=== PATIENT | male | born 1945 | race Caucasian/White ===

== ENCOUNTER 2019-10-29 14:00 | Outpatient (RCR) | payer MEDICARE, SELFPAY | END 2019-12-02 23:59 | disposition home or self-care (01) | LOC: ANHDMC 14:00 | DX: E10.65 Type 1 diabetes mellitus with hyperglycemia (principal); Z71.89 Other specified counseling | CPT/HCPCS: G0108 ==

== ENCOUNTER 2019-12-02 01:58 | Emergency (ER) | payer MEDICARE, SELFPAY ==
--- NOTE | ~2019-12-02 | XR_ITS ---
EXAMINATION: XR abdomen/kub 1V INDICATION: Right flank pain TECHNIQUE: Supine views of the abdomen were obtained on 2 radiographs. COMPARISON: CT from today and KUB dated 08/21/2015 FINDINGS: No urinary tract calculi are identified. The bowel gas pattern is normal. The visualized nawaf ng bases are clear. There is severe lumbar spondylosis. A moderate volume of colonic stool is present . IMPRESSION: 1. No urinary tract calculi identified. Reviewed, dictated and finalized at location A. E REPAIRER RECLAMATION
--- NOTE | ~2019-12-02 | CT_ITS ---
EXAMINATION: CT abdomen pelvis wo con DATE: 12/02/2019 02:34 INDICATION: Right flank pain TECHNIQUE: Computed tomography (CT) of the abdomen and pelvis was performed without intravenous contr ast. The dose-length product (DLP) was 279.43 mGy-cm. Automated exposure control and iterative recons truction technique were employed. COMPARISON: 05/20/2006 FINDINGS: Minimal dependent atelectasis is present in the lung bases. The heart size is normal. There is a large hiatal hernia containing the fundus and body of the stomach. There is mild emphysema visu alized lower lobes. Punctate calcifications in otherwise normal appearing liver and spleen likely rep resent healed granulomatous disease. The pancreas, gallbladder, and adrenal glands are normal. The ki dneys are unremarkable. No stones are identified in the kidneys, ureters, or bladder. There is no hyd ronephrosis or hydroureter. No pathologically enlarged abdominal or pelvic lymph nodes are identified . There is calcified atherosclerosis of the aorta and many of the other arteries. There is no free in traperitoneal gas or evidence of bowel obstruction. There is severe lumbar spondylosis. IMPRESSION: 1. No CT correlate for the patient's symptoms. No urinary tract calculi identified. 2. Large hiatal hernia. Reviewed, dictated and finalized at location A. IFIED MORTICIAN IMPRESSION: 1. No CT correlate for the patient's symptoms. No urinary tract calculi identif ied. 2. Large hiatal hernia.
[2019-12-02 02:01] VITALS: BP 161/110; PULSE 83; RESP 24; TEMP 36.4; O2SAT 100
--- NOTE | 2019-12-02 02:15 | ED.ABDPAIN ---
HPI - Abdominal Pain General Chief Complaint: Urogenital-Male Stated Complaint: R Flank Pain Time Seen by Provider: 12/02/19 02:10 Source: patient and RN notes reviewed Mode of arrival: ambulatory Limitations: no limitations History of Present Illness HPI narrative: Pt is a 74 y/o male with a Hx of kidney stones, who presents to the ED with c/o rt flank pain starting around 19:00 yesterday. He notes that his pain feels similar to previous kidney stones. Pt reports nausea accompanying his pain, but denies any vomiting, fever, chills, CP, SOB, or hematuria. He notes that he took Advil for his pain around 19:30 yesterday. Patient states he was working on his truck yesterday and was bending over frequently MD elicited complaint: flank pain Pertinent past history: kidney stones Onset (ago): hour(s) (7) Location: R flank Severity: similar to previous episodes Context: confirms history of similar episodes Associated symptoms: nausea Treatments prior to arrival: NSAIDs (Advil) Related Data Allergies Allergy/AdvReac Type Severity Reaction Status Date / Time codeine AdvReac Unknown N/V Verified 02/01/18 14:13 Review of Systems Review of Systems: All systems reviewed & are unremarkable except as noted in HPI and below Constitutional: Constitutional: Denies chills and Denies fever(s) Cardiovascular: Cardiovascular: Denies chest pain Respiratory: Respiratory: Denies dyspnea Gastrointestinal: Gastrointestinal: Reports nausea and Denies vomiting Genitourinary: Genitourinary: Denies hematuria and Reports flank pain (rt flank pain) PMFSH Past Medical History Medical History Cellulitis Depression Diabetes GERD (gastroesophageal reflux disease) Kidney stones Surgical History Surgical History History of tonsillectomy Hx of shoulder surgery lt shoulder Social History Social History Smoking status: Former smoker Gender identity (if verbalized by the patient): Male Exam Narrative: Exam Narrative: APPEARANCE: No acute distress, nontoxic, resting in bed EYES: EOMI HEENT: Normocephalic, atraumatic, OMM RESPIRATORY: No respiratory distress Clear to auscultation bilaterally with no rhonchi wheezing or rales. CARDIOVASCULAR: Regular rate and rhythm without murmurs rubs or gallops. ABDOMINAL: Soft, nontender, nondistended, no rebound or guarding MUSCULOSKELETAl: Moves all extremities. No clubbing, cyanosis or edema. Back: No midline thoracic or lumbar tenderness palpation, point tenderness over right paravertebral muscles L1-2 pain increased with rotation of the torso NEURO: Awake and alert. Following commands, speech normal, no focal deficits SKIN:: Warm, dry. No rashes lesions or abrasions PSYCHIATRIC: Normal affect/mood, Course Course Emergency Course: Discussed with patient results of workup and diagnosis. Discussed need for follow-up with primary care, proper use of medication, and reasons to return to the emergency department. Patient understands and agrees to current treatment plan Vital Signs Vital signs: Vital Signs Temperature 97.5 F L 12/02/19 02:01 Pulse Rate 83 12/02/19 02:01 Respiratory Rate 24 H 12/02/19 02:01 Blood Pressure 161/110 H 12/02/19 02:01 Pulse Oximetry 100 12/02/19 02:01 Temperature 97.5 F L 12/02/19 02:01 Pulse Rate 83 12/02/19 02:01 Respiratory Rate 24 H 12/02/19 02:01 Blood Pressure 161/110 H 12/02/19 02:01 Pulse Oximetry 100 12/02/19 02:01 MDM - Abdominal Pain MDM Narrative Medical decision making narrative: Patient?s pain is positional and localized to back without signs of cord compression or cauda equina. Normal nuerologic exams. No fever noted and no significant risk factors for osteomyelitis or spinal epidural abscess. No symptoms or signs to suggest pain is referred from abdominal or source. There are no pulsati
[2019-12-02] MEDS: KETOROLAC 30 MG/ML VIAL (*BKC) IV PUSH (02:21)
[2019-12-02] MEDS: LACTATED RINGERS 1,000 ML 999 ML IV CONT (02:21)
[2019-12-02] MEDS: ONDANSETRON INJ 4 MG/2 ML VIAL IV PUSH (02:21)
[2019-12-02 02:29] LABS: Basophils Absolute Auto 0.1 K/mm3 (0.0-0.1); Eosinophils Percent Auto 0.2 % (0-4.4); Hematocrit 43.5 % (42.0-52.0); Hemoglobin 14.1 g/dL (14.0-18.0); Immature Granulocyte Absolute 0.04 K/mm3 (0.00-0.031); Immature Granulocyte Percent A 0.3 % (0-0.5); Lymphocytes Absolute Auto 3.74 K/mm3 (0.9-3.2); Lymphocytes Percent Auto 32.7 % (18.3-44.2); Mean Corpuscular HGB Conc 32.4 g/dl (32-36); Mean Corpuscular Hemoglobin 30.7 pg (26-34); Mean Corpuscular Volume 94.6 fl (80-100); Mean Platelet Volume 11.4 fl (7.4-10.4); Monocytes Absolute Auto 1.4 K/mm3 (0.1-0.6); Neutrophils Absolute Auto 6.2 K/mm3 (1.3-6.7); Neutrophils Percent Auto 53.8 % (45.5-73.1); Platelet Count Result 255 k/mm3 (150-375); Red Cell Distribution Width 13.6 % (11.5-14.5); White Blood Count 11.5 K/mm3 (4.5-10.0)
[2019-12-02 02:38] LABS: Add Urine Microscopic? YES; Appearance Urine Clear (Clear); Bilirubin Urine Negative (Negative); Blood Urine Negative (Negative); Color Urine Yellow (Yellow); Glucose Urine UA 1+ mg/dL (Negative); Ketones Urine Negative (Negative); Leukocyte Esterase Ur Trace LEU/UL (Negative); Mucus Urine Rare /lpf; Nitrate Urine Negative (Negative); Protein Urine Negative (Negative); RBC Urine 0-2 /hpf (0-2); Specific Grav Ur 1.019 (1.001-1.035); Squamous Epithelial Cell Urine Rare /hpf (Few)
[2019-12-02 02:42] LABS: Alanine Aminotransferase 25 U/L (4-50); Albumin Level 4.1 g/dL (3.5-5.1); Alkaline Phosphatase 108 U/L (38-126); Aspartate Amino Transferase 27 U/L (17-59); Bilirubin,Total 0.4 mg/dL (0.2-1.3); Blood Urea Nitrogen 28 mg/dL (9-20); Carbon Dioxide 23 mmol/L (22-30); Chloride 105 mmol/L (98-107); Estimated Glomerular Filt Rate > 60; Glucose 115 mg/dL (75-110); Potassium 4.3 mmol/L (3.4-5.0); Sodium 142 mmol/L (137-145)
--- NOTE | 2019-12-02 03:34 | ECG_ITS ---
Measurements Intervals [place] Rate: 75 P: 66 IA: 174 QRS: 42 QRSD: 92 T: 41 QT: 377 QTc: 423 Interpretive Statements SINUS RHYTHM BASELINE ARTIFACT- I, II NORMAL ECG Electronically Signed On 12-02-2019 6:55:38 FEATHER DRYING MACHINE OPERATOR by Maik Moss D.O.
--- NOTE | 2019-12-02 03:35 | PC.NURSE ---
Patient requesting more IV pain medication prior to discharge. Explained to patient that we could not have narcotics to a patient that is driving themselves. Patient stated, that's silly. Explained I would speak with provider regarding more pain medication, patient stated, forget it.
[2019-12-02 03:44] VITALS: BP 156/98; PULSE 85; RESP 18; O2SAT 98
[2019-12-02] MEDS: NITROFURANTOIN MONOHYD MACROCR 100 MG CAP PO (03:44)
== END 2019-12-02 03:45 | disposition home or self-care (01) ==
PROVIDERS: Emergency Provider Emergency Medicine
DX: N39.0 Urinary tract infection, site not specified (principal); E11.9 Type 2 diabetes mellitus without complications; K21.9 Gastro-esophageal reflux disease without esophagitis; Z87.440 Personal history of urinary (tract) infections; Z87.891 Personal history of nicotine dependence; K44.9 Diaphragmatic hernia without obstruction or gangrene
CPT/HCPCS: 36415; 74018; 74176; 80053; 81001; 85025; 93005; 96361; 96374; 96375; 99284; A9270; J1885; J2405; J7120

== ENCOUNTER 2020-01-14 10:30 | Outpatient (RCR) | payer MEDICARE, SELFPAY | END 2020-03-02 23:59 | disposition home or self-care (01) | LOC: ANHDMC 10:30 | DX: E10.65 Type 1 diabetes mellitus with hyperglycemia (principal); Z71.89 Other specified counseling | CPT/HCPCS: G0108 ==

== ENCOUNTER 2020-04-28 10:30 | Outpatient (RCR) | payer MEDICARE, SELFPAY | END 2020-06-15 23:59 | disposition home or self-care (01) | LOC: ANHDMC 10:30 | DX: E10.65 Type 1 diabetes mellitus with hyperglycemia (principal); Z71.89 Other specified counseling | CPT/HCPCS: G0108 ==

== ENCOUNTER 2020-08-04 09:16 | Outpatient (RCR) | payer MEDICARE, SELFPAY | END 2020-08-04 17:23 | disposition home or self-care (01) | LOC: ANHDMC 09:16 | DX: E10.65 Type 1 diabetes mellitus with hyperglycemia (principal); Z71.89 Other specified counseling | CPT/HCPCS: G0108 ==

== ENCOUNTER 2021-07-14 10:00 | Outpatient (RCR) | payer MEDICARE, SELFPAY ==
[2021-04-27 11:04] VITALS: BMI 25.7
[2021-04-27 11:19] VITALS: BMI 25.7
[2021-07-14 10:15] VITALS: BMI 25.7
== END 2021-07-19 10:43 | disposition home or self-care (01) ==
LOC: ANHDMC 10:00
DX: E10.65 Type 1 diabetes mellitus with hyperglycemia (principal); Z71.3 Dietary counseling and surveillance
CPT/HCPCS: 97802; 97803

== ENCOUNTER 2021-09-23 13:00 | Outpatient (RCR) | payer MEDICARE, SELFPAY | END 2021-10-15 11:15 | disposition home or self-care (01) | LOC: ANHDMC 13:00 | DX: E10.65 Type 1 diabetes mellitus with hyperglycemia (principal); Z71.89 Other specified counseling | CPT/HCPCS: G0108 ==

== ENCOUNTER 2022-03-25 16:43 | Outpatient (CLI) | payer MEDICARE, SELFPAY ==
--- NOTE | ~2022-03-25 | MR_ITS ---
EXAMINATION: MR brain/brain stem wo/w con DATE: 03/25/2022 17:31 INDICATION: Memory loss. TECHNIQUE: Magnetic resonance imaging (MRI) of the brain and brainstem was performed without and with 17 mL MultiHance intravenous contrast. COMPARISON: None. FINDINGS: There are scattered areas of nonspecific increased T2-weighted signal intensity in the cere bral white matter. There is an old lacunar infarct in the right lentiform nucleus. There is no intrac ranial hemorrhage, acute infarction, or abnormal intracranial mass lesion. The ventricles are normal in size. There is a trace left mastoid effusion. There is mild mucosal thickening in the paranasal si nuses. There are likely changes of ocular lens replacement surgeries. IMPRESSION: 1. 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 2. Mild nonspecific cerebral white matter disease, which likely represents chronic small vessel ische cipriano disease. Reviewed, dictated and finalized at location B. IMPRESSION: 1. 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 2. Mild nonspecific cerebral white matter disease, which likely represents gas torch brazier yonatan small vessel ischemic disease.
[2022-03-25 17:16] LABS: Estimated Glomerular Filt Rate > 60
== END 2022-03-25 16:44 | disposition home or self-care (01) ==
PROVIDERS: Visit Provider Internal Medicine
DX: R47.9 Unspecified speech disturbances (principal); R41.3 Other amnesia; Z86.73 Personal history of transient ischemic attack (TIA), and cerebral infarction without residual deficits; R90.82 White matter disease, unspecified
CPT/HCPCS: 70553; A9577

== ENCOUNTER 2022-12-10 19:10 | Observation (INO) | payer MEDICARE, SELFPAY ==
--- NOTE | ~2022-12-10 | CT_ITS ---
EXAMINATION: CT brain wo con INDICATION: Confusion and weakness COMPARISON: MRI, 03/25/2022 TECHNIQUE: Standard unenhanced head CT. The dose-length product (DLP) was 681.00 mGy-cm. The mA was a djusted according to patient size. Iterative reconstruction technique was employed. FINDINGS: There is no acute intraparenchymal hemorrhage. No evidence of mass lesion. No evidence of a cute infarction. Again noted is an old infarct in the right lentiform nucleus. There is mild perivent ricular and subcortical hypodensity probably related to small vessel ischemic disease. There is mild prominence of the sulci and ventricles related to cerebral atrophy. Intracranial calcified cerebral a therosclerosis is noted. There are no extra-axial collections. There is no mass effect or midline yonathan ft. Changes in the globes are likely from ocular lens surgery. There is mild mucosal thickening of th e paranasal sinuses. IMPRESSION: 1. No acute intracranial abnormality. 2. Age related findings. Reviewed, dictated and finalized at location F. LIFE PHOTOGRAPHER
--- NOTE | ~2022-12-10 | XR_ITS ---
EXAMINATION: XR chest 1V portable INDICATION: Fever TECHNIQUE: Portable AP chest at 1959 hours COMPARISON: 02/01/2018 FINDINGS: The lungs are free of acute opacities. No pleural effusion or pneumothorax. The heart size is normal. There is moderate thoracic spondylosis. There appear to be changes of remote trauma to the left distal clavicle/acromioclavicular joint. IMPRESSION: 1. No acute cardiopulmonary abnormality. Reviewed, dictated and finalized at location F. MAKER HELPER
[2022-12-10 19:09] VITALS: BP 138/69; PULSE 102; RESP 18; TEMP 37.5; O2SAT 93
--- NOTE | 2022-12-10 19:18 | ED.GENADULT ---
HPI - General Adult General Chief complaint: Altered Mental Status Stated complaint: WEAKNESS; N/V Time Seen by Provider: 12/10/22 19:14 Source: patient and family Mode of arrival: EMS Limitations: clinical condition History of Present Illness HPI narrative: Patient is a 77 y/o male who presents to the ED via EMS with c/o AMS. Family at bedside assisted in providing information. Patient has no acute complaints. He is unable to tell me why he is in the ER or what made him come here. at bedside reports patient was acting normally yesterday, last night, and up until this afternoon. He did complain of some congestion and sinus pressure this morning and took 1 Benadryl before taking a nap. When came back from dinner with the family member, she noted that he was somewhat altered, confused. She states he was sitting naked in his recliner chair and told her that he had wet himself. She states patient was weak and unable to ambulate, so EMS was called. Patient does have a history of dementia, but typically is alert and oriented x4 and able to care for himself. Patient did have a fever up to 102 degrees at home. Patient somewhat restless in ED bed, moving all extremities, does report history of restless leg syndrome, but states he does not typically move around so much. Patient developed N/V upon arrival to the ED. Currently still nauseous, but denies any abdominal pain, CP, SOB. Related Data Home Medications Medication Instructions Recorded Confirmed bupropion HCl 300 mg 24 hr tablet, 300 mg PO HS 12/11/22 12/11/22 extended release clonazepam 0.5 mg tablet 0.5 mg PO DAILY PRN restless legs 12/11/22 12/11/22 enalapril maleate 20 mg tablet 20 mg PO Q12H 12/11/22 12/11/22 insulin aspart U-100 100 unit/mL See Rx Instructions .Route .COMPLEX 12/11/22 12/11/22 subcutaneous solution (Novolog U-100 Insulin aspart) memantine 5 mg tablet 5 mg PO BID 12/11/22 12/11/22 metoprolol succinate 25 mg 25 mg PO HS 12/11/22 12/11/22 tablet,extended release 24 hr rosuvastatin 5 mg tablet 5 mg PO HS 12/11/22 12/11/22 semaglutide 0.25 mg or 0.5 mg (2 0.25 mg subcut WEEKLY 12/11/22 12/11/22 mg/1.5 mL) subcutaneous pen injector (Ozempic) sertraline 100 mg tablet 100 mg PO HS 12/11/22 12/11/22 tamsulosin 0.4 mg capsule 0.4 mg PO HS 12/11/22 12/11/22 Allergies Allergy/AdvReac Type Severity Reaction Status Date / Time atorvastatin AdvReac Unknown Unknown Verified 12/11/22 02:48 codeine AdvReac Unknown N/V Verified 12/11/22 02:48 Review of Systems Review of Systems: CONSTITUTIONAL: See HPI. ENT: See HPI. CARDIOVASCULAR: Denies chest pain. RESPIRATORY: Denies dyspnea. GASTROINTESTINAL: See HPI. NEUROLOGIC: See HPI. All systems reviewed & are unremarkable except as noted in HPI and below PMFSH Past Medical History Medical History Cellulitis Dementia Depression Diabetes GERD (gastroesophageal reflux disease) Kidney stones RLS (restless legs syndrome) Surgical History Surgical History History of tonsillectomy Hx of shoulder surgery lt shoulder Family History Family History (Updated 12/11/22 @ 03:30 by Sourav Mckenna RN) Father Brain cancer Sibling Wilms' tumor Grandparent Breast cancer Social History Social History Smoking packs per day: 2 Smoking cigarettes per day: 40.0 Years smoked: 15 Smoking pack-years: 30.00 Smoking status: Former smoker Tobacco type: cigarettes Alcohol intake: current Drinks per week: 7 Substance use: never Lack of Transportation: No Lack of Food: Never True Current Housing: I Have Housing Concerned About Future Housing: No Difficulty Paying Gas/Electric Bills: No Difficulty Paying for Meds: No Currently Unemployed: No Education: High School Diploma/GED Difficul
--- NOTE | 2022-12-10 19:34 | ECG_ITS ---
Measurements Intervals [place] Rate: 100 P: 44 MS: 163 QRS: 19 QRSD: 94 T: 12 QT: 338 QTc: 437 Interpretive Statements SINUS TACHYCARDIA BASELINE ARTIFACT- I, II, III, AVR, AVL, AVF, V6 BORDERLINE ECG COMPARED TO ECG 12/02/2019 03:11:32 SINUS TACHYCARDIA NOW PRESENT Electronically Signed On 12-11-2022 6:44:18 METAPHYSICIAN by Maik Moss D.O.
[2022-12-10 20:04] LABS: Alveolar/Arterial O2 Gradient 49.6 mmHg; Base Excess ABG 0.7 mEq/l (+/-2.0); Carboxyhemoglobin 1.4 % THb (0-2.0); Fractional Inspired Oxygen 21 %; HCO3 ABG 23.8 mEq/l (22.0-26.0); Methemoglobin ABG 0.4 %THb (0-1.5); Oxygen Content ABG 18.7 %vol (16.0-22.0); Oxygen Saturation ABG 92.6 % (95.0-100.0); PCO2 ABG 33.7 mmHg (35.0-45.0); PO2 ABG 59.8 mmHg (80.0-100.0); PO2 FiO2 Ratio Arterial Blood 2.85 %; Reduced Hemoglobin 7.2 %THb (0-5.0); Total Hemoglobin 14.6 g/dL (12.0-18.0); pH ABG 7.467 (7.350-7.450)
[2022-12-10 20:05] LABS: Modified Allen's Test Pass; Site Drawn LEFT RADIAL
[2022-12-10] MEDS: SODIUM CHLORIDE 0.9% IV 1,000 ML 999 ML IV CONT ×2 (20:15→23:40)
[2022-12-10] MEDS: ONDANSETRON INJ 4 MG/2 ML VIAL IV PUSH (20:16)
[2022-12-10 20:26] VITALS: BP 142/62; PULSE 98; RESP 16; O2SAT 94
[2022-12-10 20:46] VITALS: TEMP 37.3
[2022-12-10 21:02] LABS: Basophils Absolute Auto 0.1 K/mm3 (0.0-0.1); Basophils Percent Auto 0.7 % (0.2-1.2); Eosinophils Absolute Auto 0.2 K/mm3 (0-0.3); Eosinophils Percent Auto 2.3 % (0-4.4); Hematocrit 40.8 % (42.0-52.0); Hemoglobin 13.6 g/dL (14.0-18.0); Immature Granulocyte Absolute 0.04 K/mm3 (0.00-0.031); Immature Granulocyte Percent A 0.5 % (0-0.5); Lymphocytes Absolute Auto 0.76 K/mm3 (0.9-3.2); Lymphocytes Percent Auto 8.9 % (18.3-44.2); Mean Corpuscular HGB Conc 33.3 g/dl (32-36); Mean Corpuscular Hemoglobin 31.7 pg (26-34); Mean Corpuscular Volume 95.1 fl (80-100); Mean Platelet Volume 11.5 fl (7.4-10.4); Monocytes Absolute Auto 1.3 K/mm3 (0.1-0.6); Monocytes Percent Auto 15.2 % (2.6-8.5); Neutrophils Absolute Auto 6.2 K/mm3 (1.3-6.7); Neutrophils Percent Auto 72.4 % (45.5-73.1); Platelet Count Result 156 k/mm3 (150-375); Red Blood Count 4.29 M/mm3 (4.6-6.20); Red Cell Distribution Width 13.7 % (11.5-14.5); White Blood Count 8.6 K/mm3 (4.5-10.0)
[2022-12-10 21:12] LABS: Lactic Acid Reflex 0.6 mmol/L (0.7-2.0)
[2022-12-10 21:15] LABS: Alanine Aminotransferase 27 U/L (6-50); Albumin Level 3.9 g/dL (3.5-5.1); Alkaline Phosphatase 88 U/L (38-126); Anion Gap 4 mmol/L (8-16); Aspartate Amino Transferase 25 U/L (17-59); Bilirubin,Total 0.7 mg/dL (0.2-1.3); Blood Urea Nitrogen 18 mg/dL (9-20); Calcium 8.2 mg/dL (8.4-10.2); Carbon Dioxide 23 mmol/L (22-30); Chloride 97 mmol/L (98-107); Estimated CRCL calculation 74 ml/min; Estimated Glomerular Filt Rate > 60; Glucose 101 mg/dL (65-110); Magnesium 1.8 mg/dL (1.6-2.3); Potassium 3.7 mmol/L (3.4-5.0); Sodium 124 mmol/L (137-145)
[2022-12-10 21:22] LABS: INR 1.2; Prothrombin Time 14.4 Seconds (11.1-14.7)
[2022-12-10 21:23] LABS: Partial Thromboplastin Time 30.6 SECONDS (22.3-36.8)
[2022-12-10 21:37] LABS: Influenza A QL RT-PCR Negative (Negative); Influenza B QL RT-PCR Negative (Negative); SARS-CoV-2 RNA PCR Positive
[2022-12-10 21:52] VITALS: BP 118/56; PULSE 93; RESP 16; O2SAT 96
--- NOTE | 2022-12-10 21:52 | PC.NURSE ---
Pt attmepted to give urine sample at this time. No success. Refused straight catheter.
[2022-12-10 22:19] LABS: Ammonia < 9 umol/L (9-30); Ethanol < 10 mg/dL (<10)
[2022-12-10 23:09] LABS: Appearance Urine Clear (Clear); Bilirubin Urine Negative (Negative); Blood Urine Negative (Negative); Color Urine Yellow (Yellow); Glucose Urine UA Negative (Negative); Ketones Urine Negative (Negative); Leukocyte Esterase Ur Negative LEU/UL (Negative); Nitrate Urine Negative (Negative); Protein Urine Negative (Negative); Specific Grav Ur 1.025 (1.001-1.035)
[2022-12-10 23:12] LABS: Mucus Urine Rare /lpf; RBC Urine 0-2 /hpf (0-2); WBC Urine 0-3 /hpf
[2022-12-10 23:17] LABS: Add Urine Microscopic? NO
[2022-12-10 23:18] VITALS: PULSE 89; RESP 16; TEMP 36.9; O2SAT 96
[2022-12-10 23:30] LABS: Amphetamine Screen Urine Negative (Negative); Barbiturate Screen Urine Negative (Negative); Benzodiazepines Screen Urine Negative (Negative); Cannabinoid Screen Urine Negative (Negative); Cocaine Screen Urine Negative (Negative); Methadone Screen Urine Negative (Negative); Opiate Screen Urine Negative (Negative); Phencyclidine Screen Urine Negative (Negative)
[2022-12-10 23:33] VITALS: BP 105/59
[2022-12-11] VITALS (13 sets, daily range): BP systolic 102–140; BP diastolic 41–77; PULSE 79–94; RESP 18–24; TEMP 36.6–37; O2SAT 93–98; BMI 24.7
[2022-12-11 00:34] LABS: Anion Gap 5 mmol/L (8-16); Blood Urea Nitrogen 20 mg/dL (9-20); Carbon Dioxide 24 mmol/L (22-30); Chloride 106 mmol/L (98-107); Estimated CRCL calculation 60 ml/min; Estimated Glomerular Filt Rate > 60; Glucose 121 mg/dL (65-110); Potassium 4.2 mmol/L (3.4-5.0); Sodium 135 mmol/L (137-145)
--- NOTE | 2022-12-11 02:35 | PC.NURSE ---
This patient, Curly Bean, was admitted to Medical Room 255-01. Patient/family oriented to hospital policies and general routines including ID bracelet, bed and alarms, visiting hours, pain management, procedures, bathroom and other care routines, personal items, smoking policy, room service/diet, and visiting hours. Information on how to activate the Rapid Response Team has been discussed. Patient/Family are encouraged to report perceived risks to care and to ask questions if they do not understand what they are told or what they should do.
[2022-12-11] MEDS: SODIUM CHLORIDE 0.9% IV 1,000 ML 125 ML IV CONT (03:22)
--- NOTE | 2022-12-11 03:59 | PC.NURSE ---
Patient states he refuses to wear his continuous pulse oximetry and he will let nursing staff know if he has any respiratory issues. He also has an insulin pump that his beauty counselor manages and would prefer to not take it off during this admission as he states he knows how to use it properly. Patient is alert and orientedx4.
[2022-12-11 04:31] LABS: Sodium 135 mmol/L (137-145)
--- NOTE | 2022-12-11 08:27 | PM.IMHP ---
H&P: HPI History of Present Illness Date/Time: 12/11/22 08:27 Chief Complaint: Altered mental status Narrative: 77yo male with dementia, insulin DM and RLS here for altered mental status and found to have COVID. Patient is alert oriented x4 this morning. Provides following history. History is supplemented by notes in the chart. Patient states that he was lethargic prompting this admission. According to the notes, patient was complain of congestion and sinus pressure on the morning of admission took Benadryl. Was returned she noted that the patient altered mental status. Was sitting naked his recliner chair that he urine incontinence. He had difficulty ambulating so EMS was called. She did have a fever up to 102? at. Patient states he has been having nasal congestion and a nonproductive cough with past few days. He remembers having fever but no chills. No sore throat. He denies specifically any headaches, vision changes, hearing changes, otalgia, diet faecium, dysphagia, chest pain, palpitations, shortness of breath, vomiting, diarrhea, abdominal pain, dysuria, hematuria. No numbness, tingling or weakness his extremities. He did have some mild nausea in the ED this has resolved. Patient does have insulin-dependent diabetes and has insulin pump in place. He is not believe that he had hypoglycemia. He does have rare episodes of hypoglycemia at home. He denies any history of peripheral neuropathy, nephropathy or retinopathy. Last A1c was in the 7 range. He is followed by endocrinology. EMS was called and patient was brought to the emergency room for evaluation. In the emergency, he was mildly tachycardic at 102. Vital signs otherwise were stable. He was afebrile. COVID was positive. Influenza was negative. Head CT showed no acute findings. Chest x-ray was clear. White count was normal. Sodium was 124. Glucose was 101. Normal liver and renal function. Urine drug screen is negative. Alcohol levels less than 10. Urinalysis was clear. Ammonia level is less than 9. PH was 7.47 with pCO2 34 and a PO2 60 with a saturation of 93% on room air. He was given Zofran and acetaminophen. He was given IV fluids and admitted for further care. Patient did have a sodium drawn last evening at 9:55 p.m. and was 135. Sodium this morning is again 135. Patient has been vaccinated for COVID and Influenza in August. No EMS report in the chart. Glucose was 84 on EMS arrival per . She was unsure of what the blood pressure was. She confirms recent A1c 7.7. No history of low blood pressure with his current medications. [facility] Past Medical History Medical History (Updated 12/11/22 @ 09:29 by Derek Bauman MD) Cellulitis Dementia Depression Diabetes GERD (gastroesophageal reflux disease) HTN (hypertension), benign Kidney stones RLS (restless legs syndrome) Surgical History Surgical History History of tonsillectomy Hx of shoulder surgery lt shoulder Family History Family History Father Brain cancer Sibling Wilms' tumor Grandparent Breast cancer Social History Social History (Updated 12/11/22 @ 09:25 by Derek Bauman MD) Social History: Patient smoked up to 2 packs a day for 17 years but quit at age 35. He drinks 1 alcoholic drink per day. Denies drug use. Lives with his . He is a full code. He nominates his to be the individual who would make medical decisions for him if he is unable. Smoking packs per day: 2 Smoking cigarettes per day: 40.0 Years smoked: 15 Smoking pack-years: 30.00 Smoking status: Former smoker Tobacco type: cigarettes Alcohol intake: current Drinks per week: 7 Substance use: never Lack of Transportation: No Lack of Food: Never True Current Housing: I Have Housing Concerned About Future Housing: No Difficulty Paying Gas/Electric [place]
[2022-12-11 09:46] LABS: Hemoglobin A1C 7.8 % (<5.7)
[2022-12-11 09:47] LABS: Anion Gap 4 mmol/L (8-16); Blood Urea Nitrogen 18 mg/dL (9-20); Calcium 7.9 mg/dL (8.4-10.2); Carbon Dioxide 26 mmol/L (22-30); Chloride 109 mmol/L (98-107); Estimated CRCL calculation 66 ml/min; Estimated Glomerular Filt Rate > 60; Glucose 194 mg/dL (65-110); Potassium 4.2 mmol/L (3.4-5.0); Sodium 139 mmol/L (137-145)
[2022-12-11] MEDS: ENOXAPARIN 40 MG/0.4 ML SYRINGE SUB-Q (09:59)
[2022-12-11] MEDS: ENALAPRIL MALEATE 10 MG TABLET 20 MG PO ×2 (09:59→20:54)
[2022-12-11] MEDS: MEMANTINE 5 MG TABLET PO ×2 (10:00→17:25)
[2022-12-11 10:34] LABS: Glucose Point of Care 148 mg/dl (65-105)
[2022-12-11 10:53] LABS: Folic Acid 12.5 ng/mL (2.76->20)
[2022-12-11] MEDS: DEXTROSE 5% 1,000 ML 1,000 ML 100 ML IV CONT (11:30)
[2022-12-11 12:09] LABS: Sodium 133 mmol/L (137-145)
[2022-12-11 12:26] LABS: Glucose Point of Care 173 mg/dl (65-105)
[2022-12-11 17:22] LABS: Glucose Point of Care 195 mg/dl (65-105)
[2022-12-11 17:27] LABS: Sodium 133 mmol/L (137-145)
--- NOTE | 2022-12-11 18:09 | PC.NURSE ---
this nurse spoke with Dr. Bauman, it is ok per Dr. Bauman for the patient to use his CGM and insulin pump while in the hospital. This nurse spoke with the patient and advised him on how to accurately document his boluses and advised the patient to not bolus himself-the nurse will advise him when/how many units to bolus if necessary.
[2022-12-11] MEDS: ROSUVASTATIN 5 MG TABLET PO (20:52)
[2022-12-11] MEDS: TAMSULOSIN HCL 0.4 MG CAPSULE PO (20:52)
[2022-12-11] MEDS: SERTRALINE HCL 50 MG TABLET 100 MG PO (20:53)
[2022-12-11] MEDS: buPROPion HCL XL (24 HR) 150 MG TABCR 300 MG PO (20:53)
[2022-12-11] MEDS: METOPROLOL SUCCINATE EXT REL 25 MG TABCR PO (20:54)
[2022-12-11 21:01] LABS: Glucose Point of Care 210 mg/dl (65-105)
[2022-12-12] VITALS: PULSE 88
[2022-12-12 01:34] LABS: Sodium 134 mmol/L (137-145)
[2022-12-12 04:00] VITALS: PULSE 86
[2022-12-12 05:33] VITALS: BP 132/58; PULSE 82; RESP 18; TEMP 36.9; O2SAT 95
--- NOTE | 2022-12-12 06:26 | PC.NURSE ---
Pt removed insulin pump. He stated he is unable to monitor his glucose level so he took it out.
[2022-12-12 08:00] VITALS: PULSE 92
[2022-12-12 08:02] LABS: Glucose Point of Care 219 mg/dl (65-105)
[2022-12-12] MEDS: ENOXAPARIN 40 MG/0.4 ML SYRINGE SUB-Q (08:42)
--- NOTE | 2022-12-12 10:28 | PM.DS ---
DS: Admitting Diagnosis Discharge Date 12/12/22 Admitting Diagnosis Altered mental status DS: Discharge Diagnosis Discharge Diagnosis (1) Altered mental status: Qualifiers: Altered mental status type: unspecified Qualified Code(s): R41.82 - Altered mental status, unspecified Code(s): R41.82 - Altered mental status, unspecified Status: Acute (2) COVID-19: Code(s): U07.1 - COVID-19 Status: Acute (3) Hyponatremia: Code(s): E87.1 - Hypo-osmolality and hyponatremia Status: Acute (4) Dementia: Code(s): F03.90 - Unspecified dementia, unspecified severity, without behavioral disturbance, psychotic disturbance, mood disturbance, and anxiety Status: Acute (5) Diabetes: Code(s): E11.9 - Type 2 diabetes mellitus without complications Status: Acute (6) Depression: Code(s): F32.9 - Major depressive disorder, single episode, unspecified Status: Acute (7) HTN (hypertension), benign: Code(s): I10 - Essential (primary) hypertension Status: Acute DS: Summary Hospital Course Reason for hospitalization: 77yo male with dementia, insulin DM and RLS here for altered mental status and found to have COVID.? Please see H&P for details. Hospital Course: Patient was noted to be confused at home and he was brought in by EMS. In the emergency, he was mildly tachycardic at 102.? Vital signs otherwise were stable.? He was afebrile.? COVID was positive.? Influenza was negative.? Head CT showed no acute findings.? Chest x-ray was clear.? White count was normal.? Sodium was 124.? Glucose was 101.? Normal liver and renal function.? Urine drug screen was negative.? Alcohol levels less than 10.? Urinalysis was clear.? Ammonia level is less than 9.? PH was 7.47 with pCO2 34 and a PO2 60 with a saturation of 93% on room air.? He was given Zofran and acetaminophen.? He was given IV fluids and admitted to the medical floor. Patient's mental status returned to normal. Etiologies could include fever/COVID and/or Benadryl use and/or hyponatremia and/or hypoglycemia and/or hypotension. No evidence of hypoglycemia per family. Patient however did have an episode of incontinence. It is unclear if he was just weak or if he had seizure related to hypoglycemia. This seems however less likely. His sodium was 124 on admission but jumped to 135 on repeat testing. This could be related to COVID. He is also on sertraline which could be also contributing to hyponatremia. We started D5W and stopped his normal saline. We followed serial sodium levels. Sodium leveled remained stable and was 134 on last check. We continued his insulin pump. A1c 7.8. B12, Folate and TSH normal. He was independent. He remained off Oxygen. He overall did well and was able to be discharged home on 12/12/22. Discharge instructions discussed Status at Discharge Cognitive/behavioral status at discharge: stable Time Spent with Patient Time attestation: Total time spent providing and/or coordinating discharge services: 34 minutes Time spent: Greater than 30 minutes Exam Narrative: AF 132/58 82 18 95% ra Gen - NARD Chest - lungs are clear to auscultation bilaterally. CV - RRR S1/S2 Abd - soft. Nontender. Nondistended. Ext - no pedal edema. Neuro - nonfocal Psych - normal mood and affect. Skin - warm and dry. DS: Data Data Completed and Pending Labs on day of discharge: Labs from last 24 hours 12/12/22 12/12/22 12/11/22 08:00 00:52 20:53 Sodium 134 L POC Capillary Glucose 219 H 210 H Vitamin B12 Folate TSH (Reflex) 12/11/22 12/11/22 12/11/22 17:16 17:15 12:22 Sodium 133 L POC Capillary Glucose 195 H 173 H Vitamin B12 Folate TSH (Reflex) 12/11/22 12/11/22 12/11/22 11:50 10:29 09:29 Sodium 133 L POC Capillary Glucose 148 H Vitamin B12 Folate TSH (Reflex) 0.560 12/11/22 09:29 Sodium POC Capi
== END 2022-12-12 13:09 | disposition home or self-care (01) ==
LOC: ANHED 23:14 → ANH2MED 12-11 02:58
PROVIDERS: Admitting Provider Internal Medicine; Emergency Provider Physician Assistant; PCP Internal Medicine; Visit Provider Internal Medicine
DX: R41.82 Altered mental status, unspecified (principal); U07.1 COVID-19; E87.1 Hypo-osmolality and hyponatremia; F03.90 Unspecified dementia, unspecified severity, without behavioral disturbance, psychotic disturbance, mood disturbance, and anxiety; E11.9 Type 2 diabetes mellitus without complications; Z96.41 Presence of insulin pump (external) (internal); F32.9 Major depressive disorder, single episode, unspecified; I10 Essential (primary) hypertension; R50.9 Fever, unspecified; R53.1 Weakness; R05.9 Cough, unspecified; R53.83 Other fatigue; G25.81 Restless legs syndrome; R00.0 Tachycardia, unspecified; F10.90 Alcohol use, unspecified, uncomplicated; Y90.0 Blood alcohol level of less than 20 mg/100 ml; K21.9 Gastro-esophageal reflux disease without esophagitis; Z87.891 Personal history of nicotine dependence; Z79.1 Long term (current) use of non-steroidal anti-inflammatories (NSAID); Z79.4 Long term (current) use of insulin; Z79.899 Other long term (current) drug therapy
CPT/HCPCS: 36415; 36600; 51701; 70450; 71045; 80048; 80053; 80307; 81003; 82140; 82375; 82607; 82746; 82805; 82948; 83036; 83050; 83605; 83735; 84295; 84443; 85025; 85610; 85730; 87040; 87636; 93005; 96361; 96365; 96372; 96375; 99285; A9270; G0378; J0131; J1650; J2405; J7030; J7070

== ENCOUNTER 2024-01-05 10:45 | Emergency (ER) | payer MEDICARE, SELFPAY ==
[2024-01-05 10:57] VITALS: BP 157/87; PULSE 78; RESP 20; TEMP 36.2; O2SAT 98
--- NOTE | 2024-01-05 11:13 | ED.NECK ---
HPI - Neck Pain/Injury General Chief Complaint: Neck Pain/Injury Stated Complaint: Neck Pain Time Seen by Provider: 01/05/24 11:15 Source: patient and RN notes reviewed Mode of arrival: ambulatory Limitations: no limitations History of Present Illness HPI Narrative: 78-year-old male presents with concern for neck pain. He reports he has had neck pain for 1 month, he see his primary care doctor who did x-rays told he has arthritis. He has also seen a chiropractor who provides temporary relief. He reports he wanted to get the pain ?taking care of? he denies weakness in any extremity, numbness or tingling. Reports pain is worse when turning to the left. Reports pain radiates up to the back of his head MD complaint: neck pain Related Data Home Medications Medication Instructions Recorded Confirmed bupropion HCl 300 mg 24 hr tablet, 300 mg PO HS 12/11/22 01/05/24 extended release clonazepam 0.5 mg tablet 0.5 mg PO DAILY PRN restless legs 12/11/22 01/05/24 insulin aspart U-100 100 unit/mL See Rx Instructions .Route .COMPLEX 12/11/22 01/05/24 subcutaneous solution (Novolog U-100 Insulin aspart) metoprolol succinate 25 mg 25 mg PO HS 12/11/22 01/05/24 tablet,extended release 24 hr rosuvastatin 5 mg tablet 5 mg PO HS 12/11/22 01/05/24 semaglutide 0.25 mg or 0.5 mg (2 0.25 mg subcut WEEKLY 12/11/22 01/05/24 mg/1.5 mL) subcutaneous pen injector (Ozempic) sertraline 100 mg tablet 100 mg PO HS 12/11/22 01/05/24 tamsulosin 0.4 mg capsule 0.4 mg PO HS 12/11/22 01/05/24 Allergies Allergy/AdvReac Type Severity Reaction Status Date / Time atorvastatin AdvReac Unknown Unknown Verified 01/05/24 10:55 codeine AdvReac Unknown N/V Verified 01/05/24 10:55 Review of Systems Review of Systems: CONSTITUTIONAL: Denies malaise, chills, sweats, or fever. CARDIOVASCULAR: Denies chest pain, palpitations, or edema. RESPIRATORY: Denies cough or dyspnea. GASTROINTESTINAL: Denies abdominal pain, nausea, vomiting, diarrhea, loss of bowel function GENITOURINARY: Denies dysuria, hematuria, frequency, loss of bladder function. SKIN: Denies rash or itching. MUSCULOSKELETAL: Reports neck pain NEUROLOGIC: Denies numbness, weakness, or headache. All systems reviewed & are unremarkable except as noted in HPI and below PMFSH Past Medical History Medical History (Updated 01/05/24 @ 11:23 by Alysia Kohler NP) Cellulitis Dementia Depression Diabetes GERD (gastroesophageal reflux disease) HTN (hypertension), benign Kidney stones RLS (restless legs syndrome) Surgical History Surgical History History of tonsillectomy Hx of shoulder surgery lt shoulder Family History Family History Father Brain cancer Sibling Wilms' tumor Grandparent Breast cancer Social History Social History (Updated 12/11/22 @ 09:25 by Derek Bauman MD) Social History: Patient smoked up to 2 packs a day for 17 years but quit at age 35. He drinks 1 alcoholic drink per day. Denies drug use. Lives with his . He is a full code. He nominates his to be the individual who would make medical decisions for him if he is unable. Smoking packs per day: 2 Smoking cigarettes per day: 40.0 Years smoked: 15 Smoking pack-years: 30.00 Smoking status: Former smoker Tobacco type: cigarettes Alcohol intake: current Drinks per week: 7 Substance use: never Lack of Transportation: No Lack of Food: Never True Current Housing: I Have Housing Concerned About Future Housing: No Difficulty Paying Gas/Electric Bills: No Difficulty Paying for Meds: No Currently Unemployed: No Education: High School Diploma/GED Difficulty w/ Childcare or Family Care: No Gender identity (if verbalized by the patient): Male Spiritual care concerns: No Comments At time of signature, agree with nursing past medical, surgic
== END 2024-01-05 11:30 | disposition home or self-care (01) ==
PROVIDERS: Emergency Provider Nurse Practitioner; PCP Internal Medicine
DX: M54.2 Cervicalgia (principal); Z87.891 Personal history of nicotine dependence; F03.90 Unspecified dementia, unspecified severity, without behavioral disturbance, psychotic disturbance, mood disturbance, and anxiety; E11.9 Type 2 diabetes mellitus without complications; K21.9 Gastro-esophageal reflux disease without esophagitis; I10 Essential (primary) hypertension; G25.81 Restless legs syndrome; F32.A Depression, unspecified
CPT/HCPCS: 99213; G0463

== ENCOUNTER 2024-09-24 12:28 | Inpatient (IN) | payer MEDICARE, SELFPAY ==
[2024-09-24] VITALS (8 sets, daily range): BP systolic 139–167; BP diastolic 70–93; PULSE 76–93; RESP 16–20; TEMP 36.5–37.4; O2SAT 95–100; BMI 24.6
--- NOTE | ~2024-09-24 | CT_ITS ---
CT brain wo con Ordering provider: Regan Lyles MD History: 79 years Male with . AMS . Comparison: None. Technique: CT of the head without contrast. Radiation reduction technique utilized.The dose-length product was 605.33 mGy-cm. FINDINGS: BRAIN PARENCHYMA AND CSF SPACES: Mild leukoaraiosis and diffuse cortical atrophy. Mild atheromatous d isease. No midline shift, mass effect or hemorrhage. The brain parenchyma and CSF spaces are otherwi se normal. VISUALIZED PARANASAL SINUSES: Well aerated. MASTOIDS: Well aerated. BONES: The bones appear intact. SOFT TISSUES: Visualized nasopharynx is normal. Superficial soft tissues are normal. IMPRESSION: No acute intracranial findings. Reviewed, dictated and finalized at location A. INE ATTENDANT
--- NOTE | ~2024-09-24 | XR_ITS ---
EXAMINATION: XR chest 2V DATE: 09/24/2024 14:06 INDICATION: Intermittent chest pain TECHNIQUE: PA and lateral views of the chest were obtained. COMPARISON: Chest radiograph dated 12/10/2022 FINDINGS: Large retrocardiac hiatal hernia. Lungs are clear with no focal airspace opacities, pulmonary edema, pleural effusion or pneumothorax. Heart size is normal. Severe lower thoracic spondylosis with chroni c mild anterior wedging of a few lower thoracic vertebral bodies. 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 Suture anchor at the left humeral head consistent with prior r otator cuff repair. IMPRESSION: 1. No acute cardiopulmonary disease. 2. Large hiatal hernia. Reviewed, dictated and finalized at location A. MACHINE
--- NOTE | 2024-09-24 13:42 | ED.AMS ---
HPI - Altered Mental Status General Chief Complaint: Altered Mental Status <Marialuisa Villalba, REPTILE KEEPER - Last Filed: 09/24/24 13:45> Stated Complaint: AMS, elevated BS <Marialuisa Villalba REPTILE KEEPER - Last Filed: 09/24/24 13:45> Time Seen by Provider: 09/24/24 13:20 <Marialuisa Villalba REPTILE KEEPER - Last Filed: 09/24/24 13:45> Focused HPI: Patient is a 79-year-old male who presents to the ER with altered mental status. His reports he is a type 1 diabetic and has had altered mental status intermittently this week. Patient's reports his insulin pump is not working and they are waiting on parts, but patient has not been giving himself insulin. According to patient he has flu-like symptoms, including sore throat, congestion, cough. His reports he has been having chest pain. Patient has a history of vascular dementia. At time of examination denies any chest pain, shortness of breath, fevers, urinary symptoms. GENERAL: Well-appearing, well-nourished, and in no acute distress. HEAD: Normocephalic, atraumatic. CHEST: Clear to auscultation. ?No respiratory distress. HEART: Regular rate and rhythm.? NEURO: ?Alert and oriented x3. Patient screened in triage and initial orders placed.? ?Additional care and disposition to be based upon?diagnostic testing and treatment. <Marialuisa Villalba APRN - Last Filed: 09/24/24 13:45> Focused HPI: Patient is a 79-year-old male who presents to the ER with altered mental status. His reports he is a type 2 diabetic and has had altered mental status intermittently this week. Patient's reports his insulin pump is not working and they are waiting on parts, but patient has not been giving himself insulin. According to patient he has flu-like symptoms, including sore throat, congestion, cough. His reports he has been having chest pain. Patient has a history of vascular dementia. At time of examination denies any chest pain, shortness of breath, fevers, urinary symptoms. GENERAL: Well-appearing, well-nourished, and in no acute distress. HEAD: Normocephalic, atraumatic. CHEST: Clear to auscultation. ?No respiratory distress. HEART: Regular rate and rhythm.? NEURO: ?Alert and oriented x3. Patient screened in triage and initial orders placed.? ?Additional care and disposition to be based upon?diagnostic testing and treatment. <Regan Lyles MD - Last Filed: 09/25/24 19:37> History of Present Illness HPI narrative: I agree with the above HPI <Regan Lyles MD - Last Filed: 09/25/24 19:37> Related Data Home Medications: Home Medications ?Medication ?Instructions ?Recorded ?Confirmed ?Last Taken ?Type bupropion HCl 300 mg 24 hr tablet, 300 mg PO HS 12/11/22 09/24/24 09/23/24 History extended release clonazepam 0.5 mg tablet 0.5 mg PO DAILY PRN restless legs 12/11/22 09/24/24 Unknown History insulin aspart U-100 100 unit/mL See Rx Instructions .Route .COMPLEX 12/11/22 09/24/24 Unknown History subcutaneous solution (Novolog U-100 Insulin aspart) metoprolol succinate 25 mg 25 mg PO HS 12/11/22 09/24/24 09/23/24 History tablet,extended release 24 hr rosuvastatin 5 mg tablet 5 mg PO HS 12/11/22 09/24/24 Unknown History semaglutide 0.25 mg or 0.5 mg (2 0.25 mg subcut WEEKLY 12/11/22 09/24/24 09/22/24 History mg/1.5 mL) subcutaneous pen injector (Ozempic) sertraline 100 mg tablet 100 mg PO HS 12/11/22 09/24/24 09/23/24 History tamsulosin 0.4 mg capsule 0.4 mg PO HS 12/11/22 09/24/24 09/23/24 History <Marialuisa Villalba, REPTILE KEEPER - Last Filed: 09/24/24 13:45> Allergies/Adverse Reactions: Allergies Allergy/AdvReac Type Severity Reaction Status Date / Time atorvastatin AdvReac Unknown Unknown Verified 09/24/24 12:38 codeine AdvReac Unknown N/V Verified 09/24/24 12:38 <Marialuisa Villalba REPTILE KEEPER - Last Filed: 09/24/24 13:45> Review of Systems Review of Systems: All systems reviewed & are unremarkable except as noted in HPI and below <Regan Lyles MD - Last Filed: 09/25/24 19:37> PMFSH Past Medical History Medical History: Medical History Benign prostatic hyperplasia Type 2 diabetes mellitus Gastroesophageal reflux disease Hypertension Restless leg syndrome Dementia Depression Kidney stones <Marialuisa Villalba APRN - Last Filed: 09/24/24 13:45> Surgical History Surgical History: Surgical History History of shoulder surgery left History of tonsillectomy <Marialuisa Villalba APRN - Last Filed: 09/24/24 13:45> Family History Family History: Family History Father Brain cancer Sibling Wilms' tumor Grandparent Breast cancer <Marialuisa Villalba APRN - Last Filed: 09/24/24 13:45> Social History Social History: Social History (Updated 09/24/24 @ 22:50 by Rosanne Monsalve PA-C) Social History: Surrogate medical decision maker: Kalyani Bean, spouse. Code status: Full code. Smoking packs per day: 2 Smoking cigarettes per day: 40.0 Years smoked: 15 Smoking pack-years: 30.00 Smoking status: Former smoker Alcohol intake: current Drinks per week: 6 Alcohol use details: one beer most days of the week Substance use: never Do You Feel Safe in your Home?: Yes Lack of Transportation: No Lack of Food: Never True Current Housing: I Have Housing Concerned About Future Housing: No Difficulty Paying Gas/Electric Bills: No Difficulty Paying for Meds: No Currently Unemployed: No Education: High School Diploma/GED Difficulty w/ Childcare or Family Care: No Spiritual care concerns: No <Marialuisa Villalba APRN - Last Filed: 09/24/24 13:45> Exam Narrative: APPEARANCE: Well appearing, no pain, no distress, well-nourished. HEAD: normocephalic, atraumatic. EYES: PERRLA/EOMI, conjunctivae clear. NOSE: Normal no drainage EARS:TMS clear with good light reflex. THROAT: Pharynx clear, no exudate. NECK: Supple. No adenopathy, no masses. RESPIRATORY: Airway patent, respirations nonlabored. Clear to auscultation bilaterally, no rales, rhonchi, wheezing. CARDIOVASCULAR: Regular rate and rhythm without murmurs rubs or gallops. ABDOMINAL: Soft, nontender, nondistended, normal bowel sounds MUSCULOSKELETAL: Moves all extremities. Strength/ROM intact, No edema, No calf tenderness. NEURO: Alert. Cranial nerves II through XII intact. Good gait. Good coordination SKIN: Warm, dry. Normal Color <Regan Lyles MD - Last Filed: 09/25/24 19:37> Course Vital Signs Vital signs: Vital Signs Temperature 99.4 F 09/24/24 12:29 Pulse Rate 93 09/24/24 12:29 Respiratory Rate 20 09/24/24 12:29 Blood Pressure 139/77 09/24/24 12:29 Pulse Oximetry 95 09/24/24 12:29 Oxygen Delivery Room Air 09/24/24 12:29 Temperature 97.7 F 09/25/24 14:09 Pulse Rate 89 09/25/24 14:09 Respiratory Rate 16 09/25/24 14:09 Blood Pressure 155/87 H 09/25/24 14:09 Pulse Oximetry 93 09/25/24 14:09 Oxygen Delivery Room Air 09/25/24 08:18 <Marialuisa Villalba APRN - Last Filed: 09/24/24 13:45> Vital Signs Temperature 99.4 F 09/24/24 12:29 Pulse Rate 93 09/24/24 12:29 Respiratory Rate 20 09/24/24 12:29 Blood Pressure 139/77 09/24/24 12:29 Pulse Oximetry 95 09/24/24 12:29 Oxygen Delivery Room Air 09/24/24 12:29 Temperature 97.7 F 09/25/24 14:09 Pulse Rate 89 09/25/24 14:09 Respiratory Rate 16 09/25/24 14:09 Blood Pressure 155/87 H 09/25/24 14:09 Pulse Oximetry 93 09/25/24 14:09 Oxygen Delivery Room Air 09/25/24 08:18 <Regan Lyles MD - Last Filed: 09/25/24 19:37> MDM - Altered Mental Status MDM Narrative Medical decision making narrative: 79-year-old male presenting emergency department for evaluation for altered mental status. patient was afebrile but does have a leukocytosis of 11.3 and hemoglobin of 12.9. No significant abnormalities on the patient's CMP other than elevated glucose, patient is a type 2 diabetic and has been having issues with glucose management. Urine was concerning for urinary tract infection. Family does not feel patient can be discharged to home because he is disorientated. Case was discussed with hospitalist patient was accepted for admission. Head CT was negative for acute intracranial abnormality. <Regan Lyles MD - Last Filed: 09/25/24 19:37> Differential Diagnosis Differential diagnosis: Likely altered mental status, delirium, dementia, subarachnoid hemorrhage and other <Regan Lyles MD - Last Filed: 09/25/24 19:37> Lab Data Attestation: I reviewed the patient's lab results. <Regan Lyles MD - Last Filed: 09/25/24 19:37> Result diagrams: 09/25/24 06:42 09/25/24 06:42 <Marialuisa Villalba APRN - Last Filed: 09/24/24 13:45> Labs: Lab Results 09/24/24 09/24/24 09/24/24 Range/Units 13:43 13:54 13:55 WBC 11.9 H (4.5-10.0) K/mm3 RBC 3.88 L (4.6-6.20) M/mm3 Hgb 12.4 L (14.0-18.0) g/dL Hct 37.2 L (42.0-52.0) % MCV 95.9 (80-100) fl MCH 32.0 (26-34) pg MCHC 33.3 (32-36) g/dl RDW 13.5 (11.5-14.5) % Plt Count 193 (150-375) k/mm3 MPV 11.3 H (7.4-10.4) fl Immature Gran % (Auto) 0.5 (0-0.5) % Neut % (Auto) 67.0 (45.5-73.1) % Lymph % (Auto) 18.1 L (18.3-44.2) % Dickenson % (Auto) 13.2 H (2.6-8.5) % Eos % (Auto) 0.4 (0-4.4) % Baso % (Auto) 0.8 (0.2-1.2) % Lymph # (Auto) 2.15 (0.9-3.2) K/mm3 Dickenson # (Auto) 1.6 H (0.1-0.6) K/mm3 Eos # (Auto) 0.1 (0-0.3) K/mm3 Baso # (Auto) 0.1 (0.0-0.1) K/mm3 Abs Immat Gran (auto) 0.06 H (0.00-0.031) K/mm3 Absolute Neuts (auto) 8.0 H (1.3-6.7) K/mm3 Absolute Nucleated RBC 0.000 (0.0-0.012) K/mm3 Nucleated RBC % 0.0 (0.0-0.2) % PT 13.7 (11.1-14.7) Seconds INR 1.0 APTT 28.8 (22.3-36.8) Seconds Sodium 136 L (137-145) mmol/L Potassium 4.7 (3.4-5.0) mmol/L Chloride 107 (98-107) mmol/L Carbon Dioxide 24 (22-30) mmol/L Anion Gap 5 (4-12) mmol/L BUN 22 H (9-20) mg/dL Creatinine 1.00 (0.7-1.3) mg/dL Estim Creat Clear Calc 58 ml/min Estimated GFR > 60 (59 - ) Glucose 272 H (65-110) mg/dL POC Capillary Glucose (65-105) mg/dl Hemoglobin A1c 7.3 H (<5.7) % Calcium 9.1 (8.4-10.2) mg/dL Total Bilirubin 1.0 (0.2-1.3) mg/dL AST 26 (17-59) U/L ALT 22 (6-50) U/L Alkaline Phosphatase 104 (38-126) U/L Total Protein 7.0 (6.3-8.2) g/dL Albumin 3.7 (3.5-5.1) g/dL Urine Color (Yellow) Urine Appearance (Clear) Urine pH (5.0-9.0) Ur Specific Harlan (1.001-1.035) Urine Protein (Negative) mg/dL Urine Glucose (UA) (Negative) mg/dL Urine Ketones (Negative) mg/dL Ur Blood (Man) (Negative) Urine Nitrate (Negative) Urine Bilirubin (Negative) Urine Urobilinogen (<2.0) mg/dL Leukocyte Esterase Rfl (Negative) CURLY/UL Urine RBC (0-2) /hpf Urine WBC (0-3) /hpf Ur Squamous Epith Cells (Few) /hpf Urine Bacteria /hpf Urine Casts Influenza A (RT-PCR) Negative (Negative) Influenza B (RT-PCR) Negative (Negative) RSV (RT-PCR) Negative (Negative) SARS-CoV-2 RNA (RT-PCR) Negative (Negative) 09/24/24 09/24/24 09/24/24 Range/Units 14:38 16:08 17:01 WBC (4.5-10.0) K/mm3 RBC (4.6-6.20) M/mm3 Hgb (14.0-18.0) g/dL Hct (42.0-52.0) % MCV (80-100) fl MCH (26-34) pg MCHC (32-36) g/dl RDW (11.5-14.5) % Plt Count (150-375) k/mm3 MPV (7.4-10.4) fl Immature Gran % (Auto) (0-0.5) % Neut % (Auto) (45.5-73.1) % Lymph % (Auto) (18.3-44.2) % Dickenson % (Auto) (2.6-8.5) % Eos % (Auto) (0-4.4) % Baso % (Auto) (0.2-1.2) % Lymph # (Auto) (0.9-3.2) K/mm3 Dickenson # (Auto) (0.1-0.6) K/mm3 Eos # (Auto) (0-0.3) K/mm3 Baso # (Auto) (0.0-0.1) K/mm3 Abs Immat Gran (auto) (0.00-0.031) K/mm3 Absolute Neuts (auto) (1.3-6.7) K/mm3 Absolute Nucleated RBC (0.0-0.012) K/mm3 Nucleated RBC % (0.0-0.2) % PT (11.1-14.7) Seconds INR APTT (22.3-36.8) Seconds Sodium (137-145) mmol/L Potassium (3.4-5.0) mmol/L Chloride (98-107) mmol/L Carbon Dioxide (22-30) mmol/L Anion Gap (4-12) mmol/L BUN (9-20) mg/dL Creatinine (0.7-1.3) mg/dL Estim Creat Clear Calc ml/min Estimated GFR (59 - ) Glucose (65-110) mg/dL POC Capillary Glucose 222 H (65-105) mg/dl Hemoglobin A1c (<5.7) % Calcium (8.4-10.2) mg/dL Total Bilirubin (0.2-1.3) mg/dL AST (17-59) U/L ALT (6-50) U/L Alkaline Phosphatase (38-126) U/L Total Protein (6.3-8.2) g/dL Albumin (3.5-5.1) g/dL Urine Color Yellow (Yellow) Urine Appearance Clear (Clear) Urine pH 6.5 (5.0-9.0) Ur Specific Harlan 1.019 (1.001-1.035) Urine Protein Negative (Negative) mg/dL Urine Glucose (UA) 3+ H (Negative) mg/dL Urine Ketones Negative (Negative) mg/dL Ur Blood (Man) Negative (Negative) Urine Nitrate Negative (Negative) Urine Bilirubin Negative (Negative) Urine Urobilinogen 1.0 (<2.0) mg/dL Leukocyte Esterase Rfl Trace H (Negative) CURLY/UL Urine RBC 0-2 (0-2) /hpf Urine WBC 6-10 H (0-3) /hpf Ur Squamous Epith Cells None seen (Few) /hpf Urine Bacteria 4+ H /hpf Urine Casts 0-2 Influenza A (RT-PCR) Negative (Negative) Influenza B (RT-PCR) Negative (Negative) RSV (RT-PCR) Negative (Negative) SARS-CoV-2 RNA (RT-PCR) Negative (Negative) 09/24/24 Range/Units 18:16 WBC (4.5-10.0) K/mm3 RBC (4.6-6.20) M/mm3 Hgb (14.0-18.0) g/dL Hct (42.0-52.0) % MCV (80-100) fl MCH (26-34) pg MCHC (32-36) g/dl RDW (11.5-14.5) % Plt Count (150-375) k/mm3 MPV (7.4-10.4) fl Immature Gran % (Auto) (0-0.5) % Neut % (Auto) (45.5-73.1) % Lymph % (Auto) (18.3-44.2) % Dickenson % (Auto) (2.6-8.5) % Eos % (Auto) (0-4.4) % Baso % (Auto) (0.2-1.2) % Lymph # (Auto) (0.9-3.2) K/mm3 Dickenson # (Auto) (0.1-0.6) K/mm3 Eos # (Auto) (0-0.3) K/mm3 Baso # (Auto) (0.0-0.1) K/mm3 Abs Immat Gran (auto) (0.00-0.031) K/mm3 Absolute Neuts (auto) (1.3-6.7) K/mm3 Absolute Nucleated RBC (0.0-0.012) K/mm3 Nucleated RBC % (0.0-0.2) % PT (11.1-14.7) Seconds INR APTT (22.3-36.8) Seconds Sodium (137-145) mmol/L Potassium (3.4-5.0) mmol/L Chloride (98-107) mmol/L Carbon Dioxide (22-30) mmol/L Anion Gap (4-12) mmol/L BUN (9-20) mg/dL Creatinine (0.7-1.3) mg/dL Estim Creat Clear Calc ml/min Estimated GFR (59 - ) Glucose (65-110) mg/dL POC Capillary Glucose 226 H (65-105) mg/dl Hemoglobin A1c (<5.7) % Calcium (8.4-10.2) mg/dL Total Bilirubin (0.2-1.3) mg/dL AST (17-59) U/L ALT (6-50) U/L Alkaline Phosphatase (38-126) U/L Total Protein (6.3-8.2) g/dL Albumin (3.5-5.1) g/dL Urine Color (Yellow) Urine Appearance (Clear) Urine pH (5.0-9.0) Ur Specific Harlan (1.001-1.035) Urine Protein (Negative) mg/dL Urine Glucose (UA) (Negative) mg/dL Urine Ketones (Negative) mg/dL Ur Blood (Man) (Negative) Urine Nitrate (Negative) Urine Bilirubin (Negative) Urine Urobilinogen (<2.0) mg/dL Leukocyte Esterase Rfl (Negative) CURLY/UL Urine RBC (0-2) /hpf Urine WBC (0-3) /hpf Ur Squamous Epith Cells (Few) /hpf Urine Bacteria /hpf Urine Casts Influenza A (RT-PCR) (Negative) Influenza B (RT-PCR) (Negative) RSV (RT-PCR) (Negative) SARS-CoV-2 RNA (RT-PCR) (Negative) <Marialuisa Villalba, REPTILE KEEPER - Last Filed: 09/24/24 13:45> Lab Results 09/24/24 09/24/24 09/24/24 Range/Units 13:43 13:54 13:55 WBC 11.9 H (4.5-10.0) K/mm3 RBC 3.88 L (4.6-6.20) M/mm3 Hgb 12.4 L (14.0-18.0) g/dL Hct 37.2 L (42.0-52.0) % MCV 95.9 (80-100) fl MCH 32.0 (26-34) pg MCHC 33.3 (32-36) g/dl RDW 13.5 (11.5-14.5) % Plt Count 193 (150-375) k/mm3 MPV 11.3 H (7.4-10.4) fl Immature Gran % (Auto) 0.5 (0-0.5) % Neut % (Auto) 67.0 (45.5-73.1) % Lymph % (Auto) 18.1 L (18.3-44.2) % Dickenson % (Auto) 13.2 H (2.6-8.5) % Eos % (Auto) 0.4 (0-4.4) % Baso % (Auto) 0.8 (0.2-1.2) % Lymph # (Auto) 2.15 (0.9-3.2) K/mm3 Dickenson # (Auto) 1.6 H (0.1-0.6) K/mm3 Eos # (Auto) 0.1 (0-0.3) K/mm3 Baso # (Auto) 0.1 (0.0-0.1) K/mm3 Abs Immat Gran (auto) 0.06 H (0.00-0.031) K/mm3 Absolute Neuts (auto) 8.0 H (1.3-6.7) K/mm3 Absolute Nucleated RBC 0.000 (0.0-0.012) K/mm3 Nucleated RBC % 0.0 (0.0-0.2) % PT 13.7 (11.1-14.7) Seconds INR 1.0 APTT 28.8 (22.3-36.8) Seconds Sodium 136 L (137-145) mmol/L Potassium 4.7 (3.4-5.0) mmol/L Chloride 107 (98-107) mmol/L Carbon Dioxide 24 (22-30) mmol/L Anion Gap 5 (4-12) mmol/L BUN 22 H (9-20) mg/dL Creatinine 1.00 (0.7-1.3) mg/dL Estim Creat Clear Calc 58 ml/min Estimated GFR > 60 (59 - ) Glucose 272 H (65-110) mg/dL POC Capillary Glucose (65-105) mg/dl Hemoglobin A1c 7.3 H (<5.7) % Calcium 9.1 (8.4-10.2) mg/dL Total Bilirubin 1.0 (0.2-1.3) mg/dL AST 26 (17-59) U/L ALT 22 (6-50) U/L Alkaline Phosphatase 104 (38-126) U/L Total Protein 7.0 (6.3-8.2) g/dL Albumin 3.7 (3.5-5.1) g/dL Urine Color (Yellow) Urine Appearance (Clear) Urine pH (5.0-9.0) Ur Specific Harlan (1.001-1.035) Urine Protein (Negative) mg/dL Urine Glucose (UA) (Negative) mg/dL Urine Ketones (Negative) mg/dL Ur Blood (Man) (Negative) Urine Nitrate (Negative) Urine Bilirubin (Negative) Urine Urobilinogen (<2.0) mg/dL Leukocyte Esterase Rfl (Negative) CURLY/UL Urine RBC (0-2) /hpf Urine WBC (0-3) /hpf Ur Squamous Epith Cells (Few) /hpf Urine Bacteria /hpf Urine Casts Influenza A (RT-PCR) Negative (Negative) Influenza B (RT-PCR) Negative (Negative) RSV (RT-PCR) Negative (Negative) SARS-CoV-2 RNA (RT-PCR) Negative (Negative) 09/24/24 09/24/24 09/24/24 Range/Units 14:38 16:08 17:01 WBC (4.5-10.0) K/mm3 RBC (4.6-6.20) M/mm3 Hgb (14.0-18.0) g/dL Hct (42.0-52.0) % MCV (80-100) fl MCH (26-34) pg MCHC (32-36) g/dl RDW (11.5-14.5) % Plt Count (150-375) k/mm3 MPV (7.4-10.4) fl Immature Gran % (Auto) (0-0.5) % Neut % (Auto) (45.5-73.1) % Lymph % (Auto) (18.3-44.2) % Dickenson % (Auto) (2.6-8.5) % Eos % (Auto) (0-4.4) % Baso % (Auto) (0.2-1.2) % Lymph # (Auto) (0.9-3.2) K/mm3 Dickenson # (Auto) (0.1-0.6) K/mm3 Eos # (Auto) (0-0.3) K/mm3 Baso # (Auto) (0.0-0.1) K/mm3 Abs Immat Gran (auto) (0.00-0.031) K/mm3 Absolute Neuts (auto) (1.3-6.7) K/mm3 Absolute Nucleated RBC (0.0-0.012) K/mm3 Nucleated RBC % (0.0-0.2) % PT (11.1-14.7) Seconds INR APTT (22.3-36.8) Seconds Sodium (137-145) mmol/L Potassium (3.4-5.0) mmol/L Chloride (98-107) mmol/L Carbon Dioxide (22-30) mmol/L Anion Gap (4-12) mmol/L BUN (9-20) mg/dL Creatinine (0.7-1.3) mg/dL Estim Creat Clear Calc ml/min Estimated GFR (59 - ) Glucose (65-110) mg/dL POC Capillary Glucose 222 H (65-105) mg/dl Hemoglobin A1c (<5.7) % Calcium (8.4-10.2) mg/dL Total Bilirubin (0.2-1.3) mg/dL AST (17-59) U/L ALT (6-50) U/L Alkaline Phosphatase (38-126) U/L Total Protein (6.3-8.2) g/dL Albumin (3.5-5.1) g/dL Urine Color Yellow (Yellow) Urine Appearance Clear (Clear) Urine pH 6.5 (5.0-9.0) Ur Specific Harlan 1.019 (1.001-1.035) Urine Protein Negative (Negative) mg/dL Urine Glucose (UA) 3+ H (Negative) mg/dL Urine Ketones Negative (Negative) mg/dL Ur Blood (Man) Negative (Negative) Urine Nitrate Negative (Negative) Urine Bilirubin Negative (Negative) Urine Urobilinogen 1.0 (<2.0) mg/dL Leukocyte Esterase Rfl Trace H (Negative) CURLY/UL Urine RBC 0-2 (0-2) /hpf Urine WBC 6-10 H (0-3) /hpf Ur Squamous Epith Cells None seen (Few) /hpf Urine Bacteria 4+ H /hpf Urine Casts 0-2 Influenza A (RT-PCR) Negative (Negative) Influenza B (RT-PCR) Negative (Negative) RSV (RT-PCR) Negative (Negative) SARS-CoV-2 RNA (RT-PCR) Negative (Negative) 09/24/24 Range/Units 18:16 WBC (4.5-10.0) K/mm3 RBC (4.6-6.20) M/mm3 Hgb (14.0-18.0) g/dL Hct (42.0-52.0) % MCV (80-100) fl MCH (26-34) pg MCHC (32-36) g/dl RDW (11.5-14.5) % Plt Count (150-375) k/mm3 MPV (7.4-10.4) fl Immature Gran % (Auto) (0-0.5) % Neut % (Auto) (45.5-73.1) % Lymph % (Auto) (18.3-44.2) % Dickenson % (Auto) (2.6-8.5) % Eos % (Auto) (0-4.4) % Baso % (Auto) (0.2-1.2) % Lymph # (Auto) (0.9-3.2) K/mm3 Dickenson # (Auto) (0.1-0.6) K/mm3 Eos # (Auto) (0-0.3) K/mm3 Baso # (Auto) (0.0-0.1) K/mm3 Abs Immat Gran (auto) (0.00-0.031) K/mm3 Absolute Neuts (auto) (1.3-6.7) K/mm3 Absolute Nucleated RBC (0.0-0.012) K/mm3 Nucleated RBC % (0.0-0.2) % PT (11.1-14.7) Seconds INR APTT (22.3-36.8) Seconds Sodium (137-145) mmol/L Potassium (3.4-5.0) mmol/L Chloride (98-107) mmol/L Carbon Dioxide (22-30) mmol/L Anion Gap (4-12) mmol/L BUN (9-20) mg/dL Creatinine (0.7-1.3) mg/dL Estim Creat Clear Calc ml/min Estimated GFR (59 - ) Glucose (65-110) mg/dL POC Capillary Glucose 226 H (65-105) mg/dl Hemoglobin A1c (<5.7) % Calcium (8.4-10.2) mg/dL Total Bilirubin (0.2-1.3) mg/dL AST (17-59) U/L ALT (6-50) U/L Alkaline Phosphatase (38-126) U/L Total Protein (6.3-8.2) g/dL Albumin (3.5-5.1) g/dL Urine Color (Yellow) Urine Appearance (Clear) Urine pH (5.0-9.0) Ur Specific Harlan (1.001-1.035) Urine Protein (Negative) mg/dL Urine Glucose (UA) (Negative) mg/dL Urine Ketones (Negative) mg/dL Ur Blood (Man) (Negative) Urine Nitrate (Negative) Urine Bilirubin (Negative) Urine Urobilinogen (<2.0) mg/dL Leukocyte Esterase Rfl (Negative) CURLY/UL Urine RBC (0-2) /hpf Urine WBC (0-3) /hpf Ur Squamous Epith Cells (Few) /hpf Urine Bacteria /hpf Urine Casts Influenza A (RT-PCR) (Negative) Influenza B (RT-PCR) (Negative) RSV (RT-PCR) (Negative) SARS-CoV-2 RNA (RT-PCR) (Negative) <Regan Lyles MD - Last Filed: 09/25/24 19:37> Discharge Plan Discharge Clinical Impression: Dementia, Diabetes, Acute UTI Altered mental status Qualifiers: Altered mental status type: unspecified Qualified Code(s): R41.82 - Altered mental status, unspecified <Marialuisa Villalba APRN - Last Filed: 09/24/24 13:45> Patient Disposition: Still a Patient <Marialuisa Villalba APRN - Last Filed: 09/24/24 13:45> Condition: Stable <Marialuisa Villalba APRN - Last Filed: 09/24/24 13:45>
--- NOTE | 2024-09-24 13:46 | ECG_ITS ---
Test Date: 2024-09-24 18:22:11 Measurements Intervals [place] Rate: 79 P: 54 [place]: 162 QRS: 35 QRSD: 88 T: 44 QT: 393 QTc: 452 Interpretive Statements SINUS RHYTHM No previous ECG available for comparison Electronically Signed On 09-25-2024 14:19:12 LEGAL ARBITRATOR by Renate Chapman M.D.
[2024-09-24 14:03] LABS: Basophils Absolute Auto 0.1 K/mm3 (0.0-0.1); Basophils Percent Auto 0.8 % (0.2-1.2); Eosinophils Absolute Auto 0.1 K/mm3 (0-0.3); Eosinophils Percent Auto 0.4 % (0-4.4); Hematocrit 37.2 % (42.0-52.0); Hemoglobin 12.4 g/dL (14.0-18.0); Immature Granulocyte Absolute 0.06 K/mm3 (0.00-0.031); Immature Granulocyte Percent A 0.5 % (0-0.5); Lymphocytes Absolute Auto 2.15 K/mm3 (0.9-3.2); Lymphocytes Percent Auto 18.1 % (18.3-44.2); Mean Corpuscular HGB Conc 33.3 g/dl (32-36); Mean Corpuscular Volume 95.9 fl (80-100); Mean Platelet Volume 11.3 fl (7.4-10.4); Monocytes Absolute Auto 1.6 K/mm3 (0.1-0.6); Monocytes Percent Auto 13.2 % (2.6-8.5); Platelet Count Result 193 k/mm3 (150-375); Red Blood Count 3.88 M/mm3 (4.6-6.20); Red Cell Distribution Width 13.5 % (11.5-14.5); White Blood Count 11.9 K/mm3 (4.5-10.0)
[2024-09-24 14:11] LABS: Prothrombin Time 13.7 Seconds (11.1-14.7)
[2024-09-24 14:12] LABS: Partial Thromboplastin Time 28.8 Seconds (22.3-36.8)
[2024-09-24 14:13] LABS: Alanine Aminotransferase 22 U/L (6-50); Albumin Level 3.7 g/dL (3.5-5.1); Alkaline Phosphatase 104 U/L (38-126); Anion Gap 5 mmol/L (4-12); Aspartate Amino Transferase 26 U/L (17-59); Blood Urea Nitrogen 22 mg/dL (9-20); Calcium 9.1 mg/dL (8.4-10.2); Carbon Dioxide 24 mmol/L (22-30); Chloride 107 mmol/L (98-107); Estimated CRCL calculation 58 ml/min; Estimated Glomerular Filt Rate > 60; Glucose 272 mg/dL (65-110); Potassium 4.7 mmol/L (3.4-5.0); Sodium 136 mmol/L (137-145)
[2024-09-24 14:24] LABS: Influenza A QL RT-PCR Negative (Negative); Influenza B QL RT-PCR Negative (Negative); RSV RNA, RT-PCR Negative (Negative); SARS-CoV-2 RNA PCR Negative (Negative)
[2024-09-24 14:58] LABS: Add Urine Microscopic? YES; Appearance Urine Clear (Clear); Bacteria Urine 4+ /hpf; Bilirubin Urine Negative (Negative); Blood Urine Negative (Negative); Color Urine Yellow (Yellow); Glucose Urine UA 3+ mg/dL (Negative); Ketones Urine Negative (Negative); Leukocyte Esterase Ur Trace LEU/UL (Negative); Nitrate Urine Negative (Negative); Non Pathogenic Casts 0-2; Protein Urine Negative (Negative); RBC Urine 0-2 /hpf (0-2); Specific Grav Ur 1.019 (1.001-1.035); Squamous Epithelial Cell Urine None Seen /hpf (Few); pH Urine 6.5 (5.0-9.0)
[2024-09-24] MEDS: INSULIN HUMAN REGULAR (*BKC) 100 UNITS/ML SUB-Q (15:29)
[2024-09-24 16:55] LABS: Influenza A QL RT-PCR Negative (Negative); Influenza B QL RT-PCR Negative (Negative); RSV RNA, RT-PCR Negative (Negative); SARS-CoV-2 RNA PCR Negative (Negative)
[2024-09-24 17:06] LABS: Glucose Point of Care 222 mg/dl (65-105)
--- NOTE | 2024-09-24 18:20 | PM.IMHP ---
H&P: HPI History of Present Illness Date/Time: 09/24/24 19:15 Chief Complaint: Confusion. Narrative: This is a 79-year-old male with dementia, hypertension, hyperlipidemia, type 2 diabetes mellitus, and depression who presented to the emergency department via EMS from home for evaluation of confusion. The patient is able to provide some history and his provides additional information with the patient's permission. Over the course of the last 3 days he has been more confused than usual and ?saying and doing odd things? intermittently. called EMS yesterday to bring him in for evaluation though he refused transport at that time. Today he allow her to bring him in for evaluation. He endorses a nonproductive cough, mild sore throat, and runny nose a tells me ?everybody else at home has had that too.? He is otherwise feeling okay and denies fever, chills, sweats, chest pain, shortness of breath, productive cough, abdominal pain, nausea, vomiting, diarrhea, dysuria, headache, and neck ache. In the ED: Vital signs were stable on arrival. Labs were significant for WBC count of 11.9, hemoglobin 12.4, sodium 136, potassium 4.7, BUN 22, creatinine 1.00. Urinalysis was positive for trace leukocyte esterase, 4+ bacteria, and 6 to 10 WBC per high-power field. Brain CT and chest x-ray were without acute findings. He was given a dose of ceftriaxone is being admitted in this setting for further evaluation. Review of Systems Review of Systems: Difficult to obtain as he is not an accurate historian at this time due to his confusion. [facility] Past Medical History Medical History Benign prostatic hyperplasia Type 2 diabetes mellitus Gastroesophageal reflux disease Hypertension Restless leg syndrome Dementia Depression Kidney stones Surgical History Surgical History History of shoulder surgery left History of tonsillectomy Family History Family History Father Brain cancer Sibling Wilms' tumor Grandparent Breast cancer Social History Social History (Updated 09/24/24 @ 22:50 by Rosanne Monsalve PA-C) Social History: Surrogate medical decision maker: Kalyani Bean, spouse. Code status: Full code. Smoking packs per day: 2 Smoking cigarettes per day: 40.0 Years smoked: 15 Smoking pack-years: 30.00 Smoking status: Former smoker Alcohol intake: current Drinks per week: 6 Alcohol use details: one beer most days of the week Substance use: never Do You Feel Safe in your Home?: Yes Lack of Transportation: No Lack of Food: Never True Current Housing: I Have Housing Concerned About Future Housing: No Difficulty Paying Gas/Electric Bills: No Difficulty Paying for Meds: No Currently Unemployed: No Education: High School Diploma/GED Difficulty w/ Childcare or Family Care: No Spiritual care concerns: No Meds Home Medications and Allergies Home Medications ?Medication ?Instructions ?Recorded ?Confirmed ?Type bupropion HCl 300 mg 24 hr tablet, 300 mg PO HS 12/11/22 09/24/24 History extended release clonazepam 0.5 mg tablet 0.5 mg PO DAILY PRN restless legs 12/11/22 09/24/24 History insulin aspart U-100 100 unit/mL See Rx Instructions .Route .COMPLEX 12/11/22 09/24/24 History subcutaneous solution (Novolog U-100 Insulin aspart) metoprolol succinate 25 mg 25 mg PO HS 12/11/22 09/24/24 History tablet,extended release 24 hr rosuvastatin 5 mg tablet 5 mg PO HS 12/11/22 09/24/24 History semaglutide 0.25 mg or 0.5 mg (2 0.25 mg subcut WEEKLY 12/11/22 09/24/24 History mg/1.5 mL) subcutaneous pen injector (Ozempic) sertraline 100 mg tablet 100 mg PO HS 12/11/22 09/24/24 History tamsulosin 0.4 mg capsule 0.4 mg PO HS 12/11/22 09/24/24 History enalapril maleate 20 mg tablet 20 mg PO HS #1 tablet 12/12/22 09/24/24 Rx memantine 5 mg tablet 5 mg PO HS #1 tablet 12/12/22 09/24/24 Rx cephalexin 500 mg capsule 500 mg PO Q6H 7 days #28 caps 09/24/24 Rx Allergies Allergy/AdvReac Type Severity Reaction Status Date / Time atorvastatin AdvReac Unknown Unknown Verified 09/24/24 12:38 codeine AdvReac Unknown N/V Verified 09/24/24 12:38 Vital Signs Vital Signs - 24 hr 09/24/24 12:29 09/24/24 14:46 09/24/24 15:47 Temperature 99.4 F 97.8 F 97.9 F Pulse Rate 93 78 79 Respiratory Rate 20 20 20 Blood Pressure 139/77 158/80 H 166/84 H Pulse Oximetry 95 97 96 Oxygen Delivery Room Air 09/24/24 16:17 09/24/24 16:47 09/24/24 16:47 Temperature 97.7 F 97.8 F Pulse Rate 80 78 Respiratory Rate 18 16 Blood Pressure 164/82 H 149/93 H Pulse Oximetry 97 100 Oxygen Delivery Room Air 09/24/24 17:32 09/24/24 18:14 Temperature 97.9 F 97.9 F Pulse Rate 80 76 Respiratory Rate 16 18 Blood Pressure 139/93 H 143/70 H Pulse Oximetry 98 99 Oxygen Delivery Exam Narrative: General: Nontoxic-appearing male in the semi-Grover position in bed. Weight: 82.4 kg. BMI: 24.6. HEENT: Normocephalic, atraumatic. PERRL, EOMI. Sclera anicteric. Conjunctiva mildly injected. Oral mucosa moist. Oropharynx poorly visualized. Neck: Supple. No lymphadenopathy, thyromegaly, or obvious bruits. Respiratory: Respirations are nonlabored and he is speaking in full sentences. Occasional dry cough. Lungs are clear. Cardiovascular: Regular rate and rhythm with S1-S2. No murmur, rub, or gallop. Gastrointestinal: Abdomen is soft, nontender, and nondistended with positive bowel sounds. Skin: Warm and dry. No rash or lesions on limited exam. Extremities: No cyanosis, clubbing, or edema. Radial and pedal pulses intact. Neurological: Alert to name, age, and date of . He is aware that he is in the hospital. He cannot provide me with the accurate year. Cranial nerves 2-12 are grossly intact. Speech is clear. No facial asymmetry. 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 No pronator drift. Normal [id number]. Psychiatric: Pleasant and cooperative. He is in good spirits but seems a bit restless. He is forgetful. H&P: Results Labs Labs: Short CBC 09/24/24 Range/Units 13:55 WBC 11.9 H (4.5-10.0) K/mm3 Hgb 12.4 L (14.0-18.0) g/dL Hct 37.2 L (42.0-52.0) % Plt Count 193 (150-375) k/mm3 BMP 09/24/24 13:55 Sodium 136 L Potassium 4.7 Chloride 107 Carbon Dioxide 24 BUN 22 H Creatinine 1.00 Glucose 272 H Calcium 9.1 Liver Function 09/24/24 Range/Units 13:55 Total Bilirubin 1.0 (0.2-1.3) mg/dL AST 26 (17-59) U/L ALT 22 (6-50) U/L Alkaline Phosphatase 104 (38-126) U/L Albumin 3.7 (3.5-5.1) g/dL Urine 09/24/24 Range/Units 14:38 Urine Color Yellow (Yellow) Urine Appearance Clear (Clear) Urine pH 6.5 (5.0-9.0) Ur Specific [place] 1.019 (1.001-1.035) Urine Protein Negative (Negative) mg/dL Urine Glucose (UA) 3+ H (Negative) mg/dL Imaging Head CT 09/24/24 13:50 IMPRESSION: 1. No acute intracranial findings. Chest X-Ray 09/24/24 14:17 IMPRESSION: 1. No acute cardiopulmonary disease. 2. Large hiatal hernia. Assessment and Plan Assessment and plan (1) Dementia: Code(s): F03.90 - Unspecified dementia, unspecified severity, without behavioral disturbance, psychotic disturbance, mood disturbance, and anxiety Status: Acute (2) Bacteriuria: Code(s): R82.71 - Bacteriuria Status: Acute (3) Type 2 diabetes mellitus: Code(s): E11.9 - Type 2 diabetes mellitus without complications Status: Acute (4) Hypertension: Code(s): I10 - Essential (primary) hypertension Status: Acute (5) Restless leg syndrome: Code(s): G25.81 - Restless legs syndrome Status: Acute (6) Benign prostatic hyperplasia: Code(s): N40.0 - Benign prostatic hyperplasia without lower urinary tract symptoms Status: Acute Plan The patient presented to the emergency department accompanied by his for evaluation of increasing confusion as detailed in HPI. Labs, imaging, EKG, and all reports were personally reviewed. He does have dementia however states he has been increasingly confused the last couple of days. Urine is positive for bacteria and leukocyte esterase but only 6 to 10 WBCs were seen per high-power field. He has been started on ceftriaxone, pending urine cultures. No focal deficits were noted on exam to suggest stroke. His blood pressures have been stable and he has been afebrile. Random glucose was over 200. Continue basal insulin. Initiate sliding scale insulin, Accu-Cheks, and hypoglycemic protocol. Blood pressures were reviewed and they are stable. Bladder scan to rule out urinary retention. His home medications will be reviewed and resumed as appropriate. Findings and treatment plan were discussed with the patient. Questions were solicited and answered to satisfaction. The patient's medical management will be taken over by the hospitalist team in a.m. Quality VTE Prophylaxis VTE prophylaxis: pharmacologic ordered Hospitalist [facility] Advance Care Plan I have confirmed that the patient's Advanced Care Plan is present, code status is documented, or surrogate decision maker is listed in patient medical record.: Yes Medication Reconciliation I have utilized all available resources to obtain, update and review the patients current medications (includes all prescriptions, OTC, herbals, cannabis, and nutritional supplements).: Yes
[2024-09-24 18:27] LABS: Glucose Point of Care 226 mg/dl (65-105)
--- NOTE | 2024-09-24 19:05 | ECG_ITS ---
Test Date: 2024-09-24 19:28:51 Measurements Intervals [place] Rate: 81 P: 43 RI: 164 QRS: 22 QRSD: 85 T: 21 QT: 371 QTc: 432 Interpretive Statements SINUS RHYTHM Compared to ECG 09/24/2024 18:32:50 No significant changes Electronically Signed On 09-25-2024 14:20:37 HOSPITAL ADMINISTRATIVE ASSISTANT by Renate Chapman M.D.
--- NOTE | 2024-09-24 19:31 | PC.NURSE ---
Admission report provided to PATRICE Marcial.
[2024-09-24 20:58] LABS: Hemoglobin A1C 7.3 % (<5.7)
[2024-09-24 21:54] LABS: Glucose Point of Care 244 mg/dl (65-105)
[2024-09-24] MEDS: SODIUM CHLORIDE 0.9% IV 1,000 ML 100 ML IV CONT (22:31)
[2024-09-24] MEDS: INSULIN ASPART (*BKC) 100 UNITS/ML SUB-Q (22:32)
[2024-09-25 04:25] VITALS: BP 179/91; PULSE 91; RESP 20; TEMP 36.5; O2SAT 95
[2024-09-25 07:07] LABS: Basophils Absolute Auto 0.1 K/mm3 (0.0-0.1); Basophils Percent Auto 0.8 % (0.2-1.2); Eosinophils Absolute Auto 0.5 K/mm3 (0-0.3); Eosinophils Percent Auto 4.4 % (0-4.4); Hematocrit 39.7 % (42.0-52.0); Hemoglobin 12.9 g/dL (14.0-18.0); Immature Granulocyte Absolute 0.07 K/mm3 (0.00-0.031); Immature Granulocyte Percent A 0.6 % (0-0.5); Lymphocytes Absolute Auto 2.07 K/mm3 (0.9-3.2); Lymphocytes Percent Auto 18.4 % (18.3-44.2); Mean Corpuscular HGB Conc 32.5 g/dl (32-36); Mean Corpuscular Hemoglobin 31.7 pg (26-34); Mean Corpuscular Volume 97.5 fl (80-100); Mean Platelet Volume 11.7 fl (7.4-10.4); Monocytes Absolute Auto 1.5 K/mm3 (0.1-0.6); Monocytes Percent Auto 12.9 % (2.6-8.5); Neutrophils Absolute Auto 7.1 K/mm3 (1.3-6.7); Neutrophils Percent Auto 62.9 % (45.5-73.1); Platelet Count Result 204 k/mm3 (150-375); Red Blood Count 4.07 M/mm3 (4.6-6.20); Red Cell Distribution Width 13.3 % (11.5-14.5); White Blood Count 11.3 K/mm3 (4.5-10.0)
[2024-09-25 07:16] LABS: Anion Gap 7 mmol/L (4-12); Blood Urea Nitrogen 18 mg/dL (9-20); Calcium 8.9 mg/dL (8.4-10.2); Carbon Dioxide 24 mmol/L (22-30); Chloride 105 mmol/L (98-107); Estimated CRCL calculation 64 ml/min; Estimated Glomerular Filt Rate > 60; Glucose 311 mg/dL (65-110); Magnesium 2.1 mg/dL (1.6-2.3); Potassium 4.6 mmol/L (3.4-5.0); Sodium 136 mmol/L (137-145)
[2024-09-25 07:52] LABS: Glucose Point of Care 318 mg/dl (65-105)
[2024-09-25 08:18] VITALS: O2SAT 94
--- NOTE | 2024-09-25 09:04 | ECG_ITS ---
Test Date: 2024-09-24 18:32:50 Measurements Intervals [place] Rate: 82 P: 42 OK: 159 QRS: 15 QRSD: 89 T: 28 QT: 368 QTc: 432 Interpretive Statements SINUS RHYTHM BASELINE ARTIFACT PRESENT Compared to ECG 09/24/2024 18:22:11 No significant changes Electronically Signed On 09-25-2024 14:19:48 PROFESSIONAL NURSING ASSISTANT by Renate Chapman M.D.
[2024-09-25] MEDS: INSULIN ASPART (*BKC) 100 UNITS/ML SUB-Q ×5 (09:14→22:01)
--- NOTE | 2024-09-25 10:33 | PM.IMPN ---
Progress Note: A&P Assessment and Plan (1) Dementia: Code(s): F03.90 - Unspecified dementia, unspecified severity, without behavioral disturbance, psychotic disturbance, mood disturbance, and anxiety Status: Acute Assessment and Plan: increased consufion could be due to uti- urine culture pending- monitor He does have dementia- but he has been increasingly confused the last couple of days. No focal deficits were noted on exam to suggest stroke. continue home namenda (2) Bacteriuria: Code(s): R82.71 - Bacteriuria Status: Acute Assessment and Plan: Urine is positive for bacteria and leukocyte esterase but only 6 to 10 WBCs were seen per high-power field. He has been started on ceftriaxone, pending urine cultures. (3) Type 2 diabetes mellitus: Code(s): E11.9 - Type 2 diabetes mellitus without complications Status: Acute Assessment and Plan: will hold home insulin pump SS ordered BS reviewed-elevated this am-will add lantus 10 units and monitor-adjust as needed will also add 5 unit base insult and ss on top if need (4) Hypertension: Code(s): I10 - Essential (primary) hypertension Status: Acute Assessment and Plan: restart home meds (5) Restless leg syndrome: Code(s): G25.81 - Restless legs syndrome Status: Acute Assessment and Plan: restart home meds (6) Benign prostatic hyperplasia: Code(s): N40.0 - Benign prostatic hyperplasia without lower urinary tract symptoms Status: Acute Assessment and Plan: restart flomax Plan The patient presented to the emergency department accompanied by his for evaluation of increasing confusion as detailed in HPI. Time Spent With Patient Time with patient: Greater than 35 minutes Subjective Date/time seen: 09/25/24 10:33 Interval history: 79-year-old male with dementia, hypertension, hyperlipidemia, type 2 diabetes mellitus, and depression who presented to the emergency department via EMS from home for evaluation of confusion. In the ED: he was given a dose of ceftriaxone. He is seen and examined. Review of Systems Review of Systems: Difficult to obtain as he is not an accurate historian at this time due to his confusion. Exam Narrative: General: Nontoxic-appearing male in the semi-Grover position in bed. Weight: 82.4 kg. BMI: 24.6. HEENT: Normocephalic, atraumatic. PERRL, EOMI. Sclera anicteric. Conjunctiva mildly injected. Oral mucosa moist. Oropharynx poorly visualized. Neck: Supple. No lymphadenopathy, thyromegaly, or obvious bruits. Respiratory: Respirations are nonlabored and he is speaking in full sentences. Occasional dry cough. Lungs are clear. Cardiovascular: Regular rate and rhythm with S1-S2. No murmur, rub, or gallop. Gastrointestinal: Abdomen is soft, nontender, and nondistended with positive bowel sounds. Skin: Warm and dry. No rash or lesions on limited exam. Extremities: No cyanosis, clubbing, or edema. Radial and pedal pulses intact. Neurological: Alert to name, age, and date of . He is aware that he is in the hospital. He cannot provide me with the accurate year. Cranial nerves 2-12 are grossly intact. Speech is clear. No facial asymmetry. 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 No pronator drift. Normal [id number]. Psychiatric: Pleasant and cooperative. He is in good spirits but seems a bit restless. He is forgetful. Objective Data Vital Signs Vital Signs: Vital Signs - 24 hr 09/24/24 12:29 09/24/24 14:46 09/24/24 15:47 Temperature 99.4 F 97.8 F 97.9 F Pulse Rate 93 78 79 Respiratory Rate 20 20 20 Blood Pressure 139/77 158/80 H 166/84 H Pulse Oximetry 95 97 96 Oxygen Delivery Room Air 09/24/24 16:17 09/24/24 16:47 09/24/24 16:47 Temperature 97.7 F 97.8 F Pulse Rate 80 78 Respiratory Rate 18 16 Blood Pressure 164/82 H 149/93 H Pulse Oximetry 97 100 Oxygen Delivery Room Air 09/24/24 17:32 09/24/24 18:14 09/24/24 19:45 Temperature 97.9 F 97.9 F 99.2 F Pulse Rate 80 76 86 Respiratory Rate 16 18 20 Blood Pressure 139/93 H 143/70 H 167/72 H Pulse Oximetry 98 99 96 Oxygen Delivery 09/24/24 20:00 09/25/24 04:25 09/25/24 08:18 Temperature 97.7 F Pulse Rate 91 Respiratory Rate 20 Blood Pressure 179/91 H Pulse Oximetry 95 94 Oxygen Delivery Room Air Room Air Intake/Output Intake/Output: Intake & Output 09/22/24 09/23/24 09/24/24 09/25/24 23:59 23:59 23:59 23:59 Intake Total 50 730 Balance 50 730 Meds/Results Medications: Active Medications Generic Name Dose Route Start Last Admin Trade Name Freq PRN Reason Stop Dose Admin Acetaminophen 650 mg 09/24/24 19:46 Acetaminophen 325 Mg Tablet PO Q6H PRN Mild Pain (1-3) or Fever Dextrose 12.5 gm 09/24/24 14:56 Dextrose 50% 25 Gm/50 Ml Syringe IV PUSH PRN PRN Hypoglycemia Protocol Dextrose 12.5 gm 09/24/24 19:46 Dextrose 50% 25 Gm/50 Ml Syringe IV PUSH PRN PRN Hypoglycemia Protocol Glucagon 1 mg 09/24/24 14:56 Glucagon For Inj 1 Mg Vial IM PRN PRN Hypoglycemia Protocol Glucagon 1 mg 09/24/24 19:46 Glucagon For Inj 1 Mg Vial IM PRN PRN Hypoglycemia Protocol Glucose 15 gm 09/24/24 14:56 Glucose Oral Gel 15 Gm Of Glucse In 37.5 Gm Tube PO PRN PRN Hypoglycemia Protocol Glucose 15 gm 09/24/24 19:46 Glucose Oral Gel 15 Gm Of Glucse In 37.5 Gm Tube PO PRN PRN Hypoglycemia Protocol Dextrose 1,000 mls @ 100 mls/hr 09/24/24 14:56 Dextrose 5% 1,000 Ml IVPB PRN PRN Hypoglycemia Protocol Ceftriaxone Sodium 1 gm in 50 mls @ 100 mls/hr 09/25/24 18:00 Rocephin 1 Gm/Ns 50 Ml IVPB Q24H WILIAN Dextrose 1,000 mls @ 100 mls/hr 09/24/24 19:46 Dextrose 5% 1,000 Ml IVPB PRN PRN Hypoglycemia Protocol Insulin Aspart 3 - 6 units 09/25/24 08:00 09/25/24 09:14 Insulin Aspart (*Bkc) 100 Units/Ml SUB-Q 5 units TIDWM WILIAN Administration Protocol Insulin Aspart 1 - 3 units 09/24/24 21:00 09/24/24 22:32 Insulin Aspart (*Bkc) 100 Units/Ml SUB-Q 1 units HS WILIAN Administration Protocol Radiology Results: ITS Impressions Head CT 09/24/24 13:50 IMPRESSION: No acute intracranial findings. Chest X-Ray 09/24/24 14:17 IMPRESSION: 1. No acute cardiopulmonary disease. 2. Large hiatal hernia. Labs Labs: Laboratory Results - last 24 hr 09/24/24 09/24/24 09/24/24 13:43 13:54 13:55 WBC 11.9 H RBC 3.88 L Hgb 12.4 L Hct 37.2 L MCV 95.9 MCH 32.0 MCHC 33.3 RDW 13.5 Plt Count 193 MPV 11.3 H Immature Gran % (Auto) 0.5 Neut % (Auto) 67.0 Lymph % (Auto) 18.1 L Cloud % (Auto) 13.2 H Eos % (Auto) 0.4 Baso % (Auto) 0.8 Lymph # (Auto) 2.15 Cloud # (Auto) 1.6 H Eos # (Auto) 0.1 Baso # (Auto) 0.1 Abs Immat Gran (auto) 0.06 H Absolute Neuts (auto) 8.0 H Absolute Nucleated RBC 0.000 Nucleated RBC % 0.0 PT 13.7 INR 1.0 APTT 28.8 Sodium 136 L Potassium 4.7 Chloride 107 Carbon Dioxide 24 Anion Gap 5 BUN 22 H Creatinine 1.00 Estim Creat Clear Calc 58 Estimated GFR > 60 Glucose 272 H POC Capillary Glucose Hemoglobin A1c 7.3 H Calcium 9.1 Magnesium Total Bilirubin 1.0 AST 26 ALT 22 Alkaline Phosphatase 104 Total Protein 7.0 Albumin 3.7 Vitamin B12 TSH (Reflex) Urine Color Urine Appearance Urine pH Ur Specific [place] Urine Protein Urine Glucose (UA) Urine Ketones Ur Blood (Man) Urine Nitrate Urine Bilirubin Urine Urobilinogen Leukocyte Esterase Rfl Urine RBC Urine WBC Ur Squamous Epith Cells Urine Bacteria Urine Casts Influenza A (RT-PCR) Negative Influenza B (RT-PCR) Negative RSV (RT-PCR) Negative SARS-CoV-2 RNA (RT-PCR) Negative 09/24/24 09/24/24 09/24/24 14:38 16:08 17:01 WBC RBC Hgb Hct MCV MCH MCHC RDW Plt Count MPV Immature Gran % (Auto) Neut % (Auto) Lymph % (Auto) Cloud % (Auto) Eos % (Auto) Baso % (Auto) Lymph # (Auto) Cloud # (Auto) Eos # (Auto) Baso # (Auto) Abs Immat Gran (auto) Absolute Neuts (auto) Absolute Nucleated RBC Nucleated RBC % PT INR APTT Sodium Potassium Chloride Carbon Dioxide Anion Gap BUN Creatinine Estim Creat Clear Calc Estimated GFR Glucose POC Capillary Glucose 222 H Hemoglobin A1c Calcium Magnesium Total Bilirubin AST ALT Alkaline Phosphatase Total Protein Albumin Vitamin B12 TSH (Reflex) Urine Color Yellow Urine Appearance Clear Urine pH 6.5 Ur Specific [place] 1.019 Urine Protein Negative Urine Glucose (UA) 3+ H Urine Ketones Negative Ur Blood (Man) Negative Urine Nitrate Negative Urine Bilirubin Negative Urine Urobilinogen 1.0 Leukocyte Esterase Rfl Trace H Urine RBC 0-2 Urine WBC 6-10 H Ur Squamous Epith Cells None seen Urine Bacteria 4+ H Urine Casts 0-2 Influenza A (RT-PCR) Negative Influenza B (RT-PCR) Negative RSV (RT-PCR) Negative SARS-CoV-2 RNA (RT-PCR) Negative 09/24/24 09/24/24 09/25/24 18:16 21:51 06:42 WBC 11.3 H RBC 4.07 L Hgb 12.9 L Hct 39.7 L MCV 97.5 MCH 31.7 MCHC 32.5 RDW 13.3 Plt Count 204 MPV 11.7 H Immature Gran % (Auto) 0.6 H Neut % (Auto) 62.9 Lymph % (Auto) 18.4 Cloud % (Auto) 12.9 H Eos % (Auto) 4.4 Baso % (Auto) 0.8 Lymph # (Auto) 2.07 Cloud # (Auto) 1.5 H Eos # (Auto) 0.5 H Baso # (Auto) 0.1 Abs Immat Gran (auto) 0.07 H Absolute Neuts (auto) 7.1 H Absolute Nucleated RBC 0.000 Nucleated RBC % 0.0 PT INR APTT Sodium 136 L Potassium 4.6 Chloride 105 Carbon Dioxide 24 Anion Gap 7 BUN 18 Creatinine 0.90 Estim Creat Clear Calc 64 Estimated GFR > 60 Glucose 311 H POC Capillary Glucose 226 H 244 H Hemoglobin A1c Calcium 8.9 Magnesium 2.1 Total Bilirubin AST ALT Alkaline Phosphatase Total Protein Albumin Vitamin B12 775.0 TSH (Reflex) 1.320 Urine Color Urine Appearance Urine pH Ur Specific [place] Urine Protein Urine Glucose (UA) Urine Ketones Ur Blood (Man) Urine Nitrate Urine Bilirubin Urine Urobilinogen Leukocyte Esterase Rfl Urine RBC Urine WBC Ur Squamous Epith Cells Urine Bacteria Urine Casts Influenza A (RT-PCR) Influenza B (RT-PCR) RSV (RT-PCR) SARS-CoV-2 RNA (RT-PCR) 09/25/24 07:49 WBC RBC Hgb Hct MCV MCH MCHC RDW Plt Count MPV Immature Gran % (Auto) Neut % (Auto) Lymph % (Auto) Cloud % (Auto) Eos % (Auto) Baso % (Auto) Lymph # (Auto) Cloud # (Auto) Eos # (Auto) Baso # (Auto) Abs Immat Gran (auto) Absolute Neuts (auto) Absolute Nucleated RBC Nucleated RBC % PT INR APTT Sodium Potassium Chloride Carbon Dioxide Anion Gap BUN Creatinine Estim Creat Clear Calc Estimated GFR Glucose POC Capillary Glucose 318 H Hemoglobin A1c Calcium Magnesium Total Bilirubin AST ALT Alkaline Phosphatase Total Protein Albumin Vitamin B12 TSH (Reflex) Urine Color Urine Appearance Urine pH Ur Specific [place] Urine Protein Urine Glucose (UA) Urine Ketones Ur Blood (Man) Urine Nitrate Urine Bilirubin Urine Urobilinogen Leukocyte Esterase Rfl Urine RBC Urine WBC Ur Squamous Epith Cells Urine Bacteria Urine Casts Influenza A (RT-PCR) Influenza B (RT-PCR) RSV (RT-PCR) SARS-CoV-2 RNA (RT-PCR) Quality VTE Prophylaxis VTE prophylaxis: pharmacologic ordered
[2024-09-25 11:42] LABS: Glucose Point of Care 336 mg/dl (65-105)
[2024-09-25 14:09] VITALS: BP 155/87; PULSE 89; RESP 16; TEMP 36.5; O2SAT 93
[2024-09-25 16:28] LABS: Glucose Point of Care 291 mg/dl (65-105)
[2024-09-25 21:13] LABS: Glucose Point of Care 281 mg/dl (65-105)
[2024-09-25 21:34] VITALS: BP 145/67; PULSE 82; RESP 18; TEMP 36.6; O2SAT 93
[2024-09-25] MEDS: ENALAPRIL MALEATE 10 MG TABLET 20 MG PO (21:56)
[2024-09-25] MEDS: clonazePAM (*CRX) 0.5 MG TABLET PO (21:56)
[2024-09-25] MEDS: METOPROLOL SUCCINATE EXT REL 25 MG TABCR PO (21:56)
[2024-09-25] MEDS: TAMSULOSIN HCL 0.4 MG CAPSULE PO (21:57)
[2024-09-25] MEDS: MEMANTINE 5 MG TABLET PO (21:57)
[2024-09-25] MEDS: SERTRALINE HCL 50 MG TABLET 100 MG PO (21:57)
[2024-09-25] MEDS: ROSUVASTATIN 5 MG TABLET PO (21:57)
[2024-09-25] MEDS: buPROPion HCL XL (24 HR) 150 MG TABCR 300 MG PO (21:57)
[2024-09-25] MEDS: INSULIN GLARGINE (*BKC) 100 UNITS/ML 10 UNITS SUB-Q (22:00)
[2024-09-26 04:28] VITALS: BP 99/77; PULSE 89; RESP 18; TEMP 36.4; O2SAT 96
[2024-09-26 07:27] LABS: Glucose Point of Care 337 mg/dl (65-105)
[2024-09-26] MEDS: INSULIN ASPART (*BKC) 100 UNITS/ML SUB-Q ×5 (08:42→15:08)
[2024-09-26 10:18] LABS: Hemoglobin 12.8 g/dL (14.0-18.0); Mean Corpuscular HGB Conc 32.8 g/dl (32-36); Mean Corpuscular Hemoglobin 31.7 pg (26-34); Mean Corpuscular Volume 96.5 fl (80-100); Mean Platelet Volume 11.6 fl (7.4-10.4); Platelet Count Result 215 k/mm3 (150-375); Red Blood Count 4.04 M/mm3 (4.6-6.20); Red Cell Distribution Width 13.2 % (11.5-14.5); White Blood Count 9.9 K/mm3 (4.5-10.0)
[2024-09-26 10:42] LABS: Anion Gap 4 mmol/L (4-12); Blood Urea Nitrogen 30 mg/dL (9-20); Calcium 8.8 mg/dL (8.4-10.2); Carbon Dioxide 25 mmol/L (22-30); Chloride 106 mmol/L (98-107); Estimated CRCL calculation 49 ml/min; Estimated Glomerular Filt Rate 58; Glucose 448 mg/dL (65-110); Potassium 4.4 mmol/L (3.4-5.0); Sodium 135 mmol/L (137-145)
[2024-09-26 11:33] LABS: Glucose Point of Care 355 mg/dl (65-105)
--- NOTE | 2024-09-26 12:15 | PCSTNOTE ---
Please refer to the Bedside Swallow Evaluation in the EMR. Please note, silent aspiration cannot be ruled out at bedside.
[2024-09-26 14:00] VITALS: BP 145/82; PULSE 80; RESP 18; TEMP 36.4; O2SAT 94
--- NOTE | 2024-09-26 14:11 | PM.DS ---
DS: Admitting Diagnosis Discharge Date 09/26 Admitting Diagnosis uti DS: Discharge Diagnosis Discharge Diagnosis (1) Dementia: Code(s): F03.90 - Unspecified dementia, unspecified severity, without behavioral disturbance, psychotic disturbance, mood disturbance, and anxiety Status: Acute (2) Bacteriuria: Code(s): R82.71 - Bacteriuria Status: Acute (3) Type 2 diabetes mellitus: Code(s): E11.9 - Type 2 diabetes mellitus without complications Status: Acute (4) Hypertension: Code(s): I10 - Essential (primary) hypertension Status: Acute (5) Restless leg syndrome: Code(s): G25.81 - Restless legs syndrome Status: Acute (6) Benign prostatic hyperplasia: Code(s): N40.0 - Benign prostatic hyperplasia without lower urinary tract symptoms Status: Acute Plan The patient presented to the emergency department accompanied by his for evaluation of increasing confusion as detailed in HPI. DS: Summary Hospital Course Hospital Course: 79-year-old male with dementia, hypertension, hyperlipidemia, type 2 diabetes mellitus, and depression who presented to the emergency department via EMS from home for evaluation of confusion. In the ED: he was given a dose of ceftriaxone. # ams due to UTI resolved #UTI Urine is positive for bacteria and leukocyte esterase but only 6 to 10 WBCs were seen per high-power field. He has been started on ceftriaxone, pending urine cultures. Increased consufion could be due to uti- urine culture pending- monitor He does have dementia- but he has been increasingly confused the last couple of days. No focal deficits were noted on exam to suggest stroke. continue home namenda #t2dm holding home insulin pump SS ordered BS reviewed-elevated this am-will add lantus 10 units and monitor-adjust as needed will also add 5 unit base insult and ss on top if need resume pump once returns home Speech eval was completed as pt eats very fast and was observed coughing. Passed swalow study. Education is provided to sit upright when eating, not to alfaro Status at Discharge Functional status at discharge: independent ambulation (somewhat weak but baseline-wants to go home when discharged) Overall status at discharge: patient is progressing back to baseline Time Spent with Patient Time attestation: Total time spent providing and/or coordinating discharge services: Time spent: Greater than 30 minutes Exam Narrative: General: Nontoxic-appearing male in the semi-Grover position in bed. Weight: 82.4 kg. BMI: 24.6. HEENT: Normocephalic, atraumatic. PERRL, EOMI. Sclera anicteric. Conjunctiva mildly injected. Oral mucosa moist. Oropharynx poorly visualized. Neck: Supple. No lymphadenopathy, thyromegaly, or obvious bruits. Respiratory: Respirations are nonlabored and he is speaking in full sentences. Occasional dry cough. Lungs are clear. Cardiovascular: Regular rate and rhythm with S1-S2. No murmur, rub, or gallop. Gastrointestinal: Abdomen is soft, nontender, and nondistended with positive bowel sounds. Skin: Warm and dry. No rash or lesions on limited exam. Extremities: No cyanosis, clubbing, or edema. Radial and pedal pulses intact. Neurological: Alert to name, age, and date of . He is aware that he is in the hospital. He cannot provide me with the accurate year. Cranial nerves 2-12 are grossly intact. Speech is clear. No facial asymmetry. Hand gas charger and foot pushes are equal bilaterally. No pronator drift. Normal oasizp-ze-beyi. Psychiatric: Pleasant and cooperative. He is in good spirits but seems a bit restless. He is forgetful. DS: Data Data Completed and Pending Labs on day of discharge: Labs from last 24 hours 09/26/24 09/26/24 09/26/24 11:28 09:56 07:22 WBC 9.9 RBC 4.04 L Hgb 12.8 L Hct 39.0 L MCV 96.5 MCH 31.7 MCHC 32.8 RDW 13.2 Plt Count 215 MPV 11.6 H Sodium 135 L Potassium 4.4 Chloride 106 Carbon Dioxide 25 Anion Gap 4 BUN 30 H D Creatinine 1.20 Estim Creat Clear Calc 49 Estimated GFR 58 L Glucose 448 H POC Capillary Glucose 355 H 337 H Calcium 8.8 09/25/24 09/25/24 21:03 16:25 WBC RBC Hgb Hct MCV MCH MCHC RDW Plt Count MPV Sodium Potassium Chloride Carbon Dioxide Anion Gap BUN Creatinine Estim Creat Clear Calc Estimated GFR Glucose POC Capillary Glucose 281 H 291 H Calcium Preliminary micro results at discharge 09/24/24 14:38 Urine Culture - Preliminary Urine Clean Catch Discharge Plan Discharge Attending physician on discharge: Florin Coyne Discharging Clinician: Bree Toscano Patient Disposition: Home, Self-Care Activity: may shower Diet: as tolerated and diabetic Discharge Instructions: you were admitted for UTI. you got IV antibiotics and it was switched to PO. Take Augmentin for 4 more days. you may resume your home insulin pump. Patient Instructions: Antibiotic Form, Pain Management (DC) Patient Language: Swazi Stand Alone Forms: General Discharge Information Follow-up/Referrals: Helga,MD Wayne [Primary Care Provider] - 1 Week Discharge Medications: New amoxicillin-pot clavulanate 875-125 mg tablet 1 tablet PO Q12H Qty: 8 0RF Continued clonazepam 0.5 mg tablet 0.5 mg PO DAILY PRN (Reason: restless legs) sertraline 100 mg tablet 100 mg PO HS tamsulosin 0.4 mg capsule 0.4 mg PO HS insulin aspart U-100 [Novolog U-100 Insulin aspart] 100 unit/mL solution See Rx Instructions .ROUTE .COMPLEX Rx Instructions: INJECT UP TO 300 UNITS UNDER THE SKIN EVERY 3RD DAY; insulin pump metoprolol succinate 25 mg tablet extended release 24 hr 25 mg PO HS rosuvastatin 5 mg tablet 5 mg PO HS bupropion HCl 300 mg tablet extended release 24 hr 300 mg PO HS Ozempic 0.25 mg or 0.5 mg(2 mg/1.5 mL) pen injector 0.25 mg SUBCUT WEEKLY Rx Instructions: sundays memantine 5 mg tablet 5 mg PO HS Qty: 1 0RF No Action enalapril maleate 20 mg tablet 20 mg PO HS Qty: 1 0RF Date of admission: 09/24/24 18:19 Primary Care Provider: DakotaWayne Admitting Provider: Nba Taylor Attending physician on admission: Nba Taylor Condition: Stable Quality VTE Prophylaxis VTE prophylaxis: pharmacologic ordered Hospitalist MIPS Heart Failure (Exclusion) Patient has history of Heart Transplant or Left Ventricular Assistive Device?: No IF YES, STOP HERE Heart Failure (Qualifier) Patient has current or prior documentation of LVEF less than or equal to 40%, or mod/servere depressed LVSF?: No IF NO, STOP HERE
[2024-09-26 15:08] LABS: Glucose Point of Care 328 mg/dl (65-105)
== END 2024-09-26 15:30 | disposition home or self-care (01) | DRG 690 ==
LOC: ANHED 18:18 → ANH3MEDSUR 19:03
PROVIDERS: Physician Assistant; Registered Nurse; Admitting Provider Internal Medicine; Emergency Provider Emergency Medicine; PCP Internal Medicine; Visit Provider Nurse Practitioner
DX: N39.0 Urinary tract infection, site not specified (principal); R41.82 Altered mental status, unspecified; F01.50 Vascular dementia, unspecified severity, without behavioral disturbance, psychotic disturbance, mood disturbance, and anxiety; E11.9 Type 2 diabetes mellitus without complications; I10 Essential (primary) hypertension; E78.5 Hyperlipidemia, unspecified; F32.A Depression, unspecified; N40.0 Benign prostatic hyperplasia without lower urinary tract symptoms; G25.81 Restless legs syndrome; Z87.891 Personal history of nicotine dependence
CPT/HCPCS: 36415; 70450; 71046; 80048; 80053; 81001; 82607; 82948; 83036; 83735; 84443; 85025; 85027; 85610; 85730; 87086; 87181; 87637; 92526; 92610; 93005; 96365; 96372; 96375; 99285; A9270; J0696; J1815; J7030

== ENCOUNTER 2024-12-19 00:20 | Emergency (ER) | payer MEDICARE, SELFPAY ==
--- NOTE | ~2024-12-19 | CT_ITS ---
CT of the Abdomen and Pelvis: Indication: Abdominal pain Technique: 2.5 mm axial scans were obtained through the abdomen and pelvis following intravenous adm inistration of 100 cc of Omnipaque 350. Dose reduction technique was used on this scan by utilizing a utomated exposure control and iterative reconstruction technique. The dose-length product (DLP) was 6 08.74 mGy-cm. Findings: Scans through the lung bases are unremarkable. There is a large hiatal hernia, containing essentially the entire stomach with probable organoaxial volvulus. The liver, spleen, pancreas, gallbladder, adrenals and kidneys are within normal limits. There are at herosclerotic calcifications of the aorta. No lymphadenopathy. No bowel obstruction or bowel wall thickening. There is no evidence to suggest acute appendicitis. Images through the pelvis were performed. Urinary bladder unremarkable. Prostate gland mildly enlarge d. Small fat-containing left inguinal hernia present. No ascites. 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 Enlarged prostate gland. Small fat-containing inguinal hernia. Reviewed, dictated and finalized at location M. 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 Enlarged prostate gland. Small fat-containing inguinal hernia.
[2024-12-19 00:27] VITALS: BP 181/120; PULSE 88; RESP 18; TEMP 36.6; O2SAT 100
--- OUTSIDE RECORDS SUMMARY | 2024-12-19 00:42 | XMS_ITS | Encounter Summary ---
Author Organization [employer] Address [address] [place] [address] Care Team Providers Care Green Inspector Name Role Phone Vinay Munoz MD Primary Care Provider [phone] Encounter Details Date Type Department Care Team (Late st Contact Info) Description 04/02/2007 Orders Only [facility] [address] [place] [address] Wayne Duncan MD [address] [place] [address] Social History Tobacco Use Types Packs/Day Years Used Date Smoking Tobacco: Never Assessed Sex and Gender Information Value Date Recorded Sex Assigned at Male 11/21/2023 3:02 PM SHOW DOG TRAINER Legal Sex Male 5:20 AM SHOW DOG TRAINER Gender Identity Male 11/21/2023 3:02 PM SHOW DOG TRAINER Sexual Orientation Straight 11/21/2023 3: 02 PM SHOW DOG TRAINER documented as of this encounter Progress Notes * Wayne Duncan MD - 02/27/2008 5:17 PM CDT TIME:10:47 am PATIENT`S HOME PHONE: PATIENT`S WORK PHONE: PATIENT`S INSURANCE: [facility] WHO TOOK THE CALL: [facility] LAST VISIT: 12-20-06 PCP: amari. WHO CALLED: Patient called. PHARMACY NUMBER: [facility] SECTION 1: REQUESTED ACTION [email or web address] 04/02/07 at 10:48 am: MEDICATION REQUEST: Patient requests a refill. MEDICATIONS: LANTUS SUBCUTANEOUS SOLUTION 100 UNIT/ML, 24 units qd, 1 Dispensed, 3 Fills, status: CONTINUED, 03/30/2007. DOCTOR`S RESPONSE: [facility] 04/02/07 at 11:59 am Refill now with 11 additional refills. FINAL ACTION: [facility] 04/02/07 at 11:59 am ADDITIONAL COMMENTS: rx printed and fax to [facility] Electronically Signed by: Eve Velazquez on Monday, April 02, 2007 documented in this encounter Plan of Treatment Upcoming Encounters Date Type Department Care Team (Late st Contact Info) Description 02/17/2025 1:30 PM CDT Office Visit [facility] [address] [place] [address] oRsa Cortez MD [address] [address] 03/11/2025 10:30 AM CDT Office Visit [facility] [id number] [facility] [address] [place] [address] Wallace Church MD [address] [place] [address] 05/20/2025 10:15 AM CDT Office Visit [facility] [address] [place] [address] Rosa Cortez MD [address] [address] 08/18/2025 3:15 PM SHOW DOG TRAINER Office Visit [facility] [address] [place] [address] Rosa Cortez MD [address] [address] documented as of this encounter Visit Diagnoses Not on filedocumented in this encounter Care Teams Green Inspector Relationship Specialty Start Date End Date Vinay Munoz MD [address] [place] [id number] PCP - General Family Practice 11/19/24 documented as of this encounter
--- OUTSIDE RECORDS SUMMARY | 2024-12-19 00:42 | XMS_ITS | Clinical Summary ---
Author Organization [facility] Address [address] [place] [address] Care Team Providers Care Increment Manager Name Role Phone Vinay Munoz MD Primary Care Provider [phone] Allergies Active Allergy Reactions Criticality Noted Date Comments Codeine Nausea and Vomiting Low 09/19/2008 Lovastatin Other (See Comments) 07/19/2010 Body aches,weakness & cough Medications lancets Misc Misc Check bg 6 x a day on pump STEPHANIE CONTOUR LANCETS: 400 Each 0 3 Active enalapril (VASOTEC) 20 mg tablet TAKE 1 TABLET BY MOUTH EVERY DAY 90 Tablet 3 5 Active buPROPion HCl (WELLBUTRIN XL) 300 mg Extended Release 24 hour tablet TAKE 1 TABLET BY MOUTH EVERY DAY 90 Tablet 3 5 Active clonazePAM (KLONOPIN) 0.5 mg TabletIndicatio ns:Generalized anxiety disorder TAKE 1 TABLET BY MOUTH EVERY DAY NEEDED. 30 Tablet 1 6 Active sertraline (ZOLOFT) 100 mg tablet TAKE 1 1/2 TABLETS BY MOUTH DAILY 135 Tablet 3 6 Active naproxen (NAPROSYN) 500 mg tablet Take 1 Tablet (500 mg) by mouth 2 times daily with meals. 60 Tablet 1 8 Active amLODIPine (NORVASC) 2.5 mg tablet Take 1 Tablet by mouth every 24 hours. 9 Active metoprolol succinate (TOPROL XL) 25 mg Extended Release 24 hour tablet Take 1 Tablet by mouth every 24 hours. 9 Active omeprazole (PriLOSEC) 40 mg Capsule, Delayed Release(E.C.) Take 1 Capsule by mouth every 24 hours. 6 Active tamsulosin (FLOMAX) 0.4 mg capsule TK 1 C PO Q NIGHT 1 9 Active rosuvastatin (CRESTOR) 5 mg tablet Take 5 mg by mouth daily. Active blood sugar diagnostic (Contour Next Test Strips) Strip TEST BLOOD SUGAR FOUR TIMES DAILY 400 Strip 5 2 Active ezetimibe (ZETIA) 10 mg tablet Take 1 Tablet by mouth daily. 1 Active FreeStyle Cb 2 Sensor Kit Replace sensor every 14 days. 6 Kit 3 3 Active triamcinolone acetonide (KENALOG) 0.1 % Cream Apply to affected area 2 times daily. On the left foot lesion, no longer than 10 days 15 Gram 1 3 Active insulin glargine (Lantus Solostar U-100 Insulin) 100 unit/mL pen syringe Lantus insulin pen ( long acting insulin) 50 units once a day same time each day for insulin pump back up - do not restart pump until lantus is due 15 mL 3 Active NovoLOG U-100 Insulin aspart 100 unit/mL vial INJECT UP TO 300 UNITS UNDER THE SKIN VIA CONTINUOUS INFUSION EVERY THIRD DAY DIRECTED 90 mL 3 4 Active semaglutide (Ozempic) 0.25 mg or 0.5 mg (2 mg/3 mL) Pen Injector 0.5 mg weekly 3 mL 6 4 Active memantine (NAMENDA) 5 mg TabletIndicatio ns:Mild cognitive impairment Take 1 Tablet (5 mg) by mouth 2 times daily. 180 Tablet 3 4 Active Active Problems Problem Noted Date Diagnosed Date Memory difficulties 06/02/2021 Insulin pump titration 02/06/2017 Generalized anxiety disorder 10/26/2015 Hyperlipidemia LDL goal <70 07/29/2015 Type 1 diabetes mellitus wit h hyperglycemia, with long-term current use of insulin 10/22/2012 Iron deficiency anemia 01/03/2011 RLS (restless legs syndrome) 07/19/2010 Esophageal reflux 09/21/2006 Allergic rhinitis, cause unspecified 01/24/2006 HTN (hypertension), benign 11/17/2004 Depressive disorder, not elsewhere classified Resolved Problems Problem Noted Date Diagnosed Date Resolved Date Encounter for long-term (cur rent) use of insulin 09/02/2013 02/06/2017 Plantar fasciitis 06/20/2012 10/22/2012 Type II or unspecified type diabetes mellitus without mention of complication, uncontrolled 06/12/2012 10/22/2012 Long-term insulin use in type 2 diabetes 02/10/2012 09/02/2013 Need for prophylactic vaccin ation against Streptococcus pneumoniae (pneumococcus) 11/21/2007 03/21/2008 Acute maxillary sinusitis 11/02/2006 Encounter for long-term (cur rent) use of other medications 04/20/2005 03/21/2008 DIABETES MELLITUS TYPE II UNCONTR UNCOMPL 04/19/2005 02/29/2012 Type II or unspecified type diabetes mellitus without mention of complication, not stated as uncontrolled 11/17/2004 03/21/2008 ANXIETY STATE NOS 11/17/2004 10/26/2015 HYPERLIPIDEMIA NEC/NOS 11/17/200407/29 Irritable bowel syndrome 11/17/2004 Encounters Date Type Department Care Team Description 12/14/2024 External Device Data STL ABSTRACTION Provider, Abstract 12/13/2024 External Device Data STL ABSTRACTION Provider, Abstract 12/13/2024 Results Follow-Up [facility] Endocrinology [address] [place] [address] Maggie Senior MD HEMOGLOBIN A1C 11/27/2024 External Device Data STL ABSTRACTION Provider, Abstract 11/19/2024 11:30 AM OCEAN EXPORT AGENT Office Visit [facility] Endocrinology [address] [place] [address] Rosa Cortez MD Type 1 diabetes mellitus with hyperglycemia, with long-term current use of insulin ([facility]) (Primary Dx); Insulin pump titration; HTN (hypertension), benign; Hyperlipidemia LDL goal <70 11/06/2024 External Device Data STL ABSTRACTION Provider, Abstract 10/31/2024 External Device Data STL ABSTRACTION Provider, Abstract 10/17/2024 Orders Only [facility] Endocrinology [address] [place] [address] Provider, Abstract from Last 3 Months Immunizations Immunization Administration Dates Next Due (PNEUMOVAX 23)(50 YRS UP) PN EUMOCOCCAL POLYSACCHARIDE (PPV23) 0.5 ML, IM 07/19/2010,11/21/2007 Influenza Vaccine High Dose 65+ Yrs IM 1 ,06/13/2014,06/12/2012,06/20 Influenza Vaccine Split 3+ Yrs IM 10/09/2002 Influenza Vaccine Split 3+ Yrs PF IM 07/05/2013 Family History Medical History Relation Name Comments Cancer Father glioblastoma Diabetes Mother Cancer Sister kidney Relation Name Status Comments Father Mother Alive Sister Social History Tobacco Use Types Packs/Day Years Used Date Smoking Tobacco: Former Cigarettes 1.5 14 Smokeless Tobacco: Never Tobacco Cessation:Counseling Given: Not Answered Comments:quit at the age 35 Alcohol Use Standard Drinks/Week Comments Yes 5.8 (1 standard drink = 0.6 oz p ure alcohol) daily 1 drink Sex and Gender Information Value Date Recorded Sex Assigned at Male 11/21/2023 3:02 PM OCEAN EXPORT AGENT Legal Sex Male 5:20 AM OCEAN EXPORT AGENT Gender Identity Male 11/21/2023 3:02 PM OCEAN EXPORT AGENT Sexual Orientation Straight 11/21/2023 3: 02 PM OCEAN EXPORT AGENT Occupation Industry Job Start Date Job End Date Not on file Not on file Not on file Not on file Last Filed Vital Signs Vital Sign Reading Time Taken Comments Blood Pressure 138/89 11/19/2024 11:32 AM OCEAN EXPORT AGENT Pulse 81 11/19/2024 11:32 AM OCEAN EXPORT AGENT Temperature 36.5 C (97.7 F) 11/05/2015 12:44 PM OCEAN EXPORT AGENT Respiratory Rate 16 10/13/2022 10:30 AM OCEAN EXPORT AGENT Oxygen Saturation 97% 11/19/2024 11:32 AM OCEAN EXPORT AGENT Inhaled Oxygen Concentration - - Weight 82.6 kg (182 lb) 11/19/2024 11:32 AM OCEAN EXPORT AGENT Height 182.9 cm (6') 11/19/2024 11:32 AM OCEAN EXPORT AGENT Body Mass Index 24.68 11/19/2024 11:32 AM OCEAN EXPORT AGENT Plan of Treatment Upcoming Encounters Date Type Department Care Team (Late st Contact Info) Description 02/17/2025 1:30 PM CDT Office Visit [facility] Endocrinology [address] [place] [address] Rosa Cortez MD [address] [address] 03/11/2025 10:30 AM CDT Office Visit [facility] Neurology [address] [facility] [address] [place] [address] Wallace Church MD [address] [facility] [address] [place] [address] 05/20/2025 10:15 AM CDT Office Visit [facility] Endocrinology [address] [place] [address] Rosa Cortez MD [address] [address] 08/18/2025 3:15 PM OCEAN EXPORT AGENT Office Visit [facility] Endocrinology [address] [facility] [address] [facility] [address] [place] [address] Rosa Cortez MD [address] [id number] Health Maintenance Due Date Last Done Comments DTAP/TDAP/TD VACCINES (1 - Tdap) 1964 ZOSTER VACCINE (1 of 2) 1995 PNEUMOCOCCAL VACCINE 50+ YEA RS (2 of 2 - PCV) 07/19/2011 07/19/2010, 11/21/2007 RSV VACCINE (60+ or ) (1 - 1-dose 75+ series) 2020 DIABETES HBA1C Q 6 MONTHS 06/14/20252024, 09/10/2024, 05/28/2024, Additional history exists DIABETES MICROALBUMIN ANNUAL SCREEN 09/10/2025 09/10/2024, 05/28/2024, 11/22/2023, Additional history exists LDL CHOLESTEROL ANNUAL 09/10/2025 , 11/22/2023, 11/14/2022, Additional history exists DIABETES ANNUAL RETINAL EXAM 10/16/202505/2025, 08/08/2024, 08/21/2023, Additional history exists DIABETES ANNUAL FOOT EXAM 11/19/20252024, 08/24/2023, 08/22/2022, Additional history exists COLORECTAL SCREENING Discontinued 12/07/2010, 11/16/19 11 Colorectal Cancer Screening Discontinued INFLUENZA VACCINE Completed 07/03/2024, , 08/18/2021, Additional history exists FIT-DNA Q 3 years Discontinued FIT/FOBT Q 1 year Discontinued Flex Sig/CT Colonography Q 5 years Discontinued Medical Devices Implanted Type Area Assistant Center Director Device Identifier Shelf Expiration Date Model / Serial / Lot Sealant Floseal W/ Apdtr 5ml [id number] - [id number] Implanted:Qty : 1 on 07/08/2014 by Tim Hood MD [facility] Sealant N/A: Spine [employer]- Revision3 05/07/2015 [id number] / / [id number] Procedures Procedure Name Priority Date/Time Associated Diagnosis Comments HEMOGLOBIN A1C Routine 12/12/2024 1:19 PM OCEAN EXPORT AGENT Type 1 diabetes mellitus with hyperglycemia, with long-term current use of insulin ([facility]) HM DIABETES EYE EXAM Routine 10/16/2024 7:42 AM OCEAN EXPORT AGENT MICROALBUMIN/CREATIN INE RATIO, RANDOM UR Routine 09/10/2024 12:03 PM OCEAN EXPORT AGENT Type 1 diabetes mellitus with hyperglycemia, with long-term current use of insulin ([facility]) LIPID PANEL Routine 09/10/2024 11:56 AM OCEAN EXPORT AGENT Type 1 diabetes mellitus with hyperglycemia, with long-term current use of insulin ([facility]) from Last 3 Months or Most Recently Relevant to Health Maintenance Results * (ABNORMAL) HEMOGLOBIN A1C (12/12/2024 1:19 PM OCEAN EXPORT AGENT) HEMOGLOBIN A1C 7.8(H) <5.7 % of total Hgb [facility] Comment: For someone without known diabetes, a hemoglobin A1c value of 6.5% or greater indicates that they may have diabetes and this should be confirmed with a follow-up test. For someone with known diabetes, a value <7% indicates that their diabetes is well controlled and a value greater than or equal to 7% indicates suboptimal control. A1c targets should be individualized based on duration of diabetes, age, comorbid conditions, and other considerations. Currently, no consensus exists regarding use of hemoglobin A1c for diagnosis of diabetes for children. ESTIMATED AVERAGE GLUCOSE (MG/DL) 177 mg/dL [facility] ESTIMATED AVERAGE GLUCOSE (MMOL/L) 9.8 mmol/L [facility] Comment: Test Performed at: [facility] [address] [place] [address] Sandra Gorman Blood 12/12/2024 1:19 PM OCEAN EXPORT AGENT 12/12/2024 1:19 PM OCEAN EXPORT AGENT Rosa Cortez MD CHEMISTRY ORDERABLES Frances l Result [facility] [phone] [facility] [address] [place] [address] * DIABETES EYE EXAM (10/16/2024 7:42 AM OCEAN EXPORT AGENT) Abstract Provider HEALTH MAINTENANCE Edited Resu lt - Final [facility] * MICROALBUMIN/CREATININE RATIO, RANDOM UR (09/10/2024 12:03 PM OCEAN EXPORT AGENT) Creatinine, Urine 83 20 - 320 mg/dL [facility] MICROALBUMIN, URINE 0.4 See Note: mg/dL [facility] Comment: Reference Range: Reference Range Not established MICROALBUMIN/CREAT RATIO, UR 5 <30 mg/g creat [facility] Comment: The ADA defines abnormalities in albumin excretion as follows: Albuminuria Category Result (mg/g creatinine) Normal to Mildly increased <30 Moderately increased 30-299 Severely increased > OR = 300 The ADA recommends that at least two of three specimens collected within a 3-6 month period be abnormal before considering a patient to be within a diagnostic category. Test Performed at: [facility] [id number] [address] Sandra Gorman MD Urine URINE SPECIMEN OBTAINED BY CLEAN CATCH PROCEDURE / Unknown 09/10/2024 12:03 PM OCEAN EXPORT AGENT 09/10/2024 12:04 PM OCEAN EXPORT AGENT Result [facility] Rosa Cortez MD URINE ORDERABLES Final Re sult [facility] [phone] [facility] [address] [place] [address] * LIPID PANEL (09/10/2024 11:56 AM OCEAN EXPORT AGENT) CHOLESTEROL 155 <200 mg/dL [facility] HDL 47 > OR = 40 mg/dL [facility] TRIGLYCERIDE 96 <150 mg/dL [facility] LDL CALCULATED 89 mg/dL (calc) [facility] Comment: Reference range: <100 Desirable range <100 mg/dL for primary prevention; <70 mg/dL for patients with CHD or diabetic patients with > or = 2 CHD risk factors. LDL-C is now calculated using the Pola-Gooden calculation, which is a validated novel method providing better accuracy than the Friedewald equation in the estimation of LDL-C. Pola SS et al. DENIZ. 2013;310(19): 4711-8799 (http://education.ImmuneXcite/faq/VBJ103) CHOL/HDL RATIO 3.3 <5.0 (calc) [facility] NON-HDL CHOLESTEROL 108 <130 mg/dL (calc) [facility] Comment: For patients with diabetes plus 1 major ASCVD risk factor, treating to a non-HDL-C goal of <100 mg/dL (LDL-C of <70 mg/dL) is considered a therapeutic option. Test Performed at: [facility] [id number] [place] [address] Sandra Gorman MD Blood 09/10/2024 11:5 6 AM OCEAN EXPORT AGENT 09/10/2024 11:56 AM OCEAN EXPORT AGENT Rosa Cortez MD CHEMISTRY ORDERABLES Frances rubin Result [facility] [phone] [facility] [address] [address] from Last 3 Months or Most Recently Relevant to Health Maintenance Insurance [facility] [id number] RX [employer] RX Member Subscriber Plan / Payer (Ef fective 2022-Present) Name:Curly Bean Relation to Subscriber:Self Name:Curly Bean Payer ID:Not on file Group ID:[id number] Type:RX Medicare Part D Address: [place] [address] Advance Directives For more information, please contact: [phone] Documents on File Type Date Recorded Patient Ssrs Developer Expl anation Advance Directive Living Will 07/04/2016 11:40 AM Advance Directive POA 08/22/2012 1:58 PM Advance Directive POA * Full Code (Latest Code Status on File) Date Activated Date Inactivated Comments 07/08/2014 6:39 AM 07/08/2014 1:49 PM Care Teams Increment Manager Relationship Specialty Start Date End Date Vinay Munoz MD [address] [place] [address] PCP - General Family Practice 11/19/24
--- OUTSIDE RECORDS SUMMARY | 2024-12-19 00:42 | XMS_ITS | Encounter Summary ---
Author Organization [facility] Address [address] [place] [address] Care Team Providers Care Coat Operator Insulator Name Role Phone Vinay Munoz MD Primary Care Provider [phone] Reason for Visit * Reason Onset Date Comments Medication Refill 11/05/2011 Encounter Details Date Type Department Care Team (Late st Contact Info) Description 11/05/2011 Refill Central Business Office [address] [place] [address] Mychart, Generic Provider Social History Tobacco Use Types Packs/Day Years Used Date Smoking Tobacco: Former Cigarettes 1.5 14 Smokeless Tobacco: Never Comments:quit at the age 35 Alcohol Use Standard Drinks/Week Comments Yes 0 (1 standard drink = 0.6 oz pur e alcohol) Sex and Gender Information Value Date Recorded Sex Assigned at Male 11/21/2023 3:02 PM MACHINIST SUPERVISOR Legal Sex Male 5:20 AM MACHINIST SUPERVISOR Gender Identity Male 11/21/2023 3:02 PM MACHINIST SUPERVISOR Sexual Orientation Straight 11/21/2023 3: 02 PM MACHINIST SUPERVISOR documented as of this encounter Plan of Treatment Upcoming Encounters Date Type Department Care Team (Late st Contact Info) Description 02/17/2025 1:30 PM CDT Office Visit [facility] Endocrinology [address] [place] [address] Rosa Cortez MD [address] [place], [place] [id number] 03/11/2025 10:30 AM CDT Office Visit [facility] Neurology [address] [place] [address] Wallace Church MD [address] [facility] [address] [place] [address] 05/20/2025 10:15 AM CDT Office Visit [facility] Endocrinology [address] [place] [address] Rosa Cortez MD [address] [address] [place] [address] 08/18/2025 3:15 PM MACHINIST SUPERVISOR Office Visit [facility] Endocrinology [address] [place] [address] Rosa Cortez MD [address] [facility] [address] [place], [place] [phone] documented as of this encounter Visit Diagnoses Not on filedocumented in this encounter Care Teams Coat Operator Insulator Relationship Specialty Start Date End Date Vinay Munoz MD [address] [place] [address] PCP - General Family Practice 11/19/24 documented as of this encounter
--- OUTSIDE RECORDS SUMMARY | 2024-12-19 00:42 | XMS_ITS | Encounter Summary ---
Author Organization [facility] Address [address] [place] [address] Care Team Providers Care Acidizer Name Role Phone Vinay Munoz MD Primary Care Provider [phone] Encounter Details Date Type Department Care Team (Late st Contact Info) Description 03/30/2007 Orders Only [facility] [address] [place] [address] Wayne Duncan MD [facility] [place] [address] Social History Tobacco Use Types Packs/Day Years Used Date Smoking Tobacco: Never Assessed Sex and Gender Information Value Date Recorded Sex Assigned at Male 11/21/2023 3:02 PM PETROLEUM PRODUCTION ENGINEER Legal Sex Male 5:20 AM PETROLEUM PRODUCTION ENGINEER Gender Identity Male 11/21/2023 3:02 PM PETROLEUM PRODUCTION ENGINEER Sexual Orientation Straight 11/21/2023 3: 02 PM PETROLEUM PRODUCTION ENGINEER documented as of this encounter Progress Notes * Wayne Duncan MD - 02/27/2008 5:36 PM CDT TIME:08:08 am PATIENT`S HOME PHONE: PATIENT`S WORK PHONE: PATIENT`S INSURANCE: [employer] [facility] WHO TOOK THE CALL: Kalyani Pfeiffer K GENERAL INFORMATION PCP: ANA MARIA. ALTERNATIVE PHONE NUMBER: [phone] WHO CALLED: Patient called. PHARMACY NUMBER: [phone] SECTION 1: REQUESTED ACTION paige 03/30/07 at 08:09 am: MEDICATION REQUEST: Patient requests a refill. MEDICATIONS: LANTUS SUBCUTANEOUS SOLUTION 100 UNIT/ML, 24 units qd, 1 Dispensed, status: NEW HISTORY, 09/21/2006. Would like a 1 month supply JKG DOCTOR`S RESPONSE: eduarda 03/30/07 at 08:24 am Refill now with 3 additional refills. FINAL ACTION: bethany 03/30/07 at 09:30 am Called pharmacy at 03/30/07 at 09:30 am. refilled x 3 Electronically Signed by: Eve Velazquez on Friday, March 30, 2007 documented in this encounter Plan of Treatment Upcoming Encounters Date Type Department Care Team (Late st Contact Info) Description 02/17/2025 1:30 PM CDT Office Visit [facility] Endocrinology [address] [facility] [place] [address] Rosa Cortez MD [address] [facility] [address] [phone] 03/11/2025 10:30 AM CDT Office Visit [facility] Neurology [address] [facility] [address] [place] [address] Wallace Church MD [address] [address] 05/20/2025 10:15 AM CDT Office Visit [facility] Endocrinology [address] [facility] [place] [address] Rosa Cortez MD [address] [address] 08/18/2025 3:15 PM PETROLEUM PRODUCTION ENGINEER Office Visit [facility] Endocrinology [address] [facility] [place] [address] Rosa Cortez MD [address] [facility] [address] [address] documented as of this encounter Visit Diagnoses Not on filedocumented in this encounter Care Teams Acidizer Relationship Specialty Start Date End Date Vinay Munoz MD [address] [place] [address] PCP - General Family Practice 11/19/24 documented as of this encounter
--- OUTSIDE RECORDS SUMMARY | 2024-12-19 00:42 | XMS_ITS | Encounter Summary ---
Author Organization [facility] Address [address] [place] [address] Care Team Providers Care Grievance Manager Name Role Phone Vinay Munoz MD Primary Care Provider [phone] Encounter Details Date Type Department Care Team (Late Contact Info) Description 12/20/2006 Outpatient Historical [facility] Internal Medicine [address]ined[address] [facility] [address] [place] [address] Wayne Duncan MD [address] [place] [address] Social History Tobacco Use Types Packs/Day Years Used Date Smoking Tobacco: Never Assessed Sex and Gender Information Value Date Recorded Sex Assigned at Male 11/21/2023 3:02 PM INHALATION THERAPY TEACHER Legal Sex Male 5:20 AM INHALATION THERAPY TEACHER Gender Identity Male 11/21/2023 3:02 PM INHALATION THERAPY TEACHER Sexual Orientation Straight 11/21/2023 3: 02 PM INHALATION THERAPY TEACHER documented as of this encounter Last Filed Vital Signs Vital Sign Reading Time Taken Comments Blood Pressure 120/80 12/20/2006 8:45 AM CDT Pulse 80 12/20/2006 8:45 AM CDT Temperature 36.6 C (97.9 F) 12/20/2006 8:45 AM CDT Respiratory Rate 24 12/20/2006 8:45 AM CDT Oxygen Saturation - - Inhaled Oxygen Concentration - - Weight 81.2 kg (179 lb) 12/20/2006 8:45 AM CDT Height 182.9 cm (6') 12/20/2006 8:45 AM CDT Body Mass Index 24.28 12/20/2006 8:45 AM CDT documented in this encounter Plan of Treatment Upcoming Encounters Date Type Department Care Team (Late st Contact Info) Description 02/17/2025 1:30 PM CDT Office Visit [facility] Endocrinology [address] [place] [address] Rosa Cortez MD [address] [place] [address] 03/11/2025 10:30 AM CDT Office Visit [facility] Neurology [address] [place] [address] Wallace Church MD [address] [place] [address] 05/20/2025 10:15 AM CDT Office Visit [facility] Endocrinology [address] [place] [address] Rosa Cortez MD [address] [place] [address] 08/18/2025 3:15 PM INHALATION THERAPY TEACHER Office Visit [facility] Endocrinology [address] [place] [address] Rosa Cortez MD [address] [place], [place] [phone] documented as of this encounter Visit Diagnoses Not on filedocumented in this encounter Care Teams Grievance Manager Relationship Specialty Start Date End Date Vinay Munoz MD [address] [place] [address] PCP - General Family Practice 11/19/24 documented as of this encounter
--- OUTSIDE RECORDS SUMMARY | 2024-12-19 00:42 | XMS_ITS | Encounter Summary ---
Author Organization [facility] Address [address] [place] [address] Care Team Providers Care Suction Dredge Dumping Supervisor Name Role Phone Vinay Munoz MD Primary Care Provider [phone] Encounter Details Date Type Department Care Team (Late st Contact Info) Description 12/13/2024 Results Follow-Up [facility] Endocrinology [address] [place] [address] Maggie Senior MD [address] [place] [address] HEMOGLOBIN A1C Social History Tobacco Use Types Packs/Day Years Used Date Smoking Tobacco: Former Cigarettes 1.5 14 Smokeless Tobacco: Never Comments:quit at the age 35 Alcohol Use Standard Drinks/Week Comments Yes 5.8 (1 standard drink = 0.6 oz p ure alcohol) daily 1 drink Sex and Gender Information Value Date Recorded Sex Assigned at Male 11/21/2023 3:02 PM CREDIT MANAGER Legal Sex Male 5:20 AM CREDIT MANAGER Gender Identity Male 11/21/2023 3:02 PM CREDIT MANAGER Sexual Orientation Straight 11/21/2023 3: 02 PM CREDIT MANAGER Occupation Industry Job Start Date Job End Date Not on file Not on file Not on file Not on file documented as of this encounter Plan of Treatment Upcoming Encounters Date Type Department Care Team (Late st Contact Info) Description 02/17/2025 1:30 PM CDT Office Visit [facility] Endocrinology [address] [place] [address] Rosa Cortez MD [address] [place] [address] 03/11/2025 10:30 AM CDT Office Visit [facility] Neurology [address] [place] [phone] Wallace Church MD [address] [facility] [place] [address] 05/20/2025 10:15 AM CDT Office Visit [facility] Endocrinology [address] [place] [address] Rosa Cortez MD [address] [facility] [address] [place], [place] [id number] 08/18/2025 3:15 PM CREDIT MANAGER Office Visit [facility] Endocrinology [address] [place] [address] Rosa Cortez MD [address] [id number] documented as of this encounter Visit Diagnoses Not on filedocumented in this encounter Care Teams Suction Dredge Dumping Supervisor Relationship Specialty Start Date End Date Vinay Munoz MD [address] [place] [phone] PCP - General Family Practice 11/19/24 documented as of this encounter
--- OUTSIDE RECORDS SUMMARY | 2024-12-19 00:42 | XMS_ITS | Encounter Summary ---
Author Organization [facility] Address [address] [place] [address] Care Team Providers Care Vp Customer Service Name Role Phone Vinay Munoz MD Primary Care Provider [phone] Encounter Details Date Type Department Care Team (Latest Contact Info) Description 12/20/2006 Outpatient Historical [facility] Internal Medicine [place] [address] [facility] [address] [place] [address] Wayne Duncan MD [address] [place] [address] DM w/o Complication Type II, Uncontrolled (Primary Dx) Social History Tobacco Use Types Packs/Day Years Used Date Smoking Tobacco: Never Assessed Sex and Gender Information Value Date Recorded Sex Assigned at Male 11/21/2023 3:02 PM BOTTOM PAINTER Legal Sex Male 5:20 AM BOTTOM PAINTER Gender Identity Male 11/21/2023 3:02 PM BOTTOM PAINTER Sexual Orientation Straight 11/21/2023 3: 02 PM BOTTOM PAINTER documented as of this encounter Plan of Treatment Upcoming Encounters Date Type Department Care Team (Late st Contact Info) Description 02/17/2025 1:30 PM CDT Office Visit [facility] Endocrinology [address] [place] [address] Rosa Cortez MD [address] [place] [address] 03/11/2025 10:30 AM CDT Office Visit [facility] Neurology [address] [place] [address] Wallace Church MD [address] [place] [address] 05/20/2025 10:15 AM CDT Office Visit [facility] Endocrinology [address] [place] [address] Rosa Cortez MD [address] [place] [address] 08/18/2025 3:15 PM BOTTOM PAINTER Office Visit [facility] Endocrinology [address] [place] [address] Rosa Cortez MD [address] [place] [address] documented as of this encounter Procedures Procedure Name Priority Date/Time Associated Diagnosis Comments MICROALBUMIN/CREATIN INE RATIO, RANDOM UR Routine 12/20/2006 9:24 AM CDT ALT Routine 12/20/2006 9:22 AM CDT HEMOGLOBIN A1C Routine 12/20/2006 9:22 AM CDT LIPID PANEL Routine 12/20/2006 9:22 AM CDT documented in this encounter Results * MICROALBUMIN/CREATININE RATIO, RANDOM UR (12/20/2006 9:24 AM CDT) MICROALBUMIN/C REAT RATIO, UR 10 0 - 29 mg/g creatinine INTERFACE SYSTEM 12/20/2006 9:24 AM CDT us Wayne Duncan MD URINE ORDERABLES Edited INTERFACE SYSTEM Refer to clinic/hospital department * (ABNORMAL) HEMOGLOBIN A1C (12/20/2006 9:22 AM CDT) HEMOGLOBIN A1C 7.1(H) 4.1 - 6.1 % of Hgb INTERFACE SYSTEM GLUCOSE, MEAN BLOOD 175 mg/dL INTERFACE SYSTEM 12/20/2006 9:22 AM CDT Wayne Duncan MD CHEMISTRY ORDERABLES Edited INTERFACE SYSTEM Refer to clinic/hospital department * ALT (12/20/2006 9:22 AM CDT) ALT 27 0 - 41 U/L INTERFACE SYSTEM 12/20/2006 9:22 AM CDT Wayne Duncan MD CHEMISTRY ORDERABLES Edited Performing Organization Address [facility] Co de Phone Number INTERFACE SYSTEM Refer to clinic/hospital department * (ABNORMAL) LIPID PANEL (12/20/2006 9:22 AM CDT) CHOLESTEROL 159 100 - 199 mg/dL INTERFACE SYSTEM TRIGLYCERIDE 58 10 - 149 mg/dL INTERFACE SYSTEM HDL 62(H) 40 - 59 mg/dL INTERFACE SYSTEM CHOL/HDL RATIO 2.6 2.0 - 5.0 INTER FACE SYSTEM LDL CALCULATED 85 <=99 mg/dL INTERFACE SYSTEM LIPID PANEL COMMENT See Below INTERFACE SYSTEM Comment: The adult ATP and pediatric NCEP classifications for lipids are available on the [facility] Intranet at: [email or web address] Select: Lab Policies and Procedures Select: Reference Ranges - Lipids 12/20/2006 9:22 AM CDT Wayne Duncan MD CHEMISTRY ORDERABLES Edited Performing Organization Address City/[facility] Co de Phone Number INTERFACE SYSTEM Refer to clinic/hospital department documented in this encounter Visit Diagnoses Diagnosis Type II or unspecified type diabetes mellitus without mention of complication, uncontrolled- Primary documented in this encounter Care Teams Vp Customer Service Relationship Specialty Start Date End Date Vinay Munoz MD [address] [place] [address] PCP - General Family Practice 11/19/24 documented as of this encounter
--- OUTSIDE RECORDS SUMMARY | 2024-12-19 00:43 | XMS_ITS | Encounter Summary ---
Author Organization [facility] Address [address] [place] [address] Care Team Providers Care Hi Ranger Operator Name Role Phone Vinay Munoz MD Primary Care Provider [phone] Encounter Details Date Type Department Care Team (Late st Contact Info) Description 11/02/2006 Outpatient Historical [facility] Internal Medicine Mattie Pineda [address] [facility] [address] [place] [address] Wayne Duncan MD [address] [place] [address] Social History Tobacco Use Types Packs/Day Years Used Date Smoking Tobacco: Never Assessed Sex and Gender Information Value Date Recorded Sex Assigned at Male 11/21/2023 3:02 PM TREASURY MANAGER Legal Sex Male 5:20 AM TREASURY MANAGER Gender Identity Male 11/21/2023 3:02 PM TREASURY MANAGER Sexual Orientation Straight 11/21/2023 3: 02 PM TREASURY MANAGER documented as of this encounter Last Filed Vital Signs Vital Sign Reading Time Taken Comments Blood Pressure 130/78 11/02/2006 1:00 PM TREASURY MANAGER Pulse 80 11/02/2006 1:00 PM TREASURY MANAGER Temperature 35.9 C (96.7 F) 11/02/2006 1:00 PM TREASURY MANAGER Respiratory Rate 18 11/02/2006 1:00 PM TREASURY MANAGER Oxygen Saturation - - Inhaled Oxygen Concentration - - Weight 82.6 kg (182 lb) 11/02/2006 1:00 PM TREASURY MANAGER Height 182.9 cm (6') 11/02/2006 1:00 PM TREASURY MANAGER Body Mass Index 24.68 11/02/2006 1:00 PM TREASURY MANAGER documented in this encounter Plan of Treatment Upcoming Encounters Date Type Department Care Team (Late st Contact Info) Description 02/17/2025 1:30 PM CDT Office Visit [facility] Endocrinology [address] [place] [address] Rosa Cortez MD [address] [place] [address] 03/11/2025 10:30 AM CDT Office Visit [facility] Neurology [address] [place] [address] Wallace Church MD [address] [place] [address] 05/20/2025 10:15 AM CDT Office Visit [facility] Endocrinology [address] [place] [address] Rosa Cortez MD [address] [place], [place] [phone] 08/18/2025 3:15 PM TREASURY MANAGER Office Visit [facility] Endocrinology [address] [place] [address] Rosa Cortez MD [address] [place], [place] [phone] documented as of this encounter Visit Diagnoses Not on filedocumented in this encounter Care Teams Hi Ranger Operator Relationship Specialty Start Date End Date Vinay Munoz MD [address] [place] [phone] PCP - General Family Practice 11/19/24 documented as of this encounter
--- OUTSIDE RECORDS SUMMARY | 2024-12-19 00:43 | XMS_ITS | Encounter Summary ---
Author Organization [facility] Address [address] [place] [address] Care Team Providers Care Liaison Planner Name Role Phone Vinay Munoz MD Primary Care Provider [phone] Encounter Details Date Type Department Care Team (Late st Contact Info) Description 06/02/2006 Orders Only [facility] [address] [place] [address] Wayne Duncan MD [address] [place] [address] Social History Tobacco Use Types Packs/Day Years Used Date Smoking Tobacco: Never Assessed Sex and Gender Information Value Date Recorded Sex Assigned at Male 11/21/2023 3:02 PM CONTROL TECHNICIAN Legal Sex Male 5:20 AM CONTROL TECHNICIAN Gender Identity Male 11/21/2023 3:02 PM CONTROL TECHNICIAN Sexual Orientation Straight 11/21/2023 3: 02 PM CONTROL TECHNICIAN documented as of this encounter Progress Notes * Wayne Duncan MD - 07/17/2008 11:44 PM CDT BLOOD PRESSURE: 160/82 Right Arm Sitting PULSE: 84 Right Radial, Regular RESPIRATIONS: 20 WEIGHT: 176lbs TEMPERATURE: 96.6??f Oral HEIGHT: 6ft0in NURSE NAME: Eve Velazquez S ALLERGIES: No known drug allergies. MEDICATIONS: Medication list current. CHIEF COMPLAINT f/u htn and diabetes HISTORY: HISTORY: 250.02-DM II UNCONTROLLED The diabetes has improved. The patient`s weight is the same. Patient is somewhat compliant with diet. The patient`s exercise is the same. Fasting morning blood sugars upper range is in the 130's, lower range is in the 90's. The patient denies polyuria, polyphagia, polydipsia, change in vision, foot ulcerations, or hypoglycemic episodes. The patient is tolerating the medication. Laboratory data will be obtained.the pt notes he is taking his meds as perscribed and the ptnotes he is tolerating his meds well. the pt tries to diet and exercise. 272.4-HYPERLIPIDEMIA The patient`s weight is the same. The patient is somewhat compliant with the low saturated fat diet. The patient`s exercise is the same. The patient is tolerating the medications, no complications noted. The patient's most recent LDL is at goal, most recent HDL is at goal, mostrecent triglyceride is at goal, most recent liver function is normal. 401.1-HYPERTENSION ESSENTIAL BENIGN The patient`s weight is the same. The patient is somewhat compliant with diet. The patient`s exercise is the same. The blood pressure readings taken outside the office since the last visit are as follows: the systolic range has been 120's. The diastolic range hasbeen 80's. The patient denies chest pain, shortness of breath, dyspnea on exertion, pedal edema, orheadache. The patient is tolerating the medication. Recent laboratory work satisfactory. The blood pressure readings taken outside the office since the last visit have been in the target range.the ptnotes his bps at home are controlled and the pt notes he is taking his meds regularly. the pt noteshe uses a cuff at home. the pt has not brought in his cuff to our office in the past. 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 No major weight gain or loss. No malaise, chills, fever, diaphoresis. ALLERGIC/IMMUNOLOGIC: No hay fever or history of environmental allergies. No chronic problems with immunity. EYES: No vision changes or diplopia. ENT: No hearing loss, epistaxis, hoarseness or dysphagia. No sinus congestion. ENDOCRINE: See HISTORY OF PRESENT ILLNESS. CARDIAC: No chest pain, palpitations, orthopnea, dyspnea on exertion, or paroxysmal nocturnal dyspnea. RESPIRATORY: No dyspnea, cough, hemoptysis or wheezing. SKIN/BREAST/CHEST: No rashes or non-healing lesions. No breast symptoms noted. HEMATOLOGIC/LYMPHATIC: No anemia, easy bruising, bleeding or swollen nodes. : No dysuria or hematuria. GI: No abdominal pain, nausea, vomiting, diarrhea, constipation, melena, or hematochezia. NEUROLOGIC: No weakness, dizziness, loss of consciousness, transient ischemic symptoms, or seizures. MUSCULOSKELETAL: No muscle or joint pain, weakness, swelling or inflammation. No restriction of motion, no atrophy or backache. PSYCHIATRIC: No increased nervousness, mood changes or depression. Coping well. PAST MEDICAL HISTORY: MEDICAL: Diabetes, hypercholesterolemia, hypertension, depression.anxiety SURGICAL: Tonsils and adenoids.left shoulder surgery ALLERGIES/ADVERSE REACTIONS: No known drug allergies. FAMILY HISTORY: FATHER: The cause of was cancer. MOTHER: The mother is living. Illnesses: Hypertension. SOCIAL HISTORY: MARITAL HISTORY: , living with spouse. TOBACCO USE: Has no significant smoking history. ALCOHOL: Drinks a minimal amount of alcohol. PHYSICAL EXAMINATION: CONSTITUTIONAL: GENERAL APPEARANCE: Healthy appearing patient in no distress. EYES: CONJUNCTIVAE/LIDS: Conjunctivae and lids appear normal. PUPILS: Pupils equal and normally reactive to light and accommodation. EARS, NOSE, MOUTH AND THROAT: EXTERNAL/EARS AND NOSE: Overall appearance normal with no scars, lesions or masses. EARS: Tympanic membranes shiny without retraction. Canals unremarkable. Hearing grossly normal. NOSE (AND SINUS): No abnormality of the nose or sinuses is noted. ORAL: Inspection of gums, lips, palate, and teeth normal. No scars, lesions, or masses. Oral mucosaunremarkable with non-inflamed posterior pharynx. NECK/THYROID: Trachea midline. No thyroid enlargement, tenderness, or mass. No supraclavicular or cervical adenopathy. RESPIRATORY: Clear to auscultation and percussion. Normal respiratory effort. CARDIOVASCULAR: CARDIAC: Regular rhythm. No murmurs, rubs, or gallops. ARTERIAL: Aortic pulses of normal amplitude with no bruits. JUGULAR VEINS Jugular veins within normal limits. EDEMA/VARICOSITIES OF EXTREMITIES: No edema or varicosities. LYMPHATICS: No lymphadenopathy in the neck, axillae, or groin. GASTROINTESTINAL: ABDOMEN: Soft, non-tender, without masses. Bowel sounds active. LIVER/SPLEEN/KIDNEY: No hepatosplenomegaly, tenderness or nodularity. Kidneys not palpable. MUSCULOSKELETAL EXAM: SPINE/RIBS/PELVIS: No kyphosis, lordosis, full range of motion. Normal stability, strength and tone. EXTREMITIES: DIABETIC II FOOT EXAM: The patient`s diabetic foot exam is within normal limits. Negative for callous, ulcers, tinea pedis, onychomycosis, arterial insufficiency or neuropathy. BILATERAL LOWER EXTREMITIES: No misalignment or tenderness. Full range of motion. Normal stability,strength and tone. SKIN: SKIN: Warm, dry, no diaphoresis, no significant lesions, irritation, rashes or ulcers. No induration, obvious subcutaneous nodules or tightening. NEUROLOGIC: CRANIAL NERVES: steam press tender II-XII grossly intact. PSYCHIATRIC: Judgment appropriate. Oriented. Normal memory. Mood and affect appropriate. ASSESSMENT/PLAN: 250.02-DM II UNCONTROLLED ASSESSMENT: The diabetes has improved. Will not change medication, continue to monitor for complications. Will check laboratory to assess disease effect, to assess medication effect. Clinical guidelines reviewed with patient regarding HgbA1c, microalbumin, diabetic retinal exam, diabetic foot exam,need to adhere with diet was emphasized with patient, regular aerobic exercise encouraged, patient was instructed to monitor blood sugar and bring the readings to next appointment.the pt is to cont on his current dm meds and will decide on further tx based on the lab tests. the pt is to cont to tryand diet and exercise. LAB ORDERS: Order number: [id number] Test Ordered: HEMOGLOBIN A1C 1814 Order number: [id number] Test Ordered: MICROALBUMIN/CREAT, UR RATIO 2252 272.4-HYPERLIPIDEMIA ASSESSMENT: Will not change medication, continue to monitor for complications. A low cholesterol diet was encouraged. Regular exercise was encouraged. The patient's thyroid status is being followed, and is known to be normal presently. The patient's most recent labs reviewed. Clinical guidelines reviewed. Protocol reviewed.the pt is to cont on his current chol med. his last ldl was 82 and this will be followed. the pt is tolerating this med well. 401.1-HYPERTENSION ESSENTIAL BENIGN ASSESSMENT: The blood pressure is unchanged. Will increase medication dosage. The patient was encouraged to follow a low salt diet. Regular aerobic exercise was encouraged. No laboratory work is necessary at this time. Clinical guidelines reviewed. Protocol reviewed. The patient was instructed to obtain outside BP readings for the next appointment.the pt still has elevated bps and will increase the dose of the enalapril to 20mg bid and the pt will bring in his cuff to compare to ours as his bp is elevated at every office visit with us. MEDICATIONS: ENALAPRIL MALEATE ORAL TABLET 20 MG, 1 Two Times A Day, 180 Dispensed, 3 Fills, status: NEW PRESCRIPTION, 06/02/2006. RETURN VISIT : Patient instructed to return in 4 months. Electronically Signed by: Wayne Duncan MD on Friday, June 02, 2006 documented in this encounter Plan of Treatment Upcoming Encounters Date Type Department Care Team (Late st Contact Info) Description 02/17/2025 1:30 PM CDT Office Visit [facility] Endocrinology [address] [facility] [place] [address] Rosa Cortez MD [address] [address] 03/11/2025 10:30 AM CDT Office Visit [facility] Neurology [address] [facility] [address] [place] [address] Wallace Church MD [address] [facility] [place] [address] 05/20/2025 10:15 AM CDT Office Visit [facility] Endocrinology [address] [place] [address] Rosa Cortez MD [address] [address] 08/18/2025 3:15 PM CONTROL TECHNICIAN Office Visit [facility] Endocrinology [address] [place] [address] Rosa Cortez MD [address] [place], [place] [phone] documented as of this encounter Visit Diagnoses Not on filedocumented in this encounter Care Teams Liaison Planner Relationship Specialty Start Date End Date Vinay Munoz MD [address] [place] [address] PCP - General Family Practice 11/19/24 documented as of this encounter
--- OUTSIDE RECORDS SUMMARY | 2024-12-19 00:43 | XMS_ITS | Encounter Summary ---
Author Organization [facility] Address [address] [place] [address] Care Team Providers Care Hosting Engineer Name Role Phone Vinay Munoz MD Primary Care Provider [phone] Encounter Details Date Type Department Care Team (Latest Contact Info) Description 06/20/2008 Outpatient Historical [facility] Wayne Tucker MD [address] [place] [address] DM w/o Complication Type II, Uncontrolled Social History Tobacco Use Types Packs/Day Years Used Date Smoking Tobacco: Never Alcohol Use Standard Drinks/Week Comments Yes 0 (1 standard drink = 0.6 oz pur e alcohol) Sex and Gender Information Value Date Recorded Sex Assigned at Male 11/21/2023 3:02 PM OPHTHALMOLOGY TECHNICIAN Legal Sex Male 5:20 AM OPHTHALMOLOGY TECHNICIAN Gender Identity Male 11/21/2023 3:02 PM OPHTHALMOLOGY TECHNICIAN Sexual Orientation Straight 11/21/2023 3: 02 PM OPHTHALMOLOGY TECHNICIAN documented as of this encounter Plan of Treatment Upcoming Encounters Date Type Department Care Team (Late st Contact Info) Description 02/17/2025 1:30 PM CDT Office Visit [facility] Endocrinology [address] [place] [address] Rosa Cortez MD [address] [place] [address] 03/11/2025 10:30 AM CDT Office Visit [facility] Neurology [address] [place] [address] Wallace Church MD [address] [place] [address] 05/20/2025 10:15 AM CDT Office Visit [facility] Endocrinology [address] [place] [address] Rosa Cortez MD [address] [facility] [address] [place] [address] 08/18/2025 3:15 PM OPHTHALMOLOGY TECHNICIAN Office Visit [facility] Endocrinology [address] [place] [address] Rosa Cortez MD [address] [facility] [address] [place] [address] documented as of this encounter Visit Diagnoses Diagnosis Type II or unspecified type diabetes mellitus without mention of complication, uncontrolled documented in this encounter Care Teams Hosting Engineer Relationship Specialty Start Date End Date Vinay Munoz MD [address] [place] [address] PCP - General Family Practice 11/19/24 documented as of this encounter
--- OUTSIDE RECORDS SUMMARY | 2024-12-19 00:43 | XMS_ITS | Encounter Summary ---
Author Organization [facility] Address [address] [place] [address] Care Team Providers Care Supervisor Prepress Name Role Phone Vinay Munoz MD Primary Care Provider [phone] Encounter Details Date Type Department Care Team (Late st Contact Info) Description 11/21/2007 Outpatient Historical [facility] Internal Medicine [facility] [address] [address] [facility] [address] [place] [address] Wayne Duncan MD [address] [place] [address] Social History Tobacco Use Types Packs/Day Years Used Date Smoking Tobacco: Never Assessed Sex and Gender Information Value Date Recorded Sex Assigned at Male 11/21/2023 3:02 PM SECURITY CONTROL ROOM OFFICER Legal Sex Male 5:20 AM SECURITY CONTROL ROOM OFFICER Gender Identity Male 11/21/2023 3:02 PM SECURITY CONTROL ROOM OFFICER Sexual Orientation Straight 11/21/2023 3: 02 PM SECURITY CONTROL ROOM OFFICER documented as of this encounter Plan of Treatment Upcoming Encounters Date Type Department Care Team (Late st Contact Info) Description 02/17/2025 1:30 PM CDT Office Visit [facility] Endocrinology [address] [place] [address] Rosa Cortez MD [address] [place] [address] 03/11/2025 10:30 AM CDT Office Visit [facility] Neurology [address] [place] [address] Wallace Church MD [address] [facility] [address] [place] [address] 05/20/2025 10:15 AM CDT Office Visit [facility] Endocrinology [address] [place] [address] Rosa Cortez MD [address] [facility] [address] [place] [address] 08/18/2025 3:15 PM SECURITY CONTROL ROOM OFFICER Office Visit [facility] Endocrinology [address] [place] [address] Rosa Cortez MD [address] [facility] [address] [place], [place] [id number] documented as of this encounter Visit Diagnoses Not on filedocumented in this encounter Care Teams Supervisor Prepress Relationship Specialty Start Date End Date Vinay Munoz MD [address] [place] [address] PCP - General Family Practice 11/19/24 documented as of this encounter
--- OUTSIDE RECORDS SUMMARY | 2024-12-19 00:43 | XMS_ITS | Encounter Summary ---
Author Organization [facility] Address [address] [place] [address] Care Team Providers Care Stamping Die Try Out Worker Name Role Phone Vinay Munoz MD Primary Care Provider [phone] Encounter Details Date Type Department Care Team (Late st Contact Info) Description 11/23/2007 Orders Only [facility] [address] [place] [address] Wayne Duncan MD [address] [place] [address] Social History Tobacco Use Types Packs/Day Years Used Date Smoking Tobacco: Never Assessed Sex and Gender Information Value Date Recorded Sex Assigned at Male 11/21/2023 3:02 PM HYDRO GENERATION MANAGER Legal Sex Male 5:20 AM HYDRO GENERATION MANAGER Gender Identity Male 11/21/2023 3:02 PM HYDRO GENERATION MANAGER Sexual Orientation Straight 11/21/2023 3: 02 PM HYDRO GENERATION MANAGER documented as of this encounter Plan of Treatment Upcoming Encounters Date Type Department Care Team (Late st Contact Info) Description 02/17/2025 1:30 PM CDT Office Visit [facility] Endocrinology [address] [place] [address] Rosa Cortez MD [address] [place] [address] 03/11/2025 10:30 AM CDT Office Visit [facility] Neurology [address] [place] [address] Wallace Church MD [address] [facility] [address] [place] [address] 05/20/2025 10:15 AM CDT Office Visit [facility] Endocrinology [address] [place] [address] Rosa Cortez MD [address] [facility] [address] [place] [address] 08/18/2025 3:15 PM HYDRO GENERATION MANAGER Office Visit [facility] Endocrinology [address] [place] [address] Rosa Cortez MD [address] [facility] [address] [place] [address] documented as of this encounter Visit Diagnoses Not on filedocumented in this encounter Care Teams Stamping Die Try Out Worker Relationship Specialty Start Date End Date Vinay Munoz MD [address] [place] [id number] PCP - General Family Practice 11/19/24 documented as of this encounter
--- OUTSIDE RECORDS SUMMARY | 2024-12-19 00:43 | XMS_ITS | Encounter Summary ---
Author Organization [facility] Address [address] [place] [address] Care Team Providers Care Waiter Name Role Phone Vinay Munoz MD Primary Care Provider [phone] Encounter Details Date Type Department Care Team (Latest Contact Info) Description 08/21/2007 Outpatient Historical [facility] Internal Medicine [place] [facility] [address] [facility] [address] [place] [address] Wayne Duncan MD [address] [place] [address] DM w/o Complication Type II, Uncontrolled (Primary Dx) Social History Tobacco Use Types Packs/Day Years Used Date Smoking Tobacco: Never Assessed Sex and Gender Information Value Date Recorded Sex Assigned at Male 11/21/2023 3:02 PM LABORER WOOD PRESERVING PLANT Legal Sex Male 5:20 AM LABORER WOOD PRESERVING PLANT Gender Identity Male 11/21/2023 3:02 PM LABORER WOOD PRESERVING PLANT Sexual Orientation Straight 11/21/2023 3: 02 PM LABORER WOOD PRESERVING PLANT documented as of this encounter Plan of Treatment Upcoming Encounters Date Type Department Care Team (Late st Contact Info) Description 02/17/2025 1:30 PM CDT Office Visit [facility] Endocrinology [address] [place] [address] Rosa Cortez MD [address] [place] [address] 03/11/2025 10:30 AM CDT Office Visit [facility] Neurology [address] [place] [address] Wallace Church MD [address] [place] [address] 05/20/2025 10:15 AM CDT Office Visit [facility] Endocrinology [address] [place] [address] Rosa Cortez MD [address] [place], [place] [id number] 08/18/2025 3:15 PM LABORER WOOD PRESERVING PLANT Office Visit [facility] Endocrinology [address] [place] [address] Rosa Cortez MD [address] [place], [place] [id number] documented as of this encounter Procedures Procedure Name Priority Date/Time Associated Diagnosis Comments PSA Routine 08/21/2007 9:34 AM LABORER WOOD PRESERVING PLANT HEMOGLOBIN A1C Routine 08/21/2007 9:34 AM LABORER WOOD PRESERVING PLANT LIPID PANEL Routine 08/21/2007 9:34 AM LABORER WOOD PRESERVING PLANT COMPREHENSIVE METABOLIC PANEL Routine 08/21/2007 9:34 AM LABORER WOOD PRESERVING PLANT documented in this encounter Results * (ABNORMAL) HEMOGLOBIN A1C (08/21/2007 9:34 AM LABORER WOOD PRESERVING PLANT) HEMOGLOBIN A1C 7.8(H) 4.1 - 6.1 % of Hgb INTERFACE SYSTEM GLUCOSE, MEAN BLOOD 200 mg/dL INTERFACE SYSTEM 08/21/2007 9:34 AM LABORER WOOD PRESERVING PLANT Wayne Duncan MD CHEMISTRY ORDERABLES Edited INTERFACE SYSTEM Refer to clinic/hospital department * (ABNORMAL) COMPREHENSIVE METABOLIC PANEL (08/21/2007 9:34 AM LABORER WOOD PRESERVING PLANT) GLUCOSE 178(H) 65 - 99 mg/dL INTERFACE SYSTEM CREATININE 0.87 0.67 - 1.17 mg/dL INTERFACE SYSTEM CALCIUM 8.7 8.4 - 10.2 mg/dL INTERFACE SYSTEM ALKALINE PHOSPHATASE 91 40 - 129 U/L INTERFACE SYSTEM AST 28 12 - 38 U/L INTERFACE SYSTEM ALT 37 0 - 41 U/L INTERFACE SYSTEM TOTAL PROTEIN 7.0 6.3 - 8.6 g/dL INTERFACE SYSTEM ALBUMIN 4.2 3.4 - 4.8 g/dL INTERFACE SYSTEM BILIRUBIN TOTAL 0.4 0.2 - 1.0 mg/dL INTERFACE SYSTEM BUN 20 6 - 20 mg/dL INTERFACE SYSTEM SODIUM 138 135 - 145 mmol/L INTERFACE SYSTEM POTASSIUM 4.3 3.5 - 4.9 mmol/L INTERFACE SYSTEM CHLORIDE 104 96 - 108 mmol/L INTERFACE SYSTEM CO2 28 22 - 30 mmol/L INTERFACE SYSTEM GFR, >60 >=60 mL/min/1. 7 sq meter INTERFACE SYSTEM GFR >60 >=60 mL/min/1. 7 sq meter INTERFACE SYSTEM Comment: Estimated GFR rate interpretative information for both Americans and non- Americans is available on the [facility] Intranet at: [email or web address] Select: Lab Policies and Procedures Select: Reference Ranges - GFR 08/21/2007 9:34 AM LABORER WOOD PRESERVING PLANT Wayne Duncan MD CHEMISTRY ORDERABLES Edited INTERFACE SYSTEM Refer to clinic/hospital department * (ABNORMAL) LIPID PANEL (08/21/2007 9:34 AM LABORER WOOD PRESERVING PLANT) CHOLESTEROL 174 100 - 199 mg/dL INTERFACE SYSTEM TRIGLYCERIDE 79 10 - 149 mg/dL INTERFACE SYSTEM HDL 46 40 - 59 mg/dL INTERFACE SYSTEM CHOL/HDL RATIO 3.8 2.0 - 5.0 INTER FACE SYSTEM LDL CALCULATED 112(H) <=99 mg/dL INTERFACE SYSTEM LIPID PANEL COMMENT See Below INTERFACE SYSTEM Comment: The adult ATP and pediatric NCEP classifications for lipids are available on the [facility] [employer] Medicalet at: [email or web address] Select: Lab Policies and Procedures,Current Select: Lipid Panel Interpretation 08/21/2007 9:34 AM LABORER WOOD PRESERVING PLANT Wayne Duncan MD CHEMISTRY ORDERABLES Edited Performing Organization Address City/[facility] de Phone Number INTERFACE SYSTEM Refer to clinic/hospital department * PSA (08/21/2007 9:34 AM LABORER WOOD PRESERVING PLANT) PSA 1.3 0.0 - 4.0 ng/mL INTERFACE SYSTEM Comment:Performed on [facility] E170 System 08/21/2007 9:34 AM LABORER WOOD PRESERVING PLANT Wayne Duncan MD CHEMISTRY ORDERABLES Edited Performing Organization Address [facility] de Phone Number INTERFACE SYSTEM Refer to clinic/hospital department documented in this encounter Visit Diagnoses Diagnosis Type II or unspecified type diabetes mellitus without mention of complication, uncontrolled- Primary documented in this encounter Care Teams Waiter Relationship Specialty Start Date End Date Vinay Munoz MD [address] [place] [phone] PCP - General Family Practice 11/19/24 documented as of this encounter
--- OUTSIDE RECORDS SUMMARY | 2024-12-19 00:43 | XMS_ITS | Encounter Summary ---
Author Organization [facility] Address [address] [place] [address] Care Team Providers Care French Polisher Name Role Phone Vinay Munoz MD Primary Care Provider [phone] Encounter Details Date Type Department Care Team (Late st Contact Info) Description 11/21/2007 Outpatient Historical [facility] Internal Medicine [facility] [address] [place] [address] Wayne Duncan MD [address] [place] [address] Social History Tobacco Use Types Packs/Day Years Used Date Smoking Tobacco: Never Assessed Sex and Gender Information Value Date Recorded Sex Assigned at Male 11/21/2023 3:02 PM SHADE HANGER Legal Sex Male 5:20 AM SHADE HANGER Gender Identity Male 11/21/2023 3:02 PM SHADE HANGER Sexual Orientation Straight 11/21/2023 3: 02 PM SHADE HANGER documented as of this encounter Plan of Treatment Upcoming Encounters Date Type Department Care Team (Late st Contact Info) Description 02/17/2025 1:30 PM CDT Office Visit [facility] Endocrinology [address] [place] [address] Rosa Cortez MD [address] [place] [address] 03/11/2025 10:30 AM CDT Office Visit [facility] Neurology [address] [place] [address] Wallace Church MD [address] [facility] [address] [place] [address] 05/20/2025 10:15 AM CDT Office Visit [facility] Endocrinology [address] [place] [address] Rosa Cortez MD [address] [facility] [address] [place] [address] 08/18/2025 3:15 PM SHADE HANGER Office Visit [facility] Endocrinology [address] [place] [address] Rosa Cortez MD [address] [facility] [address] [place], [place] [id number] documented as of this encounter Visit Diagnoses Not on filedocumented in this encounter Care Teams French Polisher Relationship Specialty Start Date End Date Vinay Munoz MD [address] [place] [address] PCP - General Family Practice 11/19/24 documented as of this encounter
--- OUTSIDE RECORDS SUMMARY | 2024-12-19 00:43 | XMS_ITS | Encounter Summary ---
Author Organization [facility] Address [address] [place] [address] Care Team Providers Care Is/It Project Manager Name Role Phone Vinay Munoz MD Primary Care Provider [phone] Encounter Details Date Type Department Care Team (Late st Contact Info) Description 10/11/2006 Outpatient Historical [facility] Wayne Duncan MD [address] [place] [address] Esophageal Reflux (Primary Dx) Social History Tobacco Use Types Packs/Day Years Used Date Smoking Tobacco: Never Assessed Sex and Gender Information Value Date Recorded Sex Assigned at Male 11/21/2023 3:02 PM THORACIC SURGEON Legal Sex Male 5:20 AM THORACIC SURGEON Gender Identity Male 11/21/2023 3:02 PM THORACIC SURGEON Sexual Orientation Straight 11/21/2023 3: 02 PM THORACIC SURGEON documented as of this encounter Plan of Treatment Upcoming Encounters Date Type Department Care Team (Late st Contact Info) Description 02/17/2025 1:30 PM CDT Office Visit [facility] Endocrinology [address] [place] [address] Rosa Cortez MD [address] [place] [address] 03/11/2025 10:30 AM CDT Office Visit [facility] Neurology [address] [place] [address] Wallace Church MD [address] [place] [address] 05/20/2025 10:15 AM CDT Office Visit [facility] Endocrinology [address] [place] [address] Rosa Cortez MD [address] [place] [address] 08/18/2025 3:15 PM THORACIC SURGEON Office Visit [facility] Endocrinology [address] [place] [address] Rosa Cortez MD [address] [place], [place] [id number] documented as of this encounter Visit Diagnoses Diagnosis Esophageal reflux- Primary documented in this encounter Care Teams Is/It Project Manager Relationship Specialty Start Date End Date Vinay Munoz MD [address] [place] [phone] PCP - General Family Practice 11/19/24 documented as of this encounter
--- OUTSIDE RECORDS SUMMARY | 2024-12-19 00:43 | XMS_ITS | Encounter Summary ---
Author Organization [facility] Address [address] [place] [address] Care Team Providers Care Air Hammer Operator Name Role Phone Vinay Munoz MD Primary Care Provider [phone] Encounter Details Date Type Department Care Team (Late st Contact Info) Description 08/21/2007 Outpatient Historical [facility] Internal Medicine [place] [address] [place] [address] Wayne Duncan MD [address] [place] [address] Social History Tobacco Use Types Packs/Day Years Used Date Smoking Tobacco: Never Assessed Sex and Gender Information Value Date Recorded Sex Assigned at Male 11/21/2023 3:02 PM ACID EXTRACTOR Legal Sex Male 5:20 AM ACID EXTRACTOR Gender Identity Male 11/21/2023 3:02 PM ACID EXTRACTOR Sexual Orientation Straight 11/21/2023 3: 02 PM ACID EXTRACTOR documented as of this encounter Last Filed Vital Signs Vital Sign Reading Time Taken Comments Blood Pressure 160/84 08/21/2007 9:00 AM ACID EXTRACTOR Pulse 76 08/21/2007 9:00 AM ACID EXTRACTOR Temperature 35.8 C (96.4 F) 08/21/2007 9:00 AM ACID EXTRACTOR Respiratory Rate 16 08/21/2007 9:00 AM ACID EXTRACTOR Oxygen Saturation - - Inhaled Oxygen Concentration - - Weight 80.3 kg (177 lb) 08/21/2007 9:00 AM ACID EXTRACTOR Height 182.9 cm (6') 08/21/2007 9:00 AM ACID EXTRACTOR Body Mass Index 24.01 08/21/2007 9:00 AM ACID EXTRACTOR documented in this encounter Plan of Treatment Upcoming Encounters Date Type Department Care Team (Late st Contact Info) Description 02/17/2025 1:30 PM CDT Office Visit [facility] Endocrinology [address] [place] [address] Rosa Cortez MD [address] [place] [address] 03/11/2025 10:30 AM CDT Office Visit [facility] Neurology [address] [place] [address] Wallace Church MD [address] [place] [address] 05/20/2025 10:15 AM CDT Office Visit [facility] Endocrinology [address] [place] [address] Rosa Crotez MD [address] [place], [place] [address] 08/18/2025 3:15 PM ACID EXTRACTOR Office Visit [facility] Endocrinology [address] [place] [address] Rosa Cortez MD [address] [place], [place] [address] documented as of this encounter Visit Diagnoses Not on filedocumented in this encounter Care Teams Air Hammer Operator Relationship Specialty Start Date End Date Vinay Munoz MD [address] [place] [address] PCP - General Family Practice 11/19/24 documented as of this encounter
--- OUTSIDE RECORDS SUMMARY | 2024-12-19 00:43 | XMS_ITS | Encounter Summary ---
Author Organization [facility] Address [address] [place] [address] Care Team Providers Care Baker Head Name Role Phone Vinay Munoz MD Primary Care Provider [phone] Encounter Details Date Type Department Care Team (Latest Contact Info) Description 09/19/2008 Outpatient Historical [facility] Wayne Tucker MD [address] [place] [address] DM w/o Complication Type II, Uncontrolled Social History Tobacco Use Types Packs/Day Years Used Date Smoking Tobacco: Never Alcohol Use Standard Drinks/Week Comments Yes 0 (1 standard drink = 0.6 oz pur e alcohol) Sex and Gender Information Value Date Recorded Sex Assigned at Male 11/21/2023 3:02 PM PACKAGE DELIVERY DRIVER Legal Sex Male 5:20 AM PACKAGE DELIVERY DRIVER Gender Identity Male 11/21/2023 3:02 PM PACKAGE DELIVERY DRIVER Sexual Orientation Straight 11/21/2023 3: 02 PM PACKAGE DELIVERY DRIVER documented as of this encounter Plan of Treatment Upcoming Encounters Date Type Department Care Team (Late st Contact Info) Description 02/17/2025 1:30 PM CDT Office Visit [facility] Endocrinology [address] [place] [address] Rosa Cortez MD [address] [place] [address] 03/11/2025 10:30 AM CDT Office Visit [facility] Neurology [address] [place] [address] Wallace Church MD [address] [facility] [facility] [address] [place] [address] 05/20/2025 10:15 AM CDT Office Visit [facility] Endocrinology [address] [place] [address] Rosa Cortez MD [address] [facility] [address] [place] [address] 08/18/2025 3:15 PM PACKAGE DELIVERY DRIVER Office Visit [facility] Endocrinology [address] [place] [address] Rosa Cortez MD [address] [facility] [address] [place] [address] documented as of this encounter Visit Diagnoses Diagnosis Type II or unspecified type diabetes mellitus without mention of complication, uncontrolled documented in this encounter Care Teams Baker Head Relationship Specialty Start Date End Date Vinay Munoz MD [address] [place] [address] PCP - General Family Practice 11/19/24 documented as of this encounter
--- OUTSIDE RECORDS SUMMARY | 2024-12-19 00:43 | XMS_ITS | Encounter Summary ---
Author Organization [facility] Address [address] [place] [address] Care Team Providers Care Biophysics Professor Name Role Phone Vinay Munoz MD Primary Care Provider [phone] Encounter Details Date Type Department Care Team (Late st Contact Info) Description 11/07/2008 Outpatient Historical [facility] Wayne Tucker MD [address] [place] [address] Hyperpotassemia Social History Tobacco Use Types Packs/Day Years Used Date Smoking Tobacco: Never Alcohol Use Standard Drinks/Week Comments Yes 0 (1 standard drink = 0.6 oz pur e alcohol) Sex and Gender Information Value Date Recorded Sex Assigned at Male 11/21/2023 3:02 PM FLOWER MACHINE OPERATOR Legal Sex Male 5:20 AM FLOWER MACHINE OPERATOR Gender Identity Male 11/21/2023 3:02 PM FLOWER MACHINE OPERATOR Sexual Orientation Straight 11/21/2023 3: 02 PM FLOWER MACHINE OPERATOR documented as of this encounter Plan of Treatment Upcoming Encounters Date Type Department Care Team (Late st Contact Info) Description 02/17/2025 1:30 PM CDT Office Visit [facility] Endocrinology [address] [place] [address] Rosa Cortez MD [address] [place] [address] 03/11/2025 10:30 AM CDT Office Visit [facility] Neurology [address] [place] [address] Wallace Church MD [address] [facility] [address] [place] [address] 05/20/2025 10:15 AM CDT Office Visit [facility] Endocrinology [address] [place] [address] Rosa Cortez MD [address] [facility] [address] [place] [address] 08/18/2025 3:15 PM FLOWER MACHINE OPERATOR Office Visit [facility] Endocrinology [address] [facility] [address] [place] [address] Rosa Cortez MD [address] [facility] [address] [place], [place] [id number] documented as of this encounter Visit Diagnoses Diagnosis Hyperpotassemia documented in this encounter Care Teams Biophysics Professor Relationship Specialty Start Date End Date Vinay Munoz MD [address] [place] [address] PCP - General Family Practice 11/19/24 documented as of this encounter
--- OUTSIDE RECORDS SUMMARY | 2024-12-19 00:43 | XMS_ITS | Encounter Summary ---
Author Organization [facility] Address [address] [place] [address] Care Team Providers Care Racing Manager Name Role Phone Vinay Munoz MD Primary Care Provider [phone] Encounter Details Date Type Department Care Team (Latest Contact Info) Description 09/21/2006 Outpatient Historical [facility] Internal Medicine [place] Edwin [address] [place] [address] Wayne Duncan MD [address] [place] [address] DM w/o Complication Type II, Uncontrolled (Primary Dx) Social History Tobacco Use Types Packs/Day Years Used Date Smoking Tobacco: Never Assessed Sex and Gender Information Value Date Recorded Sex Assigned at Male 11/21/2023 3:02 PM BLOOMING MILL SUPERVISOR Legal Sex Male 5:20 AM BLOOMING MILL SUPERVISOR Gender Identity Male 11/21/2023 3:02 PM BLOOMING MILL SUPERVISOR Sexual Orientation Straight 11/21/2023 3: 02 PM BLOOMING MILL SUPERVISOR documented as of this encounter Plan of Treatment Upcoming Encounters Date Type Department Care Team (Late st Contact Info) Description 02/17/2025 1:30 PM CDT Office Visit [facility] Endocrinology [address] [place] [address] Rosa Cortez MD [address] [place] [address] 03/11/2025 10:30 AM CDT Office Visit [facility] Neurology [address] [place] [address] Wallace Church MD [address] [place] [address] 05/20/2025 10:15 AM CDT Office Visit [facility] Endocrinology [address] [place] [address] Rosa Cortez MD [address] [place], [place] [id number] 08/18/2025 3:15 PM BLOOMING MILL SUPERVISOR Office Visit [facility] Endocrinology [address] [place] [address] Rosa Cortez MD [address] [facility] [address] [place] [address] documented as of this encounter Procedures Procedure Name Priority Date/Time Associated Diagnosis Comments PSA Routine 09/21/2006 10:39 AM BLOOMING MILL SUPERVISOR HEMOGLOBIN A1C Routine 09/21/2006 10:39 AM BLOOMING MILL SUPERVISOR BASIC METABOLIC PANEL Routine 09/21/2006 10:39 AM BLOOMING MILL SUPERVISOR documented in this encounter Results * (ABNORMAL) HEMOGLOBIN A1C (09/21/2006 10:39 AM BLOOMING MILL SUPERVISOR) HEMOGLOBIN A1C 7.3(H) 4.1 - 6.1 % of Hgb INTERFACE SYSTEM GLUCOSE, MEAN BLOOD 183 mg/dL INTERFACE SYSTEM 09/21/2006 10:3 9 AM BLOOMING MILL SUPERVISOR Wayne Duncan MD CHEMISTRY ORDERABLES Final Res ult INTERFACE SYSTEM Refer to clinic/hospital department * (ABNORMAL) BASIC METABOLIC PANEL (09/21/2006 10:39 AM BLOOMING MILL SUPERVISOR) GLUCOSE 158(H) 65 - 99 mg/dL INTERFACE SYSTEM CREATININE 0.91 0.67 - 1.17 mg/dL INTERFACE SYSTEM Comment:Note: Effective 08/09 New Methodolgy and Reference Ranges CALCIUM 9.3 8.4 - 10.2 mg/dL INTERFACE SYSTEM BUN 24(H) 6 - 20 mg/dL INTERFACE SYSTEM SODIUM 141 135 - 145 mmol/L INTERFACE SYSTEM POTASSIUM 4.4 3.5 - 4.9 mmol/L INTERFACE SYSTEM CHLORIDE 104 96 - 108 mmol/L INTERFACE SYSTEM CO2 27 22 - 30 mmol/L INTERFACE SYSTEM GFR, >60 >=60 mL/min/1. 7 sq meter INTERFACE SYSTEM GFR >60 >=60 mL/min/1. 7 sq meter INTERFACE SYSTEM Comment: Estimated GFR rate interpretative information for both Americans and non- Americans is available on the [facility] Intranet at: [email or web address] Select: Lab Policies and Procedures Select: Reference Ranges - GFR 09/21/2006 10:3 9 AM BLOOMING MILL SUPERVISOR us Wayne Duncan MD CHEMISTRY ORDERABLES Final Res ult Performing Organization Address City/[facility] Co de Phone Number INTERFACE SYSTEM Refer to clinic/hospital department * PSA (09/21/2006 10:39 AM BLOOMING MILL SUPERVISOR) PSA 1.3 0.0 - 4.0 ng/mL INTERFACE SYSTEM Comment:Performed on [employer] E170 System 09/21/2006 10:3 9 AM BLOOMING MILL SUPERVISOR Wayne Duncan MD CHEMISTRY ORDERABLES Final Res ult Performing Organization Address City/State/[facility] Co de Phone Number INTERFACE SYSTEM Refer to clinic/hospital department documented in this encounter Visit Diagnoses Diagnosis Type II or unspecified type diabetes mellitus without mention of complication, uncontrolled- Primary documented in this encounter Care Teams Racing Manager Relationship Specialty Start Date End Date Vinay Munoz MD [address] [place] [id number] PCP - General Family Practice 11/19/24 documented as of this encounter
--- OUTSIDE RECORDS SUMMARY | 2024-12-19 00:43 | XMS_ITS | Encounter Summary ---
Author Organization [facility] Address [address] [place] [address] Care Team Providers Care Lpn Rn Hospice Name Role Phone Vinay Munoz MD Primary Care Provider [phone] Encounter Details Date Type Department Care Team (Late st Contact Info) Description 11/21/2007 Outpatient Historical [facility] Internal Medicine [facility] [address] [place] [address] Wayne Duncan MD [address] [place] [address] Social History Tobacco Use Types Packs/Day Years Used Date Smoking Tobacco: Never Assessed Sex and Gender Information Value Date Recorded Sex Assigned at Male 11/21/2023 3:02 PM STAFFING CONSULTANT Legal Sex Male 5:20 AM STAFFING CONSULTANT Gender Identity Male 11/21/2023 3:02 PM STAFFING CONSULTANT Sexual Orientation Straight 11/21/2023 3: 02 PM STAFFING CONSULTANT documented as of this encounter Plan of Treatment Upcoming Encounters Date Type Department Care Team (Late st Contact Info) Description 02/17/2025 1:30 PM CDT Office Visit [facility] Endocrinology [address] [place] [address] Rosa Cortez MD [address] [place] [address] 03/11/2025 10:30 AM CDT Office Visit [facility] Neurology [address] [place] [address] Wallace Church MD [address] [facility] [facility] [address] [place] [address] 05/20/2025 10:15 AM CDT Office Visit [facility] Endocrinology [address] [place] [address] Rosa Cortez MD [address] [facility] [address] [place] [address] 08/18/2025 3:15 PM STAFFING CONSULTANT Office Visit [facility] Endocrinology [address] [place] [address] Rosa Cortez MD [address] [facility] [address] [place], [place] [id number] documented as of this encounter Visit Diagnoses Not on filedocumented in this encounter Care Teams Lpn Rn Hospice Relationship Specialty Start Date End Date Vinay Munoz MD [address] [place] [address] PCP - General Family Practice 11/19/24 documented as of this encounter
--- OUTSIDE RECORDS SUMMARY | 2024-12-19 00:43 | XMS_ITS | Encounter Summary ---
Author Organization [facility] Address [address] [place] [address] Care Team Providers Care Wheel Cleaner Name Role Phone Vinay Munoz MD Primary Care Provider [phone] Encounter Details Date Type Department Care Team (Latest Contact Info) Description 11/21/2007 Outpatient Historical [facility] Internal Medicine [facility] [address] [place] [address] Wayne Duncan MD [address] [place] [address] DM w/o Complication Type II, Uncontrolled Social History Tobacco Use Types Packs/Day Years Used Date Smoking Tobacco: Never Assessed Sex and Gender Information Value Date Recorded Sex Assigned at Male 11/21/2023 3:02 PM PROTECTION AGENT Legal Sex Male 5:20 AM PROTECTION AGENT Gender Identity Male 11/21/2023 3:02 PM PROTECTION AGENT Sexual Orientation Straight 11/21/2023 3: 02 PM PROTECTION AGENT documented as of this encounter Plan of Treatment Upcoming Encounters Date Type Department Care Team (Late st Contact Info) Description 02/17/2025 1:30 PM CDT Office Visit [facility] Endocrinology [address] [place] [address] Rosa Cortez MD [address] [place] [address] 03/11/2025 10:30 AM CDT Office Visit [facility] Neurology [address] [place] [address] Wallace Church MD [address] [place] [address] 05/20/2025 10:15 AM CDT Office Visit [facility] Endocrinology [address] [place] [address] Rosa Cortez MD [address] [place] [address] 08/18/2025 3:15 PM PROTECTION AGENT Office Visit [facility] Endocrinology [address] [place] [address] Rosa Cortez MD [address] [place] [address] documented as of this encounter Procedures Procedure Name Priority Date/Time Associated Diagnosis Comments MICROALBUMIN/CREATIN INE RATIO, RANDOM UR Routine 11/21/2007 9:24 AM PROTECTION AGENT HEMOGLOBIN A1C Routine 11/21/2007 9:24 AM PROTECTION AGENT HEPATIC FUNCTION PANEL Routine 11/21/2007 9:24 AM PROTECTION AGENT documented in this encounter Results * HEPATIC FUNCTION PANEL (11/21/2007 9:24 AM PROTECTION AGENT) BILIRUBIN DIRECT 0.1 0.0 - 0.3 mg/dL [facility] AST 20 12 - 38 U/L [facility] ALBUMIN 4.2 3.4 - 4.8 g/dL [facility] ALT 24 0 - 41 U/L [facility] ALKALINE PHOSPHATASE 79 40 - 129 U/L [facility] BILIRUBIN TOTAL 0.3 0.2 - 1.0 mg/dL [facility] TOTAL PROTEIN 6.7 6.3 - 8.6 g/dL [facility] Blood specimen (specimen) 11/21/2007 9:24 AM PROTECTION AGENT 11/21/2007 12:23 PM PROTECTION AGENT Wayne Duncan MD CHEMISTRY ORDERABLES Final Res ult Performing Organization Address [facility] Co de Phone Number [facility] [address] [place] [address] * MICROALBUMIN/CREATININE RATIO, RANDOM UR (11/21/2007 9:24 AM PROTECTION AGENT) MICROALBUMIN/C REAT RATIO, UR 11 0 - 29 mg/g creatinine [facility] Urine specimen (specimen) 11/21/2007 9:24 AM PROTECTION AGENT 11/21/2007 12:16 PM PROTECTION AGENT Wayne Duncan MD URINE ORDERABLES Final Result Performing Organization Address [facility] de Phone Number [facility] [address] [place] [address] * (ABNORMAL) HEMOGLOBIN A1C (11/21/2007 9:24 AM PROTECTION AGENT) GLUCOSE, MEAN BLOOD 197 mg/dL [facility] HEMOGLOBIN A1C 7.7(H) 4.1 - 6.1 % of Hgb [facility] Blood specimen (specimen) 11/21/2007 9:24 AM PROTECTION AGENT 11/21/2007 12:23 PM PROTECTION AGENT Wayne Duncan MD CHEMISTRY ORDERABLES Final Res ult Performing Organization Address [facility] Co de Phone Number [facility] [address] [place] [address] documented in this encounter Visit Diagnoses Diagnosis Type II or unspecified type diabetes mellitus without mention of complication, uncontrolled documented in this encounter Care Teams Wheel Cleaner Relationship Specialty Start Date End Date Vinay Munoz MD [address] [place] [address] PCP - General Family Practice 11/19/24 documented as of this encounter
--- OUTSIDE RECORDS SUMMARY | 2024-12-19 00:43 | XMS_ITS | Encounter Summary ---
Author Organization [facility] Address [address] [place] [address] Care Team Providers Care Carpentry Foreman Name Role Phone Vinay Munoz MD Primary Care Provider [phone] Encounter Details Date Type Department Care Team (Late st Contact Info) Description 11/21/2007 Outpatient Historical [facility] Internal Medicine [facility] [address] [place] [address] Wayne Duncan MD [address] [place] [address] Social History Tobacco Use Types Packs/Day Years Used Date Smoking Tobacco: Never Assessed Sex and Gender Information Value Date Recorded Sex Assigned at Male 11/21/2023 3:02 PM GYPSUM CALCINER Legal Sex Male 5:20 AM GYPSUM CALCINER Gender Identity Male 11/21/2023 3:02 PM GYPSUM CALCINER Sexual Orientation Straight 11/21/2023 3: 02 PM GYPSUM CALCINER documented as of this encounter Plan of Treatment Upcoming Encounters Date Type Department Care Team (Late st Contact Info) Description 02/17/2025 1:30 PM CDT Office Visit [facility] Endocrinology [address] [place] [address] Rosa Cortez MD [address] [place] [address] 03/11/2025 10:30 AM CDT Office Visit [facility] Neurology [address] [place] [address] Wallace Church MD [address] [place] [address] 05/20/2025 10:15 AM CDT Office Visit [facility] Endocrinology [address] [place] [address] Rosa Cortez MD [address] [facility] [facility] [address] [place] [address] 08/18/2025 3:15 PM GYPSUM CALCINER Office Visit [facility] Endocrinology [address] [place] [address] Rosa Cortez MD [address] [facility] [facility] [address] [place], [place] [id number] documented as of this encounter Visit Diagnoses Not on filedocumented in this encounter Care Teams Carpentry Foreman Relationship Specialty Start Date End Date Vinay Munoz MD [address] [place] [address] PCP - General Family Practice 11/19/24 documented as of this encounter
--- OUTSIDE RECORDS SUMMARY | 2024-12-19 00:43 | XMS_ITS | Continuity of Care Document ---
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 Name Role Phone Vinay Munoz MD Unavailable Unavailable Allergies, Adverse Reactions, Alerts Substance Reaction Status Criticality ATORVASTATIN CALCIUM Active No Info rmation codeine Active No Information Medications Medication Instructions Dosage Effective Dates (start - stop) Status Comments sertraline 100 mg tablet take 1 tablet by oral route every day 100 MG - Active Flomax 0.4 mg capsule TAKE 1 CAPSULE BY MOUTH EVERY NIGHT - Active metoprolol succinate ER 25 mg tablet,extended release 24 hr take 1 tablet by oral route every day 25 MG - Active Klonopin 0.5 mg tablet 1 tab daily prn - Active BUPROPION XL 300MG TABLETS TAKE 1 TABLET BY MOUTH EVERY DAY - Active memantine 5 mg tablet take 1 tablet by oral route 2 times every day 5 MG - Active ROSUVASTATIN 5MG TABLETS TAKE 1 TABLET BY MOUTH EVERY DAY - Active enalapril maleate 20 mg tablet TAKE 1 TABLET BY MOUTH ONCE DAILY - Active Ozempic 0.25 mg or 0.5 mg (2 mg/3 mL) subcutaneous pen injector 0.25 injected weekly - Active 11/21/23 directions updated -[facility] naproxen 375 mg tablet take 1 tablet by oral route 2 times every day with food as needed 375 MG - Active Miscellaneous Prevagen Memory supplement: one capsule daily - Active triamcinolone acetonide 0.5 % topical cream apply by topical route 2 times every day a thin layer to the affected area(s) 0.00 - Active 03/13/18 replaces Clobetasol that isn't covered by ins Novolog 100 unit/mL subcutaneous solution used via insulin pump. Insulin dosing requires individualization. - Active omeprazole 40 mg capsule,delayed release take 1 capsule by oral route every day before a meal 40 MG - Active SERTRALINE 100MG TABLETS TAKE 1 TABLET BY MOUTH EVERY DAY 100 MG - No Longer Active TAMSULOSIN 0.4MG CAPSULES TAKE 1 CAPSULE BY MOUTH EVERY NIGHT - No Longer Active Procedures Procedure Date OFFICE [id number]-QSL-[id number] BODY MASS INDEX DOCD SYST BP GE 130 - 139MM HG DIAST BP < 80 MM HG OFFICE [id number]-[id number] Visit Complexity Inherent To E/M 2023 BODY MASS INDEX DOCD SYST BP GE 130 - 139MM HG DIAST BP < 80 MM HG X-RAY EXAM OF NECK SPINE 4 Or 5 Views Ap Pt inelig neg scrn depres FALL RISK ASSESSMENT DOC'D PRES/ABSN URINE INCON ASSESS PREVENTATIVE-EST: 65 & OVER OFFICE [id number] BODY MASS INDEX DOCD SYST BP GE 130 - 139MM HG DIAST BP < 80 MM HG CBC, INC PLATELETS, NO DIFFERENTIAL COMPREHEN METABOLIC PANEL CMP HEMOGLOBIN A1C HGA1C, GLYCO MICROALBUMIN, QN (URINE) CREATININE, (U-R) ROUTINE VENIPUNCTURE OFFICE [id number]-[id number]-[id number] BODY MASS INDEX DOCD SYST BP GE 130 - 139MM HG DIAST BP 80-89 MM HG Admin influenza virus vac FLU VACC PRSV FREE INC ANTIG X-RAY EXAM OF NECK SPINE 4 Or 5 Views Oc OFFICE [id number]-[id number] BODY MASS INDEX DOCD SYST BP LT 130 MM HG DIAST BP < 80 MM HG CBC, INC PLATELETS AND DIFFERENTIAL COMPREHEN METABOLIC PANEL CMP LIPID PANEL URINALYSIS, REFLEX (UA) ROUTINE VENIPUNCTURE FALL RISK ASSESSMENT DOC'D PRES/ABSN URINE INCON ASSESS PPPS, subseq visit OFFICE [id number]-YHF-[id number] BODY MASS INDEX DOCD SYST BP LT 130 MM HG DIAST BP < 80 MM HG Pt inelig neg scrn depres OFFICE [id number]-[id number] BODY MASS INDEX DOCD SYST BP LT 130 MM HG DIAST BP < 80 MM HG BASIC METABOLIC PANEL(BMP) PSA, TOTAL, SCREENING MEDICARE ONLY URINALYSIS, REFLEX (UA) ROUTINE VENIPUNCTURE OFFICE [id number]-[id number] BODY MASS INDEX DOCD SYST BP GE 130 - 139MM HG DIAST BP < 80 MM HG COMPREHEN METABOLIC PANEL CMP ROUTINE VENIPUNCTURE FALL RISK ASSESSMENT DOC'D PRES/ABSN URINE INCON ASSESS OFFICE [id number] BODY MASS INDEX DOCD SYST BP LT 130 MM HG DIAST BP < 80 MM HG CBC, INC PLATELETS AND DIFFERENTIAL COMPREHEN METABOLIC PANEL CMP 2 LIPID PANEL ROUTINE VENIPUNCTURE OFFICE [id number]-[id number] BODY MASS INDEX DOCD SYST BP GE 130 - 139MM HG DIAST BP < 80 MM HG COMPREHEN METABOLIC PANEL CMP 1 LIPID PANEL ROUTINE VENIPUNCTURE Admin influenza virus vac FLU VACC PRSV FREE INC ANTIG OFFICE [id number] BODY MASS INDEX DOCD SYST BP >= 140 MM HG6 IT DIAST BP < 80 MM HG CBC, INC PLATELETS AND DIFFERENTIAL COMPREHEN METABOLIC PANEL CMP LIPID PANEL PSA, TOTAL, SCREENING MEDICARE ONLY THYROID STIMULATION HORMONE(TSH) 2020 URINALYSIS, REFLEX (UA) ROUTINE VENIPUNCTURE Pt inelig neg scrn depres OFFICE [id number]-KDL-[id number] BODY MASS INDEX DOCD SYST BP >= 140 MM HG6 IT DIAST BP 80-89 MM HG TELEPHONE E&M SERVICE BY A PHYSICIAN;5-1 0 MINUTES OF MEDICAL DISCUSSION ALT(SGPT), ALANINE TRANSAMINASE 020 LIPID PANEL ROUTINE VENIPUNCTURE FALL RISK ASSESSMENT DOC'D PRES/ABSN URINE INCON ASSESS OFFICE [id number] BODY MASS INDEX DOCD SYST BP LT 130 MM HG DIAST BP < 80 MM HG CBC, INC PLATELETS AND DIFFERENTIAL COMPREHEN METABOLIC PANEL CMP 0 LIPID PANEL THYROID STIMULATION HORMONE(TSH) 2019 URINALYSIS, REFLEX (UA) ROUTINE VENIPUNCTURE Clin depression screen doc Admin influenza virus vac FLU VACC PRSV FREE INC ANTIG OFFICE [id number] SYST BP LT 130 MM HG DIAST BP < 80 MM HG OFFICE [id number] BODY MASS INDEX DOCD SYST BP GE 130 - 139MM HG DIAST BP < 80 MM HG Clin depression screen doc OFFICE [id number]-UBB-OIJELNGF BODY MASS INDEX DOCD SYST BP GE 130 - 139MM HG DIAST BP < 80 MM HG OFFICE [id number] BODY MASS INDEX DOCD SYST BP GE 130 - 139MM HG DIAST BP < 80 MM HG COMPREHEN METABOLIC PANEL CMP 9 LIPID PANEL ROUTINE VENIPUNCTURE Advance Directives Directive Yes / No Effective Date File Name No Information Encounters Encounter Description Practice Location Reason(s) For Visit Diagnoses Date Provider Providers Copied on Encounter [employer], [address], [place], [place], [address] , tel: [phone] [facility] IM No Information 5 Marquino Vinay. [address], [place], [place], [address], [place]. [phone] [employer], [address], [place], [place], [address] , [place] tel: [phone] [facility] IM No Information 5 Marquino Vinay. [address], [place], [place], [address], [place]. [phone] [employer], [address], [place], [place], [address] , tel: [phone] [facility] IM No Information 4 Tammy Mclean. [address], [place], [place], [address], . tel:[phone] OFFICE GXZII-UYG-WH PANDED [facility], [address], [place], [place], [address] , tel: [phone] [facility] IM htn, hld, dm (chief complaint) Type 2 diabetes mellitus with diabetic cataract, with long-term current use of insulinPure hypercholester olemiaEssentia l hypertension 4 Tam[address]. [address], [place], [place], [address], [place]. tel:[phone] Referring Provider: [address], [place], [address] . tel:[phone] [facility], [address], [place], [place], [address] , tel: [phone] [facility] IM No Information 4 Dakota Black. [address], [place], [place], [address], [place]. tel:[phone] OFFICE WUVKU-DSG-BE [facility], [address], [place], [place], [address] , tel: [phone] [facility] IM diabetes (chief complaint)hyp ertension (chief complaint)hyp erlipidemia (chief complaint)dep ression (chief complaint)sen ile purpura (chief complaint) Type 2 diabetes mellitus with diabetic cataract, with long-term current use of insulinPure hypercholester olemiaEssentia l hypertensionRe current major depressive disorder, in partial remission [address], [place], [place], [address], [place]. tel:[phone] Referring Provider: [address], [place], [address] . tel:[phone] [facility], [address], [place], [place], [address] , tel: [phone] [facility] No Information 0 [address], [place], [place], [address], [place]. tel: [phone] [facility], [address], [place], [place], [address] , tel: [phone] [facility] No Information [address], [place], [place], [address], [place]. tel: [phone] [facility], [address], [place], [place], [address] , [place] tel: [phone] [facility] IM Neck pain [address], [place], [place], [address], [place]. tel: [phone] [facility], [address], [place], [place], [address] , tel: [phone] [facility] Neck pain Jan- [address], [place], [address], [place]. tel: [phone] Referring Provider: Wayne Duncan, [address], [place], [address] . tel:[phone] [facility], [address], [place], [place], [address] , tel: [phone] [facility] No Information 0 [address], [place], [address], [place]. tel: [phone] [facility], [address], [place], [place], [address] , [place] tel: [phone] [facility] No Information 0 - [address], [place], [place], [address], [place]. tel: [phone] PREVENTATIVE -EST: 65 & OVER [facility], [address], [place], [place], [address] , tel: [phone] [facility] IM diabetes (chief complaint)hyp ertension (chief complaint)hyp erlipidemia (chief complaint)sean d (chief complaint)mem ory loss (chief complaint)phy sical exam (chief complaint) Type 2 diabetes mellitus with diabetic cataract, with long-term current use of insulinEssenti al hypertensionGa stroesophageal reflux disease, unspecified whether esophagitis presentPure hypercholester olemiaLate onset Alzheimer's dementia without behavioral disturbanceLon g term (current) use of insulinPhysica l exam [address], [place], [place], [address], . tel:[phone] Referring Provider: [address], [place], [address] . tel:[phone] [facility], [address], [place], [place], [address] , tel:[phone] [facility] neck pain (chief complaint)hyp ertension (chief complaint)sean d (chief complaint)gen anxiety (chief complaint) Neck painEssential hypertensionGa stroesophageal reflux disease, unspecified whether esophagitis presentSituati onal mixed anxiety and depressive disorder [address], [place], [place], [address], . tel:[phone] Referring Provider: [address], [place], [address] . tel:[phone] [facility]ICE [facility], [address], [place], [place], [address] , tel:[phone] [facility] diabetes (chief complaint)hyp ertension (chief complaint)dep ression (chief complaint)hyp onatremia (chief complaint)hyp erlipidemia (chief complaint) Type 2 diabetes mellitus with diabetic cataract, with long-term current use of insulinLong term (current) use of insulinEssenti al hypertensionRe current major depressive disorder, in partial remissionHypon atremiaPure hypercholester olemiaSerum potassium elevated [address], [place], [place], [address], . tel:[phone] Referring Provider: [address], [place], [address] . tel:[phone] OFFICE ZXNCY-WSR-OL [employer], [address], [place], [place], [address] , tel: [phone] [facility] Medicare preventive (chief complaint)yusuf betes (chief complaint)hyp ertension (chief complaint)hyp erlipidemia (chief complaint)sean d (chief complaint)mem ory loss (chief complaint) Physical examType 2 diabetes mellitus with diabetic cataract, with long-term current use of insulinLong term (current) use of insulinGastroe sophageal reflux disease, unspecified whether esophagitis presentEssenti al hypertensionLa te onset Alzheimer's dementia without behavioral disturbancePur e hypercholester olemia [address], [place], [place], [address], . [phone] Referring Provider: [address], [place], [address] . [phone] OFFICE FWIZG-SIN-QS PANDED [employer], [address], [place], [place], [address] , tel: [phone] [facility] gerd (chief complaint)hyp ertension (chief complaint) Essential hypertensionGa stroesophageal reflux disease, unspecified whether esophagitis present [address], [place], [place], [address], . [phone] Referring Provider: [address], [place], [address] . tel:[phone] OFFICE GVJBV-IHT-ZW [employer], [address], [place], [place], [address] , tel:[phone] [facility] hypertension (chief complaint)yusuf betes (chief complaint)mem ory loss (chief complaint)dep ression (chief complaint) Essential hypertensionTy pe 2 diabetes mellitus without complication, with long-term current use of insulinLong term (current) use of insulinMemory lossRecurrent major depressive disorder, in partial remissionSpeec h disturbance, unspecified type [address], [place], [place], [address], . tel:[phone] Referring Provider: [address], [place], [address] . tel:[phone] [facility], [address], [place], [place], [address] , tel: [phone] [facility] IM Hypertension (chief complaint)Hyp erlipidemia (chief complaint)mem ory loss (chief complaint)dep ression (chief complaint) Essential hypertensionPu re hypercholester olemiaLate onset Alzheimer's dementia without behavioral disturbanceDem entia in other diseases classified elsewhere without behavioral disturbanceSit uational mixed anxiety and depressive disorder [address], [place], [place], [address], . tel:[phone] Referring Provider: [address], [place], [address] . tel:[phone] [facility], [address], [place], [place], [address] , tel: [phone] [facility] Serum potassium elevated [address], [place], [place], [address], . tel:[phone] [facility]ICE [facility], [address], [place], [place], [address] , tel: [phone] [facility] Hypertension (chief complaint)Hyp erlipidemia (chief complaint)dep ression (chief complaint) Essential hypertensionPu re hypercholester olemiaSituatio nal mixed anxiety and depressive disorderSerum potassium elevated Jul- [address], [place], [place], [address], . tel:[phone] Referring Provider: [address], [place], [address] . tel:[phone] [facility]ICE [facility]KD[facility], [address], [place], [place], [address] , tel: [phone] [facility] IM Hypertension (chief complaint)Hyp erlipidemia (chief complaint)dem entia (chief complaint) Essential hypertensionPu re hypercholester olemiaLate onset Alzheimer's dementia without behavioral disturbanceDem entia in other diseases classified elsewhere without behavioral disturbanceScr eening PSA (prostate specific antigen) [address], [place], [place], [address], . tel:[phone] Referring Provider: [address], [place], [address] . [phone] [facility], [address], [place], [place], [address] , tel: [phone] [facility] No Information [address], [place], [place], [address], . tel:[phone] OFFICE ELKTS-SEJ-WG [facility], [address], [place], [place], [address] , tel: [phone] [facility] Chronic Conditions (chief complaint) Essential hypertensionUn controlled type 2 diabetes mellitus without complication, with long-term current use of insulinLong term (current) use of insulinPure hypercholester olemia [address] An [address], [place], [place], [address], . tel:[phone] Referring Provider: [address], [place], [address] . [phone] [facility], [address], [place], [place], [address] , tel: [phone] [facility] No Information [address], [place], [place], [address], . tel:[phone] TELEPHONE E&M SERVICE BY A PHYSICIAN;5- 10 MINUTES OF MEDICAL DISCUSSION [facility], [address], [place], [place], [address] , tel: [phone] [facility] IM Hypertension (chief complaint)Hyp erlipidemia (chief complaint)Tel ehealth (chief complaint) Essential hypertensionPu re hypercholester olemia [address], [place], [place], [address], . tel:[phone] Referring Provider: [address], [place], [address] . [phone] [facility], [address], [place], [place], [address] , tel: [phone] [facility] Essential (primary) hypertensionPu re hypercholester olemia, unspecifiedGas tro-esophageal reflux disease without esophagitisAll ergic rhinitis due to pollen [address], [place], [place], [address], . tel:[phone] Referring Provider: [address], [place], [address] . tel:[phone] OFFICE SXEAE-JBV-KY [facility], [address], [place], [place], [address] , tel: [phone] [facility] IM Hypertension (chief complaint)Hyp erlipidemia (chief complaint)rhi nitis (chief complaint)sean d (chief complaint) Essential hypertensionPu re hypercholester olemiaGastroes ophageal reflux disease, esophagitis presence not specifiedSeaso nal allergic rhinitis due to pollen [address], [place], [place], [address], [place]. tel:[phone] Referring Provider: [address], [place], [address] . tel:[phone] OFFICE NNPMB-YTG-WA PANDED [facility], [address], [place], [place], [address] , tel: [phone] [facility] IM Hypertension (chief complaint)Hyp erlipidemia (chief complaint)Tel ehealth (chief complaint) Essential hypertensionPu re hypercholester olemia [address], [place], [place], [address], . tel:[phone] Referring Provider: [address], [place], [address] . tel:[phone] OFFICE VFRLE-ADQ-SS [facility], [address], [place], [place], [address] , tel: [phone] [facility] IM Hypertension (chief complaint)gen anxiety (chief complaint)ski n lesion (chief complaint) Essential hypertensionSi tuational mixed anxiety and depressive disorderSkin lesion [address], [place], [place], [address], . tel:[phone] Referring Provider: [address], [place], [address] . [phone] OFFICE CMVGY-PDN-WC [facility], [address], [place], [place], [address] , tel: [phone] [facility] acute visit (chief complaint) Skin lesionEssentia l hypertension [address] Mike Diane. [address], [place], [place], [address], [place]. tel:[phone] Referring Provider: [address], [place], [address] . tel:[phone] [employer], [address], [place], [place], [address] , tel: [phone] [facility] No Information [address], [place], [place], [address], [place]. tel:[phone] OFFICE SGOUE-MKK-OQ [facility] [employer], [address], [place], [place], [address] , tel: [phone] [facility] Hypertension (chief complaint)Hyp erlipidemia (chief complaint) Essential hypertensionPu re hypercholester olemia [address], [place], [place], [address], [place]. tel:[phone] Referring Provider: [address], [place], [address] . tel:[phone] [facility], [address], [place], [place], [address] , [place] tel: [phone] [facility] IM Uncontrolled type 2 diabetes mellitus without complication, with long-term current use of insulinLong term (current) use of insulinEssenti al hypertensionPu re hypercholester olemia [address], [place], [place], [address], [place]. tel: [phone] Referring Provider: [address], [place], [address] . [phone] [facility], [address], [place], [place], [address] , [place] tel: [phone] [facility] IM Pure hypercholester olemia, unspecified [address], [place], [place], [address], [place]. tel:[phone] Referring Provider: [address], [place], [address] . tel:[phone] [facility], [address], [place], [place], [address] , [place] tel: [phone] [facility] IM Pure hypercholester olemia [address], [place], [place], [address], [place]. tel:[phone] [facility], [address], [place], [place], [address] , [place] tel: [phone] [facility] Essential hypertensionMe antonio loss [address], [place], [place], [address], [place]. tel:[phone] Referring Provider: [address], [place], [address] . tel:[phone] [facility], [address], [place], [place], [address] , [place] tel: [phone] [facility] SOB (shortness of breath) [address], [place], [address], [place]. tel:[phone] [facility], [address], [place], [place], [address] , [place] tel: [phone] [facility] Memory lossEssential hypertensionSO B (shortness of breath) [address], [place], [place], [address], [place]. tel:[phone] Referring Provider: [address], [place], [address] . tel:[phone] [facility], [address], [place], [place], [address] , tel: [phone] [facility] No Information [address], [place], [place], [address], [place]. tel:[phone] [facility], [address], [place], [address] , [place] tel: [phone] [facility] Physical examEssential hypertensionPu re hypercholester olemiaUncontro lled type 2 diabetes mellitus without complication, with long-term current use of insulinLong term (current) use of insulinScreeni ng for prostate cancer [address], [place], [place], [address], [place]. tel:[phone] Referring Provider: [address], [place], [address] . tel:[phone] [facility], [address], [place], [place], [address] , [place] tel: [phone] [facility] Essential (primary) hypertension Dec- [address], [place], [place], [address], [place]. tel:[phone] Referring Provider: [address], [place], [address] . tel:[phone] [facility], [address], [place], [place], [address] , tel: [phone] [facility] Essential (primary) hypertension Dec-0 2-201 [address], [place], [place], [address], [place]. tel:[phone] Referring Provider: [address], [place], [address] . tel:[phone] [facility], [address], [place], [place], [address] , tel: [phone] [facility] Essential hypertensionBP H associated with nocturiaUncont rolled type 2 diabetes mellitus without complication, with long-term current use of insulin 6 [address], [place], [place], [address], . tel:[phone] Referring Provider: [address], [place], [address] . tel:[phone] [facility], [address], [place], [place], [address] , tel: [phone] [facility] Essential hypertensionAc [place] recurrent frontal sinusitisUncon trolled type 2 diabetes mellitus without complication, with long-term current use of insulinLong term (current) use of insulinBPH associated with nocturiaNoctur ia 0 2 [address], [place], [place], [address], [place]. tel:[phone] Referring Provider: [address], [place], [address] . tel:[phone] [facility], [address], [place], [place], [address] , tel: [phone] [facility] Uncontrolled type 2 diabetes mellitus without complication, with long-term current use of insulinLong term (current) use of insulinEssenti al hypertensionSi tuational mixed anxiety and depressive disorderUrinar y frequency 7 [address], [place], [place], [id number], [place]. tel:[phone] Referring Provider: [address], [place], [address] . tel:[phone] [employer], [address], [place], [place], [id number] , tel: [phone] [facility] Physical examEssential hypertensionUn controlled type 2 diabetes mellitus without complication, with long-term current use of insulinLong term (current) use of insulinScreeni ng for prostate cancer [address], [place], [place], [id number], [place]. tel:[phone] Referring Provider: [address], [place], [address] . tel:[phone] [employer], [address], [place], [place], [id number] , [place] tel: [phone] [facility] Nausea [address], [place], [place], [id number], [place]. tel:[phone] Referring Provider: [address], [place], [address] . tel:[phone] [employer], [address], [place], [place], [id number] , [place] tel: [phone] [facility] Essential hypertensionPu re hypercholester olemiaSituatio nal mixed anxiety and depressive disorder [address], [place], [place], [id number], [place]. tel:[phone] Referring Provider: [address], [place], [address] . tel:[phone] [employer], [address], [place], [place], [address] , tel: [phone] [facility] No Information [address], [place], [place], [id number], . tel:[phone] [facility], [address], [place], [place], [address] , tel: [phone] [facility] Uncontrolled type 2 diabetes mellitus without complication, with long-term current use of insulinLong term (current) use of insulinEssenti al hypertensionSi tuational mixed anxiety and depressive disorderPure hypercholester olemia [address], [place], [place], [id number], . tel:[phone] Referring Provider: [address], [place], [address] . tel:[phone] [facility], [address], [place], [place], [address] , tel: [phone] [facility] Essential hypertensionIr ritable bowel syndrome with diarrhea [address], [place], [place], [id number], [place]. [phone] Referring Provider: [address], [place], [address] . tel:[phone] Family History Family Member Type Diagnosis Age At Onset Problem (finding) Family history of malignant neoplasm of uterus Mother Problem (finding) hypertension Immunizations Vaccine Date Status Comments Moderna Spikevax COVID Vaccine, mRNALNP, 50 mcg/0.5 mL dose, 12 yrs and older administered Note: gale ashraf ; Source: Public Agency [employer] High-Dose Trivalent, preservative free administered Note: [facility] ; So urce: Public Agency Fluzone High-Dose, high dose , preservative free administered Source: New Immuniza tion Record Moderna (Bivalent Booster) COVID Vac, 50mgc/0.5 mL, 18+ years administered Note: [facility] ; So urce: Public Agency Fl[employer]one High-Dose, high dose , preservative free administered Note: [facility] ; So urce: Public Agency Moderna (Low Dose) COVID19 Vaccine, 0.25mL per dose, booster dose administered Note: maria eugenia ; Carson ce: Public Agency Moderna (Low Dose) COVID19 Vaccine, 0.25mL per dose, booster dose administered Note: [facility] ; So urce: Public Agency Fluzone High-Dose, high dose , preservative free administered Source: New Immuniza tion Record Moderna COVID19 Vaccine, 0.5 mL per dose, 2 doses, administered 28 days apart administered Source: Other Registry Moderna COVID19 Vaccine, 0.5 mL per dose, 2 doses, administered 28 days apart administered Source: Other Provider Fluzone High-Dose, high dose , preservative free administered Source: New Immuniza tion Record Pneumococcal conjugate PCV 13 administere d Note: Jal[facility] ; Source: Other Provider Fluzone High-Dose, high dose , preservative free administered Note: [facility] ; So urce: Other Provider Fluzone High-Dose, high dose , preservative free administered Note: [facility], approx da te ; Source: Public Agency Fluzone Quad 3947-2616, spli t virus, 0.5mL dosage administered Note: [facility] ; So urce: Other Provider Influenza, high dose seasonal administere d Note: jaleneens ; Source: Other Provider Payers Payer name Insurance type Covered republican ID Authoriza tion(s) [facility] O MB [id number] MEDICARE MB [id number] [facility] ACC[facility] [id number] MEDICARE MB [id number] [facility] [id number] Social History Type Description Quantity Date Captured Comments Sex Male Smoking Status No Information Chief Complaint And Reason For Visit No Information Reason For Referral Reason For Referral No Information Plan Of Treatment Date Type Action Status Referral Referred To: Physical Therapy [address] [facility] [address] [place], [phone] Ordered: Referrals: Physical Therapy. Location: [facility] - [place]. Evaluation/diagnostic/treatment - Level 3 ordered Referral Ordered: X-RAY EXAM OF NECK SPINE 4 Or 5 Views ordered Referral Referred To: 2022 Ashlie Kim
[address] [place], [phone] Ordered: MRI brain with and without contrast Appointment date/timeframe: 04/20/2022 ordered Appointment Curly Bean BOOKED Future Order: Lab Order Comprehe nsive Metabolic (CMP) ([id number]), Ordered on: Ordered Future Order: Lab Order Lipid Pa medina W/Reflex To Direct LDL ([id number]), Ordered on: Ordered Future Order: Lab Order CBC AUTO DIFF ([id number]), Ordered on: Ordered History Of Present Illness Encounter Date Complaint History Of Prese nt Illness htn, hld, dm Diagnosed w HTN years ago. Multiple episodes of BP >130 sys. Started on medications Patient is on enalapril 20 mg once a day, metoprolol 25 mg once a day. . Aggravated by stress, weight gain, salt in diet. Appears to be improved. Negative: ROCK, dizziness, CP or SOB. Patient is on enalapril 20 mg once a day, metoprolol 25 mg once a day.Patient with high cholesterol (TC, LDL, Trig.). Aggravating factors: high fat, high cholesterol diet. Relieving factors: Low fat low cholesterol diet, weight loss, exercise. Associated symptoms: weight gain. NO Abd pain CP SOB. Patient is on Crestor 5 mg once a day.Patient diagnosed with Type 2 DM when he presented w hyperglycemia and A1C +/> 6.5. Aggravating Factor: weight gain, high Carb diet, High sugar diet. Relieving Factor: weight loss, low sugar and low carb diet. Associated symptoms: hyperglycemia. Pertinent negative: Acute infections, ketoacidosis, nausea, proteinuria. Medications:Patient is on NovoLog insulin pump care of endocrinology. Patient is also on Ozempic 0.25 mg injection weekly. hyperlipidemia The severity of the problem is moderate. The problem is controlled with medication. Patient compliance with diet is fair, with exercise is fair, with medication is good and with follow up is good. Reasons for screening include alcohol use, chronic renal disease, diabetes mellitus, diet and hypertension. Reasons for screening do not include peptic ulcer disease, periorbital xanthelasma, planar xanthomas, PVD and sedentary life style. There are no secondary causes of hyperlipidemia. Pertinent negatives include abdominal pain, bloating, chest pain, cholelithiasis, claudication, constipation, diarrhea, dizziness, dyspepsia, edema, fatigue, flatulence, flushing, gout, headache, heartburn, malaise, muscle weakness, myalgia, myositis, nausea, pancreatitis, pruritus, rash and splenic enlargement. Additional information: pt is taking crestor. the pt notes no issues on current dose. senile purpura present on the a janes and asymptomatic depression There is improve ment of initial symptoms. The patient reports functioning as not difficult at all. The patient presents with depressed mood, difficulty concentrating, difficulty falling asleep, difficulty staying asleep, diminished interest or pleasure, easily startled and excessive worry but denies anxious/fearful thoughts, compulsive thoughts, decreased need for sleep, fatigue, feelings of guilt, feelings of invulnerability, increased energy, hallucinations, increased libido, loss of appetite, paranoia, poor judgment, racing thoughts, restlessness or thoughts of or suicide. The patient's risk factors include chronic illness and history of depression. The patient's risk factors exclude alcoholism, childhood abuse or neglect, of a friend or loved one, drug abuse, family history of depression, family history of anxiety, family history of bipolar disorder, financial worries, history of suicidal attempts, medications, recent childbirth, relationship problems, social isolation, unemployment and victim of abuse or violence. The depression is aggravated by conflict or stress, social interactions, traumatic memories and winter season. The patient denies any headache, nausea, sweating, urinary frequency, vomiting and weight gain. Additional information: pt is taking wellbutrin. pt notes mood is stable. the pt notes no suicidal or homicidal ideation. the pt is taking med as prescribed. hypertension Comorbid conditi ons include diabetes mellitus. It is currently stable. Risk factors include age over age 60 and male gender. The hypertension is exacerbated by nothing. Pertinent negatives include chest pain, claudication, confusion, diaphoresis, dyspnea, epistaxis, fatigue, headache, hematuria, irregular heartbeat/palpitations, nausea, tinnitus, transient weakness, tremor, visual disturbances and vomiting. Additional information: pt taking bp meds as prescribed diabetes The problem is s table. Risk factors include: over age 4545 years old. Patient is compliant with using medication, follow-up, and using education materials. Managing with: Diet and Insulin. Comorbidity: Hypertension. Pertinent negatives include blurred vision, burning of extremities, chest pain, constant hunger, dental disease, diarrhea, dysesthesias, dyspnea, erectile dysfunction, foot ulcers, frequent infections, urinary frequency, heartburn, hypoglycemic episodes, impotence, increased fatigue, nocturia, polydipsia, slow healing wounds / sores, weight gain and weight loss. Additional information: pt seeing endo. having hba1c tomorrow. physical exam pt is here for a pe. the pt notes he feels well. no issues other than dm pump. pt does not smoke and drinks little alcohol. pt taking meds as prescribed. pt notes overall he feels well memory loss Onset was and it was gradual. Severity level is moderate. The intervention and testing comprises of: Medication taken: Anti-depressants, Acetylcholinesterase Inhibitors. Associated symptoms include confusion. Pertinent negatives include agitation, ataxia, behavioral changes, bladder incontinence, bowel dysfunction, chorea, difficulty with ADLs, dizziness, falling, fever, gait disturbances, hallucinations, headache, hyperacusis, mood swings, neck stiffness, paresthesia, personality change, restlessness, sleep disturbances, speech difficulty, tingling, tremors and visual disturbances. Additional information: pt seeing neuro. doing well on namenda and sertraline. hyperlipidemia The severity of the problem is moderate. The problem is controlled with medication. Patient compliance with diet is good, with exercise is good, with medication is good and with follow up is good. Reasons for screening include alcohol use, diabetes mellitus, diet and hypertension. Reasons for screening do not include peptic ulcer disease, periorbital xanthelasma, planar xanthomas, PVD and sedentary life style. There are no secondary causes of hyperlipidemia. Pertinent negatives include abdominal pain, bloating, chest pain, cholelithiasis, claudication, constipation, diarrhea, dizziness, dyspepsia, edema, fatigue, flatulence, flushing, gout, headache, heartburn, malaise, muscle weakness, myalgia, myositis, nausea, pancreatitis, pruritus, rash and splenic enlargement. Additional information: pt taking crestor. no issues on current dose. diabetes The problem is g etting worse. Risk factors include: over age [age] years old. Patient is compliant with using medication, follow-up, and using education materials. Managing with: Diet and Insulin. Comorbidity: Hypertension. Pertinent negatives include blurred vision, burning of extremities, chest pain, constant hunger, dental disease, diarrhea, dysesthesias, dyspnea, erectile dysfunction, foot ulcers, frequent infections, urinary frequency, heartburn, hypoglycemic episodes, impotence, increased fatigue, nocturia, polydipsia, slow healing wounds / sores, weight gain and weight loss. Additional information: pump has not been working for the pt he has talked to [facility]. hypertension Comorbid conditi ons include diabetes mellitus. It is currently stable. Risk factors include age over age 60 and male gender. The hypertension is exacerbated by nothing. Associated symptoms include confusion. Pertinent negatives include chest pain, claudication, diaphoresis, dyspnea, epistaxis, fatigue, headache, hematuria, irregular heartbeat/palpitations, nausea, tinnitus, transient weakness, tremor, visual disturbances and vomiting. Additional information: pt taking bp meds. meds. no side effects on these gerd The problem is n ot changing. The patient reports epigastric pain and heartburn. It occurs randomly. Context: treatment with PPIs. The symptoms are aggravated by fatty foods, large meals and spicy foods. Associated symptoms include reflux. Pertinent negatives include aspiration, awakens w/ choking or heartburn, chronic cough, dental erosions, dysphagia, dyspnea, globus sensation, halitosis, hoarseness, melena, nausea, pneumonitis, post-nasal drainage, sore throat, stridor, vomiting, weight gain and weight loss. Additional information: pt stable on ppi. rare gerd on current dose neck pain The severity of the problem is moderate. The problem has not changed. The frequency of pain is intermittent. Location of pain is bilateral posterior neck. There is radiation of pain to the bilateral head. The patient describes the pain as Aching. Aggravating factors include rotation, turning head and twisting. The patient denies aggravating factors such as bending, climbing stairs, coughing, defecation, driving, exertion, flexion, hyperextension, kneeling, lifting, lying down, prolonged sitting, pushing, running, sneezing, standing, stooping, straining, stress, Valsalva, walking and working. Pertinent negatives include bladder dysfunction not spinal related, bladder incontinence, bladder retention, bowel dysfunction not spinal related, bowel incontinence, bowel retention, decreased mobility, dermatomic rash, difficulty sleeping, dysphagia, incoordination, joint pain, loss of balance, muscle atrophy, muscle spasm, numbness, rash, sexual dysfunction, sexual dysfunction (not spinal related), tenderness, tingling, weakness and weight loss. Additional information:. neck pain off and on the pt notes that he has this turning head. no radiation to the arms. hypertension Comorbid conditi ons include diabetes mellitus. It is currently stable. Risk factors include age over age 60 and male gender. The hypertension is exacerbated by nothing. Pertinent negatives include chest pain, claudication, confusion, diaphoresis, dyspnea, epistaxis, fatigue, headache, hematuria, irregular heartbeat/palpitations, nausea, tinnitus, transient weakness, tremor, visual disturbances and vomiting. Additional information: pt is taking bp meds as prescribed gen anxiety this has been st able. the pt is taking sertraline wellbutrin and prn klonopin. the pt notes no suicidal or homicidal ideation. the pt notes that mood is stable gerd The problem is n ot changing. The patient reports epigastric pain and heartburn. It occurs randomly. Context: treatment with PPIs. The symptoms are aggravated by fatty foods, large meals and spicy foods. Associated symptoms include reflux. Pertinent negatives include aspiration, awakens w/ choking or heartburn, chronic cough, dental erosions, dysphagia, dyspnea, globus sensation, halitosis, hoarseness, melena, nausea, pneumonitis, post-nasal drainage, sore throat, stridor, vomiting, weight gain and weight loss. Additional information: pt is taking omeprazole. .the pt notes rare gerd on this med Marcel-09-2023 diabetes The problem is i mproving. Risk factors include: over age [age] years old. Patient is compliant with using medication, follow-up, and using education materials. Managing with: Diet and Insulin. Comorbidity: Hypertension. Pertinent negatives include blurred vision, burning of extremities, chest pain, constant hunger, dental disease, diarrhea, dysesthesias, dyspnea, erectile dysfunction, foot ulcers, frequent infections, urinary frequency, heartburn, hypoglycemic episodes, impotence, increased fatigue, nocturia, polydipsia, slow healing wounds / sores, weight gain and weight loss. Additional information: pt seeing endo. on insulin and ozempic. hypertension Comorbid conditi ons include diabetes mellitus. It is currently stable. Risk factors include age over age 60 and male gender. The hypertension is exacerbated by nothing. Pertinent negatives include chest pain, claudication, confusion, diaphoresis, dyspnea, epistaxis, fatigue, headache, hematuria, irregular heartbeat/palpitations, nausea, tinnitus, transient weakness, tremor, visual disturbances and vomiting. depression There is improve ment of initial symptoms and worsening of previously reported symptoms. The patient reports functioning as not difficult at all. The patient presents with anxious/fearful thoughts, depressed mood, difficulty concentrating, difficulty falling asleep, difficulty staying asleep, diminished interest or pleasure, easily startled and excessive worry but denies compulsive thoughts, decreased need for sleep, fatigue, feelings of guilt, feelings of invulnerability, increased energy, hallucinations, increased libido, loss of appetite, paranoia, poor judgment, racing thoughts, restlessness or thoughts of or suicide. The patient's risk factors include chronic illness, of a friend or loved one and history of depression. The patient's risk factors exclude alcoholism, childhood abuse or neglect, drug abuse, family history of depression, family history of anxiety, family history of bipolar disorder, financial worries, history of suicidal attempts, medications, recent childbirth, relationship problems, social isolation, unemployment and victim of abuse or violence. The depression is aggravated by conflict or stress, traumatic memories and winter season. The patient denies any headache, nausea, sweating, urinary frequency, vomiting and weight gain. Additional information: pt taking wellbutrin and sertraline. pt stable on current dose no suicidal or homicidal ideation. hyponatremia occurred two mos ago. unclear etiology. pt is asymptomatic currently hyperlipidemia The severity of the problem is moderate. The problem has improved. Patient compliance with diet is fair, with exercise is fair, with medication is good and with follow up is good. Patient is noncompliant with follow up care. Reasons for screening include alcohol use, diabetes mellitus, diet and hypertension. Reasons for screening do not include arcus senilis, chronic renal disease, coronary artery disease, family history hyperlipidemia, family history vascular disease, metabolic syndrome, obesity, peptic ulcer disease, periorbital xanthelasma, planar xanthomas and PVD. There are no secondary causes of hyperlipidemia. Pertinent negatives include abdominal pain, bloating, chest pain, cholelithiasis, claudication, constipation, diarrhea, dizziness, dyspepsia, edema, fatigue, flatulence, flushing, gout, headache, heartburn, malaise, muscle weakness, myalgia, myositis, nausea, pancreatitis, pruritus, rash and splenic enlargement. Additional information: pt taking crestor and zetia as prescribed. Medicare preventive The patient has not felt depressed and has had interest and pleasure doing things recently. Cognitive Status: (Cognitive status has not changed) on 11/16/2022. The patient does not need help with activities of daily living. The patient is not at risk for falls. The patient has not fallen in the last year. The fall(s) did not result in injury. The patient has smoke detectors, firearms, carbon monoxide detectors in the home. Patient denies recent weight gain. Patient denies recent weight loss. Patient does not take calcium. Patient reports not taking Vitamin D. Patient does not take a multivitamin. Patient does not take folic acid. Relevant history is positive for alcohol use. Relevant history is negative for passive vaping exposure and passive smoke exposure. Patient is a former tobacco user. diabetes The problem is s table. Risk factors include: over age [age] years old. Patient is compliant with using medication, follow-up, and using education materials. Managing with: Diet and Insulin. Comorbidity: Hypertension. Pertinent negatives include blurred vision, burning of extremities, chest pain, constant hunger, dental disease, diarrhea, dysesthesias, dyspnea, erectile dysfunction, foot ulcers, frequent infections, urinary frequency, heartburn, hypoglycemic episodes, impotence, increased fatigue, nocturia, polydipsia, slow healing wounds / sores, weight gain and weight loss. Additional information: sees endo for dm control. control has been better with endo. hypertension Comorbid conditi ons include diabetes mellitus. It is currently stable. Risk factors include age over age 60 and male gender. The hypertension is exacerbated by nothing. Pertinent negatives include chest pain, claudication, confusion, diaphoresis, dyspnea, epistaxis, fatigue, headache, hematuria, irregular heartbeat/palpitations, nausea, tinnitus, transient weakness, tremor, visual disturbances and vomiting. hyperlipidemia The severity of the problem is moderate. The problem has improved. Patient compliance with diet is fair, with exercise is fair, with medication is good and with follow up is good. Patient is noncompliant with follow up care. Reasons for screening include alcohol use, diabetes mellitus, diet and hypertension. Reasons for screening do not include arcus senilis, chronic renal disease, coronary artery disease, family history hyperlipidemia, family history vascular disease, metabolic syndrome, obesity, peptic ulcer disease, periorbital xanthelasma, planar xanthomas, PVD and sedentary life style. There are no secondary causes of hyperlipidemia. Pertinent negatives include abdominal pain, bloating, chest pain, cholelithiasis, claudication, constipation, diarrhea, dizziness, dyspepsia, edema, fatigue, flatulence, flushing, gout, headache, heartburn, malaise, muscle weakness, myalgia, myositis, nausea, pancreatitis, pruritus, rash and splenic enlargement. Additional information: pt is on crestor and zetia. stable on these. gerd The problem is n ot changing. The patient reports epigastric pain and heartburn. It occurs randomly. Context: treatment with PPIs. The symptoms are aggravated by fatty foods and spicy foods. Pertinent negatives include aspiration, awakens w/ choking or heartburn, chronic cough, dental erosions, dysphagia, dyspnea, globus sensation, halitosis, hoarseness, melena, nausea, pneumonitis, post-nasal drainage, reflux, sore throat, stridor, vomiting, weight gain and weight loss. Additional information: pt is on omeprazole. the pt notes no side effects on current dose memory loss Onset was and it was gradual. Severity level is moderate. The intervention and testing comprises of: Medication taken: Anti-depressants, Acetylcholinesterase Inhibitors. Associated symptoms include confusion and mood swings. Pertinent negatives include agitation, ataxia, behavioral changes, bladder incontinence, bowel dysfunction, chorea, difficulty with ADLs, dizziness, falling, fever, gait disturbances, hallucinations, headache, hyperacusis, neck stiffness, paresthesia, personality change, restlessness, sleep disturbances, speech difficulty, tingling, tremors and visual disturbances. Additional information: pt is doing well on namenda. no issues. has seen neuro. hypertension Comorbid conditi ons include diabetes mellitus. It is currently stable. Risk factors include age over age 60 and male gender. The hypertension is exacerbated by nothing. Pertinent negatives include chest pain, claudication, confusion, diaphoresis, dyspnea, epistaxis, fatigue, headache, hematuria, irregular heartbeat/palpitations, nausea, tinnitus, transient weakness, tremor, visual disturbances and vomiting. gerd The problem is n ot changing. The patient reports epigastric pain and heartburn. It occurs randomly. Context: treatment with PPIs. The symptoms are aggravated by fatty foods and spicy foods. Associated symptoms include reflux. Pertinent negatives include aspiration, awakens w/ choking or heartburn, chronic cough, dental erosions, dysphagia, dyspnea, globus sensation, halitosis, hoarseness, melena, nausea, pneumonitis, post-nasal drainage, sore throat, stridor, vomiting, weight gain and weight loss. Additional information: pt taking prilosec. rare gerd on this med hypertension Comorbid conditi ons include diabetes mellitus. It is currently stable. Risk factors include age over age 60 and male gender. The hypertension is exacerbated by nothing. Pertinent negatives include chest pain, claudication, confusion, diaphoresis, dyspnea, epistaxis, fatigue, headache, hematuria, irregular heartbeat/palpitations, nausea, tinnitus, transient weakness, tremor, visual disturbances and vomiting. diabetes The problem is s table. Risk factors include: over age [age] years old. Patient is compliant with using medication, follow-up, and using education materials. Managing with: Diet and Insulin. Comorbidity: Hypertension. Pertinent negatives include blurred vision, burning of extremities, chest pain, constant hunger, dental disease, diarrhea, dysesthesias, dyspnea, erectile dysfunction, foot ulcers, frequent infections, urinary frequency, heartburn, hypoglycemic episodes, impotence, increased fatigue, nocturia, polydipsia, slow healing wounds / sores, weight gain and weight loss. Additional information: managed by endocrinology. memory loss Onset was and it was gradual. Severity level is moderate. The intervention and testing comprises of: Medication taken: Acetylcholinesterase Inhibitors. Associated symptoms include confusion, restlessness, sleep disturbances and speech difficulty. Pertinent negatives include agitation, ataxia, behavioral changes, bladder incontinence, bowel dysfunction, chorea, difficulty with ADLs, dizziness, falling, fever, gait disturbances, hallucinations, headache, hyperacusis, mood swings, neck stiffness, paresthesia, personality change, tingling, tremors and visual disturbances. Additional information: pt has memory loss. has seen neuro a year ago. some progression. pt is on namenda. speech has changed a bit. pt knows date year and presidents. depression There is improve ment of initial symptoms. The patient reports functioning as not difficult at all. The patient presents with depressed mood, difficulty concentrating, difficulty falling asleep, difficulty staying asleep, diminished interest or pleasure, excessive worry and restlessness but denies anxious/fearful thoughts, compulsive thoughts, decreased need for sleep, easily startled, fatigue, feelings of guilt, feelings of invulnerability, increased energy, hallucinations, increased libido, loss of appetite, paranoia, poor judgment, racing thoughts or thoughts of or suicide. The patient's risk factors include chronic illness, of a friend or loved one and history of depression. The patient's risk factors exclude alcoholism, childhood abuse or neglect, drug abuse, family history of depression, family history of anxiety, family history of bipolar disorder, history of suicidal attempts, medications, recent childbirth, relationship problems, social isolation and unemployment. The depression is aggravated by conflict or stress, traumatic memories and winter season. The patient denies any headache, nausea, sweating, urinary frequency, vomiting and weight gain. Additional information: pt is doing well on sertraline. no suicidal or homicidal ideation pt is taking wellbutrin and sertraline. Hypertension Comorbid conditi ons include diabetes mellitus. It is currently stable. Risk factors include age over age 60 and male gender. The hypertension is exacerbated by nothing. Pertinent negatives include chest pain, claudication, confusion, diaphoresis, dyspnea, epistaxis, fatigue, headache, hematuria, irregular heartbeat/palpitations, nausea, tinnitus, transient weakness, tremor, visual disturbances and vomiting. Additional information: pt taking bp meds as prescribed Hyperlipidemia The severity of the problem is moderate. The problem has improved. Patient compliance with diet is fair, with exercise is fair, with medication is good and with follow up is good. Reasons for screening include alcohol use, diabetes mellitus, diet and hypertension. Reasons for screening do not include arcus senilis, chronic renal disease, coronary artery disease, family history hyperlipidemia, family history vascular disease, metabolic syndrome, obesity, peptic ulcer disease, periorbital xanthelasma, planar xanthomas, PVD and sedentary life style. There are no secondary causes of hyperlipidemia. Pertinent negatives include abdominal pain, bloating, chest pain, cholelithiasis, claudication, constipation, diarrhea, dizziness, dyspepsia, edema, fatigue, flatulence, flushing, gout, headache, heartburn, malaise, muscle weakness, myalgia, myositis, nausea, pancreatitis, pruritus, rash and splenic enlargement. Additional information: pt is taking zetia daily. no side effects on this med. memory loss Onset was and it was gradual. Severity level is moderate. The intervention and testing comprises of: Medication taken: Anti-depressants with good results, Acetylcholinesterase Inhibitors with good results. Pertinent negatives include agitation, ataxia, behavioral changes, bladder incontinence, bowel dysfunction, chorea, confusion, difficulty with ADLs, dizziness, falling, fever, gait disturbances, hallucinations, headache, hyperacusis, mood swings, neck stiffness, paresthesia, personality change, restlessness, sleep disturbances, speech difficulty, tingling, tremors and visual disturbances. Additional information: pt and note memory has stabilized. the pt is taking namenda and doing well on this med. depression There is improve ment of initial symptoms. The patient reports functioning as not difficult at all. The patient presents with depressed mood, difficulty concentrating, difficulty falling asleep, difficulty staying asleep, diminished interest or pleasure and excessive worry but denies anxious/fearful thoughts, compulsive thoughts, decreased need for sleep, easily startled, fatigue, feelings of guilt, feelings of invulnerability, increased energy, hallucinations, increased libido, loss of appetite, paranoia, poor judgment, racing thoughts, restlessness or thoughts of or suicide. The patient's risk factors include chronic illness and history of depression. The patient's risk factors exclude alcoholism, childhood abuse or neglect, of a friend or loved one, drug abuse, family history of depression, family history of anxiety, family history of bipolar disorder, financial worries, history of suicidal attempts, medications, recent childbirth, relationship problems, social isolation, unemployment and victim of abuse or violence. The depression is aggravated by conflict or stress, traumatic memories and winter season. The patient denies any headache, nausea, sweating and vomiting. Additional information: pt is taking sertraline and wellbutrin. the pt notes memory is stable. the pt is taking these as prescribed. no suicidal or homicidal ideation. Hyperlipidemia The severity of the problem is moderate. The problem has improved. Patient compliance with diet is good, with exercise is good, with medication is good and with follow up is good. Reasons for screening include alcohol use, diabetes mellitus, diet and hypertension. Reasons for screening do not include arcus senilis, chronic renal disease, coronary artery disease, family history hyperlipidemia, family history vascular disease, metabolic syndrome and obesity. There are no secondary causes of hyperlipidemia. Pertinent negatives include abdominal pain, bloating, chest pain, cholelithiasis, claudication, constipation, diarrhea, dizziness, dyspepsia, edema, fatigue, flatulence, flushing, gout, headache, heartburn, malaise, muscle weakness, myalgia, myositis, nausea, pancreatitis, pruritus, rash and splenic enlargement. Additional information: pt taking crestor and zetia. no side effects on these meds. Hypertension Comorbid conditi ons include diabetes mellitus. It is currently stable. Risk factors include age over age 60 and male gender. The hypertension is exacerbated by nothing. Pertinent negatives include chest pain, claudication, confusion, diaphoresis, dyspnea, epistaxis, fatigue, headache, hematuria, irregular heartbeat/palpitations, nausea, tinnitus, transient weakness, tremor, visual disturbances and vomiting. depression There is improve ment of initial symptoms. The patient reports functioning as not difficult at all. The patient presents with anxious/fearful thoughts, depressed mood, difficulty concentrating, difficulty falling asleep, difficulty staying asleep, diminished interest or pleasure and excessive worry but denies compulsive thoughts, decreased need for sleep, easily startled, fatigue, feelings of guilt, feelings of invulnerability, increased energy, hallucinations, increased libido, loss of appetite, paranoia, poor judgment, racing thoughts, restlessness or thoughts of or suicide. The patient's risk factors include chronic illness. The patient's risk factors exclude alcoholism, childhood abuse or neglect, of a friend or loved one, drug abuse, family history of depression, family history of anxiety, family history of bipolar disorder, financial worries, history of depression, history of suicidal attempts, medications, recent childbirth, relationship problems, social isolation, unemployment and victim of abuse or violence. The depression is aggravated by conflict or stress, social interactions, traumatic memories and winter season but not with alcohol use, lack of sleep or menstruation. The patient denies any headache, nausea, sweating and vomiting. Additional information: pt notes he is doing well no suicidal or homicidal ideation. the pt is taking wellbutrin and sertraline. pt notes he is not feeling depressed currently. Hyperlipidemia The severity of the problem is moderate. The problem has improved. Patient compliance with diet is fair, with exercise is fair, with medication is good and with follow up is good. Reasons for screening include alcohol use, diabetes mellitus, diet and hypertension. Reasons for screening do not include arcus senilis, chronic renal disease, coronary artery disease, family history hyperlipidemia, family history vascular disease, metabolic syndrome, obesity, peptic ulcer disease, periorbital xanthelasma, planar xanthomas, PVD and sedentary life style. There are no secondary causes of hyperlipidemia. Pertinent negatives include abdominal pain, bloating, chest pain, cholelithiasis, claudication, constipation, diarrhea, dizziness, dyspepsia, edema, fatigue, flatulence, flushing, gout, headache, heartburn, malaise, muscle weakness, myalgia, myositis, nausea, pancreatitis, pruritus, rash and splenic enlargement. Additional information: pt taking crestor daily. no side effects on this med. dementia Onset was and it was gradual. Severity level is moderate. The intervention and testing comprises of: Medication taken: Anti-depressants with good results. Pertinent negatives include agitation, ataxia, behavioral changes, bladder incontinence, bowel dysfunction, chorea, confusion, difficulty with ADLs, dizziness, falling, fever, gait disturbances, hallucinations, headache, hyperacusis, mood swings, neck stiffness, paresthesia, personality change, restlessness, sleep disturbances, speech difficulty, tingling, tremors and visual disturbances. Additional information: pt has some memory loss and this may have worsened a bit over the last two years. the pt notes he was on meds per neurology but stopped these. the pt is taking prevagen. 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 Hypertension Comorbid conditi ons include diabetes mellitus. It is currently stable. Risk factors include age over age 60 and male gender. The hypertension is exacerbated by nothing. Pertinent negatives include chest pain, claudication, confusion, diaphoresis, dyspnea, epistaxis, fatigue, headache, hematuria, irregular heartbeat/palpitations, nausea, tinnitus, transient weakness, tremor, visual disturbances and vomiting. Additional information: pt taking bp meds as prescribed. no side effects on these Chronic Conditions *See Chronic Conditions HPI Telehealth telephone visit today this was 8 minutes Hypertension Comorbid conditi ons include diabetes mellitus. It is currently stable. Risk factors include age over age 60 and male gender. The hypertension is exacerbated by nothing. Pertinent negatives include chest pain, claudication, confusion, diaphoresis, dyspnea, epistaxis, fatigue, headache, hematuria, irregular heartbeat/palpitations, nausea, tinnitus, transient weakness, tremor, visual disturbances and vomiting. Additional information: pt taking bp meds as prescribed Hyperlipidemia The severity of the problem is moderate. The problem has improved. Patient compliance with diet is good, with exercise is good, with medication is good and with follow up is good. Reasons for screening include alcohol use, diabetes mellitus, diet and hypertension. Reasons for screening do not include arcus senilis, chronic renal disease, coronary artery disease, family history hyperlipidemia, family history vascular disease, metabolic syndrome, obesity, peptic ulcer disease, periorbital xanthelasma, planar xanthomas, PVD and sedentary life style. There are no secondary causes of hyperlipidemia. Associated symptoms include myalgia. Pertinent negatives include abdominal pain, bloating, chest pain, cholelithiasis, claudication, constipation, diarrhea, dizziness, dyspepsia, edema, fatigue, flatulence, flushing, gout, headache, heartburn, malaise, muscle weakness, myositis, nausea, pancreatitis, pruritus, rash and splenic enlargement. Additional information: pt tolerating zetia well. rhinitis the pt notes ana ar nasal discharge during the day. the pt notes that he is not having visual or hearing changes. the pt is using saline nose spray and afrin- unclear how much. pt notes that he is not having facial pain or cough. no sob Hypertension Comorbid conditi ons include diabetes mellitus. It is currently stable. Risk factors include age over age 60 and male gender. The hypertension is exacerbated by nothing. Pertinent negatives include chest pain, claudication, confusion, diaphoresis, dyspnea, epistaxis, fatigue, headache, hematuria, irregular heartbeat/palpitations, nausea, tinnitus, transient weakness, tremor, visual disturbances and vomiting. Additional information: pt stopped amlodipine - he is taking other bp meds Hyperlipidemia The severity of the problem is mild. The problem has not changed. Patient compliance with diet is fair, with exercise is fair and with follow up is good. Reasons for screening include alcohol use, diabetes mellitus, diet and hypertension. Reasons for screening do not include arcus senilis, chronic renal disease, coronary artery disease, family history hyperlipidemia, family history vascular disease, metabolic syndrome, obesity, peptic ulcer disease, periorbital xanthelasma, planar xanthomas and PVD. There are no secondary causes of hyperlipidemia. Associated symptoms include myalgia and myositis. Pertinent negatives include abdominal pain, bloating, chest pain, cholelithiasis, claudication, constipation, diarrhea, dizziness, dyspepsia, edema, fatigue, flatulence, flushing, gout, headache, heartburn, malaise, muscle weakness, nausea, pancreatitis, pruritus, rash and splenic enlargement. Additional information: pt is not able to take chol meds due to myalgia and myositis. gerd The problem is n ot changing. There is no radiation of pain. The patient reports epigastric pain and heartburn. It occurs randomly. Context: treatment with PPIs. The symptoms are aggravated by spicy foods. Associated symptoms include reflux. Pertinent negatives include aspiration, awakens w/ choking or heartburn, chronic cough, dental erosions, dysphagia, dyspnea, globus sensation, halitosis, hoarseness, melena, nausea, pneumonitis, post-nasal drainage, sore throat, stridor, vomiting, weight gain and weight loss. Additional information: pt is taking ppi. the pt is stable on current dose. the pt notes that he is trying to follow a diet that will not exacerbate his gerd Telehealth telehealth visit with audio and visual today Hyperlipidemia The severity of the problem is mild. The problem has not changed. Patient compliance with diet is fair, with exercise is fair and with follow up is good. Reasons for screening include alcohol use, diabetes mellitus, diet and hypertension. Reasons for screening do not include arcus senilis, chronic renal disease, coronary artery disease, family history hyperlipidemia, family history vascular disease, metabolic syndrome, obesity, peptic ulcer disease, periorbital xanthelasma, planar xanthomas, PVD and sedentary life style. There are no secondary causes of hyperlipidemia. Pertinent negatives include abdominal pain, bloating, chest pain, cholelithiasis, claudication, constipation, diarrhea, dizziness, dyspepsia, edema, fatigue, flatulence, flushing, gout, headache, heartburn, malaise, muscle weakness, myalgia, myositis, nausea, pancreatitis, pruritus, rash and splenic enlargement. Additional information: pt was on crestor but this was stopped due to muscle aches and fatigue. Hypertension Comorbid conditi ons include diabetes mellitus. It is currently stable. Risk factors include age over age 60 and male gender. The hypertension is exacerbated by nothing. Pertinent negatives include chest pain, claudication, confusion, diaphoresis, dyspnea, epistaxis, fatigue, headache, hematuria, irregular heartbeat/palpitations, nausea, tinnitus, transient weakness, tremor, visual disturbances and vomiting. Additional information: the pt is taking bp meds. the pt notes bp is 100/70 mmhg. the pt notes no side effects on these meds gen anxiety the pt has gen a nxiety. the pt notes he is taking zoloft and wellbutrin. the pt notes that he is taking xanax prn. the pt notes no suicidal or homicidal ideation. pt is taking the meds as prescribed Hypertension Comorbid conditi ons include diabetes mellitus. It is currently stable. Risk factors include age over age 60 and male gender. The hypertension is exacerbated by nothing. Pertinent negatives include chest pain, claudication, confusion, diaphoresis, dyspnea, epistaxis, fatigue, headache, hematuria, irregular heartbeat/palpitations, nausea, tinnitus, transient weakness, tremor, visual disturbances and vomiting. Additional information: the pt is taking bp meds. no side effects on these meds skin lesion The patient repo rts no fatigue or lymphadenopathy. Additional information: pt has skin lesion left shoulder for one month. this is non healing. no bleeding. the pt notes no pain or discharge. the pt notes he has not had this in the past. this is at area of previous shoulder surgery. acute visit Chief complaint: growth on shoulder. Pertinent negatives include abdominal pain, chest pain, fatigue, headache, nausea, vomiting, fever, chills, joint pain and joint swelling.74 y/o male presents with c/o drainage from an old surgical scar. He states he has noticed this growth on his left shoulder for a few weeks, it is not painful. Drains occasionally, fluid is clear. It has not changed in size. He states he has not noticed any swelling or redness, no purulent drainage. He states he has had 2 surgical procedures on his left shoulder in the past, leaving a small divot between incisions. He denies fevers, body aches, or chills. Takes enalapril and metoprolol for HTN. Denies headaches, chest pain, dizziness, or blurred vision. BP at goal today. Hypertension Comorbid conditi ons include diabetes mellitus. It is currently stable. Risk factors include age over age 60 and male gender. The hypertension is exacerbated by nothing. Pertinent negatives include chest pain, claudication, confusion, diaphoresis, dyspnea, epistaxis, fatigue, headache, hematuria, irregular heartbeat/palpitations, nausea, tinnitus, transient weakness, tremor, visual disturbances and vomiting. Additional information: bp is in range. pt taking bp meds as prescribed Hyperlipidemia The severity of the problem is mild. The problem has not changed. Patient compliance with diet is good, with exercise is good and with follow up is good. Reasons for screening include alcohol use, diabetes mellitus, diet and hypertension. Reasons for screening do not include arcus senilis, chronic renal disease, coronary artery disease, family history hyperlipidemia, family history vascular disease, metabolic syndrome, obesity, peptic ulcer disease, periorbital xanthelasma, planar xanthomas, PVD and sedentary life style. Associated symptoms include myalgia and myositis. Pertinent negatives include abdominal pain, bloating, chest pain, cholelithiasis, claudication, constipation, diarrhea, dizziness, dyspepsia, edema, fatigue, flatulence, flushing, gout, headache, heartburn, malaise, muscle weakness, nausea, pancreatitis, pruritus, rash and splenic enlargement. Additional information: pt notes falls with crestor -- he stopped this med. pt notes he feels better off this med. Functional Status Date Functional Assessmen t No Information Instructions Date Instruction Additional Infor fior Well-controlled, con tinue with medications. BP diary. Call if consistently high. ____ Counseling regarding the followin. Usual trajectory for geriatric patients, in terms of overall functioning general conditioning muscle strength and risk for falls as the maturing age. Needs regular exercise/daily physical activity e.g. walking/stretching. Brain exercise, puzzles, books, board games, hobbies etc.. Social interaction highly encouraged. 2. Need to closely monitor nutrition and support aggressively (balanced/healthy diet), assist w activities of day-to-day living, safety specifically falls, medication management and cognitive function and presence of deficits. Related to Essential hypertension Continue w meds. Scooby l for any issues or for need to re-evaluate med dose or treatment plan. Related to Pure hypercholesterolemia Continue w meds. Scooby l for any issues or for need to re-evaluate med dose or treatment plan.Follow up w [facility] per Endo please send us copies. 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 cont on current bp meds. low salt diet. we will check cmp Related to Essential hypertension we will check lipids . goal ldl is 100 or less. will adjust crestor dose if needed Related to Pure hypercholesterolemia cont on wellbutrin a nd sertraline. call if mood changes Related to Recurrent major depressive disorder, in partial remission hba1c per endo. med adjustment per endo. 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 we will check cmp cbc lipids hba1c and urine for microalbumin. make sure living will is up to date. cont on current meds. remain active. call if any issues arise. flu vaccine yearly and tetanus vaccine every 10 years. keep up to date on covid vaccines Related to Physical exam we will check lipids . goal ldl is 100 or less. will adjust crestor dose if needed Related to Pure hypercholesterolemia this is stable cont on prilosec. 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 cont on current dose of metoprolol and enalapril we will check cmp and cbc Related to Essential hypertension cont on namenda. see neurology in follow up Related to Late onset Alzheimer's dementia without behavioral disturbance see endo in follow u p. we will check cmp hba1c and urine for microalbumin will send labs to endo. 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 further tx based on x-ray Related to Neck pain bp is in range cont on current bp meds. low salt diet call if bp rises Related to Essential hypertension this is stable on om eprazole. call if gerd changes Related to Gastroesophageal reflux disease, unspecified whether esophagitis present cont on klonopin ser traline and wellbutrin. 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 will adjust meds to keep ldl less than 100 Related to Pure hypercholesterolemia this is stable. cont on bupropion and sertraline. call if mood changes Related to Recurrent major depressive disorder, in partial remission we will check cmp. 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 cont on meds to bring down hba1c to near 7 percent. consider a shingles vaccine. colonoscopy has been done in the past. make sure this is up to date. cont on current meds. make sure living will is up to date. call if any issues arise and cont to be activeslums is 24 and phq-2 is zero pt has not had falls and pt does not smoke he drinks little alcohol. pt has good hearing and sees optho for vision. pt has normal nutrition Related to Physical exam recent hba1c was 7.6 percent at endo. much improved. cont on insulin and ozempic - see eye doctor in follow up and see endo in follow up. 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 call if gerd worsens Related to Gastroesophageal reflux disease, unspecified whether esophagitis present this is stable. slum s is 24 and pt is seeing neurology. cont on namenda Related to Late onset Alzheimer's dementia without behavioral disturbance recent chol levels a re in range. cont on current dose zetia and crestor Related to Pure hypercholesterolemia High fiber diet this is stable. cont on omeprazole. call if gerd recurs or worsens Related to Gastroesophageal reflux disease, unspecified whether esophagitis present blood pressure is in range. cont on current dose of metoprolol and enalapril. we will check bmp ua and psa. cont on low salt diet Related to Essential hypertension High fiber diet this is stable. cont on sertraline and bupropion. call if mood changes i d/w pt that all guns in the house need to be locked up. 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 cont on current dose of enalapril and metoprolol. low salt diet please Related to Essential hypertension see above Related to senior care (current) use of insulin memory loss may have progressed a bit. see neurology in follow up. we will recheck mri of the brain Related to Memory loss see endocrinology in follow up. last hba1c was 7.4 percent. see eye doctor yearly. follow dm diet. Status: Able to self-manage condition. Goals: Your goal is to work on healthy eating habits. Barriers: No barriers to goal achievement have been identified. Related to Type 2 diabetes mellitus without complication, with long-term current use of insulin High fiber diet you are stable. cont on sertraline klonopin and wellbutrin at current doses. call if mood changes Related to Situational mixed anxiety and depressive disorder see above Related to Demen tia in other diseases classified elsewhere without behavioral disturbance this is stable. cont on namenda. see neuro in follow up if needed Related to Late onset Alzheimer's dementia without behavioral disturbance bp is in range. cont on current dose metoprolol and enalapril. we will check cmp and cbc. low salt diet please Related to Essential hypertension we will check lipids goal ldl is 100 or less. will adjust crestor dose if needed. cont on current dose zetia Related to Pure hypercholesterolemia High fiber diet we will check lipids . goal ldl is 100 or less. will adjust crestor dose if needed Related to Pure hypercholesterolemia cont on wellbutrin a nd sertraline. you are stable on these meds Related to Situational mixed anxiety and depressive disorder bp is stable. cont o n current dose of metoprolol and enalapril. we will check cmp ; cont on low salt diet Related to Essential hypertension High fiber diet bp is stable. cont o n current dose of metoprolol and enalapril. we will check cmp / cbc/ ua / tsh and psa Related to Essential hypertension see above Related to Demen tia in other diseases classified elsewhere without behavioral disturbance we will refer you to neurology at [facility] dr gold or phoebe. start namenda 5 mg a day for 4 weeks then one twice a day i have advised you not to participate in shooting anymore due to memory issues. Related to Late onset Alzheimer's dementia without behavioral disturbance we will check lipids . goal ldl is 100 or less. will adjust crestor dose if needed Related to Pure hypercholesterolemia High fiber diet Stable. No changes t kacey. Recent blood chemistries were stable. Related to Essential hypertension See #2. 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 Goals: Your goal is to manage your medicine. Barriers: No barriers to goal achievement have been identified. Related to Uncontrolled type 2 diabetes mellitus without complication, with long-term current use of insulin Discussed statin the chiqui. We will start Livalo 1mg daily and take with CoQ10. This will reduce your cardiovascular risk. Repeat lipids in 3 months. Recent vitamin D was normal. Related to Pure hypercholesterolemia Medication management cont on current dose zetia. cont on current dose. cont on diet and exercise Related to Pure hypercholesterolemia cont on current bp m eds. low salt diet. goal bp is 130/80 mmhg. Related to Essential hypertension High fiber diet blood pressure is in range. cont on current dose f enalapril and metoprolol. we will check cmp cbc and ua. cont on low salt diet. goal blood pressure is 130/80 mmhg Related to Essential hypertension we will check chol m eds. you have not tolerated chol medicines. goal ldl or bad chol is 130 or less. Related to Pure hypercholesterolemia cont on omeprazole. call if gerd worsens. flu vaccine today Related to Gastroesophageal reflux disease, esophagitis presence not specified stop afrin. ok to us e saline nose spray. try flonase ( fluticasone nose spray) one spray each nostril twice a day. this is over the counter. call if this is not helping Related to Seasonal allergic rhinitis due to pollen High fiber diet we will check lipids and tsh done. goal ldl is 100 or less. cont on diet and exercisetelehealth visit with audio and visual today Related to Pure hypercholesterolemia cont on current bp m eds. the pt is tolerating the bp meds well. the pt is to have cmp cbc and ua done. Related to Essential hypertension Heart healthy diet bp is in range. we w ill check cmp cbc and lipids. cont on low salt diet. Related to Essential hypertension please see derm for eval. dr noreen rachel Related to Skin lesion this is stable. cont on current meds. call if mood worsens Related to Situational mixed anxiety and depressive disorder Heart healthy diet Blood pressure is we ll controlled today. Please continue your current medications. Call our office if you have blood pressure readings consistently above goal, 140/90 or higher. Related to Essential hypertension There is a break in your skin in your surgical scar with healthy tissue growing. No signs of infection today. Continue to monitor for signs of infection, including increased redness, swelling, pain, purulent drainage, or if you begin running a fever. If you experience any of these symptoms, contact the office as an antibiotic would be needed. In the meantime, continue to monitor for changes. Keep the area clean and dry, apply neosporin daily as needed. Related to Skin lesion bp is borderline. lo w salt diet. cont on current meds for now. focus on weight loss. we will check cmp Related to Essential hypertension we will check lipids . for now off of crestor. Related to Pure hypercholesterolemia Heart healthy diet Assessments Type Assessment Date No Information Patient Care Teams Name Effective Dates (start - stop) Status Members No Information
--- OUTSIDE RECORDS SUMMARY | 2024-12-19 00:43 | XMS_ITS | Encounter Summary ---
Author Organization [facility] Address [address] [place] [address] Care Team Providers Care Warp Coiler Name Role Phone Vinay Munoz MD Primary Care Provider [phone] Encounter Details Date Type Department Care Team (Latest Contact Info) Description 12/10/2008 Outpatient Historical [facility] Wayne Tucker MD [address] [place] [address] DM w/o Complication Type II, Uncontrolled Social History Tobacco Use Types Packs/Day Years Used Date Smoking Tobacco: Never Alcohol Use Standard Drinks/Week Comments Yes 0 (1 standard drink = 0.6 oz pur e alcohol) Sex and Gender Information Value Date Recorded Sex Assigned at Male 11/21/2023 3:02 PM CORPORATE AIRCRAFT MECHANIC Legal Sex Male 5:20 AM CORPORATE AIRCRAFT MECHANIC Gender Identity Male 11/21/2023 3:02 PM CORPORATE AIRCRAFT MECHANIC Sexual Orientation Straight 11/21/2023 3: 02 PM CORPORATE AIRCRAFT MECHANIC documented as of this encounter Plan of Treatment Upcoming Encounters Date Type Department Care Team (Late st Contact Info) Description 02/17/2025 1:30 PM CDT Office Visit [facility] Endocrinology [address] [place] [address] Rosa Cortez MD [address] [place] [address] 03/11/2025 10:30 AM CDT Office Visit [facility] Neurology [address] [place] [address] Wallace Church MD [address] [facility] [address] [place] [address] 05/20/2025 10:15 AM CDT Office Visit [facility] Endocrinology [address] [place] [address] Rosa Cortez MD [address] [facility] [address] [place] [address] 08/18/2025 3:15 PM CORPORATE AIRCRAFT MECHANIC Office Visit [facility] Endocrinology [address] [place] [address] Rosa Cortez MD [address] [facility] [address] [place] [address] documented as of this encounter Visit Diagnoses Diagnosis Type II or unspecified type diabetes mellitus without mention of complication, uncontrolled documented in this encounter Care Teams Warp Coiler Relationship Specialty Start Date End Date Vinay Munoz MD [address] [place] [address] PCP - General Family Practice 11/19/24 documented as of this encounter
--- OUTSIDE RECORDS SUMMARY | 2024-12-19 00:43 | XMS_ITS | Encounter Summary ---
Author Organization [facility] Address [address] [place] [address] Care Team Providers Care Log Raft Worker Name Role Phone Vinay Munoz MD Primary Care Provider [phone] Encounter Details Date Type Department Care Team (Late st Contact Info) Description 01/21/2008 Orders Only [facility] [address] [place] [address] Wayne Duncan MD [address] [place] [address] Social History Tobacco Use Types Packs/Day Years Used Date Smoking Tobacco: Never Assessed Sex and Gender Information Value Date Recorded Sex Assigned at Male 11/21/2023 3:02 PM CROSS TIE TURNER Legal Sex Male 5:20 AM CROSS TIE TURNER Gender Identity Male 11/21/2023 3:02 PM CROSS TIE TURNER Sexual Orientation Straight 11/21/2023 3: 02 PM CROSS TIE TURNER documented as of this encounter Progress Notes * Wayne Duncan MD - 03/14/2008 10:16 AM CDT TIME:02:15 pm PATIENT`S HOME PHONE: PATIENT`S WORK PHONE: PATIENT`S INSURANCE: [employer] WHO TOOK THE CALL: [facility] LAST VISIT: 11-21-07 PCP: amari. WHO CALLED: Pharmacy called. PHARMACY NUMBER: [facility] mail to pt SECTION 1: REQUESTED ACTION evelyn 01/21/08 at 02:16 pm: MEDICATION REQUEST: Patient requests a refill. MEDICATIONS: LOVASTATIN ORAL TABLET 20 MG, 1 Every Day, 90 Dispensed, 3 Fills, 90 Duration/Days Supply, status: CONTINUED, 01/24/2006. GLUCOVANCE ORAL TABLET 5-500 MG, 2 Two Times A Day, 360 Dispensed, 3 Fills, 90 Duration/Days Supply, status: CONTINUED, 01/24/2006. DOCTOR`S RESPONSE: eduarda 01/21/08 at 03:23 pm Refill now with 3 additional refills. FINAL ACTION: evelyn 01/21/08 at 03:34 pm rx printed, signed, and mailed to pt Electronically Signed by: Eve Velazquez on Monday, January 21, 2008 documented in this encounter Plan of Treatment Upcoming Encounters Date Type Department Care Team (Late st Contact Info) Description 02/17/2025 1:30 PM CDT Office Visit [facility] Endocrinology [address] [facility] [address] [place] [phone] Rosa Cortez MD [address] [id number] 03/11/2025 10:30 AM CDT Office Visit [facility] Neurology [address] [phone] Wallace Church MD [address] [phone] 05/20/2025 10:15 AM CDT Office Visit [facility] Endocrinology [address] [place] [address] Rosa Cortez MD [address] [address] 08/18/2025 3:15 PM CROSS TIE TURNER Office Visit [facility] Endocrinology [address] [place] [address] Rosa Cortez MD [address] [address] documented as of this encounter Visit Diagnoses Not on filedocumented in this encounter Care Teams Log Raft Worker Relationship Specialty Start Date End Date Vinay Munoz MD [address] [place] [address] PCP - General Family Practice 11/19/24 documented as of this encounter
--- OUTSIDE RECORDS SUMMARY | 2024-12-19 00:43 | XMS_ITS | Encounter Summary ---
Author Organization [facility] Address [address] [place] [address] Care Team Providers Care Dive Superintendent Name Role Phone Vinay Munoz MD Primary Care Provider [phone] Encounter Details Date Type Department Care Team (Late Contact Info) Description 04/27/2007 Outpatient Historical [facility] Internal Medicine Mattie Pineda [address] [facility] [address] [place] [address] Wayne Duncan MD [address] [place] [address] Social History Tobacco Use Types Packs/Day Years Used Date Smoking Tobacco: Never Assessed Sex and Gender Information Value Date Recorded Sex Assigned at Male 11/21/2023 3:02 PM ASSURANCE OFFICER Legal Sex Male 5:20 AM ASSURANCE OFFICER Gender Identity Male 11/21/2023 3:02 PM ASSURANCE OFFICER Sexual Orientation Straight 11/21/2023 3: 02 PM ASSURANCE OFFICER documented as of this encounter Last Filed Vital Signs Vital Sign Reading Time Taken Comments Blood Pressure 130/80 04/27/2007 8:45 AM CDT Pulse 76 04/27/2007 8:45 AM CDT Temperature 35.7 C (96.2 F) 04/27/2007 8:45 AM CDT Respiratory Rate 20 04/27/2007 8:45 AM CDT Oxygen Saturation - - Inhaled Oxygen Concentration - - Weight 81.6 kg (180 lb) 04/27/2007 8:45 AM CDT Height 182.9 cm (6') 04/27/2007 8:45 AM CDT Body Mass Index 24.41 04/27/2007 8:45 AM CDT documented in this encounter Plan of Treatment Upcoming Encounters Date Type Department Care Team (Late st Contact Info) Description 02/17/2025 1:30 PM CDT Office Visit [facility] Endocrinology [address] [place] [address] Rosa Cortez MD [address] [place] [address] 03/11/2025 10:30 AM CDT Office Visit [facility] Neurology [address] [place] [address] Wallace Church MD [address] [place] [address] 05/20/2025 10:15 AM CDT Office Visit [facility] Endocrinology [address] [place] [address] Rosa Cortez MD [address] [place] [address] 08/18/2025 3:15 PM ASSURANCE OFFICER Office Visit [facility] Endocrinology [address] [place] [address] Rosa Cortez MD [address] [place], [place] [id number] documented as of this encounter Visit Diagnoses Not on filedocumented in this encounter Care Teams Dive Superintendent Relationship Specialty Start Date End Date Vinay Munoz MD [address] [place] [id number] PCP - General Family Practice 11/19/24 documented as of this encounter
--- OUTSIDE RECORDS SUMMARY | 2024-12-19 00:43 | XMS_ITS | Encounter Summary ---
Author Organization [facility] Address [address] [place] [address] Care Team Providers Care Rn Medication Name Role Phone Vinay Munoz MD Primary Care Provider [phone] Encounter Details Date Type Department Care Team (Latest Contact Info) Description 09/28/2006 Outpatient Historical [facility] Internal Medicine [place] [address] [facility] [address] [place] [address] Wayne Duncan MD [address] [place] [address] Encounter for Long-Term (Current) Use of Other Medications (Primary Dx) Social History Tobacco Use Types Packs/Day Years Used Date Smoking Tobacco: Never Assessed Sex and Gender Information Value Date Recorded Sex Assigned at Male 11/21/2023 3:02 PM TELECOMMUNICATIONS SALES REPRESENTATIVE Legal Sex Male 5:20 AM TELECOMMUNICATIONS SALES REPRESENTATIVE Gender Identity Male 11/21/2023 3:02 PM TELECOMMUNICATIONS SALES REPRESENTATIVE Sexual Orientation Straight 11/21/2023 3: 02 PM TELECOMMUNICATIONS SALES REPRESENTATIVE documented as of this encounter Plan of Treatment Upcoming Encounters Date Type Department Care Team (Late st Contact Info) Description 02/17/2025 1:30 PM CDT Office Visit [facility] Endocrinology [address] [place] [address] Rosa Cortez MD [address] [place] [address] 03/11/2025 10:30 AM CDT Office Visit [facility] Neurology [address] [place] [address] Wallace Church MD [address] [facility] [address] [place] [address] 05/20/2025 10:15 AM CDT Office Visit [facility] Endocrinology [address] [place] [address] Rosa Cortez MD [address] [place] [address] 08/18/2025 3:15 PM TELECOMMUNICATIONS SALES REPRESENTATIVE Office Visit [facility] Endocrinology [address] [place] [address] Rosa Cortez MD [address] [facility] [address] [place] [address] documented as of this encounter Procedures Procedure Name Priority Date/Time Associated Diagnosis Comments HEPATIC FUNCTION PANEL Routine 09/28/2006 10:52 AM TELECOMMUNICATIONS SALES REPRESENTATIVE documented in this encounter Results * HEPATIC FUNCTION PANEL (09/28/2006 10:52 AM TELECOMMUNICATIONS SALES REPRESENTATIVE) ALKALINE PHOSPHATASE 87 40 - 129 U/L INTERFACE SYSTEM AST 19 12 - 38 U/L INTERFACE SYSTEM ALT 18 0 - 41 U/L INTERFACE SYSTEM TOTAL PROTEIN 7.0 6.3 - 8.6 g/dL INTERFACE SYSTEM ALBUMIN 4.2 3.4 - 4.8 g/dL INTERFACE SYSTEM BILIRUBIN TOTAL 0.4 0.2 - 1.0 mg/dL INTERFACE SYSTEM BILIRUBIN DIRECT 0.1 0.0 - 0.3 mg/dL INTERFACE SYSTEM 09/28/2006 10:5 2 AM TELECOMMUNICATIONS SALES REPRESENTATIVE us Wayne Duncan MD CHEMISTRY ORDERABLES Final Res ult INTERFACE SYSTEM Refer to clinic/hospital department documented in this encounter Visit Diagnoses Diagnosis Encounter for long-term (current) use of other medications- Primary documented in this encounter Care Teams Rn Medication Relationship Specialty Start Date End Date Vinay Munoz MD [address] [place] [address] PCP - General Family Practice 11/19/24 documented as of this encounter
--- OUTSIDE RECORDS SUMMARY | 2024-12-19 00:43 | XMS_ITS | Encounter Summary ---
Author Organization [facility] Address [address] [place] [address] Care Team Providers Care Pilot Plant Supervisor Name Role Phone Vinay Munoz MD Primary Care Provider [phone] Encounter Details Date Type Department Care Team (Latest Contact Info) Description 04/27/2007 Outpatient Historical [facility] Internal Medicine Kimberly Edwin [address] [place] [address] Wayne Duncan MD [address] [place] [address] DM w/o Complication Type II, Uncontrolled (Primary Dx) Social History Tobacco Use Types Packs/Day Years Used Date Smoking Tobacco: Never Assessed Sex and Gender Information Value Date Recorded Sex Assigned at Male 11/21/2023 3:02 PM SOA ARCHITECT Legal Sex Male 5:20 AM SOA ARCHITECT Gender Identity Male 11/21/2023 3:02 PM SOA ARCHITECT Sexual Orientation Straight 11/21/2023 3: 02 PM SOA ARCHITECT documented as of this encounter Plan of Treatment Upcoming Encounters Date Type Department Care Team (Late st Contact Info) Description 02/17/2025 1:30 PM CDT Office Visit [facility] Endocrinology [address] [place] [address] Rosa Cortez MD [address] [place] [address] 03/11/2025 10:30 AM CDT Office Visit [facility] Neurology [address] [place] [address] Wallace Church MD [address] [place] [address] 05/20/2025 10:15 AM CDT Office Visit [facility] Endocrinology [address] [place] [address] Rosa Cortez MD [address] [place] [address] 08/18/2025 3:15 PM SOA ARCHITECT Office Visit [facility] Endocrinology [address] [place] [address] Rosa Cortez MD [address] [place], [place] [id number] documented as of this encounter Procedures Procedure Name Priority Date/Time Associated Diagnosis Comments HEMOGLOBIN A1C Routine 04/27/2007 9:18 AM CDT HEPATIC FUNCTION PANEL Routine 04/27/2007 9:18 AM CDT documented in this encounter Results * (ABNORMAL) HEMOGLOBIN A1C (04/27/2007 9:18 AM CDT) HEMOGLOBIN A1C 6.9(H) 4.1 - 6.1 % of Hgb INTERFACE SYSTEM GLUCOSE, MEAN BLOOD 168 mg/dL INTERFACE SYSTEM 04/27/2007 9:18 AM CDT us Wayne Duncan MD CHEMISTRY ORDERABLES Edited INTERFACE SYSTEM Refer to clinic/hospital department * HEPATIC FUNCTION PANEL (04/27/2007 9:18 AM CDT) ALKALINE PHOSPHATASE 83 40 - 129 U/L INTERFACE SYSTEM AST 22 12 - 38 U/L INTERFACE SYSTEM ALT 24 0 - 41 U/L INTERFACE SYSTEM TOTAL PROTEIN 6.8 6.3 - 8.6 g/dL INTERFACE SYSTEM ALBUMIN 4.1 3.4 - 4.8 g/dL INTERFACE SYSTEM BILIRUBIN TOTAL 0.4 0.2 - 1.0 mg/dL INTERFACE SYSTEM BILIRUBIN DIRECT 0.1 0.0 - 0.3 mg/dL INTERFACE SYSTEM 04/27/2007 9:18 AM CDT Wyane Duncan MD CHEMISTRY ORDERABLES Edited INTERFACE SYSTEM Refer to clinic/hospital department documented in this encounter Visit Diagnoses Diagnosis Type II or unspecified type diabetes mellitus without mention of complication, uncontrolled- Primary documented in this encounter Care Teams Pilot Plant Supervisor Relationship Specialty Start Date End Date Vinay Munoz MD [address] [place] [id number] PCP - General Family Practice 11/19/24 documented as of this encounter
--- OUTSIDE RECORDS SUMMARY | 2024-12-19 00:43 | XMS_ITS | Encounter Summary ---
Author Organization [facility] Address [address] [place] [address] Care Team Providers Care Toxicology Teacher Name Role Phone Vinay Munoz MD Primary Care Provider [phone] Encounter Details Date Type Department Care Team (Late st Contact Info) Description 08/21/2007 Orders Only [facility] [address] [place] [address] Wayne Duncan MD [address] [place] [address] Social History Tobacco Use Types Packs/Day Years Used Date Smoking Tobacco: Never Assessed Sex and Gender Information Value Date Recorded Sex Assigned at Male 11/21/2023 3:02 PM JET PIERCER OPERATOR Legal Sex Male 5:20 AM JET PIERCER OPERATOR Gender Identity Male 11/21/2023 3:02 PM JET PIERCER OPERATOR Sexual Orientation Straight 11/21/2023 3: 02 PM JET PIERCER OPERATOR documented as of this encounter Progress Notes * Wayne Duncan MD - 02/21/2008 6:14 PM CDT WEIGHT: 177lbs BLOOD PRESSURE: 160/84 Right Arm Sitting TEMPERATURE: 96.4??f Tympanic PULSE: 76 Right Radial, Regular RESPIRATIONS: 16 HEIGHT: 72in NURSE NAME: Eve Velazquez S ALLERGIES: No known drug allergies. MEDICATIONS: Medication list current. CHIEF COMPLAINT f/u dm,pt instructed to remove socks and shoes.lj HISTORY: HISTORY: 250.02-DM II UNCONTROLLED The diabetes has worsened, the blood glucoses have not been satisfactory.The patient has gained weight. Patient is compliant with diet. The patient`s exercise is the same. Fasting morning blood sugars upper range is in the 160's, lower range is in the 110's. The patient denies polyuria, polyphagia, polydipsia, change in vision, foot ulcerations, or hypoglycemic episodes. The patient is tolerating the medication. Laboratory data will be obtained.the pt notes that his bgs are higher being off of the actos. 272.4-HYPERLIPIDEMIA The patient`s weight is the same. The patient is somewhat compliant with the low saturated fat diet. The patient`s exercise is the same. The patient is tolerating the medications, no complications noted. Labs will be obtained for this patient. 401.1-HYPERTENSION ESSENTIAL BENIGN The patient`s weight is the same. The patient is somewhat compliant with diet. The patient`s exercise is the same. The blood pressure readings taken outside the office since the last visit are as follows: the systolic range has been 130's. The diastolic range hasbeen 70's. The patient denies chest pain, shortness of breath, dyspnea on exertion, pedal edema, orheadache. The patient is tolerating the medication. Labs will be obtained for this patient. 477.9-RHINITIS ALLERGIC UNSPECIFIED The allergic rhinitis has not changed and frequent symptoms have been noted since the last visit. The patient has coryza, has rhinorrhea, denies sneezing, denies watery eye. Currently the patient is off all medication. No recent laboratory work done.the pt notes his symptoms are worse this time of yr. CURRENT PROBLEM LIST: 250.00 DM II CONTROLLED 250.02 DM II UNCONTROLLED 272.4 HYPERLIPIDEMIA 300.00 ANXIETY 311 DEPRESSION 401.1 HYPERTENSION ESSENTIAL BENIGN 461.0 ACUTE SINUSITIS 477.9 RHINITIS ALLERGIC UNSPECIFIED 530.81 GASTROESOPHAGEAL REFLUX (GERD) 564.1 IRRITABLE BOWEL SYNDROME V58.69 FCI USE OF OTHER MEDICATION(S) CURRENT MEDICATION LIST: LOVASTATIN ORAL TABLET 20 MG, 1 Every Day GLUCOVANCE ORAL TABLET 5-500 MG, 2 Two Times A Day ZOLOFT ORAL TABLET 50 MG, 1 Every Day WELLBUTRIN XL ORAL TABLET 24 HR 300 MG, 1 Every Day ENALAPRIL MALEATE ORAL TABLET 20 MG, 1 Two Times A Day LANTUS SUBCUTANEOUS SOLUTION 100 UNIT/ML, 24 units qd CURRENT ALLERGY LIST: NKDA ROS: GENERAL: See HISTORY OF PRESENT ILLNESS. ALLERGIC/IMMUNOLOGIC: See HISTORY OF PRESENT ILLNESS. EYES: No vision changes or diplopia. ENT: See HISTORY OF PRESENT ILLNESS. ENDOCRINE: See HISTORY OF PRESENT ILLNESS. CARDIAC: [...] PAST MEDICAL HISTORY: MEDICAL: Diabetes, hypercholesterolemia, hypertension, depression.anxiety,rhinitis SURGICAL: Tonsils and adenoids.left shoulder surgery ALLERGIES/ADVERSE [...] rhythm. No murmurs, rubs, or gallops. ARTERIAL: No aortic bruits. JUGULAR VEINS Jugular veins within normal limits. EDEMA/VARICOSITIES OF EXTREMITIES: No edema or varicosities. LYMPHATICS: No lymphadenopathy in the neck. GASTROINTESTINAL: ABDOMEN: Soft, non-tender, without masses. Bowel sounds active. LIVER/SPLEEN/KIDNEY: No hepatosplenomegaly, tenderness or nodularity. Kidneys not palpable. RECTAL: Rectal exam reveals no masses or hemorrhoids, sphincter tone is normal. GENITOURINARY: PROSTATE: Symmetrical and smooth with no nodularity or tenderness. MUSCULOSKELETAL EXAM: EXTREMITIES: DIABETIC II FOOT EXAM: The patient`s diabetic foot exam is within normal limits. Negative for callous, ulcers, tinea pedis, onychomycosis, arterial insufficiency or neuropathy. BILATERAL LOWER EXTREMITIES: No misalignment or tenderness. Full range of motion. Normal stability,strength and tone. NEUROLOGIC: CRANIAL NERVES: igniter assembler II-XII grossly intact. PSYCHIATRIC: Judgment appropriate. Oriented. Normal memory. Mood and affect appropriate. ASSESSMENT/PLAN: 250.02-DM II UNCONTROLLED ASSESSMENT: The diabetes is worse. Will add medications to current regimen for better control. Willcheck laboratory to assess disease effect, to assess medication effect. Clinical guidelines reviewed with patient regarding HgbA1c, microalbumin, diabetic retinal exam, diabetic foot exam, need to adhere with diet was emphasized with patient, regular aerobic exercise encouraged, importance of weight loss was emphasized, patient was instructed to monitor blood sugar and bring the readings to next appointment.the pt will be restarted on actos. the pt notes he also wants to restart on this med as his glucose is elevated. MEDICATIONS: ACTOS ORAL TABLET 45 MG, 1 Every Day, 90 Dispensed, 3 Fills, status: NEW PRESCRIPTION, 08/21/2007. LAB ORDERS: Order number: [id number] Test Ordered: COMPREHENSIVE METABOLIC PANEL & GFR 1112 Order number: [id number] Test Ordered: HEMOGLOBIN A1C 1814 Order number: [id number] Test Ordered: LIPID PANEL 1078 Order number: [id number] Test Ordered: PSA, TOTAL 1002 272.4-HYPERLIPIDEMIA ASSESSMENT: Will not change medication, continue to monitor for complications. A low cholesterol diet was encouraged. Regular aerobic exercise was encouraged. The patient's thyroid status is being followed, and is known to be normal presently. Will check laboratory to assess disease effect, to assess medication effect. Clinical guidelines reviewed. Protocol reviewed.the pt will cont on the lovastatin and will adjust the dose if needed based on the lab tests 401.1-HYPERTENSION ESSENTIAL BENIGN ASSESSMENT: The blood pressure has worsened. Will add medication to current regimen for better control. The patient was encouraged to follow a low salt diet. Regular aerobic exercise was encouraged. Weight loss was discussed and encouraged. Will check laboratory to assess disease effect, to assess medication effect. Clinical guidelines reviewed. Protocol reviewed. The patient was instructed to obtain outside BP readings for the next appointment.the pt will have norvasc added to his meds. the ptwill check his bps at home. MEDICATIONS: AMLODIPINE BESYLATE ORAL TABLET 2.5 MG, 1 Every Day, 90 Dispensed, 3 Fills, status: NEW PRESCRIPTION, 08/21/2007. 477.9-RHINITIS ALLERGIC UNSPECIFIED ASSESSMENT: The patient's allergic rhinitis has not changed. Will start medication for better control. No laboratory work is necessary at this time. Clinical guidelines reviewed. Protocol reviewed.the pt will be tried on nasonex for this. MEDICATIONS: NASONEX NASAL SUSPENSION 50 MCG/ACT, 1 AEROSOL ONE TIME NASAL AT BEDTIME, 1 Dispensed, 1 Fills, status: NEW PRESCRIPTION, 08/21/2007. HEALTH MAINTENANCE: LAST PROSTATE EXAM: 08/15. RETURN VISIT : Instructed to call if not improving. Instructed to return earlier than the next regularly scheduled appointment if not improving. Patient instructed to return in 3 months. Electronically Signed by: Wayne Duncan MD on Tuesday, August 21, 2007 documented in this encounter Plan of Treatment Upcoming Encounters Date Type Department Care Team (Late st Contact Info) Description 02/17/2025 1:30 PM CDT Office Visit [facility] Endocrinology [address] [place] [address] Rosa Cortez MD [address] [place] [address] 03/11/2025 10:30 AM CDT Office Visit [facility] Neurology [address] [place] [address] Wallace Church MD [address] [place] [address] 05/20/2025 10:15 AM CDT Office Visit [facility] Endocrinology [address] [place] [address] Rosa Cortez MD [address] [place] [address] 08/18/2025 3:15 PM JET PIERCER OPERATOR Office Visit [facility] Endocrinology [address] [place] [address] Rosa Cortez MD [address] [place], [place] [id number] documented as of this encounter Visit Diagnoses Not on filedocumented in this encounter Care Teams Toxicology Teacher Relationship Specialty Start Date End Date Vinay Munoz MD [address] [place] [id number] PCP - General Family Practice 11/19/24 documented as of this encounter
--- OUTSIDE RECORDS SUMMARY | 2024-12-19 00:43 | XMS_ITS | Encounter Summary ---
Author Organization [facility] Address [address] [place] [address] Care Team Providers Care Mumps Developer Name Role Phone Vinay Munoz MD Primary Care Provider [phone] Encounter Details Date Type Department Care Team (Late st Contact Info) Description 09/21/2006 Outpatient Historical [facility] Internal Medicine Mattie Pineda [address] [place] [address] Wayne Duncan MD [address] [place] [address] Social History Tobacco Use Types Packs/Day Years Used Date Smoking Tobacco: Never Assessed Sex and Gender Information Value Date Recorded Sex Assigned at Male 11/21/2023 3:02 PM INDEPENDENT SALES REPRESENTATIVE Legal Sex Male 5:20 AM INDEPENDENT SALES REPRESENTATIVE Gender Identity Male 11/21/2023 3:02 PM INDEPENDENT SALES REPRESENTATIVE Sexual Orientation Straight 11/21/2023 3: 02 PM INDEPENDENT SALES REPRESENTATIVE documented as of this encounter Last Filed Vital Signs Vital Sign Reading Time Taken Comments Blood Pressure 160/100 09/21/2006 9:45 AM INDEPENDENT SALES REPRESENTATIVE Pulse 88 09/21/2006 9:45 AM INDEPENDENT SALES REPRESENTATIVE Temperature 35.7 C (96.3 F) 09/21/2006 9:45 AM INDEPENDENT SALES REPRESENTATIVE Respiratory Rate 20 09/21/2006 9:45 AM INDEPENDENT SALES REPRESENTATIVE Oxygen Saturation - - Inhaled Oxygen Concentration - - Weight 79.8 kg (176 lb) 09/21/2006 9:45 AM INDEPENDENT SALES REPRESENTATIVE Height 182.9 cm (6') 09/21/2006 9:45 AM INDEPENDENT SALES REPRESENTATIVE Body Mass Index 23.87 09/21/2006 9:45 AM INDEPENDENT SALES REPRESENTATIVE documented in this encounter Plan of Treatment Upcoming Encounters Date Type Department Care Team (Late st Contact Info) Description 02/17/2025 1:30 PM CDT Office Visit [facility] Endocrinology [address] [place] [address] Rosa Cortez MD [address] [place] [address] 03/11/2025 10:30 AM CDT Office Visit [facility] Neurology [address] [place] [address] Wallace Church MD [address] [place] [address] 05/20/2025 10:15 AM CDT Office Visit [facility] Endocrinology [address] [place] [address] Rosa Cortez MD [address] [place], [place] [phone] 08/18/2025 3:15 PM INDEPENDENT SALES REPRESENTATIVE Office Visit [facility] Endocrinology [address] [place] [address] Rosa Cortez MD [address] [place], [place] [phone] documented as of this encounter Visit Diagnoses Not on filedocumented in this encounter Care Teams Mumps Developer Relationship Specialty Start Date End Date Vinay Munoz MD [address] [place] [id number] PCP - General Family Practice 11/19/24 documented as of this encounter
--- OUTSIDE RECORDS SUMMARY | 2024-12-19 00:43 | XMS_ITS | Encounter Summary ---
Author Organization [facility] Address [address] [place] [address] Care Team Providers Care General Surgeon Name Role Phone Vinay Munoz MD Primary Care Provider [phone] Encounter Details Date Type Department Care Team (Late Contact Info) Description 06/02/2006 Outpatient Historical [facility] Internal Medicine Mattie Pineda [address] [place] [address] Wayne Duncan MD [address] [place] [address] Social History Tobacco Use Types Packs/Day Years Used Date Smoking Tobacco: Never Assessed Sex and Gender Information Value Date Recorded Sex Assigned at Male 11/21/2023 3:02 PM RESEARCH DEVELOPMENT MANAGER Legal Sex Male 5:20 AM RESEARCH DEVELOPMENT MANAGER Gender Identity Male 11/21/2023 3:02 PM RESEARCH DEVELOPMENT MANAGER Sexual Orientation Straight 11/21/2023 3: 02 PM RESEARCH DEVELOPMENT MANAGER documented as of this encounter Last Filed Vital Signs Vital Sign Reading Time Taken Comments Blood Pressure 160/82 06/02/2006 9:00 AM CDT Pulse 84 06/02/2006 9:00 AM CDT Temperature 35.9 C (96.6 F) 06/02/2006 9:00 AM CDT Respiratory Rate 20 06/02/2006 9:00 AM CDT Oxygen Saturation - - Inhaled Oxygen Concentration - - Weight 79.8 kg (176 lb) 06/02/2006 9:00 AM CDT Height 182.9 cm (6') 06/02/2006 9:00 AM CDT Body Mass Index 23.87 06/02/2006 9:00 AM CDT documented in this encounter Plan of Treatment Upcoming Encounters Date Type Department Care Team (Late st Contact Info) Description 02/17/2025 1:30 PM CDT Office Visit [facility] Endocrinology [address] [place] [address] Rosa Cortez MD [address] [place] [address] 03/11/2025 10:30 AM CDT Office Visit [facility] Neurology [address] [place] [address] Wallace Church MD [address] [place] [address] 05/20/2025 10:15 AM CDT Office Visit [facility] Endocrinology [address] [place] [address] Rosa Cortez MD [address] [place] [address] 08/18/2025 3:15 PM RESEARCH DEVELOPMENT MANAGER Office Visit [facility] Endocrinology [address] [place] [address] Rosa Cortez MD [address] [place], [place] [phone] documented as of this encounter Visit Diagnoses Not on filedocumented in this encounter Care Teams General Surgeon Relationship Specialty Start Date End Date Vinay Munoz MD [address] [place] [phone] PCP - General Family Practice 11/19/24 documented as of this encounter
--- OUTSIDE RECORDS SUMMARY | 2024-12-19 00:43 | XMS_ITS | Encounter Summary ---
Author Organization [facility] Address [address] [place] [address] Care Team Providers Care Therapeutic Sales Specialist Name Role Phone Vinay Munoz MD Primary Care Provider Encounter Details Date Type Department Care Team (Latest Contact Info) Description 06/02/2006 Outpatient Historical [facility] Internal Medicine Bourbon Edwin [address] [place] [address] Wayne Duncan MD [address] [place] [address] DM w/o Complication Type II, Uncontrolled (Primary Dx) Social History Tobacco Use Types Packs/Day Years Used Date Smoking Tobacco: Never Assessed Sex and Gender Information Value Date Recorded Sex Assigned at Male 11/21/2023 3:02 PM STAFFING ADMINISTRATOR Legal Sex Male 5:20 AM STAFFING ADMINISTRATOR Gender Identity Male 11/21/2023 3:02 PM STAFFING ADMINISTRATOR Sexual Orientation Straight 11/21/2023 3: 02 PM STAFFING ADMINISTRATOR documented as of this encounter Plan of Treatment Upcoming Encounters Date Type Department Care Team (Late st Contact Info) Description 02/17/2025 1:30 PM CDT Office Visit [facility] Endocrinology [address] [place] [address] Rosa Cortez MD [address] [place] [address] 03/11/2025 10:30 AM CDT Office Visit [facility] Neurology [address] [place] [address] Wallace Church MD [address] [place] [address] 05/20/2025 10:15 AM CDT Office Visit [facility] Endocrinology [address] [place] [address] Rosa Cortez MD [address] [place] [address] 08/18/2025 3:15 PM STAFFING ADMINISTRATOR Office Visit [facility] Endocrinology [address] [place] [address] Rosa Cortez MD [address] [place] [address] documented as of this encounter Procedures Procedure Name Priority Date/Time Associated Diagnosis Comments MICROALBUMIN/CREATIN INE RATIO, RANDOM UR Routine 06/02/2006 9:37 AM CDT HEMOGLOBIN A1C Routine 06/02/2006 9:37 AM CDT documented in this encounter Results * MICROALBUMIN/CREATININE RATIO, RANDOM UR (06/02/2006 9:37 AM CDT) MICROALBUMIN/C REAT RATIO, UR <4 0 - 29 mg/g creatinine INTERFACE SYSTEM 06/02/2006 9:37 AM CDT Wayne Duncan MD URINE ORDERABLES Final Result INTERFACE SYSTEM Refer to clinic/hospital department * (ABNORMAL) HEMOGLOBIN A1C (06/02/2006 9:37 AM CDT) HEMOGLOBIN A1C 7.4(H) 3.9 - 6.1 % of Hgb INTERFACE SYSTEM GLUCOSE, MEAN BLOOD 160 mg/dL INTERFACE SYSTEM 06/02/2006 9:37 AM CDT us Wayne Duncan MD CHEMISTRY ORDERABLES Final Res ult INTERFACE SYSTEM Refer to clinic/hospital department documented in this encounter Visit Diagnoses Diagnosis Type II or unspecified type diabetes mellitus without mention of complication, uncontrolled- Primary documented in this encounter Care Teams Therapeutic Sales Specialist Relationship Specialty Start Date End Date Vinay Munoz MD [address] [place] [id number] PCP - General Family Practice 11/19/24 documented as of this encounter
--- OUTSIDE RECORDS SUMMARY | 2024-12-19 00:44 | XMS_ITS | Encounter Summary ---
Author Organization [employer] Address [address] [place] [address] Care Team Providers Care Medical Lab Technician Name Role Phone Vinay Munoz MD Primary Care Provider [phone] Encounter Details Date Type Department Care Team (Late st Contact Info) Description 01/24/2006 Orders Only [facility] [address] [place] [address] Wayne Duncan MD [address] [place] [address] Social History Tobacco Use Types Packs/Day Years Used Date Smoking Tobacco: Never Assessed Sex and Gender Information Value Date Recorded Sex Assigned at Male 11/21/2023 3:02 PM BUSHING AND BROACH OPERATOR Legal Sex Male 5:20 AM BUSHING AND BROACH OPERATOR Gender Identity Male 11/21/2023 3:02 PM BUSHING AND BROACH OPERATOR Sexual Orientation Straight 11/21/2023 3: 02 PM BUSHING AND BROACH OPERATOR documented as of this encounter Progress Notes * Wayne Duncan MD - 07/18/2008 1:53 AM CDT BLOOD PRESSURE: 140/90 Left Arm Sitting RESPIRATIONS: 22 WEIGHT: 179lbs TEMPERATURE: 96.6??f Oral PULSE: 100 Right Radial, Regular HEIGHT: 6ft0in NURSE NAME: Kamlesh Nemo ALLERGIES: No known drug allergies. MEDICATIONS: Medication list current. CHIEF COMPLAINT f/u HISTORY: HISTORY: 250.00-DM TYPE II CONTROLLED The diabetes has improved. The patient`s weight is the same. Patient is somewhat compliant with diet. The patient`s exercise is the same. Fasting morning blood sugars upper range is in the 120's, lower range is in the 70's. The patient denies polyuria, polyphagia, polydipsia, change in vision, foot ulcerations, or hypoglycemic episodes. The patient is tolerating the medication. Laboratory data will be obtained. 272.4-HYPERLIPIDEMIA The patient`s weight is the same. The patient is somewhat compliant with the low saturated fat diet. The patient`s exercise is the same. The patient is tolerating the medications, no complications noted. The patient`s most recent lab is within normal limits. 401.1-HYPERTENSION ESSENTIAL BENIGN The patient`s weight is the same. The patient is somewhat compliant with diet. The patient`s exercise is the same. The blood pressure readings taken outside the office since the last visit are as follows: the systolic range has been 140's to 120's. The diastolic range has been 90's to 70's. The patient denies chest pain, shortness of breath, dyspnea on exertion, pedal edema, or headache. The patient is tolerating the medication. Recent laboratory work satisfactory. The blood pressure readings taken outside the office since the last visit have not been controlled in the target range. 477.9-RHINITIS ALLERGIC UNSPECIFIED The allergic rhinitis has worsened with occasional symptoms noted since the last visit. The patient has coryza, has rhinorrhea, denies sneezing, denies watery eye.Currently the patient is off all medication. No recent laboratory work done.the pt notes worse symptoms recently with some nasal congestion and frontal atdeo. the pt notes that he has tried some otc meds with variable success. 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 NEUROLOGIC: CRANIAL NERVES: top lift nailer II-XII grossly intact. PSYCHIATRIC: Judgment appropriate. Oriented. Normal memory. Mood and affect appropriate. ASSESSMENT/PLAN: 250.00-DM TYPE II CONTROLLED ASSESSMENT: The diabetes is controlled. Will not change medication, continue to monitor for complications. Will check laboratory to assess disease effect, to assess medication effect. Clinical guidelines reviewed with patient regarding HgbA1c, microalbumin, diabetic retinal exam, diabetic foot exam, need to adhere with diet was emphasized with patient, regular aerobic exercise encouraged, patientwas instructed to monitor blood sugar and bring the readings to next appointment.the pt will cont on his current meds and will adjust these based on his lab tests. MEDICATIONS: ACTOS ORAL TABLET 45 MG, 1 Every Day, 90 Dispensed, 3 Fills, 90 Duration/Days Supply, status: CONTINUED, 01/24/2006. LANTUS SUBCUTANEOUS SOLUTION 100 UNIT/ML, as directed, 3 Dispensed, 3 Fills, 90 Duration/Days Supply, status: CONTINUED, 01/24/2006. GLUCOVANCE ORAL TABLET 5-500 MG, 2 Two Times A Day, 360 Dispensed, 3 Fills, 90 Duration/Days Supply, status: CONTINUED, 01/24/2006. ZOLOFT ORAL TABLET 50 MG, 1 Every Day, 90 Dispensed, 3 Fills, 30 Duration/Days Supply, status: CONTINUED, 01/24/2006. WELLBUTRIN XL ORAL TABLET 24 HR 300 MG, 1 Every Day, 90 Dispensed, 3 Fills, 30 Duration/Days Supply, status: CONTINUED, 01/24/2006. CLOBETASOL PROPIONATE E EXTERNAL CREAME 0.05 %, NEEDED, 3 Dispensed, 3 Fills, 30 Duration/Days Supply, status: CONTINUED, 01/24/2006. LAB ORDERS: Order number: [id number] Test Ordered: ALT 823 Order number: [id number] Test Ordered: LIPID PANEL 7600 Order number: [id number] Test Ordered: HEMOGLOBIN A1c 496 Order number: [id number] Test Ordered: MICROALBUMIN/CREATININE RATIO, RANDOM URINE 6517 Order number: [id number] Test Ordered: BASIC METABOLIC PANEL W/ GLOMERULAR FILTRATION RATE, ESTIMATED (EGFR) [id number] 272.4-HYPERLIPIDEMIA ASSESSMENT: Will not change medication, continue to monitor for complications. A low cholesterol diet was encouraged. Regular exercise was encouraged. The patient's thyroid status is being followed, and is known to be normal presently. Will check laboratory to assess disease effect, to assess medication effect. Clinical guidelines reviewed. Protocol reviewed.the pt will cont on his current meds and will check a lipid panel and adjust med based on the lab tests. MEDICATIONS: LOVASTATIN ORAL TABLET 20 MG, 1 Every Day, 90 Dispensed, 3 Fills, 90 Duration/Days Supply, status: CONTINUED, 01/24/2006. 401.1-HYPERTENSION ESSENTIAL BENIGN ASSESSMENT: The blood pressure is unchanged. Will increase medication dosage. The patient was encouraged to follow a low salt diet. Regular aerobic exercise was encouraged. Will check laboratory to assess disease effect, to assess medication effect. Clinical guidelines reviewed. Protocol reviewed. The patient was instructed to obtain outside BP readings for the next appointment.the pt will try toincrease diet and exercise and will adjust the dose of the enalapril upwards to get better control of his high blood pressure. MEDICATIONS: ENALAPRIL MALEATE ORAL TABLET 20 MG, 1 Every Day, 30 Dispensed, 4 Fills, status: NEW PRESCRIPTION, 01/24/2006. ENALAPRIL MALEATE ORAL TABLET 10 MG, 1 Every Day, 30 Dispensed, 3 Fills, status: DISCONTINUED, 01/24/2006. 477.9-RHINITIS ALLERGIC UNSPECIFIED ASSESSMENT: The patient's allergic rhinitis has worsened. Will start medication for better control.No laboratory work is necessary at this time. Clinical guidelines reviewed. Protocol reviewed.the pt will be given a sample of flonase to try at home. the pt will call back in two wks to let us know how this is working. HEALTH MAINTENANCE: DIABETIC FOOT EXAM: 01/12 RETURN VISIT : Patient instructed to return in 3 months. Electronically Signed by: Wayne Duncan MD on Tuesday, January 24, 2006 documented in this encounter Plan of Treatment Upcoming Encounters Date Type Department Care Team (Late st Contact Info) Description 02/17/2025 1:30 PM CDT Office Visit [facility] Endocrinology [address] [place] [address] Rosa Cortez MD [address] [id number] 03/11/2025 10:30 AM CDT Office Visit [facility] Neurology [address] [phone] Wallace Church MD [address] [address] 05/20/2025 10:15 AM CDT Office Visit [facility] Endocrinology [address] [place] [address] Rosa Cortez MD [address] [address] 08/18/2025 3:15 PM BUSHING AND BROACH OPERATOR Office Visit [facility] Endocrinology [address] [place] [address] Rosa Cortez MD [address] [address] documented as of this encounter Visit Diagnoses Not on filedocumented in this encounter Care Teams Medical Lab Technician Relationship Specialty Start Date End Date Vinay Munoz MD [address] [place] [address] PCP - General Family Practice 11/19/24 documented as of this encounter
--- OUTSIDE RECORDS SUMMARY | 2024-12-19 00:44 | XMS_ITS | Encounter Summary ---
Author Organization [facility] Address [address] [place] [address] Care Team Providers Care Care Advocate Name Role Phone Vinay Munoz MD Primary Care Provider [phone] Encounter Details Date Type Department Care Team (Late st Contact Info) Description 11/30/2004 Outpatient Historical [facility] Internal Medicine Mattie Pineda [address] [place] [address] Wayne Duncan MD [address] [place] [address] Social History Tobacco Use Types Packs/Day Years Used Date Smoking Tobacco: Never Assessed Sex and Gender Information Value Date Recorded Sex Assigned at Male 11/21/2023 3:02 PM NURSES' REGISTRY DIRECTOR Legal Sex Male 5:20 AM NURSES' REGISTRY DIRECTOR Gender Identity Male 11/21/2023 3:02 PM NURSES' REGISTRY DIRECTOR Sexual Orientation Straight 11/21/2023 3: 02 PM NURSES' REGISTRY DIRECTOR documented as of this encounter Last Filed Vital Signs Vital Sign Reading Time Taken Comments Blood Pressure 156/94 11/30/2004 9:15 AM NURSES' REGISTRY DIRECTOR Pulse 88 11/30/2004 9:15 AM NURSES' REGISTRY DIRECTOR Temperature 35.1 C (95.1 F) 11/30/2004 9:15 AM NURSES' REGISTRY DIRECTOR Respiratory Rate 16 11/30/2004 9:15 AM NURSES' REGISTRY DIRECTOR Oxygen Saturation - - Inhaled Oxygen Concentration - - Weight 77.6 kg (171 lb) 11/30/2004 9:15 AM NURSES' REGISTRY DIRECTOR Height 182.9 cm (6') 11/30/2004 9:15 AM NURSES' REGISTRY DIRECTOR Body Mass Index 23.19 11/30/2004 9:15 AM NURSES' REGISTRY DIRECTOR documented in this encounter Plan of Treatment Upcoming Encounters Date Type Department Care Team (Late st Contact Info) Description 02/17/2025 1:30 PM CDT Office Visit [facility] Endocrinology [address] [place] [address] Rosa Cortez MD [address] [place] [address] 03/11/2025 10:30 AM CDT Office Visit [facility] Neurology [address] [place] [address] Wallace Church MD [address] [place] [address] 05/20/2025 10:15 AM CDT Office Visit [facility] Endocrinology [address] [place] [address] Rosa Cortez MD [address] [place], [place] [id number] 08/18/2025 3:15 PM NURSES' REGISTRY DIRECTOR Office Visit [facility] Endocrinology [address] [place] [address] Rosa Cortez MD [address] [place], [place] [id number] documented as of this encounter Visit Diagnoses Not on filedocumented in this encounter Care Teams Care Advocate Relationship Specialty Start Date End Date Vinay Munoz MD [address] [place] [phone] PCP - General Family Practice 11/19/24 documented as of this encounter
--- OUTSIDE RECORDS SUMMARY | 2024-12-19 00:44 | XMS_ITS | Encounter Summary ---
Author Organization [facility] Address [address] [place] [address] Care Team Providers Care Open Cut Examiner Name Role Phone Vinay Munoz MD Primary Care Provider [phone] Encounter Details Date Type Department Care Team (Latest Contact Info) Description 11/12/2004 Outpatient Historical [facility], [address] Wayne Duncan MD [address] [place] [address] HYPERLIPIDEMIA NEC/NOS (Primary Dx) Social History Tobacco Use Types Packs/Day Years Used Date Smoking Tobacco: Never Assessed Sex and Gender Information Value Date Recorded Sex Assigned at Male 11/21/2023 3:02 PM INTELLECTUAL PROPERTY MANAGER Legal Sex Male 5:20 AM INTELLECTUAL PROPERTY MANAGER Gender Identity Male 11/21/2023 3:02 PM INTELLECTUAL PROPERTY MANAGER Sexual Orientation Straight 11/21/2023 3: 02 PM INTELLECTUAL PROPERTY MANAGER documented as of this encounter Plan of Treatment Upcoming Encounters Date Type Department Care Team (Late st Contact Info) Description 02/17/2025 1:30 PM CDT Office Visit [facility] Endocrinology [address] [place] [address] Rosa Cortez MD [address] [place] [address] 03/11/2025 10:30 AM CDT Office Visit [facility] Neurology [address] [place] [address] Wallace Church MD [address] [place] [address] 05/20/2025 10:15 AM CDT Office Visit [facility] Endocrinology [address] [place] [address] Rosa Cortez MD [address] [place], [place] [id number] 08/18/2025 3:15 PM INTELLECTUAL PROPERTY MANAGER Office Visit [facility] Endocrinology [address] [place] [address] Rosa Cortez MD [address] [place], [place] [phone] documented as of this encounter Procedures Procedure Name Priority Date/Time Associated Diagnosis Comments HEMOGLOBIN A1C Routine 11/12/2004 9:25 AM INTELLECTUAL PROPERTY MANAGER HEPATIC FUNCTION PANEL Routine 11/12/2004 9:25 AM INTELLECTUAL PROPERTY MANAGER LIPID PANEL Routine 11/12/2004 9:25 AM INTELLECTUAL PROPERTY MANAGER documented in this encounter Results * (ABNORMAL) HEMOGLOBIN A1C (11/12/2004 9:25 AM INTELLECTUAL PROPERTY MANAGER) HEMOGLOBIN A1C 7.9(H) 3.9 - 6.1 % of Hgb INTERFACE SYSTEM Comment: Note: Analyzer upgraded from [employer] Variant to Variant II. No change in methodology. GLUCOSE, MEAN BLOOD 177 mg/dL INTERFACE SYSTEM 11/12/2004 9:25 AM INTELLECTUAL PROPERTY MANAGER us Wayne Duncan MD CHEMISTRY ORDERABLES Final Res ult INTERFACE SYSTEM Refer to clinic/hospital department * HEPATIC FUNCTION PANEL (11/12/2004 9:25 AM INTELLECTUAL PROPERTY MANAGER) AST 13 12 - 38 U/L INTERFACE SYSTEM ALKALINE PHOSPHATASE 86 40 - 129 U/L INTERFACE SYSTEM BILIRUBIN TOTAL 0.7 0.2 - 1.0 mg/dL INTERFACE SYSTEM ALBUMIN 4.1 3.4 - 4.8 g/dL INTERFACE SYSTEM TOTAL PROTEIN 7.0 6.3 - 8.6 g/dL INTERFACE SYSTEM ALT 24 0 - 41 U/L INTERFACE SYSTEM BILIRUBIN DIRECT 0.1 0.0 - 0.3 mg/dL INTERFACE SYSTEM 11/12/2004 9:25 AM INTELLECTUAL PROPERTY MANAGER Wayne Duncan MD CHEMISTRY ORDERABLES Final Res ult INTERFACE SYSTEM Refer to clinic/hospital department * (ABNORMAL) LIPID PANEL (11/12/2004 9:25 AM INTELLECTUAL PROPERTY MANAGER) CHOLESTEROL 181 100 - 199 mg/dL INTERFACE SYSTEM TRIGLYCERIDE 111 10 - 149 mg/dL INTERFACE SYSTEM HDL 59 40 - 59 mg/dL INTERFACE SYSTEM LDL CALCULATED 100(H) <=99 mg/dL INTERFACE SYSTEM CHOL/HDL RATIO 3.1 2.0 - 5.0 INTER FACE SYSTEM Comment:See interpretive reuben a section for risk classifications. LIPID PANEL COMMENT See below INTERFACE SYSTEM Comment: Adult ATP III Classifications: Cholesterol (mg/dL) Triglyceride (mg/dL) Desirable <200 Normal <150 Borderline 200 - 239 Borderline High 150 - 199 High >=240 High 200 - 499 Very High >=500 HDL Cholesterol (mg/dL) LDL (mg/dL) Low (increased risk) <40 Optimal <100 High (reduced risk) >=60 Near or above optimal 100 - 129 Borderline 130 - 159 High 160 - 189 Very High >=190 LDL calculation is not accurate if Triglycerides are greater than 400 mg /dL Pediatric NCEP Classifications: Cholesterol(<20 years),(mg/dL) Triglyceride Desirable <170 Pediatric classification Borderline 170 - 199 not defined. High >=200 HDL (<5 years) LDL (mg/dL) No Reference Range Established Desirable <110 Borderline 110 - 129 High >=130 11/12/2004 9:25 AM INTELLECTUAL PROPERTY MANAGER Wayne Duncan MD CHEMISTRY ORDERABLES Final Res ult INTERFACE SYSTEM Refer to clinic/hospital department documented in this encounter Visit Diagnoses Diagnosis Other and unspecified hyperlipidemia- Primary documented in this encounter Care Teams Open Cut Examiner Relationship Specialty Start Date End Date Vinay Munoz MD [address] [place] [phone] PCP - General Family Practice 11/19/24 documented as of this encounter
--- OUTSIDE RECORDS SUMMARY | 2024-12-19 00:44 | XMS_ITS | Encounter Summary ---
Author Organization [facility] Address [address] [place] [address] Care Team Providers Care Software Release Engineer Name Role Phone Vinay Munoz MD Primary Care Provider [phone] Encounter Details Date Type Department Care Team (Latest Contact Info) Description 03/11/2009 Outpatient Historical [facility] Wayne Tucker MD [address] [place] [address] DM w/o Complication Type II, Uncontrolled Social History Tobacco Use Types Packs/Day Years Used Date Smoking Tobacco: Never Alcohol Use Standard Drinks/Week Comments Yes 0 (1 standard drink = 0.6 oz pur e alcohol) Sex and Gender Information Value Date Recorded Sex Assigned at Male 11/21/2023 3:02 PM SMALL LOT OPERATOR Legal Sex Male 5:20 AM SMALL LOT OPERATOR Gender Identity Male 11/21/2023 3:02 PM SMALL LOT OPERATOR Sexual Orientation Straight 11/21/2023 3: 02 PM SMALL LOT OPERATOR documented as of this encounter Plan of Treatment Upcoming Encounters Date Type Department Care Team (Late st Contact Info) Description 02/17/2025 1:30 PM CDT Office Visit [facility] Endocrinology [address] [place] [address] Rosa Cortez MD [address] [place] [address] 03/11/2025 10:30 AM CDT Office Visit [facility] Neurology [address] [place] [address] Wallace Church MD [address] [facility] [address] [place] [address] 05/20/2025 10:15 AM CDT Office Visit [facility] Endocrinology [address] [place] [address] Rosa Cortez MD [address] [facility] [address] [place] [address] 08/18/2025 3:15 PM SMALL LOT OPERATOR Office Visit [facility] Endocrinology [address] [place] [address] Rosa Cortez MD [address] [facility] [address] [place] [address] documented as of this encounter Visit Diagnoses Diagnosis Type II or unspecified type diabetes mellitus without mention of complication, uncontrolled documented in this encounter Care Teams Software Release Engineer Relationship Specialty Start Date End Date Vinay Munoz MD [address] [place] [address] PCP - General Family Practice 11/19/24 documented as of this encounter
--- OUTSIDE RECORDS SUMMARY | 2024-12-19 00:44 | XMS_ITS | Encounter Summary ---
Author Organization [facility] Address [address] [place] [address] Care Team Providers Care Mortgage Loan Underwriter Name Role Phone Vinay Munoz MD Primary Care Provider [phone] Encounter Details Date Type Department Care Team (Latest Contact Info) Description 08/12/2004 Outpatient Historical [facility] Rosendo Seay MD [address] [place] [address] CALCULUS OF KIDNEY (Primary Dx) Social History Tobacco Use Types Packs/Day Years Used Date Smoking Tobacco: Never Assessed Sex and Gender Information Value Date Recorded Sex Assigned at Male 11/21/2023 3:02 PM LIQUOR BRIDGE OPERATOR HELPER Legal Sex Male 5:20 AM LIQUOR BRIDGE OPERATOR HELPER Gender Identity Male 11/21/2023 3:02 PM LIQUOR BRIDGE OPERATOR HELPER Sexual Orientation Straight 11/21/2023 3: 02 PM LIQUOR BRIDGE OPERATOR HELPER documented as of this encounter Plan of Treatment Upcoming Encounters Date Type Department Care Team (Late st Contact Info) Description 02/17/2025 1:30 PM CDT Office Visit [facility] Endocrinology [address] [place] [address] Rosa Cortez MD [address] [place] [address] 03/11/2025 10:30 AM CDT Office Visit [facility] Neurology [address] [place] [address] Wallace Church MD [address] [facility] [address] [place] [phone] 05/20/2025 10:15 AM CDT Office Visit [facility] Endocrinology [address] [place] [address] Rosa Cortez MD [address] [place] [address] 08/18/2025 3:15 PM LIQUOR BRIDGE OPERATOR HELPER Office Visit [facility] Endocrinology [address] [place] [address] Rosa Cortez MD [address] [place], [place] [phone] documented as of this encounter Visit Diagnoses Diagnosis Calculus of kidney- Primary documented in this encounter Care Teams Mortgage Loan Underwriter Relationship Specialty Start Date End Date Vinay Munoz MD [address] [place] [phone] PCP - General Family Practice 11/19/24 documented as of this encounter
--- OUTSIDE RECORDS SUMMARY | 2024-12-19 00:44 | XMS_ITS | Encounter Summary ---
Author Organization [facility] Address [address] [place] [address] Care Team Providers Care Consulting Services Manager Name Role Phone Vinay Munoz MD Primary Care Provider [phone] Encounter Details Date Type Department Care Team (Late st Contact Info) Description 06/21/2004 Outpatient Historical [facility] Internal Medicine [facility] [address] [address] [address] [place] [address] Wayne Duncan MD [address] [place] [address] Social History Tobacco Use Types Packs/Day Years Used Date Smoking Tobacco: Never Assessed Sex and Gender Information Value Date Recorded Sex Assigned at Male 11/21/2023 3:02 PM DIESEL ENGINE PIPE FITTER Legal Sex Male 5:20 AM DIESEL ENGINE PIPE FITTER Gender Identity Male 11/21/2023 3:02 PM DIESEL ENGINE PIPE FITTER Sexual Orientation Straight 11/21/2023 3: 02 PM DIESEL ENGINE PIPE FITTER documented as of this encounter Plan of Treatment Upcoming Encounters Date Type Department Care Team (Late st Contact Info) Description 02/17/2025 1:30 PM CDT Office Visit [facility] Endocrinology [address] [place] [address] Rosa Cortez MD [address] [place] [address] 03/11/2025 10:30 AM CDT Office Visit [facility] Neurology [address] [place] [address] Wallace Church MD [address] [facility] [facility] [address] [place] [address] 05/20/2025 10:15 AM CDT Office Visit [facility] Endocrinology [address] [place] [address] Rosa Cortez MD [address] [facility] [address] [place] [address] 08/18/2025 3:15 PM DIESEL ENGINE PIPE FITTER Office Visit [facility] Endocrinology [address] [place] [address] Rosa Cortez MD [address] [facility] [address] [place], [place] [id number] documented as of this encounter Visit Diagnoses Not on filedocumented in this encounter Care Teams Consulting Services Manager Relationship Specialty Start Date End Date Vinay Munoz MD [address] [place] [address] PCP - General Family Practice 11/19/24 documented as of this encounter
--- OUTSIDE RECORDS SUMMARY | 2024-12-19 00:44 | XMS_ITS | Encounter Summary ---
Author Organization [facility] Address [address] [place] [address] Care Team Providers Care Director Mission Name Role Phone Vinay Munoz MD Primary Care Provider [phone] Encounter Details Date Type Department Care Team (Latest Contact Info) Description 12/27/2004 Outpatient Historical [facility] Wayne Chandler MD [address] [place] [address] DIABETES MELLITUS TYPE II-UNCOMPL (CMS/HCC) (Primary Dx) Social History Tobacco Use Types Packs/Day Years Used Date Smoking Tobacco: Never Assessed Sex and Gender Information Value Date Recorded Sex Assigned at Male 11/21/2023 3:02 PM CHIEF VENDOR QUALITY Legal Sex Male 5:20 AM CHIEF VENDOR QUALITY Gender Identity Male 11/21/2023 3:02 PM CHIEF VENDOR QUALITY Sexual Orientation Straight 11/21/2023 3: 02 PM CHIEF VENDOR QUALITY documented as of this encounter Plan of Treatment Upcoming Encounters Date Type Department Care Team (Late st Contact Info) Description 02/17/2025 1:30 PM CDT Office Visit [facility] Endocrinology [address] [place] [address] Rosa Cortez MD [address] [place] [address] 03/11/2025 10:30 AM CDT Office Visit [facility] Neurology [address] [place] [address] Wallace Church MD [address] [place] [address] 05/20/2025 10:15 AM CDT Office Visit [facility] Endocrinology [address] [place] [address] Rosa Cortez MD [address] [facility] [address] [place] [address] 08/18/2025 3:15 PM CHIEF VENDOR QUALITY Office Visit [facility] Endocrinology [address] [place] [address] Rosa Cortez MD [address] [id number] documented as of this encounter Visit Diagnoses Diagnosis Type II or unspecified type diabetes mellitus without mention of complication, not stated as uncontrolled (CMS/[facility])- Primary Type II or unspecified type diabetes mellitus without mention of complication, not stated as uncontrolled documented in this encounter Care Teams Director Mission Relationship Specialty Start Date End Date Vinay Munoz MD [address] [place] [address] PCP - General Family Practice 11/19/24 documented as of this encounter
--- OUTSIDE RECORDS SUMMARY | 2024-12-19 00:44 | XMS_ITS | Encounter Summary ---
Author Organization [facility] Address [address] [place] [address] Care Team Providers Care Table Setter Name Role Phone Vinay Munoz MD Primary Care Provider [phone] Encounter Details Date Type Department Care Team (Late st Contact Info) Description 07/20/2005 Outpatient Historical [facility] Internal Medicine Mattie Pineda [address] [place] [address] Wayne Duncan MD [address] [place] [address] Social History Tobacco Use Types Packs/Day Years Used Date Smoking Tobacco: Never Assessed Sex and Gender Information Value Date Recorded Sex Assigned at Male 11/21/2023 3:02 PM GEOSPATIAL INTELLIGENCE ANALYST Legal Sex Male 5:20 AM GEOSPATIAL INTELLIGENCE ANALYST Gender Identity Male 11/21/2023 3:02 PM GEOSPATIAL INTELLIGENCE ANALYST Sexual Orientation Straight 11/21/2023 3: 02 PM GEOSPATIAL INTELLIGENCE ANALYST documented as of this encounter Last Filed Vital Signs Vital Sign Reading Time Taken Comments Blood Pressure 150/90 07/20/2005 9:15 AM CDT Pulse 84 07/20/2005 9:15 AM CDT Temperature 35.6 C (96 F) 07/20/2005 9:15 AM CDT Respiratory Rate 20 07/20/2005 9:15 AM CDT Oxygen Saturation - - Inhaled Oxygen Concentration - - Weight 78.9 kg (174 lb) 07/20/2005 9:15 AM CDT Height 181.6 cm (5' 11.5 ) 07/20/2005 9:15 AM CD T Body Mass Index 23.93 07/20/2005 9:15 AM CDT documented in this encounter Plan of Treatment Upcoming Encounters Date Type Department Care Team (Late st Contact Info) Description 02/17/2025 1:30 PM CDT Office Visit [facility] Endocrinology [address] [place] [address] Rosa Cortez MD [address] [place] [address] 03/11/2025 10:30 AM CDT Office Visit [facility] Neurology [address] [place] [address] Wallace Church MD [address] [place] [address] 05/20/2025 10:15 AM CDT Office Visit [facility] Endocrinology [address] [place] [address] Rosa Cortez MD [address] [place] [address] 08/18/2025 3:15 PM GEOSPATIAL INTELLIGENCE ANALYST Office Visit [facility] Endocrinology [address] [place] [address] Rosa Cortez MD [address] [place], [place] [id number] documented as of this encounter Visit Diagnoses Not on filedocumented in this encounter Care Teams Table Setter Relationship Specialty Start Date End Date Vinay Munoz MD [address] [place] [id number] PCP - General Family Practice 11/19/24 documented as of this encounter
--- OUTSIDE RECORDS SUMMARY | 2024-12-19 00:44 | XMS_ITS | Encounter Summary ---
Author Organization [facility] Address [address] [place] [address] Care Team Providers Care Specialty Person Name Role Phone Vinay Munoz MD Primary Care Provider [phone] Encounter Details Date Type Department Care Team (Late Contact Info) Description 04/19/2005 Outpatient Historical [facility] Internal Medicine Mattie Pineda [address] [place] [address] Wayne Duncan MD [address] [place] [address] Social History Tobacco Use Types Packs/Day Years Used Date Smoking Tobacco: Never Assessed Sex and Gender Information Value Date Recorded Sex Assigned at Male 11/21/2023 3:02 PM SOAKER Legal Sex Male 5:20 AM SOAKER Gender Identity Male 11/21/2023 3:02 PM SOAKER Sexual Orientation Straight 11/21/2023 3: 02 PM SOAKER documented as of this encounter Last Filed Vital Signs Vital Sign Reading Time Taken Comments Blood Pressure 140/96 04/19/2005 9:00 AM CDT Pulse 80 04/19/2005 9:00 AM CDT Temperature 36.4 C (97.5 F) 04/19/2005 9:00 AM CDT Respiratory Rate 16 04/19/2005 9:00 AM CDT Oxygen Saturation - - Inhaled Oxygen Concentration - - Weight 79.4 kg (175 lb) 04/19/2005 9:00 AM CDT Height 182.9 cm (6') 04/19/2005 9:00 AM CDT Body Mass Index 23.73 04/19/2005 9:00 AM CDT documented in this encounter Plan of Treatment Upcoming Encounters Date Type Department Care Team (Late st Contact Info) Description 02/17/2025 1:30 PM CDT Office Visit [facility] Endocrinology [address] [place] [address] Rosa Cortez MD [address] [place] [address] 03/11/2025 10:30 AM CDT Office Visit [facility] Neurology [address] [place] [address] Wallace Church MD [address] [place] [address] 05/20/2025 10:15 AM CDT Office Visit [facility] Endocrinology [address] [place] [address] Rosa Cortez MD [address] [place] [address] 08/18/2025 3:15 PM SOAKER Office Visit [facility] Endocrinology [address] [place] [address] Rosa Cortez MD [address] [place], [place] [id number] documented as of this encounter Visit Diagnoses Not on filedocumented in this encounter Care Teams Specialty Person Relationship Specialty Start Date End Date Vinay Munoz MD [address] [place] [id number] PCP - General Family Practice 11/19/24 documented as of this encounter
--- OUTSIDE RECORDS SUMMARY | 2024-12-19 00:44 | XMS_ITS | Encounter Summary ---
Author Organization [facility] Address [address] [place] [address] Care Team Providers Care Manager Talent Acquisition Name Role Phone Vinay Munoz MD Primary Care Provider [phone] Encounter Details Date Type Department Care Team (Late st Contact Info) Description 02/01/2006 Outpatient Historical [facility] Internal Medicine [facility] [address] [place] [address] Wayne Duncan MD [address] [place] [address] Social History Tobacco Use Types Packs/Day Years Used Date Smoking Tobacco: Never Assessed Sex and Gender Information Value Date Recorded Sex Assigned at Male 11/21/2023 3:02 PM PHYSICIAN [facility] Legal Sex Male 5:20 AM PHYSICIAN [facility] Gender Identity Male 11/21/2023 3:02 PM PHYSICIAN [facility] Sexual Orientation Straight 11/21/2023 3: 02 PM PHYSICIAN [facility] documented as of this encounter Plan of Treatment Upcoming Encounters Date Type Department Care Team (Late st Contact Info) Description 02/17/2025 1:30 PM CDT Office Visit [facility] Endocrinology [address] [place] [address] Rosa Cortez MD [address] [place] [address] 03/11/2025 10:30 AM CDT Office Visit [facility] Neurology [address] [place] [address] Wallace Church MD [address] [place] [address] 05/20/2025 10:15 AM CDT Office Visit [facility] Endocrinology [address] [place] [address] Rosa Cortez MD [address] [facility] [address] [place] [address] 08/18/2025 3:15 PM PHYSICIAN [facility] Office Visit [facility] Endocrinology [address] [place] [address] Rosa Cortez MD [address] [facility] [address] [place], [place] [id number] documented as of this encounter Visit Diagnoses Not on filedocumented in this encounter Care Teams Manager Talent Acquisition Relationship Specialty Start Date End Date Vinay Munoz MD [address] [place] [address] PCP - General Family Practice 11/19/24 documented as of this encounter
--- OUTSIDE RECORDS SUMMARY | 2024-12-19 00:44 | XMS_ITS | Encounter Summary ---
Author Organization [facility] Address [address] [place] [address] Care Team Providers Care It Systems Administrator Name Role Phone Vinay Munoz MD Primary Care Provider [phone] Encounter Details Date Type Department Care Team (Latest Contact Info) Description 03/21/2008 Outpatient Historical [facility] Wayne Tucker MD [address] [place] [address] Other and Unspecified Hyperlipidemia Social History Tobacco Use Types Packs/Day Years Used Date Smoking Tobacco: Never Alcohol Use Standard Drinks/Week Comments Yes 0 (1 standard drink = 0.6 oz pur e alcohol) Sex and Gender Information Value Date Recorded Sex Assigned at Male 11/21/2023 3:02 PM FLEECER Legal Sex Male 5:20 AM FLEECER Gender Identity Male 11/21/2023 3:02 PM FLEECER Sexual Orientation Straight 11/21/2023 3: 02 PM FLEECER documented as of this encounter Plan of Treatment Upcoming Encounters Date Type Department Care Team (Late st Contact Info) Description 02/17/2025 1:30 PM CDT Office Visit [facility] Endocrinology [address] [place] [address] Rosa Cortez MD [address] [place] [address] 03/11/2025 10:30 AM CDT [facility] Neurology [address] [place] [address] Wallace Church MD [address] [facility] [address] [place] [address] 05/20/2025 10:15 AM CDT Office Visit [facility] Endocrinology [address] [place] [address] Rosa Cortez MD [address] [facility] [address] [place] [address] 08/18/2025 3:15 PM FLEECER Office Visit [facility] Endocrinology [address] [place] [address] Rosa Cortez MD [address] [facility] [address] [place] [address] documented as of this encounter Visit Diagnoses Diagnosis Other and unspecified hyperlipidemia documented in this encounter Care Teams It Systems Administrator Relationship Specialty Start Date End Date Vinay Munoz MD [address] [place] [address] PCP - General Family Practice 11/19/24 documented as of this encounter
--- OUTSIDE RECORDS SUMMARY | 2024-12-19 00:44 | XMS_ITS | Encounter Summary ---
Author Organization [facility] Address [address] [place] [address] Care Team Providers Care Electrotyper Helper Name Role Phone Vinay Munoz MD Primary Care Provider [phone] Encounter Details Date Type Department Care Team (Late st Contact Info) Description 07/12/2004 Outpatient Historical [facility] Internal Medicine [facility] [address] [place] [address] Wayne Duncan MD [address] [place] [address] Social History Tobacco Use Types Packs/Day Years Used Date Smoking Tobacco: Never Assessed Sex and Gender Information Value Date Recorded Sex Assigned at Male 11/21/2023 3:02 PM COMPOUND MIXER Legal Sex Male 5:20 AM COMPOUND MIXER Gender Identity Male 11/21/2023 3:02 PM COMPOUND MIXER Sexual Orientation Straight 11/21/2023 3: 02 PM COMPOUND MIXER documented as of this encounter Plan of Treatment Upcoming Encounters Date Type Department Care Team (Late st Contact Info) Description 02/17/2025 1:30 PM CDT Office Visit [facility] Endocrinology [address] [place] [address] Rosa Cortez MD [address] [place] [address] 03/11/2025 10:30 AM CDT Office Visit [facility] Neurology [address] [place] [address] Wallace Church MD [address] [facility] [place] [address] 05/20/2025 10:15 AM CDT Office Visit [facility] Endocrinology [address] [place] [address] Rosa Cortez MD [address] [facility] [address] [place] [address] 08/18/2025 3:15 PM COMPOUND MIXER Office Visit [facility] Endocrinology [address] [place] [address] Rosa Cortez MD [address] [facility] [address] [place], [place] [address] documented as of this encounter Visit Diagnoses Not on filedocumented in this encounter Care Teams Electrotyper Helper Relationship Specialty Start Date End Date Vinay Munoz MD [address] [place] [address] PCP - General Family Practice 11/19/24 documented as of this encounter
--- OUTSIDE RECORDS SUMMARY | 2024-12-19 00:44 | XMS_ITS | Encounter Summary ---
Author Organization [facility] Address 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) Social History Tobacco Use Types Packs/Day Years Used Date Smoking Tobacco: Never Assessed Sex and Gender Information Value Date Recorded Sex Assigned at Male 11/21/2023 3:02 PM TRIMMING MACHINE OPERATOR Legal Sex Male 5:20 AM TRIMMING MACHINE OPERATOR Gender Identity Male 11/21/2023 3:02 PM TRIMMING MACHINE OPERATOR Sexual Orientation Straight 11/21/2023 3: 02 PM TRIMMING MACHINE OPERATOR documented as of this encounter Plan of Treatment Upcoming Encounters Date Type Department Care Team (Late st Contact Info) Description 02/17/2025 1:30 PM CDT Office Visit [facility] Endocrinology [address] [place] [address] Rosa Cortez MD [address] [place] [address] 03/11/2025 10:30 AM CDT Office Visit [facility] Neurology [address] [place] [address] Wallace Church MD [address] [place] [address] 05/20/2025 10:15 AM CDT Office Visit [facility] Endocrinology [address] [place] [address] Rosa Cortez MD [address] [place] [address] 08/18/2025 3:15 PM TRIMMING MACHINE OPERATOR Office Visit [facility] Endocrinology [address] [place] [address] Rosa Cortez MD [address] [place] [address] documented as of this encounter Procedures Procedure Name Priority Date/Time Associated Diagnosis Comments MICROALBUMIN/CREATIN INE RATIO, RANDOM UR Routine 01/24/2006 9:50 AM CDT ALT Routine 01/24/2006 9:50 AM CDT HEMOGLOBIN A1C Routine 01/24/2006 9:50 AM CDT LIPID PANEL Routine 01/24/2006 9:50 AM CDT documented in this encounter Results * MICROALBUMIN/CREATININE RATIO, RANDOM UR (01/24/2006 9:50 AM CDT) MICROALBUMIN/C REAT RATIO, UR <3 0 - 29 mg/g creatinine INTERFACE SYSTEM 01/24/2006 9:50 AM CDT Wayne Duncan MD URINE ORDERABLES Final Result INTERFACE SYSTEM Refer to clinic/hospital department * ALT (01/24/2006 9:50 AM CDT) ALT 18 0 - 41 U/L INTERFACE SYSTEM 01/24/2006 9:50 AM CDT Wayne Duncan MD CHEMISTRY ORDERABLES Final Res ult Performing Organization Address [facility] Co de Phone Number INTERFACE SYSTEM Refer to clinic/hospital department * (ABNORMAL) LIPID PANEL (01/24/2006 9:50 AM CDT) CHOLESTEROL 170 100 - 199 mg/dL INTERFACE SYSTEM TRIGLYCERIDE 124 10 - 149 mg/dL INTERFACE SYSTEM HDL 63(H) 40 - 59 mg/dL INTERFACE SYSTEM LDL CALCULATED 82 <=99 mg/dL INTERFACE SYSTEM CHOL/HDL RATIO 2.7 2.0 - 5.0 INTER FACE SYSTEM Comment:See interpretive reuben a section for risk classifications. LIPID PANEL COMMENT See Below INTERFACE SYSTEM Comment: Adult ATP III Classifications: [...] <110 Borderline 110 - 129 High >=130 01/24/2006 9:50 AM CDT Wayne Duncan MD CHEMISTRY ORDERABLES Final Res ult Performing Organization Address City/[facility]/ZIP Co de Phone Number INTERFACE SYSTEM Refer to clinic/hospital department * (ABNORMAL) HEMOGLOBIN A1C (01/24/2006 9:50 AM CDT) HEMOGLOBIN A1C 7.1(H) 3.9 - 6.1 % of Hgb INTERFACE SYSTEM GLUCOSE, MEAN BLOOD 150 mg/dL INTERFACE SYSTEM 01/24/2006 9:50 AM CDT us Wayne Duncan MD CHEMISTRY ORDERABLES Final Res ult INTERFACE SYSTEM Refer to clinic/hospital department documented in this encounter Visit Diagnoses Diagnosis Type II or unspecified type diabetes mellitus without mention of complication, not stated as uncontrolled (CMS/HCC)- Primary Type II or unspecified type diabetes mellitus without mention of complication, not stated as uncontrolled documented in this encounter Care Teams Magazine Repairer Relationship Specialty Start Date End Date Vinay Munoz MD [address] [place] [id number] PCP - General Family Practice 11/19/24 documented as of this encounter
--- OUTSIDE RECORDS SUMMARY | 2024-12-19 00:44 | XMS_ITS | Encounter Summary ---
Author Organization [facility] Address [address] [place] [address] Care Team Providers Care Supply Specialist Name Role Phone Vinay Munoz MD Primary Care Provider [phone] Encounter Details Date Type Department Care Team (Latest Contact Info) Description 07/20/2005 Outpatient Historical [facility] Wayne Tucker MD [address] [place] [address] DIABETES MELLITUS TYPE II UNCONTR UNCOMPL (Primary Dx) Social History Tobacco Use Types Packs/Day Years Used Date Smoking Tobacco: Never Assessed Sex and Gender Information Value Date Recorded Sex Assigned at Male 11/21/2023 3:02 PM TAKE OUT WAITRESS Legal Sex Male 5:20 AM TAKE OUT WAITRESS Gender Identity Male 11/21/2023 3:02 PM TAKE OUT WAITRESS Sexual Orientation Straight 11/21/2023 3: 02 PM TAKE OUT WAITRESS documented as of this encounter Plan of Treatment Upcoming Encounters Date Type Department Care Team (Late st Contact Info) Description 02/17/2025 1:30 PM CDT Office Visit [facility] Endocrinology [address] [place] [address] Rosa Cortez MD [address] [place] [address] 03/11/2025 10:30 AM CDT Office Visit [facility] Neurology [address] [place] [address] Wallace Church MD [address] [place] [address] 05/20/2025 10:15 AM CDT Office Visit [facility] Endocrinology [address] [place] [address] Rosa Cortez MD [address] [place] [address] 08/18/2025 3:15 PM TAKE OUT WAITRESS Office Visit [facility] Endocrinology [address] [place] [address] Rosa Cortez MD [address] [place] [address] documented as of this encounter Procedures Procedure Name Priority Date/Time Associated Diagnosis Comments PSA Routine 07/20/2005 9:59 AM CDT HEMOGLOBIN A1C Routine 07/20/2005 9:59 AM CDT BASIC METABOLIC PANEL Routine 07/20/2005 9:59 AM CDT documented in this encounter Results * PSA (07/20/2005 9:59 AM CDT) PSA 0.9 0.0 - 4.0 ng/mL INTERFACE SYSTEM Comment:Performed on [employer] E170 System 07/20/2005 9:59 AM CDT us Wayne Duncan MD CHEMISTRY ORDERABLES Final Res ult INTERFACE SYSTEM Refer to clinic/hospital department * (ABNORMAL) HEMOGLOBIN A1C (07/20/2005 9:59 AM CDT) HEMOGLOBIN A1C 7.2(H) 3.9 - 6.1 % of Hgb INTERFACE SYSTEM Comment: Note: Analyzer upgraded from [email or web address] Variant to Variant II. No change in methodology. GLUCOSE, MEAN BLOOD 154 mg/dL INTERFACE SYSTEM 07/20/2005 9:59 AM CDT Wayne Duncan MD CHEMISTRY ORDERABLES Final Res ult Performing Organization Address [facility] de Phone Number INTERFACE SYSTEM Refer to clinic/hospital department * (ABNORMAL) BASIC METABOLIC PANEL (07/20/2005 9:59 AM CDT) GLUCOSE 149(H) 65 - 109 mg/dL INTERFACE SYSTEM CREATININE 1.1 0.5 - 1.3 mg/dL INTERFACE SYSTEM CALCIUM 8.5(L) 8.6 - 10.2 mg/dL INTERFACE SYSTEM BUN 20 6 - 20 mg/dL INTERFACE SYSTEM SODIUM 142 135 - 145 mmol/L INTERFACE SYSTEM POTASSIUM 4.2 3.5 - 4.9 mmol/L INTERFACE SYSTEM CHLORIDE 105 96 - 108 mmol/L INTERFACE SYSTEM CO2 26 22 - 30 mmol/L INTERFACE SYSTEM 07/20/2005 9:59 AM CDT Wayne Duncan MD CHEMISTRY ORDERABLES Final Res ult Performing Organization Address [facility] de Phone Number INTERFACE SYSTEM Refer to clinic/hospital department documented in this encounter Visit Diagnoses Diagnosis Type II or unspecified type diabetes mellitus without mention of complication, uncontrolled- Primary documented in this encounter Care Teams Supply Specialist Relationship Specialty Start Date End Date Vinay Munoz MD [address] [place] [address] PCP - General Family Practice 11/19/24 documented as of this encounter
--- OUTSIDE RECORDS SUMMARY | 2024-12-19 00:44 | XMS_ITS | Encounter Summary ---
Author Organization [facility] Address [address] [place] [address] Care Team Providers Care Director Of Pulmonary Unit Name Role Phone Vinay Munoz MD Primary Care Provider Encounter Details Date Type Department Care Team (Late st Contact Info) Description 08/09/2004 Outpatient Historical [facility] Internal Medicine [place] [address] [facility] [address] [place] [address] Wayne Duncan MD [address] [place] [address] Social History Tobacco Use Types Packs/Day Years Used Date Smoking Tobacco: Never Assessed Sex and Gender Information Value Date Recorded Sex Assigned at Male 11/21/2023 3:02 PM LABOURERS Legal Sex Male 5:20 AM LABOURERS Gender Identity Male 11/21/2023 3:02 PM LABOURERS Sexual Orientation Straight 11/21/2023 3: 02 PM LABOURERS documented as of this encounter Plan of Treatment Upcoming Encounters Date Type Department Care Team (Late st Contact Info) Description 02/17/2025 1:30 PM CDT Office Visit [facility] Endocrinology [address] [place] [address] Rosa Cortez MD [address] [place] [address] 03/11/2025 10:30 AM CDT Office Visit [facility] Neurology [address] [place] [address] Wallace Church MD [address] [facility] [address] [place] [address] 05/20/2025 10:15 AM CDT Office Visit [facility] Endocrinology [address] [place] [address] Rosa Cortez MD [address] [facility] [address] [place] [address] 08/18/2025 3:15 PM LABOURERS Office Visit [facility] Endocrinology [address] [place] [address] Rosa Cortez MD [address] [facility] [address] [place], [place] [id number] documented as of this encounter Visit Diagnoses Not on filedocumented in this encounter Care Teams Director Of Pulmonary Unit Relationship Specialty Start Date End Date Vinay Munoz MD [address] [place] [address] PCP - General Family Practice 11/19/24 documented as of this encounter
--- OUTSIDE RECORDS SUMMARY | 2024-12-19 00:44 | XMS_ITS | Encounter Summary ---
Author Organization [facility] Address [address] [place] [address] Care Team Providers Care Assembler Surgical Garment Name Role Phone Vinay Munoz MD Primary Care Provider [phone] Encounter Details Date Type Department Care Team (Late Contact Info) Description 01/24/2006 Outpatient Historical [facility] Internal Medicine [place] Pineda [address] [facility] [address] [place] [address] Wayne Duncan MD [address] [place] [address] Social History Tobacco Use Types Packs/Day Years Used Date Smoking Tobacco: Never Assessed Sex and Gender Information Value Date Recorded Sex Assigned at Male 11/21/2023 3:02 PM DNA ANALYST Legal Sex Male 5:20 AM DNA ANALYST Gender Identity Male 11/21/2023 3:02 PM DNA ANALYST Sexual Orientation Straight 11/21/2023 3: 02 PM DNA ANALYST documented as of this encounter Last Filed Vital Signs Vital Sign Reading Time Taken Comments Blood Pressure 140/90 01/24/2006 8:45 AM CDT Pulse 100 01/24/2006 8:45 AM CDT Temperature 35.9 C (96.6 F) 01/24/2006 8:45 AM CDT Respiratory Rate 22 01/24/2006 8:45 AM CDT Oxygen Saturation - - Inhaled Oxygen Concentration - - Weight 81.2 kg (179 lb) 01/24/2006 8:45 AM CDT Height 182.9 cm (6') 01/24/2006 8:45 AM CDT Body Mass Index 24.28 01/24/2006 8:45 AM CDT documented in this encounter Plan of Treatment Upcoming Encounters Date Type Department Care Team (Late st Contact Info) Description 02/17/2025 1:30 PM CDT Office Visit [facility] Endocrinology [address] [place] [address] Rosa Cortez MD [address] [place] [address] 03/11/2025 10:30 AM CDT Office Visit [facility] Neurology [address] [place] [address] Wallcae Church MD [address] [place] [address] 05/20/2025 10:15 AM CDT Office Visit [facility] Endocrinology [address] [place] [address] Rosa Cortez MD [address] [place] [address] 08/18/2025 3:15 PM DNA ANALYST Office Visit [facility] Endocrinology [address] [place] [address] Rosa Cortez MD [address] [place], [place] [id number] documented as of this encounter Visit Diagnoses Not on filedocumented in this encounter Care Teams Assembler Surgical Garment Relationship Specialty Start Date End Date Vinay Munoz MD [address] [place] [id number] PCP - General Family Practice 11/19/24 documented as of this encounter
--- OUTSIDE RECORDS SUMMARY | 2024-12-19 00:44 | XMS_ITS | Encounter Summary ---
Author Organization [facility] Address [address] [place] [address] Care Team Providers Care Learning Coordinator Name Role Phone Vinay Munoz MD Primary Care Provider [phone] Encounter Details Date Type Department Care Team (Latest Contact Info) Description 04/19/2005 Outpatient Historical [facility] [address] Wayne Duncan MD [address] [place] [address] DIABETES MELLITUS TYPE II UNCONTR UNCOMPL (Primary Dx) Social History Tobacco Use Types Packs/Day Years Used Date Smoking Tobacco: Never Assessed Sex and Gender Information Value Date Recorded Sex Assigned at Male 11/21/2023 3:02 PM SALES ACTIVITY MANAGER Legal Sex Male 5:20 AM SALES ACTIVITY MANAGER Gender Identity Male 11/21/2023 3:02 PM SALES ACTIVITY MANAGER Sexual Orientation Straight 11/21/2023 3: 02 PM SALES ACTIVITY MANAGER documented as of this encounter Plan of Treatment Upcoming Encounters Date Type Department Care Team (Late st Contact Info) Description 02/17/2025 1:30 PM CDT Office Visit [facility] Endocrinology [address] [place] [address] Rosa Cortez MD [address] [place] [address] 03/11/2025 10:30 AM CDT Office Visit [facility] Neurology [address] [place] [address] Wallace Church MD [address] [place] [address] 05/20/2025 10:15 AM CDT Office Visit [facility] Endocrinology [address] [place] [address] Rosa Cortez MD [address] [place] [address] 08/18/2025 3:15 PM SALES ACTIVITY MANAGER Office Visit [facility] Endocrinology [address] [place] [address] Rosa Cortez MD [address] [facility] [address] [place], [place] [id number] documented as of this encounter Procedures Procedure Name Priority Date/Time Associated Diagnosis Comments HEMOGLOBIN A1C Routine 04/19/2005 9:28 AM CDT HEPATIC FUNCTION PANEL Routine 04/19/2005 9:28 AM CDT LIPID PANEL Routine 04/19/2005 9:28 AM CDT BASIC METABOLIC PANEL Routine 04/19/2005 9:28 AM CDT documented in this encounter Results * (ABNORMAL) LIPID PANEL (04/19/2005 9:28 AM CDT) CHOLESTEROL 193 100 - 199 mg/dL INTERFACE SYSTEM TRIGLYCERIDE 70 10 - 149 mg/dL INTERFACE SYSTEM HDL 61(H) 40 - 59 mg/dL INTERFACE SYSTEM LDL CALCULATED 118(H) <=99 mg/dL INTERFACE SYSTEM CHOL/HDL RATIO 3.2 2.0 - 5.0 INTER FACE SYSTEM Comment:See [...] <110 Borderline 110 - 129 High >=130 04/19/2005 9:28 AM CDT Wayne Duncan MD CHEMISTRY ORDERABLES Final Res ult Performing Organization Address [facility] Phone Number INTERFACE SYSTEM Refer to clinic/hospital department * (ABNORMAL) HEMOGLOBIN A1C (04/19/2005 9:28 AM CDT) HEMOGLOBIN A1C 8.1(H) 3.9 - 6.1 % of Hgb INTERFACE SYSTEM Comment: Note: Analyzer upgraded from Bridj Variant to Variant II. No change in methodology. GLUCOSE, MEAN BLOOD 184 mg/dL INTERFACE SYSTEM 04/19/2005 9:28 AM CDT Wayne Duncan MD CHEMISTRY ORDERABLES Final Res ult Performing Organization Address [facility] Phone Number INTERFACE SYSTEM Refer to clinic/hospital department * HEPATIC FUNCTION PANEL (04/19/2005 9:28 AM CDT) AST 20 12 - 38 U/L INTERFACE SYSTEM ALKALINE PHOSPHATASE 92 40 - 129 U/L INTERFACE SYSTEM BILIRUBIN TOTAL 0.4 0.2 - 1.0 mg/dL INTERFACE SYSTEM ALBUMIN 4.0 3.4 - 4.8 g/dL INTERFACE SYSTEM TOTAL PROTEIN 7.0 6.3 - 8.6 g/dL INTERFACE SYSTEM ALT 24 0 - 41 U/L INTERFACE SYSTEM BILIRUBIN DIRECT 0.1 0.0 - 0.3 mg/dL INTERFACE SYSTEM 04/19/2005 9:28 AM CDT Wayne Duncan MD CHEMISTRY ORDERABLES Final Res ult Performing Organization Address [facility] Phone Number INTERFACE SYSTEM Refer to clinic/hospital department * (ABNORMAL) BASIC METABOLIC PANEL (04/19/2005 9:28 AM CDT) GLUCOSE 180(H) 65 - 109 mg/dL INTERFACE SYSTEM CREATININE 1.0 0.5 - 1.3 mg/dL INTERFACE SYSTEM CALCIUM 9.0 8.6 - 10.2 mg/dL INTERFACE SYSTEM BUN 18 6 - 20 mg/dL INTERFACE SYSTEM SODIUM 140 135 - 145 mmol/L INTERFACE SYSTEM POTASSIUM 4.4 3.5 - 4.9 mmol/L INTERFACE SYSTEM CHLORIDE 106 96 - 108 mmol/L INTERFACE SYSTEM CO2 27 22 - 30 mmol/L INTERFACE SYSTEM 04/19/2005 9:28 AM CDT Wayne Duncan MD CHEMISTRY ORDERABLES Final Res ult Performing Organization Address [facility] Phone Number INTERFACE SYSTEM Refer to clinic/hospital department documented in this encounter Visit Diagnoses Diagnosis Type II or unspecified type diabetes mellitus without mention of complication, uncontrolled- Primary documented in this encounter Care Teams Learning Coordinator Relationship Specialty Start Date End Date Vinay Munoz MD [address] [place] [address] PCP - General Family Practice 11/19/24 documented as of this encounter
--- OUTSIDE RECORDS SUMMARY | 2024-12-19 00:44 | XMS_ITS | Encounter Summary ---
Author Organization [facility] Address [address] [place] [address] Care Team Providers Care Rubber Washer Name Role Phone Vinay Munoz MD Primary Care Provider [phone] Encounter Details Date Type Department Care Team (Late st Contact Info) Description 10/26/2005 Outpatient Historical [facility] Internal Medicine [place] Pineda [address] [address] [facility] [address] [place] [address] Wayne Duncan MD [address] [place] [address] Social History Tobacco Use Types Packs/Day Years Used Date Smoking Tobacco: Never Assessed Sex and Gender Information Value Date Recorded Sex Assigned at Male 11/21/2023 3:02 PM CLIENT SERVICE ADMINISTRATOR Legal Sex Male 5:20 AM CLIENT SERVICE ADMINISTRATOR Gender Identity Male 11/21/2023 3:02 PM CLIENT SERVICE ADMINISTRATOR Sexual Orientation Straight 11/21/2023 3: 02 PM CLIENT SERVICE ADMINISTRATOR documented as of this encounter Last Filed Vital Signs Vital Sign Reading Time Taken Comments Blood Pressure 156/100 10/26/2005 9:45 AM CLIENT SERVICE ADMINISTRATOR Pulse 72 10/26/2005 9:45 AM CLIENT SERVICE ADMINISTRATOR Temperature 35.4 C (95.8 F) 10/26/2005 9:45 AM CLIENT SERVICE ADMINISTRATOR Respiratory Rate 12 10/26/2005 9:45 AM CLIENT SERVICE ADMINISTRATOR Oxygen Saturation - - Inhaled Oxygen Concentration - - Weight 79.8 kg (176 lb) 10/26/2005 9:45 AM CLIENT SERVICE ADMINISTRATOR Height 182.9 cm (6') 10/26/2005 9:45 AM CLIENT SERVICE ADMINISTRATOR Body Mass Index 23.87 10/26/2005 9:45 AM CLIENT SERVICE ADMINISTRATOR documented in this encounter Plan of Treatment Upcoming Encounters Date Type Department Care Team (Late st Contact Info) Description 02/17/2025 1:30 PM CDT Office Visit [facility] Endocrinology [address] [place] [address] Rosa Cortez MD [address] [place] [address] 03/11/2025 10:30 AM CDT Office Visit [facility] Neurology [address] [place] [address] Wallace Church MD [address] [place] [address] 05/20/2025 10:15 AM CDT Office Visit [facility] Endocrinology [address] [place] [address] Rosa Cortez MD [address] [place], [place] [address] 08/18/2025 3:15 PM CLIENT SERVICE ADMINISTRATOR Office Visit [facility] Endocrinology [address] [place] [address] Rosa Cortez MD [address] [place], [place] [id number] documented as of this encounter Visit Diagnoses Not on filedocumented in this encounter Care Teams Rubber Washer Relationship Specialty Start Date End Date Vinay Munoz MD [address] [place] [address] PCP - General Family Practice 11/19/24 documented as of this encounter
--- OUTSIDE RECORDS SUMMARY | 2024-12-19 00:44 | XMS_ITS | Encounter Summary ---
Author Organization [facility] Address [address] [place] [address] Care Team Providers Care Slip Cover Maker Name Role Phone Vinay Munoz MD Primary Care Provider [phone] Encounter Details Date Type Department Care Team (Latest Contact Info) Description 07/13/2004 Outpatient Historical [facility], [address] Wayne Duncan MD [address] [place] [address] HEMATURIA (Primary Dx) Social History Tobacco Use Types Packs/Day Years Used Date Smoking Tobacco: Never Assessed Sex and Gender Information Value Date Recorded Sex Assigned at Male 11/21/2023 3:02 PM ANALYSIS INTERN Legal Sex Male 5:20 AM ANALYSIS INTERN Gender Identity Male 11/21/2023 3:02 PM ANALYSIS INTERN Sexual Orientation Straight 11/21/2023 3: 02 PM ANALYSIS INTERN documented as of this encounter Plan of Treatment Upcoming Encounters Date Type Department Care Team (Late st Contact Info) Description 02/17/2025 1:30 PM CDT Office Visit [facility] Endocrinology [address] [place] [address] Rosa Cortez MD [address] [place] [address] 03/11/2025 10:30 AM CDT Office Visit [facility] Neurology [address] [place] [address] Wallace Church MD [address] [place] [address] 05/20/2025 10:15 AM CDT Office Visit [facility] Endocrinology [address] [place] [address] Rosa Cortez MD [address] [place] [address] 08/18/2025 3:15 PM ANALYSIS INTERN Office Visit [facility] Endocrinology [address] [place] [address] Rosa Cortez MD [address] [place], [place] [id number] documented as of this encounter Visit Diagnoses Diagnosis Hematuria- Primary documented in this encounter Care Teams Slip Cover Maker Relationship Specialty Start Date End Date Vinay Munoz MD [address] [place] [address] PCP - General Family Practice 11/19/24 documented as of this encounter
--- OUTSIDE RECORDS SUMMARY | 2024-12-19 00:44 | XMS_ITS | Encounter Summary ---
Author Organization [facility] Address [address] [place] [address] Care Team Providers Care Wood Polisher Name Role Phone Vinay Munoz MD Primary Care Provider [phone] Encounter Details Date Type Department Care Team (Late st Contact Info) Description 09/17/2004 Outpatient Historical [facility] Internal Medicine [facility] [address] [facility] [address] [place] [address] Wayne Duncan MD [address] [place] [address] Social History Tobacco Use Types Packs/Day Years Used Date Smoking Tobacco: Never Assessed Sex and Gender Information Value Date Recorded Sex Assigned at Male 11/21/2023 3:02 PM FINISHER WALLBOARD AND PLASTERBOARD Legal Sex Male 5:20 AM FINISHER WALLBOARD AND PLASTERBOARD Gender Identity Male 11/21/2023 3:02 PM FINISHER WALLBOARD AND PLASTERBOARD Sexual Orientation Straight 11/21/2023 3: 02 PM FINISHER WALLBOARD AND PLASTERBOARD documented as of this encounter Plan of Treatment Upcoming Encounters Date Type Department Care Team (Late st Contact Info) Description 02/17/2025 1:30 PM CDT Office Visit [facility] Endocrinology [address] [place] [address] Rosa Cortez MD [address] [place] [address] 03/11/2025 10:30 AM CDT Office Visit [facility] Neurology [address] [place] [address] Wallace Church MD [address] [facility] [address] [place] [address] 05/20/2025 10:15 AM CDT Office Visit [facility] Endocrinology [address] [place] [address] Rosa Cortez MD [address] [facility] [address] [place] [address] 08/18/2025 3:15 PM FINISHER WALLBOARD AND PLASTERBOARD Office Visit [facility] Endocrinology [address] [place] [address] Rosa Cortez MD [address] [facility] [address] [place], [place] [phone] documented as of this encounter Visit Diagnoses Not on filedocumented in this encounter Care Teams Wood Polisher Relationship Specialty Start Date End Date Vinay Munoz MD [address] [place] [address] PCP - General Family Practice 11/19/24 documented as of this encounter
[2024-12-19 00:57] LABS: Basophils Absolute Auto 0.1 K/mm3 (0.0-0.1); Basophils Percent Auto 0.9 % (0.2-1.2); Eosinophils Percent Auto 0.2 % (0-4.4); Hematocrit 42.4 % (42.0-52.0); Immature Granulocyte Absolute 0.07 K/mm3 (0.00-0.031); Immature Granulocyte Percent A 0.6 % (0-0.5); Lymphocytes Absolute Auto 1.61 K/mm3 (0.9-3.2); Lymphocytes Percent Auto 12.8 % (18.3-44.2); Mean Corpuscular Volume 93.8 fl (80-100); Mean Platelet Volume 11.4 fl (7.4-10.4); Monocytes Absolute Auto 0.9 K/mm3 (0.1-0.6); Monocytes Percent Auto 7.2 % (2.6-8.5); Neutrophils Absolute Auto 9.9 K/mm3 (1.3-6.7); Neutrophils Percent Auto 78.3 % (45.5-73.1); Platelet Count Result 200 k/mm3 (150-375); Red Blood Count 4.52 M/mm3 (4.6-6.20); White Blood Count 12.6 K/mm3 (4.5-10.0)
[2024-12-19 01:15] LABS: Alanine Aminotransferase 29 U/L (6-50); Albumin Level 4.2 g/dL (3.5-5.1); Alkaline Phosphatase 148 U/L (38-126); Anion Gap 11 mmol/L (4-12); Aspartate Amino Transferase 30 U/L (17-59); Bilirubin,Total 0.7 mg/dL (0.2-1.3); Blood Urea Nitrogen 29 mg/dL (9-20); Calcium 8.8 mg/dL (8.4-10.2); Carbon Dioxide 19 mmol/L (22-30); Chloride 111 mmol/L (98-107); Estimated Glomerular Filt Rate 53; Glucose 136 mg/dL (65-110); Lipase 184 U/L (23-300); Magnesium 2.1 mg/dL (1.6-2.3); Potassium 4.7 mmol/L (3.4-5.0); Sodium 141 mmol/L (137-145)
--- NOTE | 2024-12-19 02:49 | ED.ABDPAIN ---
HPI - Abdominal Pain General Chief Complaint: Abdominal Pain Stated Complaint: Lower abd pain/constipation Time Seen by Provider: 12/19/24 00:25 History of Present Illness HPI narrative: Patient is a 79-year-old male who presents emergency department this evening complaining of lower abdominal pain and constipation. Patient states that he feels a lot of pressure in his rectum. Patient cannot remember the last time he had a bowel movement but believes it was either yesterday or the day before. Denies any nausea or vomiting, any diarrhea, issues with constipation and denies any urinary symptoms including dysuria or hematuria. Denies any recent illness, fevers or chills. No additional symptoms or concerns at this time. Related Data Home Medications ?Medication ?Instructions ?Recorded ?Confirmed ?Last Taken ?Type bupropion HCl 300 mg 24 hr tablet, 300 mg PO HS 12/11/22 09/24/24 09/23/24 History extended release clonazepam 0.5 mg tablet 0.5 mg PO DAILY PRN restless legs 12/11/22 09/24/24 Unknown History insulin aspart U-100 100 unit/mL See Rx Instructions .Route .COMPLEX 12/11/22 09/24/24 Unknown History subcutaneous solution (Novolog U-100 Insulin aspart) metoprolol succinate 25 mg 25 mg PO HS 12/11/22 09/24/24 09/23/24 History tablet,extended release 24 hr rosuvastatin 5 mg tablet 5 mg PO HS 12/11/22 09/24/24 Unknown History semaglutide 0.25 mg or 0.5 mg (2 0.25 mg subcut WEEKLY 12/11/22 09/24/24 09/22/24 History mg/1.5 mL) subcutaneous pen injector (Ozempic) sertraline 100 mg tablet 100 mg PO HS 12/11/22 09/24/24 09/23/24 History tamsulosin 0.4 mg capsule 0.4 mg PO HS 12/11/22 09/24/24 09/23/24 History Allergies Allergy/AdvReac Type Severity Reaction Status Date / Time atorvastatin AdvReac Unknown Unknown Verified 09/24/24 12:38 codeine AdvReac Unknown N/V Verified 09/24/24 12:38 Review of Systems Review of Systems: All systems are reviewed and are negative unless stated otherwise in the HPI. COUNTS INCLUDE 234 BEDS AT THE [facility] Past Medical History Medical History Benign prostatic hyperplasia Type 2 diabetes mellitus Gastroesophageal reflux disease Hypertension Restless leg syndrome Dementia Depression Kidney stones Surgical History Surgical History History of shoulder surgery left History of tonsillectomy Family History Family History Father Brain cancer Sibling Wilms' tumor Grandparent Breast cancer Social History Social History Social History: Surrogate medical decision maker: Kalyani Rodriguezickey, spouse. Code status: Full code. Smoking packs per day: 2 Smoking cigarettes per day: 40.0 Years smoked: 15 Smoking pack-years: 30.00 Smoking status: Former smoker Alcohol intake: current Drinks per week: 6 Alcohol use details: one beer most days of the week Substance use: never Do You Feel Safe in your Home?: Yes Lack of Transportation: No Lack of Food: Never True Current Housing: I Have Housing Concerned About Future Housing: No Difficulty Paying Gas/Electric Bills: No Difficulty Paying for Meds: No Currently Unemployed: No Education: High School Diploma/GED Difficulty w/ Childcare or Family Care: No Spiritual care concerns: No Exam Narrative: General: Alert, awake, afebrile, appears uncomfortable. HEENT: PERRL, no rhinorrhea, no post nasal drip, oropharynx clear. Neck: Trachea midline, no JVD, no lymphadenopathy. Cardiovascular: Regular rate and rhythm, no murmurs, rubs or gallops, no peripheral edema. Respiratory: Clear to auscultation bilaterally, no tachypnea, no wheezing, no rhonchi, no rubs, no respiratory distress. Abdomen: Soft, tenderness palpation over mid abdomen and suprapubic region, distended, no rebound, no guarding, no peritoneal signs. Musculoskeletal: No joint swelling or deformity, normal muscle tone. Skin: No rashes or petechia, no signs of infection. Psychiatric: Alert and oriented, normal behavior and judgment for situation. Neurological: Alert and oriented to person, place, and time. Follows all commands. No focal deficits, speech is clear and fluent. Procedures Rectal Disimpaction Rectal Disimpaction #1: Rectal Disimpaction Date: 12/19/24 Rectal Disimpaction Time: 05:22 Time out performed rectal disimpaction: Yes Indication: fecal impaction Procedural Sedation: No Sedation/Analgesia: none Technique: manual disimpaction with gloved finger Result: significant stool output Patient Tolerated Procedure: well Complications: none Course Vital Signs Vital signs: Vital Signs Temperature 97.9 F 12/19/24 00:27 Pulse Rate 88 12/19/24 00:27 Respiratory Rate 18 12/19/24 00:27 Blood Pressure 181/120 H 12/19/24 00:27 Pulse Oximetry 100 12/19/24 00:27 Oxygen Delivery Room Air 12/19/24 00:27 Temperature 97.9 F 12/19/24 00:27 Pulse Rate 87 12/19/24 03:23 Respiratory Rate 18 12/19/24 03:23 Blood Pressure 166/83 H 12/19/24 03:23 Pulse Oximetry 100 12/19/24 03:23 Oxygen Delivery Room Air 12/19/24 00:27 MDM - Abdominal Pain MDM Narrative Medical decision making narrative: The patient was evaluated by myself in the emergency department. History is obtained from patient who is an independent historian and physical exam was performed. External medical records were reviewed at this time. IV was established and pertinent tests were ordered. Laboratory results obtained revealing a leukocytosis of 12.6, otherwise unremarkable. Patient states that he feels the urge to urinate but is unable to and at this time bladder scan revealed over 600 cc of urine. Urinary catheter was used to obtain a urine at this time with significant improvement of patient's abdominal pain and distension. Urinalysis revealed 1+ ketones, 1+ leuk esterases, 11-20 RBCs and 21-50 white blood cells and 4+ bacteria. At this time patient was administered 1 g of IV Rocephin for his urinary tract infection. Imaging studies obtained included CT abdomen and pelvis with IV contrast which was independently interpreted by me revealing constipation with fecal impaction otherwise no acute process, no evidence of bowel obstruction, normal appendix. Differential diagnosis considerations include constipation, urinary retention, BPH, urinary tract infection, fecal impaction. Comorbidities impacting this visit include none. I have evaluated and discussed social determinants of health with the patient that could potentially impact subsequent diagnosis and treatment plans. On repeat assessment of the patient, reevaluation revealed that the patient is doing well and is in no acute distress. Patient symptoms have improved since he arrived to our emergency department. Repeat vital signs were all reviewed and noted to be stable. Differential diagnosis and treatment plan were discussed with the patient at bedside. Patient agrees with discussion and after shared medical decision making agrees with discharge. All questions were answered to the patient's satisfaction. Patient will follow up with his PCP in 3-5 days. Patient was provided with strict return precautions and instructed to return to the emergency department if any new or worsening symptoms develop. The patient was discharged in stable condition. Lab Data 12/19/24 00:52 12/19/24 00:52 Labs: Lab Results 12/19/24 12/19/24 12/19/24 Range/Units 00:52 00:52 02:53 WBC 12.6 H (4.5-10.0) K/mm3 RBC 4.52 L (4.6-6.20) M/mm3 Hgb 14.0 (14.0-18.0) g/dL Hct 42.4 (42.0-52.0) % MCV 93.8 (80-100) fl MCH 31.0 (26-34) pg MCHC 33.0 (32-36) g/dl RDW 14.0 (11.5-14.5) % Plt Count 200 (150-375) k/mm3 MPV 11.4 H (7.4-10.4) fl Immature Gran % (Auto) 0.6 H (0-0.5) % Neut % (Auto) 78.3 H (45.5-73.1) % Lymph % (Auto) 12.8 L (18.3-44.2) % Wilkinson % (Auto) 7.2 (2.6-8.5) % Eos % (Auto) 0.2 (0-4.4) % Baso % (Auto) 0.9 (0.2-1.2) % Lymph # (Auto) 1.61 (0.9-3.2) K/mm3 Wilkinson # (Auto) 0.9 H (0.1-0.6) K/mm3 Eos # (Auto) 0.0 (0-0.3) K/mm3 Baso # (Auto) 0.1 (0.0-0.1) K/mm3 Abs Immat Gran (auto) 0.07 H (0.00-0.031) K/mm3 Absolute Neuts (auto) 9.9 H (1.3-6.7) K/mm3 Absolute Nucleated RBC 0.000 (0.0-0.012) K/mm3 Nucleated RBC % 0.0 (0.0-0.2) % Sodium 141 (137-145) mmol/L Potassium 4.7 (3.4-5.0) mmol/L Chloride 111 H (98-107) mmol/L Carbon Dioxide 19 L (22-30) mmol/L Anion Gap 11 (4-12) mmol/L BUN 29 H (9-20) mg/dL Creatinine 1.31 H (0.7-1.3) mg/dL Estim Creat Clear Calc Not Reportable Estimated GFR 53 L (59 - ) Glucose 136 H (65-110) mg/dL Calcium 8.8 (8.4-10.2) mg/dL Magnesium 2.1 Cancelled (1.6-2.3) mg/dL Total Bilirubin 0.7 (0.2-1.3) mg/dL AST 30 (17-59) U/L ALT 29 (6-50) U/L Alkaline Phosphatase 148 H (38-126) U/L Total Protein 7.0 (6.3-8.2) g/dL Albumin 4.2 (3.5-5.1) g/dL Lipase 184 (23-300) U/L Urine Color Yellow (Yellow) Urine Appearance Clear (Clear) Urine pH 5.5 (5.0-9.0) Ur Specific Crenshaw 1.025 (1.001-1.035) Urine Protein Negative (Negative) mg/dL Urine Glucose (UA) Trace H (Negative) mg/dL Urine Ketones 1+ H (Negative) mg/dL Ur Blood (Man) 1+ H (Negative) Urine Nitrate Negative (Negative) Urine Bilirubin Negative (Negative) Urine Urobilinogen 0.2 (<2.0) mg/dL Leukocyte Esterase Rfl 1+ H (Negative) CURLY/UL Urine RBC 11-20 H (0-2) /hpf Urine WBC 21-50 H (0-3) /hpf Ur Squamous Epith Cells None seen (Few) /hpf Urine Bacteria 4+ H /hpf Urine Casts 0-2 Discharge Plan Discharge Clinical Impression: Acute constipation, Urinary tract infection, Fecal impaction, Abdominal pain Patient Disposition: Home, Self-Care Condition: Improved Instructions: Antibiotic Form, Constipation (DC), Urinary Tract Infection in Men (DC) Additional Instructions: Please follow-up with your family doctor within the next 3-5 days. Take the prescribed stool softener or laxative as instructed to help with your constipation. Take the prescribed antibiotic as instructed for UTI. Return to the ED if any new or worsening symptoms develop. Patient Language: South Sudanese Prescriptions: New polyethylene glycol 3350 [Miralax] 17 gram/dose powder 17 g PO BID PRN (Reason: constipation) Qty: 119 0RF docusate sodium [Colace] 100 mg capsule 100 mg PO BID PRN (Reason: constipation) Qty: 20 0RF cephalexin 500 mg capsule 500 mg PO Q6H 7 Days Qty: 28 0RF No Action amoxicillin-pot clavulanate 875-125 mg tablet 1 tablet PO Q12H Qty: 8 0RF clonazepam 0.5 mg tablet 0.5 mg PO DAILY PRN (Reason: restless legs) sertraline 100 mg tablet 100 mg PO HS tamsulosin 0.4 mg capsule 0.4 mg PO HS insulin aspart U-100 [Novolog U-100 Insulin aspart] 100 unit/mL solution See Rx Instructions .ROUTE .COMPLEX Rx Instructions: INJECT UP TO 300 UNITS UNDER THE SKIN EVERY 3RD DAY; insulin pump metoprolol succinate 25 mg tablet extended release 24 hr 25 mg PO HS rosuvastatin 5 mg tablet 5 mg PO HS bupropion HCl 300 mg tablet extended release 24 hr 300 mg PO HS Ozempic 0.25 mg or 0.5 mg(2 mg/1.5 mL) pen injector 0.25 mg SUBCUT WEEKLY Rx Instructions: sundays enalapril maleate 20 mg tablet 20 mg PO HS Qty: 1 0RF memantine 5 mg tablet 5 mg PO HS Qty: 1 0RF Follow-up/Referrals: Dakota,MD Wayne [Primary Care Provider] - 3 Days Time of Disposition: 05:20
[2024-12-19 03:04] LABS: Add Urine Microscopic? YES; Appearance Urine Clear (Clear); Bacteria Urine 4+ /hpf; Bilirubin Urine Negative (Negative); Blood Urine 1+ (Negative); Color Urine Yellow (Yellow); Glucose Urine UA Trace mg/dL (Negative); Ketones Urine 1+ mg/dL (Negative); Leukocyte Esterase Ur 1+ LEU/UL (Negative); Nitrate Urine Negative (Negative); Non Pathogenic Casts 0-2; Protein Urine Negative (Negative); Specific Grav Ur 1.025 (1.001-1.035); Squamous Epithelial Cell Urine None Seen /hpf (Few); Urobilinogen Urine 0.2 mg/dL (<2.0); WBC Urine 21-50 /hpf (0-3); pH Urine 5.5 (5.0-9.0)
[2024-12-19 03:23] VITALS: BP 166/83; PULSE 87; RESP 18; O2SAT 100
[2024-12-19 05:37] VITALS: BP 154/88; PULSE 97; RESP 19; O2SAT 98
== END 2024-12-19 05:38 | disposition home or self-care (01) ==
PROVIDERS: Emergency Provider Emergency Medicine; PCP Internal Medicine
DX: N39.0 Urinary tract infection, site not specified (principal); K59.00 Constipation, unspecified; R10.30 Lower abdominal pain, unspecified; F03.90 Unspecified dementia, unspecified severity, without behavioral disturbance, psychotic disturbance, mood disturbance, and anxiety; I10 Essential (primary) hypertension; E11.9 Type 2 diabetes mellitus without complications; N40.0 Benign prostatic hyperplasia without lower urinary tract symptoms; K21.9 Gastro-esophageal reflux disease without esophagitis; G25.81 Restless legs syndrome; F32.A Depression, unspecified; Z87.442 Personal history of urinary calculi; Z87.891 Personal history of nicotine dependence; Z79.899 Other long term (current) drug therapy; Z79.85 Long-term (current) use of injectable non-insulin antidiabetic drugs; Z79.4 Long term (current) use of insulin
CPT/HCPCS: 36415; 74177; 80053; 81001; 83690; 83735; 85025; 87086; 87181; 96365; 99284; J0696; Q9967

== ENCOUNTER 2025-05-07 14:41 | Outpatient (CLI) | payer MEDICARE, SELFPAY ==
--- NOTE | ~2025-05-07 | XR_ITS ---
Lumbosacral Spine: AP and lateral views Clinical History: Pain Findings: The normal lordotic curve is maintained. No fracture or subluxation evident. There is sever e degenerative sterile for L5 and L5-S1. There is mild to moderate facet arthropathy throughout the l umbar spine. There is moderate degenerative disc narrowing at L2-L3. The sacroiliac joints are normal ly outlined. Impression: Moderate degenerative spondylosis, as above. Reviewed, dictated and finalized at location M. Impression: Moderate degenerative spondylosis, as above.
--- OUTSIDE RECORDS SUMMARY | 2025-05-07 14:53 | XMS_ITS | Encounter Summary ---
Author Organization [facility] Address [address] [place] [address] Care Team Providers Care Leak Operator Paraffin Plant Name Role Phone Vinay Munoz MD Primary Care Provider [phone] Encounter Details Date Type Department Care Team (Late st Contact Info) Description 12/20/2006 Outpatient Historical [facility] Internal Medicine [facility] [address] [place] [address] Wayne Duncan MD [address] [place] [address] Social History Tobacco Use Types Packs/Day Years Used Date Smoking Tobacco: Never Assessed Sex and Gender Information Value Date Recorded Sex Assigned at Male 11/21/2023 3:02 PM REFERENCE ASSISTANT Legal Sex Male 5:20 AM REFERENCE ASSISTANT Gender Identity Male 11/21/2023 3:02 PM REFERENCE ASSISTANT Sexual Orientation Straight 11/21/2023 3: 02 PM REFERENCE ASSISTANT documented as of this encounter Last Filed [...] Care Team (Late st Contact Info) Description 05/20/2025 10:15 AM CDT Office Visit [facility] Endocrinology [address] [place] [address] Rosa Cortez MD [address] [place] [address] 08/18/2025 3:15 PM REFERENCE ASSISTANT Office Visit [facility] Endocrinology [address] [place] [address] Rosa Cortez MD [address] [place] [address] 11/12/2025 12:30 PM REFERENCE ASSISTANT Office Visit [facility] Neurology [address] [place] [address] Wallace Church MD [address] [place] [address] 11/25/2025 3:15 PM REFERENCE ASSISTANT Office Visit [facility] Endocrinology [address] [place] [address] Rosa Cortez MD [address] [place] [address] 02/10/2026 11:15 AM CDT Office Visit [facility] Endocrinology [address] [place] [address] Rosa Cortez MD [address] [place] [address] documented as of this encounter Visit Diagnoses Not on filedocumented in this encounter Care Teams Leak Operator Paraffin Plant Relationship Specialty Start Date End Date Vinay Munoz MD [address] [place] [address] PCP - General Family Practice 11/19/24 documented as of this encounter
--- OUTSIDE RECORDS SUMMARY | 2025-05-07 14:53 | XMS_ITS | Encounter Summary ---
Author Organization [facility] Address [address] [place] [address] Care Team Providers Care Roughener Name Role Phone Vinay Munoz MD Primary Care Provider [phone] Encounter Details Date Type Department Care Team (Late st Contact Info) Description 06/02/2006 Outpatient Historical [facility] Internal Medicine [facility] [address] [place] [address] Wayne Duncan MD [address] [place] [address] Social History Tobacco Use Types Packs/Day Years Used Date Smoking Tobacco: Never Assessed Sex and Gender Information Value Date Recorded Sex Assigned at Male 11/21/2023 3:02 PM ASSISTANT PLANT CONTROLLER Legal Sex Male 5:20 AM ASSISTANT PLANT CONTROLLER Gender Identity Male 11/21/2023 3:02 PM ASSISTANT PLANT CONTROLLER Sexual Orientation Straight 11/21/2023 3: 02 PM ASSISTANT PLANT CONTROLLER documented as of this encounter Last Filed [...] Description 05/20/2025 10:15 AM CDT Office Visit [facility] Endocrinology [address] [place] [address] Rosa Cortez MD [address] [place] [address] 08/18/2025 3:15 PM ASSISTANT PLANT CONTROLLER Office Visit [facility] Endocrinology [address] [place] [address] Rosa Cortez MD [address] [place] [address] 11/12/2025 12:30 PM ASSISTANT PLANT CONTROLLER Office Visit [facility] Neurology [address] [place] [phone] Wallace Church MD [address] [place] [address] 11/25/2025 3:15 PM ASSISTANT PLANT CONTROLLER Office Visit [facility] Endocrinology [address] [place] [address] Rosa Cotrez MD [address] [place] [address] 02/10/2026 11:15 AM CDT Office Visit [facility] Endocrinology [address] [place] [address] Rosa Cortez MD [address] [place] [address] documented as of this encounter Visit Diagnoses Not on filedocumented in this encounter Care Teams Roughener Relationship Specialty Start Date End Date Vinay Munoz MD [address] [place] [address] PCP - General Family Practice 11/19/24 documented as of this encounter
--- OUTSIDE RECORDS SUMMARY | 2025-05-07 14:53 | XMS_ITS | Encounter Summary ---
Author Organization [facility] Address [address] [place] [address] Care Team Providers Care Restaurant Cook Name Role Phone Vinay Munoz MD Primary Care Provider [phone] Encounter Details Date Type Department Care Team (Late st Contact Info) Description 11/02/2006 Outpatient Historical [facility] Internal Medicine [facility] [address] [place] [address] Wayne Duncan MD [address] [place] [address] Social History Tobacco Use Types Packs/Day Years Used Date Smoking Tobacco: Never Assessed Sex and Gender Information Value Date Recorded Sex Assigned at Male 11/21/2023 3:02 PM LIME MIXER Legal Sex Male 5:20 AM LIME MIXER Gender Identity Male 11/21/2023 3:02 PM LIME MIXER Sexual Orientation Straight 11/21/2023 3: 02 PM LIME MIXER documented as of this encounter Last Filed Vital Signs Vital Sign Reading Time Taken Comments Blood Pressure 130/78 11/02/2006 1:00 PM LIME MIXER Pulse 80 11/02/2006 1:00 PM LIME MIXER Temperature 35.9 C (96.7 F) 11/02/2006 1:00 PM LIME MIXER Respiratory Rate 18 11/02/2006 1:00 PM LIME MIXER Oxygen Saturation - - Inhaled Oxygen Concentration - - Weight 82.6 kg (182 lb) 11/02/2006 1:00 PM LIME MIXER Height 182.9 cm (6') 11/02/2006 1:00 PM LIME MIXER Body Mass Index 24.68 11/02/2006 1:00 PM LIME MIXER documented in this encounter Plan of Treatment Upcoming Encounters Date Type Department Care Team (Late st Contact Info) Description 05/20/2025 10:15 AM CDT Office Visit [facility] Endocrinology [address] [place] [address] Rosa Cortez MD [address] [place] [address] 08/18/2025 3:15 PM LIME MIXER Office Visit [facility] Endocrinology [address] [place] [address] Rosa Cortez MD [address] [place] [address] 11/12/2025 12:30 PM LIME MIXER Office Visit [facility] Neurology [address] [place] [address] [place] [address] [place] [address] Wallace Church MD [address] [place] [address] 11/25/2025 3:15 PM LIME MIXER Office Visit [facility] Endocrinology [address] [place] [address] Rosa Cortez MD [address] [address] 02/10/2026 11:15 AM CDT Office Visit [facility] Endocrinology [address] [place] [address] Rosa Cortez MD [address] [place] [address] documented as of this encounter Visit Diagnoses Not on filedocumented in this encounter Care Teams Restaurant Cook Relationship Specialty Start Date End Date Vinay Munoz MD [address] [place] [address] PCP - General Family Practice 11/19/24 documented as of this encounter
--- OUTSIDE RECORDS SUMMARY | 2025-05-07 14:53 | XMS_ITS | Encounter Summary ---
Author Organization [facility] Address [address] [place] [address] Care Team Providers Care Sr. Pricing Analyst Name Role Phone Vinay Munoz MD Primary Care Provider [phone] Encounter Details Date Type Department Care Team (Late st Contact Info) Description 08/21/2007 Orders Only [facility] [id number] [place] [address]. [address] [place] [address] Wayne Duncan MD [address] [place] [address] Social History Tobacco Use Types Packs/Day Years Used Date Smoking Tobacco: Never Assessed Sex and Gender Information Value Date Recorded Sex Assigned at Male 11/21/2023 3:02 PM BLINDSTITCH MACHINE OPERATOR Legal Sex Male 5:20 AM BLINDSTITCH MACHINE OPERATOR Gender Identity Male 11/21/2023 3:02 PM BLINDSTITCH MACHINE OPERATOR Sexual Orientation Straight 11/21/2023 3: 02 PM BLINDSTITCH MACHINE OPERATOR documented as of this encounter Progress [...] REFLUX (GERD) 564.1 IRRITABLE BOWEL SYNDROME V58.69 [facility] USE OF OTHER MEDICATION(S) CURRENT MEDICATION LIST: [...] Normal stability,strength and tone. NEUROLOGIC: CRANIAL NERVES: shirt operator II-XII grossly intact. PSYCHIATRIC: Judgment appropriate. Oriented. [...] NEW PRESCRIPTION, 08/21/2007. LAB ORDERS: Order number: [id number] Test Ordered: COMPREHENSIVE METABOLIC PANEL & GFR 1112 Order number: [id number] Test Ordered: HEMOGLOBIN A1C 1814 Order number: [id number] Test Ordered: LIPID PANEL 1078 Order number: [id number] Test Ordered: PSA, TOTAL 1002 272.4-HYPERLIPIDEMIA ASSESSMENT: [...] Description 05/20/2025 10:15 AM CDT Office Visit [facility] Endocrinology [address] [place] [address] Rosa Cortez MD [address] [place] [address] 08/18/2025 3:15 PM BLINDSTITCH MACHINE OPERATOR Office Visit [facility] Endocrinology [address] [place] [address] Rosa Cortez MD [address] [place] [address] 11/12/2025 12:30 PM BLINDSTITCH MACHINE OPERATOR Office Visit [facility] Neurology [address] [place] [address] Wallace Church MD [address] [place] [address] 11/25/2025 3:15 PM BLINDSTITCH MACHINE OPERATOR Office Visit [facility] Endocrinology [address] [place] [address] Rosa Cortez MD [address] [address] 02/10/2026 11:15 AM CDT Office Visit [facility] Endocrinology [address] [place] [address] Rosa Cortez MD [address] [id number] documented as of this encounter Visit Diagnoses Not on filedocumented in this encounter Care Teams Sr. Pricing Analyst Relationship Specialty Start Date End Date Vinay Munoz MD [address] [place] [phone] PCP - General Family Practice 11/19/24 documented as of this encounter
--- OUTSIDE RECORDS SUMMARY | 2025-05-07 14:53 | XMS_ITS | Encounter Summary ---
Author Organization [facility] Address [address] [place] [address] Care Team Providers Care Marketing Pr Intern Name Role Phone Vinay Munoz MD Primary Care Provider [phone] Encounter Details Date Type Department Care Team (Late st Contact Info) Description 06/02/2006 Orders Only [facility] [id number] [place] [address]. [address] [place] [address] Wayne Duncan MD [address] [place] [address] Social History Tobacco Use Types Packs/Day Years Used Date Smoking Tobacco: Never Assessed Sex and Gender Information Value Date Recorded Sex Assigned at Male 11/21/2023 3:02 PM COMMODITY MERCHANT Legal Sex Male 5:20 AM COMMODITY MERCHANT Gender Identity Male 11/21/2023 3:02 PM COMMODITY MERCHANT Sexual Orientation Straight 11/21/2023 3: 02 PM COMMODITY MERCHANT documented as of this encounter Progress Notes [...] ALLERGIC UNSPECIFIED 564.1 IRRITABLE BOWEL SYNDROME V58.69 CUSTODIAL USE OF OTHER MEDICATION(S) CURRENT MEDICATION LIST: [...] subcutaneous nodules or tightening. NEUROLOGIC: CRANIAL NERVES: software test engineer II-XII grossly intact. PSYCHIATRIC: Judgment appropriate. Oriented. [...] diet and exercise. LAB ORDERS: Order number: [id number] Test Ordered: HEMOGLOBIN A1C 1814 Order number: [id number] Test Ordered: MICROALBUMIN/CREAT, UR RATIO 2252 272.4-HYPERLIPIDEMIA [...] Description 05/20/2025 10:15 AM CDT Office Visit [facility] Endocrinology [address] [place] [address] Rosa Cortez MD [address] [place] [address] 08/18/2025 3:15 PM COMMODITY MERCHANT Office Visit [facility] Endocrinology [address] [place] [address] Rosa Cortez MD [address] [place] [address] 11/12/2025 12:30 PM COMMODITY MERCHANT Office Visit [facility] Neurology [address] [place] [address] Wallace Church MD [address] [facility] [address] [place] [address] 11/25/2025 3:15 PM COMMODITY MERCHANT Office Visit [facility] Endocrinology [address] [facility] [address] [facility] [address] [place] [address] Rosa Cortez MD [address] [facility] [address] [place] [address] 02/10/2026 11:15 AM CDT Office Visit [facility] Endocrinology [address] [facility] [address] [facility] [address] [place] [address] Rosa Cortez MD [address] [address] documented as of this encounter Visit Diagnoses Not on filedocumented in this encounter Care Teams Marketing Pr Intern Relationship Specialty Start Date End Date Vinay Munoz MD [address] [place] [address] PCP - General Family Practice 11/19/24 documented as of this encounter
--- OUTSIDE RECORDS SUMMARY | 2025-05-07 14:53 | XMS_ITS | Encounter Summary ---
Author Organization [facility] Address [address] [place] [address] Care Team Providers Care Battery Charger Name Role Phone Vinay Munoz MD Primary Care Provider [phone] Encounter Details Date Type Department Care Team (Latest Contact Info) Description 12/20/2006 Outpatient Historical [facility] Internal Medicine [facility] [address] [facility] [address] [place] [address] Wayne Duncan MD [address] [place] [address] DM w/o Complication Type II, Uncontrolled (Primary Dx) Social History Tobacco Use Types Packs/Day Years Used Date Smoking Tobacco: Never Assessed Sex and Gender Information Value Date Recorded Sex Assigned at Male 11/21/2023 3:02 PM QUARTER LINING SMOOTHER Legal Sex Male 5:20 AM QUARTER LINING SMOOTHER Gender Identity Male 11/21/2023 3:02 PM QUARTER LINING SMOOTHER Sexual Orientation Straight 11/21/2023 3: 02 PM QUARTER LINING SMOOTHER documented as of this encounter Plan of Treatment Upcoming Encounters Date Type Department Care Team (Late st Contact Info) Description 05/20/2025 10:15 AM CDT Office Visit [facility] Endocrinology [address] [place] [address] Rosa Cortez MD [address] [place] [address] 08/18/2025 3:15 PM QUARTER LINING SMOOTHER Office Visit [facility] Endocrinology [address] [place] [address] Rosa Cortez MD [address] [place] [address] 11/12/2025 12:30 PM QUARTER LINING SMOOTHER Office Visit [facility] Neurology [address] [place] [address] Wallace Church MD [address] [facility] [address] [place] [address] 11/25/2025 3:15 PM QUARTER LINING SMOOTHER Office Visit [facility] Endocrinology [address] [place] [address] Rosa Cortez MD [address] [facility] [address] [address] 02/10/2026 11:15 AM CDT Office Visit [facility] Endocrinology [address] [place] [address] Rosa Cortez MD [address] [address] documented as of this encounter Procedures Procedure [...] us Wayne Duncan MD URINE ORDERABLES Edited Performing Organization Address [facility] Phone Number INTERFACE SYSTEM Refer to clinic/hospital department * (ABNORMAL) HEMOGLOBIN A1C (12/20/2006 9:22 AM CDT) Pathologist [facility] HEMOGLOBIN A1C 7.1(H) 4.1 - 6.1 % of Hgb INTERFACE SYSTEM GLUCOSE, MEAN BLOOD 175 mg/dL INTERFACE SYSTEM 12/20/2006 9:22 AM CDT Wayne Duncan MD CHEMISTRY ORDERABLES Edited Performing Organization Address [facility] Phone Number INTERFACE SYSTEM Refer to clinic/hospital department * ALT (12/20/2006 9:22 AM CDT) Pathologist [facility] ALT 27 0 - 41 U/L INTERFACE SYSTEM 12/20/2006 9:22 AM CDT us Wayne Duncan MD CHEMISTRY ORDERABLES Edited Performing Organization Address [facility] Phone Number INTERFACE SYSTEM Refer to clinic/hospital [...] classifications for lipids are available on the [facility] Intranet at: [email or web address] Select: Lab Policies and Procedures Select: Reference Ranges - Lipids 12/20/2006 9:22 AM CDT us Wayne Duncan MD CHEMISTRY ORDERABLES Edited INTERFACE SYSTEM Refer to clinic/hospital department documented in this encounter Visit Diagnoses Diagnosis Type II or unspecified type diabetes mellitus without mention of complication, uncontrolled- Primary documented in this encounter Care Teams Battery Charger Relationship Specialty Start Date End Date Vinay Munoz MD [address] [place] [phone] PCP - General Family Practice 11/19/24 documented as of this encounter
--- OUTSIDE RECORDS SUMMARY | 2025-05-07 14:53 | XMS_ITS | Encounter Summary ---
Author Organization [facility] Address [address] [place] [address] Care Team Providers Care Analyst Microbiology Lab Name Role Phone Vinay Munoz MD Primary Care Provider [phone] Encounter Details Date Type Department Care Team (Latest Contact Info) Description 09/28/2006 Outpatient Historical [facility] Internal Medicine [facility] [address] [facility] [address] [place] [address] Wayne Duncan MD [address] [place] [address] Encounter for Long-Term (Current) Use of Other Medications (Primary Dx) Social History Tobacco Use Types Packs/Day Years Used Date Smoking Tobacco: Never Assessed Sex and Gender Information Value Date Recorded Sex Assigned at Male 11/21/2023 3:02 PM SPRAY OPERATOR Legal Sex Male 5:20 AM SPRAY OPERATOR Gender Identity Male 11/21/2023 3:02 PM SPRAY OPERATOR Sexual Orientation Straight 11/21/2023 3: 02 PM SPRAY OPERATOR documented as of this encounter Plan of Treatment Upcoming Encounters Date Type Department Care Team (Late st Contact Info) Description 05/20/2025 10:15 AM CDT Office Visit [facility] Endocrinology [address] [place] [address] Rosa Cortez MD [address] [place] [address] 08/18/2025 3:15 PM SPRAY OPERATOR Office Visit [facility] Endocrinology [address] [place] [address] Rosa Cortez MD [address] [place] [address] 11/12/2025 12:30 PM SPRAY OPERATOR Office Visit [facility] Neurology [address] [place] [address] Wallace Church MD [address] [place] [address] 11/25/2025 3:15 PM SPRAY OPERATOR Office Visit [facility] Endocrinology [address] [place] [address] Rosa Cortez MD [address] [id number] 02/10/2026 11:15 AM CDT Office Visit [facility] Endocrinology [address] [place] [address] Rosa Cortez MD [address] [facility] [id number] documented as of this encounter Procedures Procedure Name Priority Date/Time Associated Diagnosis Comments HEPATIC FUNCTION PANEL Routine 09/28/2006 10:52 AM SPRAY OPERATOR documented in this encounter Results * HEPATIC FUNCTION PANEL (09/28/2006 10:52 AM SPRAY OPERATOR) ALKALINE PHOSPHATASE 87 40 - 129 U/L [...] mg/dL INTERFACE SYSTEM 09/28/2006 10:5 2 AM SPRAY OPERATOR us Wayne Duncan MD CHEMISTRY ORDERABLES Final Res ult INTERFACE SYSTEM Refer to clinic/hospital department documented in this encounter Visit Diagnoses Diagnosis Encounter for long-term (current) use of other medications- Primary documented in this encounter Care Teams Analyst Microbiology Lab Relationship Specialty Start Date End Date Vinay Munoz MD [address] [place] [address] PCP - General Family Practice 11/19/24 documented as of this encounter
--- OUTSIDE RECORDS SUMMARY | 2025-05-07 14:53 | XMS_ITS | Encounter Summary ---
Author Organization [facility] Address [address] [place] [address] Care Team Providers Care Mercerizer Machine Operator Name Role Phone Vinay Munoz MD Primary Care Provider [phone] Encounter Details Date Type Department Care Team (Late st Contact Info) Description 11/21/2007 Outpatient Historical [facility] Internal Medicine [facility] [address] [facility] [address] [place] [address] Wayne Duncan MD [address] [place] [address] Social History Tobacco Use Types Packs/Day Years Used Date Smoking Tobacco: Never Assessed Sex and Gender Information Value Date Recorded Sex Assigned at Male 11/21/2023 3:02 PM CARDIAC SURGEON Legal Sex Male 5:20 AM CARDIAC SURGEON Gender Identity Male 11/21/2023 3:02 PM CARDIAC SURGEON Sexual Orientation Straight 11/21/2023 3: 02 PM CARDIAC SURGEON documented as of this encounter Plan of Treatment Upcoming Encounters Date Type Department Care Team (Late st Contact Info) Description 05/20/2025 10:15 AM CDT Office Visit [facility] Endocrinology [address] [place] [address] Rosa Cortez MD [address] [place] [address] 08/18/2025 3:15 PM CARDIAC SURGEON Office Visit [facility] Endocrinology [address] [place] [address] Rosa Cortez MD [address] [place] [address] 11/12/2025 12:30 PM CARDIAC SURGEON Office Visit [facility] Neurology [address] [place] [address] Wallace Church MD [address] [place] [address] 11/25/2025 3:15 PM CARDIAC SURGEON Office Visit [facility] Endocrinology [address] [place] [address] Rosa Cortez MD [address] [address] 02/10/2026 11:15 AM CDT Office Visit [facility] Endocrinology [address] [place] [address] Rosa Cortez MD [address] [address] documented as of this encounter Visit Diagnoses Not on filedocumented in this encounter Care Teams Mercerizer Machine Operator Relationship Specialty Start Date End Date Vinay Munoz MD [address] [place] [address] PCP - General Family Practice 11/19/24 documented as of this encounter
--- OUTSIDE RECORDS SUMMARY | 2025-05-07 14:53 | XMS_ITS | Encounter Summary ---
Author Organization [facility] Address [address] [place] [address] Care Team Providers Care Senior Litigation Paralegal Name Role Phone Vinay Munoz MD Primary Care Provider Encounter Details Date Type Department Care Team (Late st Contact Info) Description 11/21/2007 Outpatient Historical [facility] Internal Medicine [facility] [address] [facility] [address] [place] [address] Wayne Duncan MD [address] [place] [address] Social History Tobacco Use Types Packs/Day Years Used Date Smoking Tobacco: Never Assessed Sex and Gender Information Value Date Recorded Sex Assigned at Male 11/21/2023 3:02 PM RESP THERAPIST Legal Sex Male 5:20 AM RESP THERAPIST Gender Identity Male 11/21/2023 3:02 PM RESP THERAPIST Sexual Orientation Straight 11/21/2023 3: 02 PM RESP THERAPIST documented as of this encounter Plan of Treatment Upcoming Encounters Date Type Department Care Team (Late st Contact Info) Description 05/20/2025 10:15 AM CDT Office Visit [facility] Endocrinology [address] [place] [address] Rosa Cortez MD [address] [place] [address] 08/18/2025 3:15 PM RESP THERAPIST Office Visit [facility] Endocrinology [address] [place] [address] Rosa Cortez MD [address] [place] [address] 11/12/2025 12:30 PM RESP THERAPIST Office Visit [facility] Neurology [address] [place] [address] Wallace Church MD [address] [place] [address] 11/25/2025 3:15 PM RESP THERAPIST Office Visit [facility] Endocrinology [address] [place] [address] Rosa Cortez MD [address] [address] 02/10/2026 11:15 AM CDT Office Visit [facility] Endocrinology [address] [place] [address] Rosa Cortez MD [address] [address] documented as of this encounter Visit Diagnoses Not on filedocumented in this encounter Care Teams Senior Litigation Paralegal Relationship Specialty Start Date End Date Vinay Munoz MD [address] [place] [address] PCP - General Family Practice 11/19/24 documented as of this encounter
--- OUTSIDE RECORDS SUMMARY | 2025-05-07 14:53 | XMS_ITS | Encounter Summary ---
Author Organization [facility] Address [address] [place] [address] Care Team Providers Care Trailer Park Manager Name Role Phone Vinay Munoz MD Primary Care Provider [phone] Encounter Details Date Type Department Care Team (Late st Contact Info) Description 09/21/2006 Outpatient Historical [facility] Internal Medicine [facility] [address] [facility] [address] [place] [address] Wayne Duncan MD [address] [place] [address] Social History Tobacco Use Types Packs/Day Years Used Date Smoking Tobacco: Never Assessed Sex and Gender Information Value Date Recorded Sex Assigned at Male 11/21/2023 3:02 PM PROPERTY INSURANCE AGENT Legal Sex Male 5:20 AM PROPERTY INSURANCE AGENT Gender Identity Male 11/21/2023 3:02 PM PROPERTY INSURANCE AGENT Sexual Orientation Straight 11/21/2023 3: 02 PM PROPERTY INSURANCE AGENT documented as of this encounter Last Filed Vital Signs Vital Sign Reading Time Taken Comments Blood Pressure 160/100 09/21/2006 9:45 AM PROPERTY INSURANCE AGENT Pulse 88 09/21/2006 9:45 AM PROPERTY INSURANCE AGENT Temperature 35.7 C (96.3 F) 09/21/2006 9:45 AM PROPERTY INSURANCE AGENT Respiratory Rate 20 09/21/2006 9:45 AM PROPERTY INSURANCE AGENT Oxygen Saturation - - Inhaled Oxygen Concentration - - Weight 79.8 kg (176 lb) 09/21/2006 9:45 AM PROPERTY INSURANCE AGENT Height 182.9 cm (6') 09/21/2006 9:45 AM PROPERTY INSURANCE AGENT Body Mass Index 23.87 09/21/2006 9:45 AM PROPERTY INSURANCE AGENT documented in this encounter Plan of Treatment Upcoming Encounters Date Type Department Care Team (Late st Contact Info) Description 05/20/2025 10:15 AM CDT Office Visit [facility] Endocrinology [address] [place] [address] Rosa Cortez MD [address] [place] [address] 08/18/2025 3:15 PM PROPERTY INSURANCE AGENT Office Visit [facility] Endocrinology [address] [place] [address] Rosa Cortez MD [address] [place] [address] 11/12/2025 12:30 PM PROPERTY INSURANCE AGENT Office Visit [facility] Neurology [address] [place] [address] [place] [address] Wallace Church MD [address] [place] [address] 11/25/2025 3:15 PM PROPERTY INSURANCE AGENT Office Visit [facility] Endocrinology [address] [place] [address] Rosa Cortez MD [address] [address] 02/10/2026 11:15 AM CDT Office Visit [facility] Endocrinology [address] [place] [address] Rosa Cortez MD [address] [place] [address] documented as of this encounter Visit Diagnoses Not on filedocumented in this encounter Care Teams Trailer Park Manager Relationship Specialty Start Date End Date Vinay Munoz MD [address] [place] [address] PCP - General Family Practice 11/19/24 documented as of this encounter
--- OUTSIDE RECORDS SUMMARY | 2025-05-07 14:53 | XMS_ITS | Encounter Summary ---
Author Organization [facility] Address [address] [place] [address] Care Team Providers Care Timber Appraiser Name Role Phone Vinay Munoz MD Primary Care Provider [phone] Encounter Details Date Type Department Care Team (Late st Contact Info) Description 04/27/2007 Outpatient Historical [facility] Internal Medicine [facility] [address] [facility] [address] [place] [address] Wayne Duncan MD [address] [place] [address] Social History Tobacco Use Types Packs/Day Years Used Date Smoking Tobacco: Never Assessed Sex and Gender Information Value Date Recorded Sex Assigned at Male 11/21/2023 3:02 PM ROBOT PROGRAMMER Legal Sex Male 5:20 AM ROBOT PROGRAMMER Gender Identity Male 11/21/2023 3:02 PM ROBOT PROGRAMMER Sexual Orientation Straight 11/21/2023 3: 02 PM ROBOT PROGRAMMER documented as of this encounter Last Filed [...] 05/20/2025 10:15 AM CDT Office Visit [facility] Endocrinology [address] [place] [address] Rosa Cortez MD [address] [place] [address] 08/18/2025 3:15 PM ROBOT PROGRAMMER Office Visit [facility] Endocrinology [address] [place] [address] Rosa Cortez MD [address] [place] [address] 11/12/2025 12:30 PM ROBOT PROGRAMMER Office Visit [facility] Neurology [address] [place] [address] Wallace Church MD [address] [place] [address] 11/25/2025 3:15 PM ROBOT PROGRAMMER Office Visit [facility] Endocrinology [address] [place] [address] Rosa Cortez MD [address] [place] [address] 02/10/2026 11:15 AM CDT Office Visit [facility] Endocrinology [address] [place] [address] Rosa Cortez MD [address] [place] [address] documented as of this encounter Visit Diagnoses Not on filedocumented in this encounter Care Teams Timber Appraiser Relationship Specialty Start Date End Date Vinay Munoz MD [address] [place] [address] PCP - General Family Practice 11/19/24 documented as of this encounter
--- OUTSIDE RECORDS SUMMARY | 2025-05-07 14:53 | XMS_ITS | Encounter Summary ---
Author Organization [facility] Address [address] [place] [address] Care Team Providers Care Analytics Specialist Name Role Phone Vinay Munoz MD Primary Care Provider [phone] Encounter Details Date Type Department Care Team (Late st Contact Info) Description 04/02/2007 Orders Only [facility] [id number] [place] [address]. [address] [place] [address] Wayne Duncan MD [address] [place] [address] Social History Tobacco Use Types Packs/Day Years Used Date Smoking Tobacco: Never Assessed Sex and Gender Information Value Date Recorded Sex Assigned at Male 11/21/2023 3:02 PM CREDIT UNION EXAMINER Legal Sex Male 5:20 AM CREDIT UNION EXAMINER Gender Identity Male 11/21/2023 3:02 PM CREDIT UNION EXAMINER Sexual Orientation Straight 11/21/2023 3: 02 PM CREDIT UNION EXAMINER documented as of this encounter Progress Notes * Wayne Duncan MD - 02/27/2008 5:17 PM CDT TIME:10:47 am PATIENT`S HOME PHONE: PATIENT`S WORK PHONE: PATIENT`S INSURANCE: [employer] [facility] WHO TOOK THE CALL: Princess Kamlesh [facility] INFORMATION LAST VISIT: 12-20-06 PCP: amari. WHO CALLED: Patient called. PHARMACY NUMBER: [facility] SECTION 1: REQUESTED ACTION evelyn 04/02/07 at 10:48 am: MEDICATION REQUEST: Patient requests a refill. MEDICATIONS: LANTUS SUBCUTANEOUS SOLUTION 100 UNIT/ML, 24 units qd, 1 Dispensed, 3 Fills, status: CONTINUED, 03/30/2007. DOCTOR`S RESPONSE: [email or web address] 04/02/07 at 11:59 am Refill now with 11 additional refills. FINAL ACTION: merbmo 04/02/07 at 11:59 am ADDITIONAL COMMENTS: rx printed and fax to [email or web address] Electronically Signed by: Eve Velazquez on Monday, April 02, 2007 documented in this encounter Plan of Treatment Upcoming Encounters Date Type Department Care Team (Late st Contact Info) Description 05/20/2025 10:15 AM CDT Office Visit [facility] Endocrinology [address] [facility] [address] [place] [address] Rosa Cortez MD [address] [address] 08/18/2025 3:15 PM CREDIT UNION EXAMINER Office Visit [facility] Endocrinology [address] [facility] [place] [address] Rosa Cortez MD [address] [address] 11/12/2025 12:30 PM CREDIT UNION EXAMINER Office Visit [facility] Neurology [address] [facility] [address] [place] [phone] Wallace Church MD [address] [facility] [address] [place] [address] 11/25/2025 3:15 PM CREDIT UNION EXAMINER Office Visit [facility] Endocrinology [address] [place] [address] Rosa Cortez MD [address] [address] 02/10/2026 11:15 AM CDT Office Visit [facility] Endocrinology [address] [place] [address] Rosa Cortez MD [address] [place] [address] documented as of this encounter Visit Diagnoses Not on filedocumented in this encounter Care Teams Analytics Specialist Relationship Specialty Start Date End Date Vinay Munoz MD [address] [place] [phone] PCP - General Family Practice 11/19/24 documented as of this encounter
--- OUTSIDE RECORDS SUMMARY | 2025-05-07 14:53 | XMS_ITS | Encounter Summary ---
Author Organization [facility] Address [address] [place] [address] Care Team Providers Care Corporate Banking Officer Name Role Phone Vinay Munoz MD Primary Care Provider Encounter Details Date Type Department Care Team (Late st Contact Info) Description 11/21/2007 Outpatient Historical [facility] Internal Medicine [facility] [address] [facility] [address] [place] [address] Wayne Duncan MD [address] [place] [address] Social History Tobacco Use Types Packs/Day Years Used Date Smoking Tobacco: Never Assessed Sex and Gender Information Value Date Recorded Sex Assigned at Male 11/21/2023 3:02 PM BACK TENDER PULP DRIER Legal Sex Male 5:20 AM BACK TENDER PULP DRIER Gender Identity Male 11/21/2023 3:02 PM BACK TENDER PULP DRIER Sexual Orientation Straight 11/21/2023 3: 02 PM BACK TENDER PULP DRIER documented as of this encounter Plan of Treatment Upcoming Encounters Date Type Department Care Team (Late st Contact Info) Description 05/20/2025 10:15 AM CDT Office Visit [facility] Endocrinology [address] [place] [address] Rosa Cortez MD [address] [place] [address] 08/18/2025 3:15 PM BACK TENDER PULP DRIER Office Visit [facility] Endocrinology [address] [place] [address] Rosa Cortez MD [address] [place] [address] 11/12/2025 12:30 PM BACK TENDER PULP DRIER Office Visit [facility] Neurology [address] [place] [phone] Wallace Church MD [address] [place] [phone] 11/25/2025 3:15 PM BACK TENDER PULP DRIER Office Visit [facility] Endocrinology [address] [place] [address] Rosa Cortez MD [address] [address] 02/10/2026 11:15 AM CDT Office Visit [facility] Endocrinology [address] [place] [phone] Rosa Cortez MD [address] [address] documented as of this encounter Visit Diagnoses Not on filedocumented in this encounter Care Teams Corporate Banking Officer Relationship Specialty Start Date End Date Vinay Munoz MD [address] [place] [phone] PCP - General Family Practice 11/19/24 documented as of this encounter
--- OUTSIDE RECORDS SUMMARY | 2025-05-07 14:53 | XMS_ITS | Encounter Summary ---
Author Organization [facility] Address [address] [place] [address] Care Team Providers Care Screed Person Name Role Phone Vinay Munoz MD Primary Care Provider [phone] Reason for Visit * Reason Onset Date Comments Medication Refill 11/05/2011 Encounter Details Date Type Department Care Team (Late st Contact Info) Description 11/05/2011 Refill Central Business Office [address] [place] [address] Mychart, [facility] Provider Social History Tobacco Use Types Packs/Day Years Used Date Smoking Tobacco: Former Cigarettes 1.5 14 Smokeless Tobacco: Never Comments:quit at the age 35 Alcohol Use Standard Drinks/Week Comments Yes 0 (1 standard drink = 0.6 oz pur e alcohol) Sex and Gender Information Value Date Recorded Sex Assigned at Male 11/21/2023 3:02 PM STRAP MACHINE OPERATOR AUTOMATIC Legal Sex Male 5:20 AM STRAP MACHINE OPERATOR AUTOMATIC Gender Identity Male 11/21/2023 3:02 PM STRAP MACHINE OPERATOR AUTOMATIC Sexual Orientation Straight 11/21/2023 3: 02 PM STRAP MACHINE OPERATOR AUTOMATIC documented as of this encounter Plan of Treatment Upcoming Encounters Date Type Department Care Team (Late st Contact Info) Description 05/20/2025 10:15 AM CDT Office Visit [facility] Endocrinology [address] [place] [address] Rosa Cortez MD [address] [place] [address] 08/18/2025 3:15 PM STRAP MACHINE OPERATOR AUTOMATIC Office Visit [facility] Endocrinology [address] [place] [address] Rosa Cortez MD [address] [address] 11/12/2025 12:30 PM STRAP MACHINE OPERATOR AUTOMATIC Office Visit [facility] Neurology [address] [facility] [address] [place] [phone] Wallace Church MD [address] [place] [address] 11/25/2025 3:15 PM STRAP MACHINE OPERATOR AUTOMATIC Office Visit [facility] Endocrinology [address] [place] [address] Rosa Cortez MD [address] [id number] 02/10/2026 11:15 AM CDT Office Visit [facility] Endocrinology [address] [facility] [place] [phone] Rosa Cortez MD [address] [address] documented as of this encounter Visit Diagnoses Not on filedocumented in this encounter Care Teams Screed Person Relationship Specialty Start Date End Date Vinay Munoz MD [address] [place] [address] PCP - General Family Practice 11/19/24 documented as of this encounter
--- OUTSIDE RECORDS SUMMARY | 2025-05-07 14:53 | XMS_ITS | Encounter Summary ---
Author Organization [facility] Address [address] [place] [address] Care Team Providers Care Neuropsychology Director Name Role Phone Vinay Munoz MD Primary Care Provider [phone] Encounter Details Date Type Department Care Team (Late st Contact Info) Description 10/11/2006 Outpatient Historical [facility] Wayne Duncan MD [address] [place] [address] Esophageal Reflux (Primary Dx) Social History Tobacco Use Types Packs/Day Years Used Date Smoking Tobacco: Never Assessed Sex and Gender Information Value Date Recorded Sex Assigned at Male 11/21/2023 3:02 PM ENGINE LATHE SET UP OPERATOR Legal Sex Male 5:20 AM ENGINE LATHE SET UP OPERATOR Gender Identity Male 11/21/2023 3:02 PM ENGINE LATHE SET UP OPERATOR Sexual Orientation Straight 11/21/2023 3: 02 PM ENGINE LATHE SET UP OPERATOR documented as of this encounter Plan of Treatment Upcoming Encounters Date Type Department Care Team (Late st Contact Info) Description 05/20/2025 10:15 AM CDT Office Visit [facility] Endocrinology [address] [place] [address] Rosa Cortez MD [address] [place], [place] [phone] 08/18/2025 3:15 PM ENGINE LATHE SET UP OPERATOR Office Visit [facility] Endocrinology [address] [place] [address] Rosa Cortez MD [address] [facility] [address] [place] [address] 11/12/2025 12:30 PM ENGINE LATHE SET UP OPERATOR Office Visit [facility] Neurology [address] [facility] [address] [place] [address] Wallace Church MD [address] [facility] [address] [place] [address] 11/25/2025 3:15 PM ENGINE LATHE SET UP OPERATOR Office Visit [facility] Endocrinology [address] [place] [phone] Rosa Cortez MD [address] [facility] [address] [address] 02/10/2026 11:15 AM CDT Office Visit [facility] Endocrinology [address] [facility] [address] [place] [facility] [phone] Rosa Cortez MD [address] [phone] documented as of this encounter Visit Diagnoses Diagnosis Esophageal reflux- Primary documented in this encounter Care Teams Neuropsychology Director Relationship Specialty Start Date End Date Vinay Munoz MD [address] [place] [phone] PCP - General Family Practice 11/19/24 documented as of this encounter
--- OUTSIDE RECORDS SUMMARY | 2025-05-07 14:53 | XMS_ITS | Encounter Summary ---
Author Organization [facility] Address [address] [place] [address] Care Team Providers Care Manager Agency Name Role Phone Vinay Munoz MD Primary Care Provider Encounter Details Date Type Department Care Team (Latest Contact Info) Description 09/21/2006 Outpatient Historical [facility] Internal Medicine [facility] [address] [facility] [address] [place] [address] Wayne Duncan MD [address] [place] [address] DM w/o Complication Type II, Uncontrolled (Primary Dx) Social History Tobacco Use Types Packs/Day Years Used Date Smoking Tobacco: Never Assessed Sex and Gender Information Value Date Recorded Sex Assigned at Male 11/21/2023 3:02 PM METAL ENGRAVER Legal Sex Male 5:20 AM METAL ENGRAVER Gender Identity Male 11/21/2023 3:02 PM METAL ENGRAVER Sexual Orientation Straight 11/21/2023 3: 02 PM METAL ENGRAVER documented as of this encounter Plan of Treatment Upcoming Encounters Date Type Department Care Team (Late st Contact Info) Description 05/20/2025 10:15 AM CDT Office Visit [facility] Endocrinology [address] [place] [address] Rosa Cortez MD [address] [place] [address] 08/18/2025 3:15 PM METAL ENGRAVER Office Visit [facility] Endocrinology [address] [place] [address] Rosa Cortez MD [address] [facility] [address] [facility] [address] [place] [address] 11/12/2025 12:30 PM METAL ENGRAVER Office Visit [facility] Neurology [address] [facility] [address] [place] [phone] Wallace Church MD [address] [facility] [address] [place] [address] 11/25/2025 3:15 PM METAL ENGRAVER Office Visit [facility] Endocrinology [address] [place] [address] Rosa Cortez MD [address] [address] 02/10/2026 11:15 AM CDT Office Visit [facility] Endocrinology [address] [place] [address] Rosa Cortez MD [address] [address] documented as of this encounter Procedures Procedure Name Priority Date/Time Associated Diagnosis Comments PSA Routine 09/21/2006 10:39 AM METAL ENGRAVER HEMOGLOBIN A1C Routine 09/21/2006 10:39 AM METAL ENGRAVER BASIC METABOLIC PANEL Routine 09/21/2006 10:39 AM METAL ENGRAVER documented in this encounter Results * (ABNORMAL) HEMOGLOBIN A1C (09/21/2006 10:39 AM METAL ENGRAVER) HEMOGLOBIN A1C 7.3(H) 4.1 - 6.1 % of Hgb INTERFACE SYSTEM GLUCOSE, MEAN BLOOD 183 mg/dL INTERFACE SYSTEM 09/21/2006 10:3 9 AM METAL ENGRAVER Wayne Duncan MD CHEMISTRY ORDERABLES Final Res ult Performing Organization Address [facility] Phone Number INTERFACE SYSTEM Refer to clinic/hospital department * (ABNORMAL) BASIC METABOLIC PANEL (09/21/2006 10:39 AM METAL ENGRAVER) GLUCOSE 158(H) 65 - 99 mg/dL INTERFACE [...] and non- Americans is available on the [facility] Intranet at: [email or web address] hospital at danversModel [email or web address] health university medical [email or web address] Select: Lab Policies and Procedures Select: Reference Ranges - GFR 09/21/2006 10:3 9 AM METAL ENGRAVER Wayne Duncan MD CHEMISTRY ORDERABLES Final Res ult Performing Organization Address [facility] Phone Number INTERFACE SYSTEM Refer to clinic/hospital department * PSA (09/21/2006 10:39 AM METAL ENGRAVER) PSA 1.3 0.0 - 4.0 ng/mL INTERFACE SYSTEM Comment:Performed on [employer] E170 System 09/21/2006 10:3 9 AM METAL ENGRAVER us Wayne Duncan MD CHEMISTRY ORDERABLES Final Res ult Performing Organization Address [facility] Phone Number INTERFACE SYSTEM Refer to clinic/hospital department documented in this encounter Visit Diagnoses Diagnosis Type II or unspecified type diabetes mellitus without mention of complication, uncontrolled- Primary documented in this encounter Care Teams Manager Agency Relationship Specialty Start Date End Date Vinay Munoz MD [address] [place] [phone] PCP - General Family Practice 11/19/24 documented as of this encounter
--- OUTSIDE RECORDS SUMMARY | 2025-05-07 14:53 | XMS_ITS | Encounter Summary ---
Author Organization [facility] Address [address] [place] [address] Care Team Providers Care Video System Repairer Name Role Phone Vinay Munoz MD Primary Care Provider [phone] Encounter Details Date Type Department Care Team (Latest Contact Info) Description 09/19/2008 Outpatient Historical [facility] Wayne Tucker MD [address] [place] [address] DM w/o Complication Type II, Uncontrolled Social History Tobacco Use Types Packs/Day Years Used Date Smoking Tobacco: Never Alcohol Use Standard Drinks/Week Comments Yes 0 (1 standard drink = 0.6 oz pur e alcohol) Sex and Gender Information Value Date Recorded Sex Assigned at Male 11/21/2023 3:02 PM TIPPLE SUPERVISOR Legal Sex Male 5:20 AM TIPPLE SUPERVISOR Gender Identity Male 11/21/2023 3:02 PM TIPPLE SUPERVISOR Sexual Orientation Straight 11/21/2023 3: 02 PM TIPPLE SUPERVISOR documented as of this encounter Plan of Treatment Upcoming Encounters Date Type Department Care Team (Late st Contact Info) Description 05/20/2025 10:15 AM CDT Office Visit [facility] Endocrinology [address] [place] [address] Rosa Cortez MD [address] [place] [address] 08/18/2025 3:15 PM TIPPLE SUPERVISOR Office Visit [facility] Endocrinology [address] [place] [address] Rosa Cortez MD [address] [facility] [address] [place] [address] 11/12/2025 12:30 PM TIPPLE SUPERVISOR Office Visit [facility] Neurology [address] [facility] [address] [place] [phone] Wallace Church MD [address] [facility] [address] [place] [address] 11/25/2025 3:15 PM TIPPLE SUPERVISOR Office Visit [facility] Endocrinology [address] [facility] [address] [facility] [address] [place] [address] Rosa Cortez MD [address] [address] 02/10/2026 11:15 AM CDT Office Visit [facility] Endocrinology [address] [facility] [address] [place] [address] Rosa Cortez MD [address] [address] documented as of this encounter Visit Diagnoses Diagnosis Type II or unspecified type diabetes mellitus without mention of complication, uncontrolled documented in this encounter Care Teams Video System Repairer Relationship Specialty Start Date End Date Vinay Munoz MD [address] [place] [address] PCP - General Family Practice 11/19/24 documented as of this encounter
--- OUTSIDE RECORDS SUMMARY | 2025-05-07 14:53 | XMS_ITS | Encounter Summary ---
Author Organization [facility] Address [address] [place] [address] Care Team Providers Care Call Center Support Consultant Name Role Phone Vinay Munoz MD Primary Care Provider Encounter Details Date Type Department Care Team (Latest Contact Info) Description 08/21/2007 Outpatient Historical [facility] Internal Medicine [facility] [address] [facility] [address] [place] [address] Wayne Duncan MD [address] [place] [address] DM w/o Complication Type II, Uncontrolled (Primary Dx) Social History Tobacco Use Types Packs/Day Years Used Date Smoking Tobacco: Never Assessed Sex and Gender Information Value Date Recorded Sex Assigned at Male 11/21/2023 3:02 PM BIOPHARMACEUTICAL REP Legal Sex Male 5:20 AM BIOPHARMACEUTICAL REP Gender Identity Male 11/21/2023 3:02 PM BIOPHARMACEUTICAL REP Sexual Orientation Straight 11/21/2023 3: 02 PM BIOPHARMACEUTICAL REP documented as of this encounter Plan of Treatment Upcoming Encounters Date Type Department Care Team (Late st Contact Info) Description 05/20/2025 10:15 AM CDT Office Visit [facility] Endocrinology [address] [place] [address] Rosa Cortez MD [address] [place] [address] 08/18/2025 3:15 PM BIOPHARMACEUTICAL REP Office Visit [facility] Endocrinology [address] [place] [address] Rosa Cortez MD [address] [facility] [address] [place] [address] 11/12/2025 12:30 PM BIOPHARMACEUTICAL REP Office Visit [facility] Neurology [address] [facility] [address] [place] [phone] Wallace Church MD [address] [facility] [address] [place] [address] 11/25/2025 3:15 PM BIOPHARMACEUTICAL REP Office Visit [facility] Endocrinology [address] [place] [address] Rosa Cortez MD [address] [address] 02/10/2026 11:15 AM CDT Office Visit [facility] Endocrinology [address] [place] [address] Rosa Cortez MD [address] [address] documented as of this encounter Procedures Procedure Name Priority Date/Time Associated Diagnosis Comments PSA Routine 08/21/2007 9:34 AM BIOPHARMACEUTICAL REP HEMOGLOBIN A1C Routine 08/21/2007 9:34 AM BIOPHARMACEUTICAL REP LIPID PANEL Routine 08/21/2007 9:34 AM BIOPHARMACEUTICAL REP COMPREHENSIVE METABOLIC PANEL Routine 08/21/2007 9:34 AM BIOPHARMACEUTICAL REP documented in this encounter Results * (ABNORMAL) HEMOGLOBIN A1C (08/21/2007 9:34 AM BIOPHARMACEUTICAL REP) HEMOGLOBIN A1C 7.8(H) 4.1 - 6.1 % of Hgb INTERFACE SYSTEM GLUCOSE, MEAN BLOOD 200 mg/dL INTERFACE SYSTEM 08/21/2007 9:34 AM BIOPHARMACEUTICAL REP Wayne Duncan MD CHEMISTRY ORDERABLES Edited INTERFACE SYSTEM Refer to clinic/hospital department * (ABNORMAL) COMPREHENSIVE METABOLIC PANEL (08/21/2007 9:34 AM BIOPHARMACEUTICAL REP) GLUCOSE 178(H) 65 - 99 mg/dL INTERFACE [...] and non- Americans is available on the [facility] Intranet at: [email or web address] Select: Lab Policies and Procedures Select: Reference Ranges - GFR 08/21/2007 9:34 AM BIOPHARMACEUTICAL REP us Wayne Duncan MD CHEMISTRY ORDERABLES Edited INTERFACE SYSTEM Refer to clinic/hospital department * (ABNORMAL) LIPID PANEL (08/21/2007 9:34 AM BIOPHARMACEUTICAL REP) CHOLESTEROL 174 100 - 199 mg/dL INTERFACE SYSTEM TRIGLYCERIDE 79 10 - 149 mg/dL INTERFACE SYSTEM HDL 46 40 - 59 mg/dL INTERFACE SYSTEM CHOL/HDL RATIO 3.8 2.0 - 5.0 INTER FACE SYSTEM LDL CALCULATED 112(H) <=99 mg/dL INTERFACE SYSTEM LIPID PANEL COMMENT See Below INTERFACE SYSTEM Comment: The adult ATP and pediatric NCEP classifications for lipids are available on the [facility] Intranet at: [email or web address] Select: Lab Policies and Procedures,Current Select: Lipid Panel Interpretation 08/21/2007 9:34 AM BIOPHARMACEUTICAL REP Wayne Duncan MD CHEMISTRY ORDERABLES Edited Performing Organization Address [facility] Co de Phone Number INTERFACE SYSTEM Refer to clinic/hospital department * PSA (08/21/2007 9:34 AM BIOPHARMACEUTICAL REP) PSA 1.3 0.0 - 4.0 ng/mL INTERFACE SYSTEM Comment:Performed on [email or web address] E170 System 08/21/2007 9:34 AM BIOPHARMACEUTICAL REP Wayne Duncan MD CHEMISTRY ORDERABLES Edited Performing Organization Address [facility] [place] Phone Number INTERFACE SYSTEM Refer to clinic/hospital department documented in this encounter Visit Diagnoses Diagnosis Type II or unspecified type diabetes mellitus without mention of complication, uncontrolled- Primary documented in this encounter Care Teams Call Center Support Consultant Relationship Specialty Start Date End Date Vinay Munoz MD [address] [place] [address] PCP - General Family Practice 11/19/24 documented as of this encounter
--- OUTSIDE RECORDS SUMMARY | 2025-05-07 14:53 | XMS_ITS | Encounter Summary ---
Author Organization [facility] Address [address] [place] [address] Care Team Providers Care Braid Cutter Name Role Phone Vinay Munoz MD Primary Care Provider Encounter Details Date Type Department Care Team (Latest Contact Info) Description 06/02/2006 Outpatient Historical [facility] Internal Medicine [facility] [address] [place] [address] Wayne Duncan MD [address] [place] [address] DM w/o Complication Type II, Uncontrolled (Primary Dx) Social History Tobacco Use Types Packs/Day Years Used Date Smoking Tobacco: Never Assessed Sex and Gender Information Value Date Recorded Sex Assigned at Male 11/21/2023 3:02 PM FUR CLEANER Legal Sex Male 5:20 AM FUR CLEANER Gender Identity Male 11/21/2023 3:02 PM FUR CLEANER Sexual Orientation Straight 11/21/2023 3: 02 PM FUR CLEANER documented as of this encounter Plan of Treatment Upcoming Encounters Date Type Department Care Team (Late st Contact Info) Description 05/20/2025 10:15 AM CDT Office Visit [facility] Endocrinology [address] [place] [address] Rosa Cortez MD [address] [place] [address] 08/18/2025 3:15 PM FUR CLEANER Office Visit [facility] Endocrinology [address] [place] [address] Rosa Cortez MD [address] [place] [address] 11/12/2025 12:30 PM FUR CLEANER Office Visit [facility] Neurology [address] [place] [address] Wallace Church MD [address] [address] [place] [address] 11/25/2025 3:15 PM FUR CLEANER Office Visit [facility] Endocrinology [address] [place] [address] Rosa Cortez MD [address] [address] 02/10/2026 11:15 AM CDT Office Visit [facility] Endocrinology [address] [place] [address] Rosa Cortez MD [address] [address] documented as of this encounter Procedures Procedure [...] URINE ORDERABLES Final Result Performing Organization Address [facility] Co de Phone Number INTERFACE SYSTEM Refer to clinic/hospital department * (ABNORMAL) HEMOGLOBIN A1C (06/02/2006 9:37 AM CDT) HEMOGLOBIN A1C 7.4(H) 3.9 - 6.1 % of Hgb INTERFACE SYSTEM GLUCOSE, MEAN BLOOD 160 mg/dL INTERFACE SYSTEM 06/02/2006 9:37 AM CDT Wayne Duncan MD CHEMISTRY ORDERABLES Final Res ult Performing Organization Address [facility] Co de Phone Number INTERFACE SYSTEM Refer to clinic/hospital department documented in this encounter Visit Diagnoses Diagnosis Type II or unspecified type diabetes mellitus without mention of complication, uncontrolled- Primary documented in this encounter Care Teams Braid Cutter Relationship Specialty Start Date End Date Vinay Munoz MD [address] [place] [address] PCP - General Family Practice 11/19/24 documented as of this encounter
--- OUTSIDE RECORDS SUMMARY | 2025-05-07 14:53 | XMS_ITS | Encounter Summary ---
Author Organization [facility] Address [address] [place] [address] Care Team Providers Care Petroleum Sampler Name Role Phone Vinay Munoz MD Primary Care Provider [phone] Encounter Details Date Type Department Care Team (Late st Contact Info) Description 08/21/2007 Outpatient Historical [facility] Internal Medicine [facility] [address] [place] [address] Wayne Duncan MD [address] [place] [address] Social History Tobacco Use Types Packs/Day Years Used Date Smoking Tobacco: Never Assessed Sex and Gender Information Value Date Recorded Sex Assigned at Male 11/21/2023 3:02 PM INVESTOR RELATIONS DIRECTOR Legal Sex Male 5:20 AM INVESTOR RELATIONS DIRECTOR Gender Identity Male 11/21/2023 3:02 PM INVESTOR RELATIONS DIRECTOR Sexual Orientation Straight 11/21/2023 3: 02 PM INVESTOR RELATIONS DIRECTOR documented as of this encounter Last Filed Vital Signs Vital Sign Reading Time Taken Comments Blood Pressure 160/84 08/21/2007 9:00 AM INVESTOR RELATIONS DIRECTOR Pulse 76 08/21/2007 9:00 AM INVESTOR RELATIONS DIRECTOR Temperature 35.8 C (96.4 F) 08/21/2007 9:00 AM INVESTOR RELATIONS DIRECTOR Respiratory Rate 16 08/21/2007 9:00 AM INVESTOR RELATIONS DIRECTOR Oxygen Saturation - - Inhaled Oxygen Concentration - - Weight 80.3 kg (177 lb) 08/21/2007 9:00 AM INVESTOR RELATIONS DIRECTOR Height 182.9 cm (6') 08/21/2007 9:00 AM INVESTOR RELATIONS DIRECTOR Body Mass Index 24.01 08/21/2007 9:00 AM INVESTOR RELATIONS DIRECTOR documented in this encounter Plan of Treatment Upcoming Encounters Date Type Department Care Team (Late st Contact Info) Description 05/20/2025 10:15 AM CDT Office Visit [facility] Endocrinology [address] [place] [address] Rosa Cortez MD [address] [place] [address] 08/18/2025 3:15 PM INVESTOR RELATIONS DIRECTOR Office Visit [facility] Endocrinology [address] [place] [address] Rosa Cortez MD [address] [place] [address] 11/12/2025 12:30 PM INVESTOR RELATIONS DIRECTOR Office Visit [facility] Neurology [address] [place] [address] [place] [address] Wallace Church MD [address] [place] [address] 11/25/2025 3:15 PM INVESTOR RELATIONS DIRECTOR Office Visit [facility] Endocrinology [address] [place] [address] Rosa Cortez MD [address] [address] 02/10/2026 11:15 AM CDT Office Visit [facility] Endocrinology [address] [place] [address] Rosa Cortez MD [address] [place] [address] documented as of this encounter Visit Diagnoses Not on filedocumented in this encounter Care Teams Petroleum Sampler Relationship Specialty Start Date End Date Vinay Munoz MD [address] [place] [address] PCP - General Family Practice 11/19/24 documented as of this encounter
--- OUTSIDE RECORDS SUMMARY | 2025-05-07 14:53 | XMS_ITS | Encounter Summary ---
Author Organization [facility] Address [address] [place] [address] Care Team Providers Care Assembly Repairer Name Role Phone Vinay Munoz MD Primary Care Provider Encounter Details Date Type Department Care Team (Latest Contact Info) Description 04/27/2007 Outpatient Historical [facility] Internal Medicine [facility] [address] [place] [address] Wayne Duncan MD [address] [place] [address] DM w/o Complication Type II, Uncontrolled (Primary Dx) Social History Tobacco Use Types Packs/Day Years Used Date Smoking Tobacco: Never Assessed Sex and Gender Information Value Date Recorded Sex Assigned at Male 11/21/2023 3:02 PM RESIDENTIAL CARE OFFICER Legal Sex Male 5:20 AM RESIDENTIAL CARE OFFICER Gender Identity Male 11/21/2023 3:02 PM RESIDENTIAL CARE OFFICER Sexual Orientation Straight 11/21/2023 3: 02 PM RESIDENTIAL CARE OFFICER documented as of this encounter Plan of Treatment Upcoming Encounters Date Type Department Care Team (Late st Contact Info) Description 05/20/2025 10:15 AM CDT Office Visit [facility] Endocrinology [address] [place] [address] Rosa Cortez MD [address] [place] [address] 08/18/2025 3:15 PM RESIDENTIAL CARE OFFICER Office Visit [facility] Endocrinology [address] [place] [address] Rosa Cortez MD [address] [facility] [address] [place] [address] 11/12/2025 12:30 PM RESIDENTIAL CARE OFFICER Office Visit [facility] Neurology [address] [facility] [address] [place] [address] Wallace Church MD [address] [facility] [address] [place] [address] 11/25/2025 3:15 PM RESIDENTIAL CARE OFFICER Office Visit [facility] Endocrinology [address] [place] [address] Rosa Cortez MD [address] [address] 02/10/2026 11:15 AM CDT Office Visit [facility] Endocrinology [address] [facility] [address] [place] [address] Rosa Cortez MD [address] [address] documented as of this encounter Procedures Procedure Name Priority Date/Time Associated Diagnosis Comments HEMOGLOBIN A1C Routine 04/27/2007 9:18 AM CDT HEPATIC FUNCTION PANEL Routine 04/27/2007 9:18 AM CDT documented in this encounter Results * (ABNORMAL) HEMOGLOBIN A1C (04/27/2007 9:18 AM CDT) HEMOGLOBIN A1C 6.9(H) 4.1 - 6.1 % of Hgb INTERFACE SYSTEM GLUCOSE, MEAN BLOOD 168 mg/dL INTERFACE SYSTEM 04/27/2007 9:18 AM CDT Wayne Duncan MD CHEMISTRY ORDERABLES Edited Performing Organization Address City/[facility] Co de Phone Number INTERFACE SYSTEM [...] mg/dL INTERFACE SYSTEM 04/27/2007 9:18 AM CDT Wayne Duncan MD CHEMISTRY ORDERABLES Edited Performing Organization Address [facility] de Phone Number INTERFACE SYSTEM Refer to clinic/hospital department documented in this encounter Visit Diagnoses Diagnosis Type II or unspecified type diabetes mellitus without mention of complication, uncontrolled- Primary documented in this encounter Care Teams Assembly Repairer Relationship Specialty Start Date End Date Vinay Munoz MD [address] [place] [address] PCP - General Family Practice 11/19/24 documented as of this encounter
--- OUTSIDE RECORDS SUMMARY | 2025-05-07 14:53 | XMS_ITS | Encounter Summary ---
Author Organization [facility] Address [address] [place] [address] Care Team Providers Care Technology Services Manager Name Role Phone Vinay Munoz MD Primary Care Provider Encounter Details Date Type Department Care Team (Late st Contact Info) Description 11/07/2008 Outpatient Historical [facility] Wayne Tucker MD [address] [place] [address] Hyperpotassemia Social History Tobacco Use Types Packs/Day Years Used Date Smoking Tobacco: Never Alcohol Use Standard Drinks/Week Comments Yes 0 (1 standard drink = 0.6 oz pur e alcohol) Sex and Gender Information Value Date Recorded Sex Assigned at Male 11/21/2023 3:02 PM GRADUATE STUDIES DEAN Legal Sex Male 5:20 AM GRADUATE STUDIES DEAN Gender Identity Male 11/21/2023 3:02 PM GRADUATE STUDIES DEAN Sexual Orientation Straight 11/21/2023 3: 02 PM GRADUATE STUDIES DEAN documented as of this encounter Plan of Treatment Upcoming Encounters Date Type Department Care Team (Late st Contact Info) Description 05/20/2025 10:15 AM CDT Office Visit [facility] Endocrinology [address] [place] [address] Rosa Cortez MD [address] [place] [address] 08/18/2025 3:15 PM GRADUATE STUDIES DEAN Office Visit [facility] Endocrinology [address] [place] [address] Rosa Cortez MD [address] [place] [address] 11/12/2025 12:30 PM GRADUATE STUDIES DEAN Office Visit [facility] Neurology [address] [place] [address] Wallace Church MD [address] [place] [address] 11/25/2025 3:15 PM GRADUATE STUDIES DEAN Office Visit [facility] Endocrinology [address] [place] [address] Rosa Cortez MD [address] [address] 02/10/2026 11:15 AM CDT Office Visit [facility] Endocrinology [address] [place] [address] Rosa Cortez MD [address] [address] documented as of this encounter Visit Diagnoses Diagnosis Hyperpotassemia documented in this encounter Care Teams Technology Services Manager Relationship Specialty Start Date End Date Vinay Munoz MD [address] [place] [address] PCP - General Family Practice 11/19/24 documented as of this encounter
--- OUTSIDE RECORDS SUMMARY | 2025-05-07 14:53 | XMS_ITS | Encounter Summary ---
Author Organization [facility] Address [address] [place] [address] Care Team Providers Care Investigation Clerk Name Role Phone Vinay Munoz MD Primary Care Provider [phone] Encounter Details Date Type Department Care Team (Latest Contact Info) Description 11/21/2007 Outpatient Historical [facility] Internal Medicine [facility] [address] [address] [place] [address] Wayne Duncan MD [address] [place] [address] DM w/o Complication Type II, Uncontrolled Social History Tobacco Use Types Packs/Day Years Used Date Smoking Tobacco: Never Assessed Sex and Gender Information Value Date Recorded Sex Assigned at Male 11/21/2023 3:02 PM ADJUNCT PROFESSOR OF LAW Legal Sex Male 5:20 AM ADJUNCT PROFESSOR OF LAW Gender Identity Male 11/21/2023 3:02 PM ADJUNCT PROFESSOR OF LAW Sexual Orientation Straight 11/21/2023 3: 02 PM ADJUNCT PROFESSOR OF LAW documented as of this encounter Plan of Treatment Upcoming Encounters Date Type Department Care Team (Late st Contact Info) Description 05/20/2025 10:15 AM CDT Office Visit [facility] Endocrinology [address] [place] [address] Rosa Cortez MD [address] [place] [address] 08/18/2025 3:15 PM ADJUNCT PROFESSOR OF LAW Office Visit [facility] Endocrinology [address] [place] [address] Rosa Cortez MD [address] [facility] [address] [place] [address] 11/12/2025 12:30 PM ADJUNCT PROFESSOR OF LAW Office Visit [facility] Neurology [address] [facility] [address] [place] [address] Wallace Church MD [address] [facility] [address] [place] [address] 11/25/2025 3:15 PM ADJUNCT PROFESSOR OF LAW Office Visit [facility] Endocrinology [address] [place] [address] Rosa Cortez MD [address] [address] 02/10/2026 11:15 AM CDT Office Visit [facility] Endocrinology [address] [place] [address] Rosa Cortez MD [address] [address] documented as of this encounter Procedures Procedure Name Priority Date/Time Associated Diagnosis Comments MICROALBUMIN/CREATIN INE RATIO, RANDOM UR Routine 11/21/2007 9:24 AM ADJUNCT PROFESSOR OF LAW HEMOGLOBIN A1C Routine 11/21/2007 9:24 AM ADJUNCT PROFESSOR OF LAW HEPATIC FUNCTION PANEL Routine 11/21/2007 9:24 AM ADJUNCT PROFESSOR OF LAW documented in this encounter Results * HEPATIC FUNCTION PANEL (11/21/2007 9:24 AM ADJUNCT PROFESSOR OF LAW) BILIRUBIN DIRECT 0.1 0.0 - 0.3 mg/dL [facility] AST 20 12 - 38 U/L [facility] ALBUMIN 4.2 3.4 - 4.8 g/dL [facility] ALT 24 0 - 41 U/L [facility] ALKALINE PHOSPHATASE 79 40 - 129 U/L [facility] BILIRUBIN TOTAL 0.3 0.2 - 1.0 mg/dL [facility] TOTAL PROTEIN 6.7 6.3 - 8.6 g/dL [facility] Blood specimen (specimen) 11/21/2007 9:24 AM ADJUNCT PROFESSOR OF LAW 11/21/2007 12:23 PM ADJUNCT PROFESSOR OF LAW Wayne Duncan MD CHEMISTRY ORDERABLES Final Res ult Performing Organization Address [facility] Co de Phone Number [facility] [address] [place] [address] * MICROALBUMIN/CREATININE RATIO, RANDOM UR (11/21/2007 9:24 AM ADJUNCT PROFESSOR OF LAW) MICROALBUMIN/C REAT RATIO, UR 11 0 - 29 mg/g creatinine [facility] Urine specimen (specimen) 11/21/2007 9:24 AM ADJUNCT PROFESSOR OF LAW 11/21/2007 12:16 PM ADJUNCT PROFESSOR OF LAW us Wayne Duncan MD URINE ORDERABLES Final Result Performing Organization Address [facility] Co de Phone Number [facility] [address] [place] [address] * (ABNORMAL) HEMOGLOBIN A1C (11/21/2007 9:24 AM ADJUNCT PROFESSOR OF LAW) GLUCOSE, MEAN BLOOD 197 mg/dL [facility] HEMOGLOBIN A1C 7.7(H) 4.1 - 6.1 % of Hgb [facility] Blood specimen (specimen) 11/21/2007 9:24 AM ADJUNCT PROFESSOR OF LAW 11/21/2007 12:23 PM ADJUNCT PROFESSOR OF LAW Wayne Duncan MD CHEMISTRY ORDERABLES Final Res ult [facility] [address] [place] [address] documented in this encounter Visit Diagnoses Diagnosis Type II or unspecified type diabetes mellitus without mention of complication, uncontrolled documented in this encounter Care Teams Investigation Clerk Relationship Specialty Start Date End Date Vinay Munoz MD [address] [place] [address] PCP - General Family Practice 11/19/24 documented as of this encounter
--- OUTSIDE RECORDS SUMMARY | 2025-05-07 14:53 | XMS_ITS | Encounter Summary ---
Author Organization [facility] Address [address] [place] [address] Care Team Providers Care Stereo Equipment Repairer Name Role Phone Vinay Munoz MD Primary Care Provider [phone] Encounter Details Date Type Department Care Team (Late st Contact Info) Description 11/23/2007 Orders Only [facility] [address] [address] [place] [address] Wayne Duncan MD [address] [place] [address] Social History Tobacco Use Types Packs/Day Years Used Date Smoking Tobacco: Never Assessed Sex and Gender Information Value Date Recorded Sex Assigned at Male 11/21/2023 3:02 PM DISPENSER OPERATOR Legal Sex Male 5:20 AM DISPENSER OPERATOR Gender Identity Male 11/21/2023 3:02 PM DISPENSER OPERATOR Sexual Orientation Straight 11/21/2023 3: 02 PM DISPENSER OPERATOR documented as of this encounter Plan of Treatment Upcoming Encounters Date Type Department Care Team (Late st Contact Info) Description 05/20/2025 10:15 AM CDT Office Visit [facility] Endocrinology [address] [place] [address] Rosa Cortez MD [address] [place] [address] 08/18/2025 3:15 PM DISPENSER OPERATOR Office Visit [facility] Endocrinology [address] [place] [address] Rosa Cortez MD [address] [place] [address] 11/12/2025 12:30 PM DISPENSER OPERATOR Office Visit [facility] Neurology [address] [place] [address] Wallace Church MD [address] [place] [address] 11/25/2025 3:15 PM DISPENSER OPERATOR Office Visit [facility] Endocrinology [address] [place] [address] Rosa Cortez MD [address] [address] 02/10/2026 11:15 AM CDT Office Visit [facility] Endocrinology [address] [place] [address] Rosa Cortez MD [address] [address] documented as of this encounter Visit Diagnoses Not on filedocumented in this encounter Care Teams Stereo Equipment Repairer Relationship Specialty Start Date End Date Vinay Munoz MD [address] [place] [address] PCP - General Family Practice 11/19/24 documented as of this encounter
--- OUTSIDE RECORDS SUMMARY | 2025-05-07 14:53 | XMS_ITS | Encounter Summary ---
Author Organization [facility] Address [address] [place] [address] Care Team Providers Care It Specialist Name Role Phone Vinay Munoz MD Primary Care Provider [phone] Encounter Details Date Type Department Care Team (Late st Contact Info) Description 11/21/2007 Outpatient Historical [facility] Internal Medicine [facility] [address] [facility] [address] [place] [address] Wayne Duncan MD [address] [place] [address] Social History Tobacco Use Types Packs/Day Years Used Date Smoking Tobacco: Never Assessed Sex and Gender Information Value Date Recorded Sex Assigned at Male 11/21/2023 3:02 PM HEADING SAW OPERATOR Legal Sex Male 5:20 AM HEADING SAW OPERATOR Gender Identity Male 11/21/2023 3:02 PM HEADING SAW OPERATOR Sexual Orientation Straight 11/21/2023 3: 02 PM HEADING SAW OPERATOR documented as of this encounter Plan of Treatment Upcoming Encounters Date Type Department Care Team (Late st Contact Info) Description 05/20/2025 10:15 AM CDT Office Visit [facility] Endocrinology [address] [place] [address] Rosa Cortez MD [address] [place] [address] 08/18/2025 3:15 PM HEADING SAW OPERATOR Office Visit [facility] Endocrinology [address] [place] [address] Rosa Cortez MD [address] [place] [address] 11/12/2025 12:30 PM HEADING SAW OPERATOR Office Visit [facility] Neurology [address] [place] [address] Wallace Church MD [address] [place] [address] 11/25/2025 3:15 PM HEADING SAW OPERATOR Office Visit [facility] Endocrinology [address] [place] [address] Rosa Cortez MD [address] [address] 02/10/2026 11:15 AM CDT Office Visit [facility] Endocrinology [address] [place] [address] Rosa Cortez MD [address] [address] documented as of this encounter Visit Diagnoses Not on filedocumented in this encounter Care Teams It Specialist Relationship Specialty Start Date End Date Vinay Munoz MD [address] [place] [address] PCP - General Family Practice 11/19/24 documented as of this encounter
--- OUTSIDE RECORDS SUMMARY | 2025-05-07 14:53 | XMS_ITS | Encounter Summary ---
Author Organization [facility] Address [address] [place] [address] Care Team Providers Care Instructional Supervisor Name Role Phone Vinay Munoz MD Primary Care Provider [phone] Encounter Details Date Type Department Care Team (Late st Contact Info) Description 03/30/2007 Orders Only [facility] [id number] [place] [address]. [address] [place] [address] Wayne Duncan MD [address] [place] [address] Social History Tobacco Use Types Packs/Day Years Used Date Smoking Tobacco: Never Assessed Sex and Gender Information Value Date Recorded Sex Assigned at Male 11/21/2023 3:02 PM LAW LIBRARIAN Legal Sex Male 5:20 AM LAW LIBRARIAN Gender Identity Male 11/21/2023 3:02 PM LAW LIBRARIAN Sexual Orientation Straight 11/21/2023 3: 02 PM LAW LIBRARIAN documented as of this encounter Progress Notes * Wayne Duncan MD - 02/27/2008 5:36 PM CDT TIME:08:08 am PATIENT`S HOME PHONE: PATIENT`S WORK PHONE: PATIENT`S INSURANCE: [employer] WHO TOOK THE CALL: Kalyani Pfeiffer K GENERAL INFORMATION PCP: ANA MARIA. ALTERNATIVE PHONE NUMBER: [phone] WHO CALLED: Patient called. PHARMACY NUMBER: [phone] SECTION 1: REQUESTED ACTION paige 03/30/07 at 08:09 am: MEDICATION REQUEST: Patient requests a refill. MEDICATIONS: LANTUS SUBCUTANEOUS SOLUTION 100 UNIT/ML, 24 units qd, 1 Dispensed, status: NEW HISTORY, 09/21/2006. Would like a 1 month supply BRAD DOCTOR`S RESPONSE: eduarda 03/30/07 at 08:24 am [...] Description 05/20/2025 10:15 AM CDT Office Visit [facility] Endocrinology [address] [place] [address] Rosa Cortez MD [address] [address] 08/18/2025 3:15 PM LAW LIBRARIAN Office Visit [facility] Endocrinology [address] [place] [address] Rosa Cortez MD [address] [address] 11/12/2025 12:30 PM LAW LIBRARIAN Office Visit [facility] Neurology [address] [facility] [address] [place] [phone] Wallace Church MD [address] [place] [address] 11/25/2025 3:15 PM LAW LIBRARIAN Office Visit [facility] Endocrinology [address] [place] [address] Rosa Cortez MD [address] [address] 02/10/2026 11:15 AM CDT Office Visit [facility] Endocrinology [address] [place] [phone] Rosa Cortez MD [address] [place], [place] [phone] documented as of this encounter Visit Diagnoses Not on filedocumented in this encounter Care Teams Instructional Supervisor Relationship Specialty Start Date End Date Vinay Munoz MD [address] [place] [address] PCP - General Family Practice 11/19/24 documented as of this encounter
--- OUTSIDE RECORDS SUMMARY | 2025-05-07 14:53 | XMS_ITS | Clinical Summary ---
Author Organization [facility] Address [address] [place] [address] Care Team Providers Care Clip Bolter And Wrapper Name Role Phone Vinay Munoz MD Primary Care Provider [phone] Allergies Active Allergy Reactions Criticality Noted Date [...] lantus is due 15 mL 3 Active Additional Information Patient not taking.Reported on 05/02/2025 semaglutide (Ozempic) 0.25 mg or 0.5 mg (2 mg/3 mL) Pen Injector 0.5 mg weekly 3 mL 6 4 Active memantine (NAMENDA) 5 mg TabletIndicatio ns:Mild cognitive impairment Take 1 Tablet (5 mg) by mouth 2 times daily. 180 Tablet 3 4 Active Cephalexin 250 mg Tablet 4 times a day. 28 Tablet 5 Active NovoLOG U-100 Insulin aspart 100 unit/mL vial INJECT UP TO 300 UNITS UNDER THE SKIN VIA CONTINUOUS INFUSION EVERY THIRD DAY DIRECTED 90 mL 3 5 Active QUEtiapine (SEROquel) 25 mg tabletIndicatio ns:Irritability Take 1 Tablet (25 mg) by mouth daily at bedtime. 90 Tablet 1 5 Active Active Problems Problem Noted Date Diagnosed [...] Encounters Date Type Department Care Team Description 05/02/2025 3:00 PM CDT Office Visit [facility] Neurology [address] [place] [address] Wallace Church MD Mild cognitive impairment (Primary Dx); Irritability 04/23/2025 External Device Data STL ABSTRACTION Provider, Abstract 04/23/2025 External Device Data STL ABSTRACTION Provider, Abstract 04/04/2025 Refill [facility] Endocrinology [address] [place] [phone] Rosa Cortez MD 03/26/2025 External Device Data STL ABSTRACTION Provider, Abstract 03/25/2025 External Device Data STL ABSTRACTION Provider, Abstract 03/18/2025 Results Follow-Up [facility] Endocrinology [address] [place] [address] Rosa Cortez MD HEMOGLOBIN A1C 02/27/2025 External Device Data STL ABSTRACTION Provider, Abstract 02/26/2025 External Device Data STL ABSTRACTION Provider, Abstract 02/25/2025 External Device Data STL ABSTRACTION Provider, Abstract 02/17/2025 1:30 PM CDT Office Visit [facility] Endocrinology [address] [place] [address] Rosa Cortez MD Type 1 diabetes mellitus with hyperglycemia, with long-term current use of insulin ([facility]) (Primary Dx); Insulin pump titration; HTN (hypertension), benign; Hyperlipidemia LDL goal <70; Skin infection from Last 3 Months Immunizations Immunization Administration [...] Sex Assigned at Male 11/21/2023 3:02 PM BOOKMAKER MAP Legal Sex Male 5:20 AM BOOKMAKER MAP Gender Identity Male 11/21/2023 3:02 PM BOOKMAKER MAP Sexual Orientation Straight 11/21/2023 3: 02 PM BOOKMAKER MAP Occupation Industry Job Start Date Job End Date Not on file Not on file Not on file Not on file Last Filed Vital Signs Vital Sign Reading Time Taken Comments Blood Pressure 134/76 05/02/2025 3:00 PM CDT Pulse 71 05/02/2025 3:00 PM CDT Temperature 36.5 C (97.7 F) 11/05/2015 12:44 PM BOOKMAKER MAP Respiratory Rate 16 05/02/2025 3:00 PM CDT Oxygen Saturation 96% 05/02/2025 3:00 PM CDT Inhaled Oxygen Concentration - - Weight 82.8 kg (182 lb 9.6 oz) 05/02/2025 3:00 P M CDT Height 182.9 cm (6') 05/02/2025 3:00 PM CDT Body Mass Index 24.77 05/02/2025 3:00 PM CDT Plan of Treatment Upcoming Encounters Date Type Department Care Team (Late st Contact Info) Description 05/20/2025 10:15 AM CDT Office Visit [facility] Endocrinology [address] [place] [phone] Rosa Cortez MD [address] [id number] 08/18/2025 3:15 PM BOOKMAKER MAP Office Visit [facility] Endocrinology [address] [facility] [place] [address] Rosa Cortez MD [address] [phone] 11/12/2025 12:30 PM BOOKMAKER MAP Office Visit [facility] Neurology [address] [facility] [address] [place] [phone] Wallace Church MD [address] [facility] [address] [place] [address] 11/25/2025 3:15 PM BOOKMAKER MAP Office Visit [facility] Endocrinology [address] [place] [address] Rosa Cortez MD [address] [id number] 02/10/2026 11:15 AM CDT Office Visit [facility] Endocrinology [address] [place] [address] Rosa Cortez MD [address] [place] [address] Health Maintenance Due Date Last Done Comments DTAP/TDAP/TD VACCINES (1 - Tdap) 1964 ZOSTER VACCINE (1 of 2) 1995 PNEUMOCOCCAL VACCINE 50+ YEA RS (2 of 2 - PCV) 07/19/2011 07/19/2010, 11/21/2007 RSV VACCINE (60+ or ) (1 - 1-dose 75+ series) 2020 INFLUENZA VACCINE (#1) 2025 , 06/01/2020, 07/29/2015, Additional history exists DIABETES MICROALBUMIN ANNUAL SCREEN 09/10/2025 09/10/2024, 05/28/2024, 11/22/2023, Additional history exists LDL CHOLESTEROL ANNUAL 09/10/2025 , 11/22/2023, 11/14/2022, Additional history exists DIABETES HBA1C Q 6 MONTHS 09/16/20252024, 12/12/2024, 09/10/2024, Additional history exists DIABETES ANNUAL RETINAL EXAM 10/16/202505/2025, 08/08/2024, 08/21/2023, Additional history exists DIABETES ANNUAL FOOT EXAM 02/17/20262024, 11/19/2024, 08/24/2023, Additional history exists COLORECTAL SCREENING Discontinued 12/07/2010, 11/16/19 11 Colorectal Cancer Screening Discontinued FIT-DNA Q 3 years Discontinued FIT/FOBT Q 1 year Discontinued Flex Sig/CT Colonography Q 5 years Discontinued Medical Devices Implanted Type Area Clearance Representative Device Identifier Shelf Expiration Date Model / Serial / Lot Sealant Floseal W/ Apdtr 5ml [id number] - [id number] Implanted:Qty : 1 on 07/08/2014 by Tim Hood MD at [facility] Sealant N/A: Spine Lumbar DE LEÓN- [employer] 05/07/2015 [id number] / / [id number] Procedures Procedure Name Priority Date/Time Associated Diagnosis Comments HEMOGLOBIN A1C Routine 03/17/2025 2:11 PM CDT Type 1 diabetes mellitus with hyperglycemia, with long-term current use of insulin ([facility]) HM DIABETES EYE EXAM Routine 10/16/2024 7:42 AM BOOKMAKER MAP MICROALBUMIN/CREATIN INE RATIO, RANDOM UR Routine 09/10/2024 12:03 PM BOOKMAKER MAP Type 1 diabetes mellitus with hyperglycemia, with long-term current use of insulin ([facility]) LIPID PANEL Routine 09/10/2024 11:56 AM BOOKMAKER MAP Type 1 diabetes mellitus with hyperglycemia, with long-term current use of insulin ([facility]) from Last 3 Months or Most Recently Relevant to Health Maintenance Results * (ABNORMAL) HEMOGLOBIN A1C (03/17/2025 2:11 PM CDT) HEMOGLOBIN A1C 7.4(H) <5.7 % of total Hgb [facility] Comment: For someone without known diabetes, [...] diabetes for children. ESTIMATED AVERAGE GLUCOSE (MG/DL) 166 mg/dL [facility] ESTIMATED AVERAGE GLUCOSE (MMOL/L) 9.2 mmol/L [facility] Comment: FASTING:NO FASTING: NO Test Performed at: [facility] [address] [place] [address] Sandra Brown Vo Blood 03/17/2025 2:11 PM CDT 03/17/2025 2:12 PM CDT us Rosa Cortez MD CHEMISTRY ORDERABLES Frances l Result [facility] [phone] [facility] [address] [place] [address] * DIABETES EYE EXAM (10/16/2024 7:42 AM BOOKMAKER MAP) Abstract Provider HEALTH MAINTENANCE Edited Resu lt - Final Performing Organization Address City/[facility]/ZIP Co de Phone Number [facility] * MICROALBUMIN/CREATININE RATIO, RANDOM UR (09/10/2024 12:03 PM BOOKMAKER MAP) Creatinine, Urine 83 20 - 320 mg/dL [facility] MICROALBUMIN, URINE 0.4 See Note: [...] within a diagnostic category. Test Performed at: [facility] [address] [address] Sandra Gorman MD Urine URINE SPECIMEN OBTAINED BY CLEAN CATCH PROCEDURE / Unknown 09/10/2024 12:03 PM BOOKMAKER MAP 09/10/2024 12:04 PM BOOKMAKER MAP Rosa Cortez MD URINE ORDERABLES Final Re sult [facility] [phone] [facility] [address] [address] * LIPID PANEL (09/10/2024 11:56 AM BOOKMAKER MAP) CHOLESTEROL 155 <200 mg/dL [facility] HDL 47 > OR = 40 mg/dL [facility] TRIGLYCERIDE 96 <150 mg/dL [facility] LDL CALCULATED 89 mg/dL (calc) [facility] Comment: Reference range: <100 Desirable range <100 mg/dL for primary prevention; <70 mg/dL for patients with CHD or diabetic patients with > or = 2 CHD risk factors. LDL-C is now calculated using the Pola-Gooden calculation, which is a validated novel method providing better accuracy than the Friedewald equation in the estimation of LDL-C. Pola SS et al. DENIZ. 2013;310(19): 5534-0385 (http://education.LoudClick/faq/OEM633) CHOL/HDL RATIO 3.3 <5.0 (calc) [facility] NON-HDL CHOLESTEROL 108 <130 mg/dL (calc) [facility] Comment: For patients with diabetes plus 1 major ASCVD risk factor, treating to a non-HDL-C goal of <100 mg/dL (LDL-C of <70 mg/dL) is considered a therapeutic option. Test Performed at: [facility] [id number] [place] [id number] Sandra Gorman MD Blood 09/10/2024 11:5 6 AM BOOKMAKER MAP 09/10/2024 11:56 AM BOOKMAKER MAP us Rosa Cortez MD CHEMISTRY ORDERABLES Frances l Result [facility] [phone] [address] from Last 3 Months or Most Recently Relevant to Health Maintenance Insurance [facility] [id number] RX OPTUM RX Member Subscriber Plan / Payer (Ef fective 2022-Present) Name:GenevaCurly Relation to Subscriber:Self Name:Curly Bean Payer ID:Not on file Group ID:[id number] Type:RX Medicare Part D Address: [address] Advance Directives For more information, please contact: [phone] Documents on File Type Date Recorded Patient Technical Illustrator Expl anation Advance Directive Living Will 07/04/2016 11:40 AM Advance Directive POA 08/22/2012 1:58 PM Advance Directive POA * Full Code (Latest Code Status on File) Date Activated Date Inactivated Comments 07/08/2014 6:39 AM 07/08/2014 1:49 PM Care Teams Clip Bolter And Wrapper Relationship Specialty Start Date End Date Vinay Munoz MD [address] [place] [address] PCP - General Family Practice 11/19/24
--- OUTSIDE RECORDS SUMMARY | 2025-05-07 14:54 | XMS_ITS | Encounter Summary ---
Author Organization [facility] Address [address] [place] [address] Care Team Providers Care Registered Public Surveyor Name Role Phone Vinay Munoz MD Primary Care Provider [phone] Encounter Details Date Type Department Care Team (Latest Contact Info) Description 03/21/2008 Outpatient Historical [facility] Wayne Tucker MD [address] [place] [address] Other and Unspecified Hyperlipidemia Social History Tobacco Use Types Packs/Day Years Used Date Smoking Tobacco: Never Alcohol Use Standard Drinks/Week Comments Yes 0 (1 standard drink = 0.6 oz pur e alcohol) Sex and Gender Information Value Date Recorded Sex Assigned at Male 11/21/2023 3:02 PM MODELING AGENCY MANAGER Legal Sex Male 5:20 AM MODELING AGENCY MANAGER Gender Identity Male 11/21/2023 3:02 PM MODELING AGENCY MANAGER Sexual Orientation Straight 11/21/2023 3: 02 PM MODELING AGENCY MANAGER documented as of this encounter Plan of Treatment Upcoming Encounters Date Type Department Care Team (Late st Contact Info) Description 05/20/2025 10:15 AM CDT Office Visit [facility] Endocrinology [address] [place] [address] Rosa Cortez MD [address] [place], [place] [phone] 08/18/2025 3:15 PM MODELING AGENCY MANAGER Office Visit [facility] Endocrinology [address] [place] [address] Rosa Cortez MD [address] [address] 11/12/2025 12:30 PM MODELING AGENCY MANAGER Office Visit [facility] Neurology [address] [facility] [address] [place] [phone] Wallace Church MD [address] [place] [phone] 11/25/2025 3:15 PM MODELING AGENCY MANAGER Office Visit [facility] Endocrinology [address] [place] [address] Rosa Cortez MD [address] [address] 02/10/2026 11:15 AM CDT Office Visit [facility] Endocrinology [address] [facility] [place] [address] Rosa Cortez MD [address] [address] documented as of this encounter Visit Diagnoses Diagnosis Other and unspecified hyperlipidemia documented in this encounter Care Teams Registered Public Surveyor Relationship Specialty Start Date End Date Vinay Munoz MD [address] [place] [phone] PCP - General Family Practice 11/19/24 documented as of this encounter
--- OUTSIDE RECORDS SUMMARY | 2025-05-07 14:54 | XMS_ITS | Encounter Summary ---
Author Organization [facility] Address [address] [place] [address] Care Team Providers Care Tax Staff Accountant Name Role Phone Vinay Munoz MD Primary Care Provider Encounter Details Date Type Department Care Team (Latest Contact Info) Description 07/13/2004 Outpatient Historical [facility], [address] Wayne Duncan MD [address] [place] [address] HEMATURIA (Primary Dx) Social History Tobacco Use Types Packs/Day Years Used Date Smoking Tobacco: Never Assessed Sex and Gender Information Value Date Recorded Sex Assigned at Male 11/21/2023 3:02 PM TELETYPEWRITER OPERATOR Legal Sex Male 5:20 AM TELETYPEWRITER OPERATOR Gender Identity Male 11/21/2023 3:02 PM TELETYPEWRITER OPERATOR Sexual Orientation Straight 11/21/2023 3: 02 PM TELETYPEWRITER OPERATOR documented as of this encounter Plan of Treatment Upcoming Encounters Date Type Department Care Team (Late st Contact Info) Description 05/20/2025 10:15 AM CDT Office Visit [facility] Endocrinology [address] [place] [address] Rosa Cortez MD [address] [place], [place] [address] 08/18/2025 3:15 PM TELETYPEWRITER OPERATOR Office Visit [facility] Endocrinology [address] [place] [address] Rosa Cortez MD [address] [place] [address] 11/12/2025 12:30 PM TELETYPEWRITER OPERATOR Office Visit [facility] Neurology [address] [place] [phone] Wallace Church MD [address] [place] [address] 11/25/2025 3:15 PM TELETYPEWRITER OPERATOR Office Visit [facility] Endocrinology [address] [place] [address] Rosa Cortez MD [address] [address] 02/10/2026 11:15 AM CDT Office Visit [facility] Endocrinology [address] [facility] [place] [address] Rosa Cortez MD [address] [phone] documented as of this encounter Visit Diagnoses Diagnosis Hematuria- Primary documented in this encounter Care Teams Tax Staff Accountant Relationship Specialty Start Date End Date Vinay Munoz MD [address] [place] [phone] PCP - General Family Practice 11/19/24 documented as of this encounter
--- OUTSIDE RECORDS SUMMARY | 2025-05-07 14:54 | XMS_ITS | Encounter Summary ---
Author Organization [facility] Address [address] [place] [address] Care Team Providers Care Animal Skinner Name Role Phone Vinay Munoz MD Primary Care Provider [phone] Encounter Details Date Type Department Care Team (Latest Contact Info) Description 11/12/2004 Outpatient Historical [facility] LAB, [address] Wayne Duncan MD [address] [place] [address] HYPERLIPIDEMIA NEC/NOS (Primary Dx) Social History Tobacco Use Types Packs/Day Years Used Date Smoking Tobacco: Never Assessed Sex and Gender Information Value Date Recorded Sex Assigned at Male 11/21/2023 3:02 PM ASSOCIATE PROFESSOR OF KINESIOLOGY Legal Sex Male 5:20 AM ASSOCIATE PROFESSOR OF KINESIOLOGY Gender Identity Male 11/21/2023 3:02 PM ASSOCIATE PROFESSOR OF KINESIOLOGY Sexual Orientation Straight 11/21/2023 3: 02 PM ASSOCIATE PROFESSOR OF KINESIOLOGY documented as of this encounter Plan of Treatment Upcoming Encounters Date Type Department Care Team (Late st Contact Info) Description 05/20/2025 10:15 AM CDT Office Visit [facility] Endocrinology [address] [place] [address] Rosa Cortez MD [address] [place] [address] 08/18/2025 3:15 PM ASSOCIATE PROFESSOR OF KINESIOLOGY Office Visit [facility] Endocrinology [address] [place] [address] Rosa Cortez MD [address] [place] [address] 11/12/2025 12:30 PM ASSOCIATE PROFESSOR OF KINESIOLOGY Office Visit [facility] Neurology [address] [facility] [address] [place] [address] Wallace Church MD [address] [place] [address] 11/25/2025 3:15 PM ASSOCIATE PROFESSOR OF KINESIOLOGY Office Visit [facility] Endocrinology [address] [place] [address] Rosa Cortez MD [address] [phone] 02/10/2026 11:15 AM CDT Office Visit [facility] Endocrinology [address] [place] [address] Rosa Cortez MD [address] [phone] documented as of this encounter Procedures Procedure Name Priority Date/Time Associated Diagnosis Comments HEMOGLOBIN A1C Routine 11/12/2004 9:25 AM ASSOCIATE PROFESSOR OF KINESIOLOGY HEPATIC FUNCTION PANEL Routine 11/12/2004 9:25 AM ASSOCIATE PROFESSOR OF KINESIOLOGY LIPID PANEL Routine 11/12/2004 9:25 AM ASSOCIATE PROFESSOR OF KINESIOLOGY documented in this encounter Results * (ABNORMAL) HEMOGLOBIN A1C (11/12/2004 9:25 AM ASSOCIATE PROFESSOR OF KINESIOLOGY) HEMOGLOBIN A1C 7.9(H) 3.9 - 6.1 % of Hgb INTERFACE SYSTEM Comment: Note: Analyzer upgraded from Mama Variant to Variant II. No change in methodology. GLUCOSE, MEAN BLOOD 177 mg/dL INTERFACE SYSTEM 11/12/2004 9:25 AM ASSOCIATE PROFESSOR OF KINESIOLOGY Wayne Duncan MD CHEMISTRY ORDERABLES Final Res ult Performing Organization Address [facility] de Phone Number INTERFACE SYSTEM Refer to clinic/hospital department * HEPATIC FUNCTION PANEL (11/12/2004 9:25 AM ASSOCIATE PROFESSOR OF KINESIOLOGY) AST 13 12 - 38 U/L INTERFACE SYSTEM ALKALINE PHOSPHATASE 86 40 - 129 U/L INTERFACE SYSTEM BILIRUBIN TOTAL 0.7 0.2 - 1.0 mg/dL INTERFACE SYSTEM ALBUMIN 4.1 3.4 - 4.8 g/dL INTERFACE SYSTEM TOTAL PROTEIN 7.0 6.3 - 8.6 g/dL INTERFACE SYSTEM ALT 24 0 - 41 U/L INTERFACE SYSTEM BILIRUBIN DIRECT 0.1 0.0 - 0.3 mg/dL INTERFACE SYSTEM 11/12/2004 9:25 AM ASSOCIATE PROFESSOR OF KINESIOLOGY Wayne Duncan MD CHEMISTRY ORDERABLES Final Res ult Performing Organization Address [facility] Phone Number INTERFACE SYSTEM Refer to clinic/hospital department * (ABNORMAL) LIPID PANEL (11/12/2004 9:25 AM ASSOCIATE PROFESSOR OF KINESIOLOGY) CHOLESTEROL 181 100 - 199 mg/dL INTERFACE [...] - 129 High >=130 11/12/2004 9:25 AM ASSOCIATE PROFESSOR OF KINESIOLOGY us Wayne Duncan MD CHEMISTRY ORDERABLES Final Res ult INTERFACE SYSTEM Refer to clinic/hospital department documented in this encounter Visit Diagnoses Diagnosis Other and unspecified hyperlipidemia- Primary documented in this encounter Care Teams Animal Skinner Relationship Specialty Start Date End Date Vinay Munoz MD [address] [place] [phone] PCP - General Family Practice 11/19/24 documented as of this encounter
--- OUTSIDE RECORDS SUMMARY | 2025-05-07 14:54 | XMS_ITS | Encounter Summary ---
Author Organization [facility] Address [address] [place] [address] Care Team Providers Care Violin Teacher Name Role Phone Vinay Munoz MD Primary Care Provider [phone] Encounter Details Date Type Department Care Team (Late st Contact Info) Description 01/24/2006 Orders Only [facility] [id number] [place] [address]. [address] [place] [address] Wayne Duncan MD [address] [place] [address] Social History Tobacco Use Types Packs/Day Years Used Date Smoking Tobacco: Never Assessed Sex and Gender Information Value Date Recorded Sex Assigned at Male 11/21/2023 3:02 PM RESTRIKE HAMMER OPERATOR Legal Sex Male 5:20 AM RESTRIKE HAMMER OPERATOR Gender Identity Male 11/21/2023 3:02 PM RESTRIKE HAMMER OPERATOR Sexual Orientation Straight 11/21/2023 3: 02 PM RESTRIKE HAMMER OPERATOR documented as of this encounter Progress [...] recently with some nasal congestion and frontal tadeo. the pt notes that he has tried some otc meds with variable success. CURRENT PROBLEM LIST: 250.00 DM TYPE II CONTROLLED 250.02 DM TYPE II UNCONTROLLED 272.4 HYPERLIPIDEMIA 300.00 ANXIETY 311 DEPRESSION 401.1 HYPERTENSION ESSENTIAL BENIGN 564.1 IRRITABLE BOWEL SYNDROME V58.69 FPC USE OF OTHER MEDICATION(S) CURRENT MEDICATION LIST: [...] subcutaneous nodules or tightening. NEUROLOGIC: CRANIAL NERVES: sheet rock sander II-XII grossly intact. PSYCHIATRIC: Judgment appropriate. Oriented. [...] status: CONTINUED, 01/24/2006. LAB ORDERS: Order number: [id number] Test Ordered: ALT 823 Order number: [id number] Test Ordered: LIPID PANEL 7600 Order number: [id number] Test Ordered: HEMOGLOBIN A1c 496 Order number: [id number] Test Ordered: MICROALBUMIN/CREATININE RATIO, RANDOM URINE 6517 Order number: [id number] Test Ordered: BASIC METABOLIC PANEL W/ GLOMERULAR FILTRATION RATE, ESTIMATED (EGFR) [id number] 272.4-HYPERLIPIDEMIA ASSESSMENT: Will not change medication, continue [...] Description 05/20/2025 10:15 AM CDT Office Visit [facility] Endocrinology [address] [place] [phone] Rosa Cortez MD [address] [address] 08/18/2025 3:15 PM RESTRIKE HAMMER OPERATOR Office Visit [facility] Endocrinology [address] [place] [address] Rosa Cortez MD [address] [address] 11/12/2025 12:30 PM RESTRIKE HAMMER OPERATOR Office Visit [facility] Neurology [address] [facility] [address] [place] [phone] Wallace Church MD [address] [facility] [address] [place] [address] 11/25/2025 3:15 PM RESTRIKE HAMMER OPERATOR Office Visit [facility] Endocrinology [address] [facility] [place] [address] Rosa Cortez MD [address] [place] [address] 02/10/2026 11:15 AM CDT Office Visit [facility] Endocrinology [address] [place] [address] Rosa Cortez MD [address] [place] [address] documented as of this encounter Visit Diagnoses Not on filedocumented in this encounter Care Teams Violin Teacher Relationship Specialty Start Date End Date Vinay Munoz MD [address] [place] [address] PCP - General Family Practice 11/19/24 documented as of this encounter
--- OUTSIDE RECORDS SUMMARY | 2025-05-07 14:54 | XMS_ITS | Encounter Summary ---
Author Organization [facility] Address [address] [place] [address] Care Team Providers Care Park Interpretive Specialist Name Role Phone Vinay Munoz MD Primary Care Provider Encounter Details Date Type Department Care Team (Latest Contact Info) Description 06/20/2008 Outpatient Historical [facility] Wayne Tucker MD [address] [place] [address] DM w/o Complication Type II, Uncontrolled Social History Tobacco Use Types Packs/Day Years Used Date Smoking Tobacco: Never Alcohol Use Standard Drinks/Week Comments Yes 0 (1 standard drink = 0.6 oz pur e alcohol) Sex and Gender Information Value Date Recorded Sex Assigned at Male 11/21/2023 3:02 PM RESOURCE COORDINATOR Legal Sex Male 5:20 AM RESOURCE COORDINATOR Gender Identity Male 11/21/2023 3:02 PM RESOURCE COORDINATOR Sexual Orientation Straight 11/21/2023 3: 02 PM RESOURCE COORDINATOR documented as of this encounter Plan of Treatment Upcoming Encounters Date Type Department Care Team (Late st Contact Info) Description 05/20/2025 10:15 AM CDT Office Visit [facility] Endocrinology [address] [place] [address] Rosa Cortez MD [address] [place] [address] 08/18/2025 3:15 PM RESOURCE COORDINATOR Office Visit [facility] Endocrinology [address] [place] [address] Rosa Cortez MD [address] [facility] [address] [place] [address] 11/12/2025 12:30 PM RESOURCE COORDINATOR Office Visit [facility] Neurology [address] [facility] [address] [place] [phone] Wallace Church MD [address] [facility] [address] [place] [address] 11/25/2025 3:15 PM RESOURCE COORDINATOR Office Visit [facility] Endocrinology [address] [place] [address] Rosa Cortez MD [address] [address] 02/10/2026 11:15 AM CDT Office Visit [facility] Endocrinology [address] [facility] [address] [place] [address] Rosa Cortez MD [address] [address] documented as of this encounter Visit Diagnoses Diagnosis Type II or unspecified type diabetes mellitus without mention of complication, uncontrolled documented in this encounter Care Teams Park Interpretive Specialist Relationship Specialty Start Date End Date Vinay Munoz MD [address] [place] [phone] PCP - General Family Practice 11/19/24 documented as of this encounter
--- OUTSIDE RECORDS SUMMARY | 2025-05-07 14:54 | XMS_ITS | Encounter Summary ---
Author Organization [facility] Address [address] [place] [address] Care Team Providers Care Core Cleaner Name Role Phone Vinay Munoz MD Primary Care Provider [phone] Encounter Details Date Type Department Care Team (Late st Contact Info) Description 10/26/2005 Outpatient Historical [facility] Internal Medicine [facility] [address] [place] [address] Wayne Duncan MD [address] [place] [address] Social History Tobacco Use Types Packs/Day Years Used Date Smoking Tobacco: Never Assessed Sex and Gender Information Value Date Recorded Sex Assigned at Male 11/21/2023 3:02 PM NEWS BROADCASTER Legal Sex Male 5:20 AM NEWS BROADCASTER Gender Identity Male 11/21/2023 3:02 PM NEWS BROADCASTER Sexual Orientation Straight 11/21/2023 3: 02 PM NEWS BROADCASTER documented as of this encounter Last Filed Vital Signs Vital Sign Reading Time Taken Comments Blood Pressure 156/100 10/26/2005 9:45 AM NEWS BROADCASTER Pulse 72 10/26/2005 9:45 AM NEWS BROADCASTER Temperature 35.4 C (95.8 F) 10/26/2005 9:45 AM NEWS BROADCASTER Respiratory Rate 12 10/26/2005 9:45 AM NEWS BROADCASTER Oxygen Saturation - - Inhaled Oxygen Concentration - - Weight 79.8 kg (176 lb) 10/26/2005 9:45 AM NEWS BROADCASTER Height 182.9 cm (6') 10/26/2005 9:45 AM NEWS BROADCASTER Body Mass Index 23.87 10/26/2005 9:45 AM NEWS BROADCASTER documented in this encounter Plan of Treatment Upcoming Encounters Date Type Department Care Team (Late st Contact Info) Description 05/20/2025 10:15 AM CDT Office Visit [facility] Endocrinology [address] [place] [address] Rosa Cortez MD [address] [place] [address] 08/18/2025 3:15 PM NEWS BROADCASTER Office Visit [facility] Endocrinology [address] [place] [address] Rosa Cortez MD [address] [place] [address] 11/12/2025 12:30 PM NEWS BROADCASTER Office Visit [facility] Neurology [address] [place] [address] [place] [address] Wallace Church MD [address] [place] [address] 11/25/2025 3:15 PM NEWS BROADCASTER Office Visit [facility] Endocrinology [address] [place] [address] Rosa Cortez MD [address] [address] 02/10/2026 11:15 AM CDT Office Visit [facility] Endocrinology [address] [place] [address] Rosa Cortez MD [address] [place] [address] documented as of this encounter Visit Diagnoses Not on filedocumented in this encounter Care Teams Core Cleaner Relationship Specialty Start Date End Date Vinay Munoz MD [address] [place] [address] PCP - General Family Practice 11/19/24 documented as of this encounter
--- OUTSIDE RECORDS SUMMARY | 2025-05-07 14:54 | XMS_ITS | Encounter Summary ---
Author Organization [facility] Address [address] [place] [address] Care Team Providers Care Bucket Operator Name Role Phone Vinay Munoz MD Primary Care Provider Encounter Details Date Type Department Care Team (Late st Contact Info) Description 09/17/2004 Outpatient Historical [facility] Internal Medicine [facility] [address] [facility] [address] [place] [address] Wayne Duncan MD [address] [place] [address] Social History Tobacco Use Types Packs/Day Years Used Date Smoking Tobacco: Never Assessed Sex and Gender Information Value Date Recorded Sex Assigned at Male 11/21/2023 3:02 PM OSS ARCHITECT Legal Sex Male 5:20 AM OSS ARCHITECT Gender Identity Male 11/21/2023 3:02 PM OSS ARCHITECT Sexual Orientation Straight 11/21/2023 3: 02 PM OSS ARCHITECT documented as of this encounter Plan of Treatment Upcoming Encounters Date Type Department Care Team (Late st Contact Info) Description 05/20/2025 10:15 AM CDT Office Visit [facility] Endocrinology [address] [place] [address] Rosa Cortez MD [address] [place] [address] 08/18/2025 3:15 PM OSS ARCHITECT Office Visit [facility] Endocrinology [address] [place] [address] Rosa Cortez MD [address] [place] [address] 11/12/2025 12:30 PM OSS ARCHITECT Office Visit [facility] Neurology [address] [place] [phone] Wallace Church MD [address] [place] [address] 11/25/2025 3:15 PM OSS ARCHITECT Office Visit [facility] Endocrinology [address] [place] [address] Rosa Cortez MD [address] [address] 02/10/2026 11:15 AM CDT Office Visit [facility] Endocrinology [address] [place] [address] Rosa Cortez MD [address] [address] documented as of this encounter Visit Diagnoses Not on filedocumented in this encounter Care Teams Bucket Operator Relationship Specialty Start Date End Date Vinay Munoz MD [address] [place] [phone] PCP - General Family Practice 11/19/24 documented as of this encounter
--- OUTSIDE RECORDS SUMMARY | 2025-05-07 14:54 | XMS_ITS | Encounter Summary ---
Author Organization [facility] Address [address] [place] [address] Care Team Providers Care School Bus Driver/Teacher Assistant Name Role Phone Vinay Munoz MD Primary Care Provider Encounter Details Date Type Department Care Team (Latest Contact Info) Description 04/19/2005 Outpatient Historical [facility], [address] Wayne Duncan MD [address] [place] [address] DIABETES MELLITUS TYPE II UNCONTR UNCOMPL (Primary Dx) Social History Tobacco Use Types Packs/Day Years Used Date Smoking Tobacco: Never Assessed Sex and Gender Information Value Date Recorded Sex Assigned at Male 11/21/2023 3:02 PM STRIPER MACHINE Legal Sex Male 5:20 AM STRIPER MACHINE Gender Identity Male 11/21/2023 3:02 PM STRIPER MACHINE Sexual Orientation Straight 11/21/2023 3: 02 PM STRIPER MACHINE documented as of this encounter Plan of Treatment Upcoming Encounters Date Type Department Care Team (Late st Contact Info) Description 05/20/2025 10:15 AM CDT Office Visit [facility] Endocrinology [address] [place] [address] Rosa Cortez MD [address] [place], [place] [phone] 08/18/2025 3:15 PM STRIPER MACHINE Office Visit [facility] Endocrinology [address] [place] [address] Rosa Cortez MD [address] [place] [address] 11/12/2025 12:30 PM STRIPER MACHINE Office Visit [facility] Neurology [address] [place] [phone] Wallace Church MD [address] [facility] [address] [place] [address] 11/25/2025 3:15 PM STRIPER MACHINE Office Visit [facility] Endocrinology [address] [place] [address] Rosa Cortez MD [address] [facility] [address] [place] [address] 02/10/2026 11:15 AM CDT Office Visit [facility] Endocrinology [address] [place] [address] Rosa Cortez MD [address] [id number] documented as of this encounter Procedures Procedure [...] ORDERABLES Final Res ult Performing Organization Address [facility] Co de Phone Number INTERFACE SYSTEM Refer to clinic/hospital department * (ABNORMAL) HEMOGLOBIN A1C (04/19/2005 9:28 AM CDT) HEMOGLOBIN A1C 8.1(H) 3.9 - 6.1 % of Hgb INTERFACE SYSTEM Comment: Note: Analyzer upgraded from ClearSlide Variant to Variant II. No change in [...] mg/dL INTERFACE SYSTEM 04/19/2005 9:28 AM CDT us Wayne Duncan MD CHEMISTRY ORDERABLES Final Res ult Performing Organization Address [facility] Phone Number INTERFACE SYSTEM Refer to [...] ORDERABLES Final Res ult Performing Organization Address [facility] Phone Number INTERFACE SYSTEM Refer to clinic/hospital department documented in this encounter Visit Diagnoses Diagnosis Type II or unspecified type diabetes mellitus without mention of complication, uncontrolled- Primary documented in this encounter Care Teams School Bus Driver/Teacher Assistant Relationship Specialty Start Date End Date Vinay Munoz MD [address] [place] [phone] PCP - General Family Practice 11/19/24 documented as of this encounter
--- OUTSIDE RECORDS SUMMARY | 2025-05-07 14:54 | XMS_ITS | Encounter Summary ---
Author Organization [facility] Address [address] [place] [address] Care Team Providers Care Upper Lining Cementer Name Role Phone Vinay Munoz MD Primary Care Provider Encounter Details Date Type Department Care Team (Latest Contact Info) Description 07/20/2005 Outpatient Historical [facility] Wayne Tucker MD [address] [place] [address] DIABETES MELLITUS TYPE II UNCONTR UNCOMPL (Primary Dx) Social History Tobacco Use Types Packs/Day Years Used Date Smoking Tobacco: Never Assessed Sex and Gender Information Value Date Recorded Sex Assigned at Male 11/21/2023 3:02 PM CLINICAL OUTCOMES MANAGER Legal Sex Male 5:20 AM CLINICAL OUTCOMES MANAGER Gender Identity Male 11/21/2023 3:02 PM CLINICAL OUTCOMES MANAGER Sexual Orientation Straight 11/21/2023 3: 02 PM CLINICAL OUTCOMES MANAGER documented as of this encounter Plan of Treatment Upcoming Encounters Date Type Department Care Team (Late st Contact Info) Description 05/20/2025 10:15 AM CDT Office Visit [facility] Endocrinology [address] [place] [address] Rosa Cortez MD [address] [place], [place] [phone] 08/18/2025 3:15 PM CLINICAL OUTCOMES MANAGER Office Visit [facility] Endocrinology [address] [place] [address] Rosa Cortez MD [address] [place] [address] 11/12/2025 12:30 PM CLINICAL OUTCOMES MANAGER Office Visit [facility] Neurology [address] [place] [phone] Wallace Church MD [address] [place] [address] 11/25/2025 3:15 PM CLINICAL OUTCOMES MANAGER Office Visit [facility] Endocrinology [address] [place] [address] Rosa Cortez MD [address] [facility] [address] [place], [place] [phone] 02/10/2026 11:15 AM CDT Office Visit [facility] Endocrinology [address] [place] [address] Rosa Cortez MD [address] [id number] documented as of this encounter Procedures Procedure Name Priority Date/Time Associated Diagnosis Comments PSA Routine 07/20/2005 9:59 AM CDT HEMOGLOBIN A1C Routine 07/20/2005 9:59 AM CDT BASIC METABOLIC PANEL Routine 07/20/2005 9:59 AM CDT documented in this encounter Results * PSA (07/20/2005 9:59 AM CDT) PSA 0.9 0.0 - 4.0 ng/mL INTERFACE SYSTEM Comment:Performed on Calastone70 System 07/20/2005 9:59 AM CDT Wayne Duncan MD CHEMISTRY ORDERABLES Final Res ult Performing Organization Address [facility] Phone Number INTERFACE SYSTEM Refer to clinic/hospital department * (ABNORMAL) HEMOGLOBIN A1C (07/20/2005 9:59 AM CDT) HEMOGLOBIN A1C 7.2(H) 3.9 - 6.1 % of Hgb INTERFACE SYSTEM Comment: Note: Analyzer upgraded from PollVaultr Variant to Variant II. No change in methodology. GLUCOSE, MEAN BLOOD 154 mg/dL INTERFACE SYSTEM 07/20/2005 9:59 AM CDT us Wayne Duncan MD CHEMISTRY ORDERABLES Final Res ult Performing Organization Address [facility] Phone Number INTERFACE SYSTEM Refer [...] mmol/L INTERFACE SYSTEM 07/20/2005 9:59 AM CDT us Wayne Duncan MD CHEMISTRY ORDERABLES Final Res ult Performing Organization Address [facility] Phone Number INTERFACE SYSTEM Refer to clinic/hospital department documented in this encounter Visit Diagnoses Diagnosis Type II or unspecified type diabetes mellitus without mention of complication, uncontrolled- Primary documented in this encounter Care Teams Upper Lining Cementer Relationship Specialty Start Date End Date Vinay Munoz MD [address] [place] [address] PCP - General Family Practice 11/19/24 documented as of this encounter
--- OUTSIDE RECORDS SUMMARY | 2025-05-07 14:54 | XMS_ITS | Encounter Summary ---
Author Organization [facility] Address [address] [place] [address] Care Team Providers Care Geospatial Image Analyst Name Role Phone Vinay Munoz MD Primary Care Provider [phone] Encounter Details Date Type Department Care Team (Latest Contact Info) Description 12/10/2008 Outpatient Historical [facility] Wayne Tucker MD [address] [place] [address] DM w/o Complication Type II, Uncontrolled Social History Tobacco Use Types Packs/Day Years Used Date Smoking Tobacco: Never Alcohol Use Standard Drinks/Week Comments Yes 0 (1 standard drink = 0.6 oz pur e alcohol) Sex and Gender Information Value Date Recorded Sex Assigned at Male 11/21/2023 3:02 PM BASIN TENDER Legal Sex Male 5:20 AM BASIN TENDER Gender Identity Male 11/21/2023 3:02 PM BASIN TENDER Sexual Orientation Straight 11/21/2023 3: 02 PM BASIN TENDER documented as of this encounter Plan of Treatment Upcoming Encounters Date Type Department Care Team (Late st Contact Info) Description 05/20/2025 10:15 AM CDT Office Visit [facility] Endocrinology [address] [place] [address] Rosa Cortez MD [address] [place] [address] 08/18/2025 3:15 PM BASIN TENDER Office Visit [facility] Endocrinology [address] [place] [address] Rosa Cortez MD [address] [facility] [address] [place] [address] 11/12/2025 12:30 PM BASIN TENDER Office Visit [facility] Neurology [address] [facility] [address] [place] [address] Wallace Church MD [address] [facility] [address] [place] [address] 11/25/2025 3:15 PM BASIN TENDER Office Visit [facility] Endocrinology [address] [place] [address] Rosa Cortez MD [address] [address] 02/10/2026 11:15 AM CDT Office Visit [facility] Endocrinology [address] [facility] [address] [place] [address] Rosa Cortez MD [address] [address] documented as of this encounter Visit Diagnoses Diagnosis Type II or unspecified type diabetes mellitus without mention of complication, uncontrolled documented in this encounter Care Teams Geospatial Image Analyst Relationship Specialty Start Date End Date Vinay Munoz MD [address] [place] [address] PCP - General Family Practice 11/19/24 documented as of this encounter
--- OUTSIDE RECORDS SUMMARY | 2025-05-07 14:54 | XMS_ITS | Encounter Summary ---
Author Organization [facility] Address [address] [place] [address] Care Team Providers Care Plant Sprayer Name Role Phone Vinay Munoz MD Primary Care Provider Encounter Details Date Type Department Care Team (Late st Contact Info) Description 02/01/2006 Outpatient Historical [facility] Internal Medicine [facility] [address] [facility] [address] [place] [address] Wayne Duncan MD [address] [place] [address] Social History Tobacco Use Types Packs/Day Years Used Date Smoking Tobacco: Never Assessed Sex and Gender Information Value Date Recorded Sex Assigned at Male 11/21/2023 3:02 PM CHARGE ENTRY Legal Sex Male 5:20 AM CHARGE ENTRY Gender Identity Male 11/21/2023 3:02 PM CHARGE ENTRY Sexual Orientation Straight 11/21/2023 3: 02 PM CHARGE ENTRY documented as of this encounter Plan of Treatment Upcoming Encounters Date Type Department Care Team (Late st Contact Info) Description 05/20/2025 10:15 AM CDT Office Visit [facility] Endocrinology [address] [place] [address] Rosa Cortez MD [address] [place] [address] 08/18/2025 3:15 PM CHARGE ENTRY Office Visit [facility] Endocrinology [address] [place] [address] Rosa Cortez MD [address] [place] [address] 11/12/2025 12:30 PM CHARGE ENTRY Office Visit [facility] Neurology [address] [place] [address] Wallace Church MD [address] [place] [address] 11/25/2025 3:15 PM CHARGE ENTRY Office Visit [facility] Endocrinology [address] [place] [address] Rosa Cortez MD [address] [address] 02/10/2026 11:15 AM CDT Office Visit [facility] Endocrinology [address] [place] [address] Rosa Cortez MD [address] [address] documented as of this encounter Visit Diagnoses Not on filedocumented in this encounter Care Teams Plant Sprayer Relationship Specialty Start Date End Date Vinay Munoz MD [address] [place] [phone] PCP - General Family Practice 11/19/24 documented as of this encounter
--- OUTSIDE RECORDS SUMMARY | 2025-05-07 14:54 | XMS_ITS | Encounter Summary ---
Author Organization [facility] Address [address] [place] [address] Care Team Providers Care Electrical Logger Name Role Phone Vinay Munoz MD Primary Care Provider [phone] Encounter Details Date Type Department Care Team (Late st Contact Info) Description 03/18/2025 Results Follow-Up [facility] Endocrinology [address] [place] [address] Rosa Cortez MD [address] [place], [place] [id number] HEMOGLOBIN A1C Social History Tobacco Use Types Packs/Day Years Used Date Smoking Tobacco: Former Cigarettes 1.5 14 Smokeless Tobacco: Never Comments:quit at the age 35 Alcohol Use Standard Drinks/Week Comments Yes 5.8 (1 standard drink = 0.6 oz p ure alcohol) daily 1 drink Sex and Gender Information Value Date Recorded Sex Assigned at Male 11/21/2023 3:02 PM CHECK AIRMAN Legal Sex Male 5:20 AM CHECK AIRMAN Gender Identity Male 11/21/2023 3:02 PM CHECK AIRMAN Sexual Orientation Straight 11/21/2023 3: 02 PM CHECK AIRMAN Occupation Industry Job Start Date Job End Date Not on file Not on file Not on file Not on file documented as of this encounter Plan of Treatment Upcoming Encounters Date Type Department Care Team (Late st Contact Info) Description 05/20/2025 10:15 AM CDT Office Visit [facility] Endocrinology [address] [place] [address] Rosa Cortez MD [address] [place] [address] 08/18/2025 3:15 PM CHECK AIRMAN Office Visit [facility] Endocrinology [address] [place] [address] Rosa Cortez MD [address] [place] [address] 11/12/2025 12:30 PM CHECK AIRMAN Office Visit [facility] Neurology [address] [facility] [address] [place] [address] Wallace Church MD [address] [place] [address] 11/25/2025 3:15 PM CHECK AIRMAN Office Visit [facility] Endocrinology [address] [place] [address] Rosa Cortez MD [address] [place] [address] 02/10/2026 11:15 AM CDT Office Visit [facility] Endocrinology [address] [place] [address] Rosa Cortez MD [address] [place] [address] documented as of this encounter Visit Diagnoses Not on filedocumented in this encounter Care Teams Electrical Logger Relationship Specialty Start Date End Date Vinay Munoz MD [address] [place] [address] PCP - General Family Practice 11/19/24 documented as of this encounter
--- OUTSIDE RECORDS SUMMARY | 2025-05-07 14:54 | XMS_ITS | Encounter Summary ---
Author Organization [facility] Address [address] [place] [address] Care Team Providers Care Quality Management Nurse Name Role Phone Vinay Munoz MD Primary Care Provider [phone] Encounter Details Date Type Department Care Team (Late st Contact Info) Description 07/12/2004 Outpatient Historical [facility] Internal Medicine [facility] [place] [address] [facility] [address] [place] [address] Wayne Duncan MD [address] [place] [address] Social History Tobacco Use Types Packs/Day Years Used Date Smoking Tobacco: Never Assessed Sex and Gender Information Value Date Recorded Sex Assigned at Male 11/21/2023 3:02 PM SALES SERVICE ROUTE MANAGER Legal Sex Male 5:20 AM SALES SERVICE ROUTE MANAGER Gender Identity Male 11/21/2023 3:02 PM SALES SERVICE ROUTE MANAGER Sexual Orientation Straight 11/21/2023 3: 02 PM SALES SERVICE ROUTE MANAGER documented as of this encounter Plan of Treatment Upcoming Encounters Date Type Department Care Team (Late st Contact Info) Description 05/20/2025 10:15 AM CDT Office Visit [facility] Endocrinology [address] [place] [address] Rosa Cortez MD [address] [place] [address] 08/18/2025 3:15 PM SALES SERVICE ROUTE MANAGER Office Visit [facility] Endocrinology [address] [place] [address] Rosa Cortez MD [address] [place] [address] 11/12/2025 12:30 PM SALES SERVICE ROUTE MANAGER Office Visit [facility] Neurology [address] [place] [address] Wallace Church MD [address] [place] [address] 11/25/2025 3:15 PM SALES SERVICE ROUTE MANAGER Office Visit [facility] Endocrinology [address] [place] [address] Rosa Cortez MD [address] [address] 02/10/2026 11:15 AM CDT Office Visit [facility] Endocrinology [address] [place] [address] Rosa Cortez MD [address] [address] documented as of this encounter Visit Diagnoses Not on filedocumented in this encounter Care Teams Quality Management Nurse Relationship Specialty Start Date End Date Vinay Munoz MD [address] [place] [address] PCP - General Family Practice 11/19/24 documented as of this encounter
--- OUTSIDE RECORDS SUMMARY | 2025-05-07 14:54 | XMS_ITS | Encounter Summary ---
Author Organization [facility] Address [address] [place] [address] Care Team Providers Care Weapons Electrical Engineering Officer Name Role Phone Vinay Munoz MD Primary Care Provider [phone] Encounter Details Date Type Department Care Team (Latest Contact Info) Description 01/24/2006 Outpatient Historical [facility] Internal Medicine [facility] [address] [facility] [address] [place] [address] Wayne Duncan MD [address] [place] [address] DM w/o Complication Type II (CMS/HCC) (Primary Dx) Social History Tobacco Use Types Packs/Day Years Used Date Smoking Tobacco: Never Assessed Sex and Gender Information Value Date Recorded Sex Assigned at Male 11/21/2023 3:02 PM ENVIRONMENTAL SERVICES FLOOR TECH Legal Sex Male 5:20 AM ENVIRONMENTAL SERVICES FLOOR TECH Gender Identity Male 11/21/2023 3:02 PM ENVIRONMENTAL SERVICES FLOOR TECH Sexual Orientation Straight 11/21/2023 3: 02 PM ENVIRONMENTAL SERVICES FLOOR TECH documented as of this encounter Plan of Treatment Upcoming Encounters Date Type Department Care Team (Late st Contact Info) Description 05/20/2025 10:15 AM CDT Office Visit [facility]3] Endocrinology [address] [place] [address] Rosa Cortez MD [address] [place] [address] 08/18/2025 3:15 PM ENVIRONMENTAL SERVICES FLOOR TECH Office Visit [facility]3] Endocrinology [address] [place] [address] Rosa Cortez MD [address] [place] [address] 11/12/2025 12:30 PM ENVIRONMENTAL SERVICES FLOOR TECH Office Visit [facility] Neurology [address] [place] [address] Wallace Church MD [address] [facility] [address] [place] [address] 11/25/2025 3:15 PM ENVIRONMENTAL SERVICES FLOOR TECH Office Visit [facility]3] Endocrinology [address] [place] [address] Rosa Cortez MD [address] [address] 02/10/2026 11:15 AM CDT Office Visit [facility]3] Endocrinology [address] [place] [address] Rosa Cortez MD [address] [address] documented as of this encounter Procedures Procedure [...] URINE ORDERABLES Final Result Performing Organization Address [facility] de Phone Number INTERFACE SYSTEM Refer to clinic/hospital department * ALT (01/24/2006 9:50 AM CDT) Pathologist [facility] ALT 18 0 - 41 U/L INTERFACE SYSTEM 01/24/2006 9:50 AM CDT Wayne Duncan MD CHEMISTRY ORDERABLES Final Res ult Performing Organization Address [facility] Phone Number INTERFACE SYSTEM Refer to clinic/hospital department * (ABNORMAL) LIPID PANEL (01/24/2006 9:50 AM CDT) Pathologist [facility] CHOLESTEROL 170 100 - 199 mg/dL INTERFACE [...] ORDERABLES Final Res ult Performing Organization Address [facility] Phone Number INTERFACE SYSTEM Refer to clinic/hospital department * (ABNORMAL) HEMOGLOBIN A1C (01/24/2006 9:50 AM CDT) HEMOGLOBIN A1C 7.1(H) 3.9 - 6.1 % of Hgb INTERFACE SYSTEM GLUCOSE, MEAN BLOOD 150 mg/dL INTERFACE SYSTEM 01/24/2006 9:50 AM CDT Wayne Duncan MD CHEMISTRY ORDERABLES Final Res ult Performing Organization Address [facility] Phone Number INTERFACE SYSTEM Refer to clinic/hospital department documented in this encounter Visit Diagnoses Diagnosis Type II or unspecified type diabetes mellitus without mention of complication, not stated as uncontrolled- Primary documented in this encounter Care Teams Weapons Electrical Engineering Officer Relationship Specialty Start Date End Date Vinay Munoz MD [address] [place] [address] PCP - General Family Practice 11/19/24 documented as of this encounter
--- OUTSIDE RECORDS SUMMARY | 2025-05-07 14:54 | XMS_ITS | Encounter Summary ---
Author Organization [facility] Address [address] [place] [address] Care Team Providers Care Dry Ice Machine Operator Name Role Phone Vinay Munoz MD Primary Care Provider [phone] Encounter Details Date Type Department Care Team (Latest Contact Info) Description 03/11/2009 Outpatient Historical [facility] Wayne Tucker MD [address] [place] [address] DM w/o Complication Type II, Uncontrolled Social History Tobacco Use Types Packs/Day Years Used Date Smoking Tobacco: Never Alcohol Use Standard Drinks/Week Comments Yes 0 (1 standard drink = 0.6 oz pur e alcohol) Sex and Gender Information Value Date Recorded Sex Assigned at Male 11/21/2023 3:02 PM BIODIESEL PRODUCTION ASSOCIATE Legal Sex Male 5:20 AM BIODIESEL PRODUCTION ASSOCIATE Gender Identity Male 11/21/2023 3:02 PM BIODIESEL PRODUCTION ASSOCIATE Sexual Orientation Straight 11/21/2023 3: 02 PM BIODIESEL PRODUCTION ASSOCIATE documented as of this encounter Plan of Treatment Upcoming Encounters Date Type Department Care Team (Late st Contact Info) Description 05/20/2025 10:15 AM CDT Office Visit [facility] Endocrinology [address] [place] [address] Rosa Cortez MD [address] [place] [address] 08/18/2025 3:15 PM BIODIESEL PRODUCTION ASSOCIATE Office Visit [facility] Endocrinology [address] [place] [address] Rosa Cortez MD [address] [facility] [address] [place] [address] 11/12/2025 12:30 PM BIODIESEL PRODUCTION ASSOCIATE Office Visit [facility] Neurology [address] [facility] [address] [place] [address] Wallace Church MD [address] [facility] [address] [place] [address] 11/25/2025 3:15 PM BIODIESEL PRODUCTION ASSOCIATE Office Visit [facility] Endocrinology [address] [place] [address] Rosa Cortez MD [address] [address] 02/10/2026 11:15 AM CDT Office Visit [facility] Endocrinology [address] [facility] [address] [place] [address] Rosa Cortez MD [address] [address] documented as of this encounter Visit Diagnoses Diagnosis Type II or unspecified type diabetes mellitus without mention of complication, uncontrolled documented in this encounter Care Teams Dry Ice Machine Operator Relationship Specialty Start Date End Date Vinay Munoz MD [address] [place] [address] PCP - General Family Practice 11/19/24 documented as of this encounter
--- OUTSIDE RECORDS SUMMARY | 2025-05-07 14:54 | XMS_ITS | Encounter Summary ---
Author Organization [facility] Address [address] [place] [address] Care Team Providers Care Lawn And Garden Technician Name Role Phone Vinay Munoz MD Primary Care Provider [phone] Encounter Details Date Type Department Care Team (Late st Contact Info) Description 07/20/2005 Outpatient Historical [facility] Internal Medicine [facility] [address] [facility] [address] [place] [address] Wayne Duncan MD [address] [place] [address] Social History Tobacco Use Types Packs/Day Years Used Date Smoking Tobacco: Never Assessed Sex and Gender Information Value Date Recorded Sex Assigned at Male 11/21/2023 3:02 PM MICROFICHE DUPLICATOR Legal Sex Male 5:20 AM MICROFICHE DUPLICATOR Gender Identity Male 11/21/2023 3:02 PM MICROFICHE DUPLICATOR Sexual Orientation Straight 11/21/2023 3: 02 PM MICROFICHE DUPLICATOR documented as of this encounter Last Filed [...] 9:15 AM CDT Height 181.6 cm (5' 11.5) 07/20/2005 9:15 AM CD T Body Mass Index 23.93 07/20/2005 9:15 AM CDT documented in this encounter Plan of Treatment Upcoming Encounters Date Type Department Care Team (Late st Contact Info) Description 05/20/2025 10:15 AM CDT Office Visit [facility] Endocrinology [address] [place] [address] Rosa Cortez MD [address] [place] [address] 08/18/2025 3:15 PM MICROFICHE DUPLICATOR Office Visit [facility] Endocrinology [address] [place] [address] Rosa Cortez MD [address] [place] [address] 11/12/2025 12:30 PM MICROFICHE DUPLICATOR Office Visit [facility] Neurology [address] [place] [phone] Wallace Church MD [address] [place] [address] 11/25/2025 3:15 PM MICROFICHE DUPLICATOR Office Visit [facility] Endocrinology [address] [place] [address] Rosa Cortez MD [address] [place] [address] 02/10/2026 11:15 AM CDT Office Visit [facility] Endocrinology [address] [place] [address] Rosa Cortez MD [address] [place] [address] documented as of this encounter Visit Diagnoses Not on filedocumented in this encounter Care Teams Lawn And Garden Technician Relationship Specialty Start Date End Date Vinay Munoz MD [address] [place] [address] PCP - General Family Practice 11/19/24 documented as of this encounter
--- OUTSIDE RECORDS SUMMARY | 2025-05-07 14:54 | XMS_ITS | Encounter Summary ---
Author Organization [facility] Address [address] [place] [address] Care Team Providers Care Rail Doweling Machine Operator Name Role Phone Vinay Munoz MD Primary Care Provider [phone] Encounter Details Date Type Department Care Team (Latest Contact Info) Description 08/12/2004 Outpatient Historical [facility] Rosedno Seay MD [address] [place] [address] CALCULUS OF KIDNEY (Primary Dx) Social History Tobacco Use Types Packs/Day Years Used Date Smoking Tobacco: Never Assessed Sex and Gender Information Value Date Recorded Sex Assigned at Male 11/21/2023 3:02 PM MEDICAL REGISTRAR Legal Sex Male 5:20 AM MEDICAL REGISTRAR Gender Identity Male 11/21/2023 3:02 PM MEDICAL REGISTRAR Sexual Orientation Straight 11/21/2023 3: 02 PM MEDICAL REGISTRAR documented as of this encounter Plan of Treatment Upcoming Encounters Date Type Department Care Team (Late st Contact Info) Description 05/20/2025 10:15 AM CDT Office Visit [facility] Endocrinology [address] [place] [address] Rosa Cortez MD [address] [place], [place] [address] 08/18/2025 3:15 PM MEDICAL REGISTRAR Office Visit [facility] Endocrinology [address] [place] [address] Rosa Cortez MD [address] [place] [address] 11/12/2025 12:30 PM MEDICAL REGISTRAR Office Visit [facility] Neurology [address] [place] [address] Wallace Church MD [address] [place] [address] 11/25/2025 3:15 PM MEDICAL REGISTRAR Office Visit [facility] Endocrinology [address] [place] [address] Rosa Cortez MD [address] [facility] [address] [address] 02/10/2026 11:15 AM CDT Office Visit [facility] Endocrinology [address] [place] [address] Rosa Cortez MD [address] [facility] [facility] [facility] [address] [phone] documented as of this encounter Visit Diagnoses Diagnosis Calculus of kidney- Primary documented in this encounter Care Teams Rail Doweling Machine Operator Relationship Specialty Start Date End Date Vinay Munoz MD [address] [place] [address] PCP - General Family Practice 11/19/24 documented as of this encounter
--- OUTSIDE RECORDS SUMMARY | 2025-05-07 14:54 | XMS_ITS | Encounter Summary ---
Author Organization [facility] Address [address] [place] [address] Care Team Providers Care Solo Truck Driver Name Role Phone Vinay Munoz MD Primary Care Provider Encounter Details Date Type Department Care Team (Late st Contact Info) Description 11/30/2004 Outpatient Historical [facility] Internal Medicine [facility] [address] [facility] [address] [place] [address] Wayne Duncan MD [address] [place] [address] Social History Tobacco Use Types Packs/Day Years Used Date Smoking Tobacco: Never Assessed Sex and Gender Information Value Date Recorded Sex Assigned at Male 11/21/2023 3:02 PM BALLET SOLOIST Legal Sex Male 5:20 AM BALLET SOLOIST Gender Identity Male 11/21/2023 3:02 PM BALLET SOLOIST Sexual Orientation Straight 11/21/2023 3: 02 PM BALLET SOLOIST documented as of this encounter Last Filed Vital Signs Vital Sign Reading Time Taken Comments Blood Pressure 156/94 11/30/2004 9:15 AM BALLET SOLOIST Pulse 88 11/30/2004 9:15 AM BALLET SOLOIST Temperature 35.1 C (95.1 F) 11/30/2004 9:15 AM BALLET SOLOIST Respiratory Rate 16 11/30/2004 9:15 AM BALLET SOLOIST Oxygen Saturation - - Inhaled Oxygen Concentration - - Weight 77.6 kg (171 lb) 11/30/2004 9:15 AM BALLET SOLOIST Height 182.9 cm (6') 11/30/2004 9:15 AM BALLET SOLOIST Body Mass Index 23.19 11/30/2004 9:15 AM BALLET SOLOIST documented in this encounter Plan of Treatment Upcoming Encounters Date Type Department Care Team (Late st Contact Info) Description 05/20/2025 10:15 AM CDT Office Visit [facility] Endocrinology [address] [place] [address] Rosa Cortez MD [address] [place] [address] 08/18/2025 3:15 PM BALLET SOLOIST Office Visit [facility] Endocrinology [address] [place] [address] Rosa Cortez MD [address] [place] [address] 11/12/2025 12:30 PM BALLET SOLOIST Office Visit [facility] Neurology [address] [place] [address] [place] [address] Wallace Church MD [address] [place] [address] 11/25/2025 3:15 PM BALLET SOLOIST Office Visit [facility] Endocrinology [address] [place] [address] Rosa Cortez MD [address] [address] 02/10/2026 11:15 AM CDT Office Visit [facility] Endocrinology [address] [place] [address] Rosa Cortez MD [address] [place] [address] documented as of this encounter Visit Diagnoses Not on filedocumented in this encounter Care Teams Solo Truck Driver Relationship Specialty Start Date End Date Vinay Munoz MD [address] [place] [address] PCP - General Family Practice 11/19/24 documented as of this encounter
--- OUTSIDE RECORDS SUMMARY | 2025-05-07 14:54 | XMS_ITS | Encounter Summary ---
Author Organization [facility] Address [address] [place] [address] Care Team Providers Care Butcher Helper Name Role Phone Vinay Munoz MD Primary Care Provider [phone] Encounter Details Date Type Department Care Team (Late st Contact Info) Description 08/09/2004 Outpatient Historical [facility] Internal Medicine [facility] [address] [facility] [address] [place] [address] Wayne Duncan MD [address] [place] [address] Social History Tobacco Use Types Packs/Day Years Used Date Smoking Tobacco: Never Assessed Sex and Gender Information Value Date Recorded Sex Assigned at Male 11/21/2023 3:02 PM MILL PLATFORM SUPERVISOR Legal Sex Male 5:20 AM MILL PLATFORM SUPERVISOR Gender Identity Male 11/21/2023 3:02 PM MILL PLATFORM SUPERVISOR Sexual Orientation Straight 11/21/2023 3: 02 PM MILL PLATFORM SUPERVISOR documented as of this encounter Plan of Treatment Upcoming Encounters Date Type Department Care Team (Late st Contact Info) Description 05/20/2025 10:15 AM CDT Office Visit [facility] Endocrinology [address] [place] [address] Rosa Cortez MD [address] [place] [address] 08/18/2025 3:15 PM MILL PLATFORM SUPERVISOR Office Visit [facility] Endocrinology [address] [place] [address] Rosa Cortez MD [address] [place] [address] 11/12/2025 12:30 PM MILL PLATFORM SUPERVISOR Office Visit [facility] Neurology [address] [place] [address] Wallace Church MD [address] [place] [address] 11/25/2025 3:15 PM MILL PLATFORM SUPERVISOR Office Visit [facility] Endocrinology [address] [place] [address] Rosa Cortez MD [address] [address] 02/10/2026 11:15 AM CDT Office Visit [facility] Endocrinology [address] [place] [address] Rosa Cortez MD [address] [address] documented as of this encounter Visit Diagnoses Not on filedocumented in this encounter Care Teams Butcher Helper Relationship Specialty Start Date End Date Vinay Munoz MD [address] [place] [phone] PCP - General Family Practice 11/19/24 documented as of this encounter
--- OUTSIDE RECORDS SUMMARY | 2025-05-07 14:54 | XMS_ITS | Encounter Summary ---
Author Organization [facility] Address [address] [place] [address] Care Team Providers Care Vp Delivery Name Role Phone Vinay Munoz MD Primary Care Provider Encounter Details Date Type Department Care Team (Late st Contact Info) Description 06/21/2004 Outpatient Historical [facility] Internal Medicine [facility] [address] [facility] [address] [place] [address] Wayne Duncan MD [address] [place] [address] Social History Tobacco Use Types Packs/Day Years Used Date Smoking Tobacco: Never Assessed Sex and Gender Information Value Date Recorded Sex Assigned at Male 11/21/2023 3:02 PM SEO PROFESSIONAL Legal Sex Male 5:20 AM SEO PROFESSIONAL Gender Identity Male 11/21/2023 3:02 PM SEO PROFESSIONAL Sexual Orientation Straight 11/21/2023 3: 02 PM SEO PROFESSIONAL documented as of this encounter Plan of Treatment Upcoming Encounters Date Type Department Care Team (Late st Contact Info) Description 05/20/2025 10:15 AM CDT Office Visit [facility] Endocrinology [address] [place] [address] Rosa Cortez MD [address] [place] [address] 08/18/2025 3:15 PM SEO PROFESSIONAL Office Visit [facility] Endocrinology [address] [place] [address] Rosa Cortez MD [address] [place] [address] 11/12/2025 12:30 PM SEO PROFESSIONAL Office Visit [facility] Neurology [address] [place] [address] Wallace Church MD [address] [place] [address] 11/25/2025 3:15 PM SEO PROFESSIONAL Office Visit [facility] Endocrinology [address] [place] [address] Rosa Cortez MD [address] [address] 02/10/2026 11:15 AM CDT Office Visit [facility] Endocrinology [address] [place] [address] Rosa Cortez MD [address] [address] documented as of this encounter Visit Diagnoses Not on filedocumented in this encounter Care Teams Vp Delivery Relationship Specialty Start Date End Date Vinay Munoz MD [address] [place] [address] PCP - General Family Practice 11/19/24 documented as of this encounter
--- OUTSIDE RECORDS SUMMARY | 2025-05-07 14:54 | XMS_ITS | Encounter Summary ---
Author Organization [facility] Address [address] [place] [address] Care Team Providers Care Manager Immunology Name Role Phone Vinay Munoz MD Primary Care Provider [phone] Encounter Details Date Type Department Care Team (Late st Contact Info) Description 04/19/2005 Outpatient Historical [facility] Internal Medicine [facility] [address] [facility] [address] [place] [address] Wayne Duncan MD [address] [place] [address] Social History Tobacco Use Types Packs/Day Years Used Date Smoking Tobacco: Never Assessed Sex and Gender Information Value Date Recorded Sex Assigned at Male 11/21/2023 3:02 PM AUTOMOTIVE SERVICE CASHIER Legal Sex Male 5:20 AM AUTOMOTIVE SERVICE CASHIER Gender Identity Male 11/21/2023 3:02 PM AUTOMOTIVE SERVICE CASHIER Sexual Orientation Straight 11/21/2023 3: 02 PM AUTOMOTIVE SERVICE CASHIER documented as of this encounter Last Filed [...] Description 05/20/2025 10:15 AM CDT Office Visit [facility] Endocrinology [address] [place] [address] Rosa Cortez MD [address] [place] [address] 08/18/2025 3:15 PM AUTOMOTIVE SERVICE CASHIER Office Visit [facility] Endocrinology [address] [place] [address] Rosa Cortez MD [address] [place] [address] 11/12/2025 12:30 PM AUTOMOTIVE SERVICE CASHIER Office Visit [facility] Neurology [address] [place] [address] Wallace Church MD [address] [place] [address] 11/25/2025 3:15 PM AUTOMOTIVE SERVICE CASHIER Office Visit [facility] Endocrinology [address] [place] [address] Rosa Cortez MD [address] [place] [address] 02/10/2026 11:15 AM CDT Office Visit [facility] Endocrinology [address] [place] [address] Rosa Cortez MD [address] [place] [address] documented as of this encounter Visit Diagnoses Not on filedocumented in this encounter Care Teams Manager Immunology Relationship Specialty Start Date End Date Vinay Munoz MD [address] [place] [address] PCP - General Family Practice 11/19/24 documented as of this encounter
--- OUTSIDE RECORDS SUMMARY | 2025-05-07 14:54 | XMS_ITS | Encounter Summary ---
Author Organization [facility] Address [address] [place] [address] Care Team Providers Care Senior Counsel Name Role Phone Vinay Munoz MD Primary Care Provider Encounter Details Date Type Department Care Team (Latest Contact Info) Description 12/27/2004 Outpatient Historical [facility] Wayne Chandler MD [address] [place] [address] DIABETES MELLITUS TYPE II-UNCOMPL (CMS/HCC) (Primary Dx) Social History Tobacco Use Types Packs/Day Years Used Date Smoking Tobacco: Never Assessed Sex and Gender Information Value Date Recorded Sex Assigned at Male 11/21/2023 3:02 PM ELECTRO MECHANICAL DESIGNER Legal Sex Male 5:20 AM ELECTRO MECHANICAL DESIGNER Gender Identity Male 11/21/2023 3:02 PM ELECTRO MECHANICAL DESIGNER Sexual Orientation Straight 11/21/2023 3: 02 PM ELECTRO MECHANICAL DESIGNER documented as of this encounter Plan of Treatment Upcoming Encounters Date Type Department Care Team (Late st Contact Info) Description 05/20/2025 10:15 AM CDT Office Visit [facility] Endocrinology [address] [place] [address] Rosa Cortez MD [address] [place] [address] 08/18/2025 3:15 PM ELECTRO MECHANICAL DESIGNER Office Visit [facility] Endocrinology [address] [place] [address] Rosa Cortez MD [address] [place] [address] 11/12/2025 12:30 PM ELECTRO MECHANICAL DESIGNER Office Visit [facility] Neurology [address] [place] [address] Wallace Church MD [address] [facility] [address] [facility] [address] [place] [address] 11/25/2025 3:15 PM ELECTRO MECHANICAL DESIGNER Office Visit [facility] Endocrinology [address] [facility] [address] [facility] [address] [place] [address] Rosa Cortez MD [address] [email or web address] [address] [place] [address] 02/10/2026 11:15 AM CDT Office Visit [facility] Endocrinology [address] [facility] [facility] [address] [place] [address] Rosa Cortez MD [address] [id number] documented as of this encounter Visit Diagnoses Diagnosis Type II or unspecified type diabetes mellitus without mention of complication, not stated as uncontrolled- Primary documented in this encounter Care Teams Senior Counsel Relationship Specialty Start Date End Date Vinay Munoz MD [address] [place] [address] PCP - General Family Practice 11/19/24 documented as of this encounter
--- OUTSIDE RECORDS SUMMARY | 2025-05-07 14:54 | XMS_ITS | Encounter Summary ---
Author Organization [facility] Address [address] [place] [address] Care Team Providers Care Industry Segment Specialist Name Role Phone Vinay Munoz MD Primary Care Provider [phone] Encounter Details Date Type Department Care Team (Late st Contact Info) Description 01/21/2008 Orders Only [facility] Diabetic [facility] [address] [place] [address]. [address] [place] [address] Wayne Duncan MD [address] [place] [address] Social History Tobacco Use Types Packs/Day Years Used Date Smoking Tobacco: Never Assessed Sex and Gender Information Value Date Recorded Sex Assigned at Male 11/21/2023 3:02 PM UNDERGROUND UTILITY LOCATOR Legal Sex Male 5:20 AM UNDERGROUND UTILITY LOCATOR Gender Identity Male 11/21/2023 3:02 PM UNDERGROUND UTILITY LOCATOR Sexual Orientation Straight 11/21/2023 3: 02 PM UNDERGROUND UTILITY LOCATOR documented as of this encounter Progress Notes * Wayne Duncan MD - 03/14/2008 10:16 AM CDT TIME:02:15 pm PATIENT`S HOME PHONE: PATIENT`S WORK PHONE: PATIENT`S INSURANCE: [employer] [facility] WHO TOOK THE CALL: [facility] INFORMATION LAST VISIT: 11-21-07 PCP: amari. WHO CALLED: Pharmacy called. PHARMACY NUMBER: [facility] mail to pt SECTION 1: REQUESTED ACTION [...] 05/20/2025 10:15 AM CDT Office Visit [facility] Endocrinology [address] [facility] [address] [place] [address] Rosa Cortez MD [address] [address] 08/18/2025 3:15 PM UNDERGROUND UTILITY LOCATOR Office Visit [facility] Endocrinology [address] [facility] [address] [facility] [place] [address] Rosa Cortez MD [address] [address] 11/12/2025 12:30 PM UNDERGROUND UTILITY LOCATOR Office Visit [facility] Neurology [address] [facility] [address] [place] [address] Wallace Church MD [address] [facility] [address] [place] [address] 11/25/2025 3:15 PM UNDERGROUND UTILITY LOCATOR Office Visit [facility] Endocrinology [address] [facility] [address] [place] [address] Rosa Cortez MD [address] [place] [address] 02/10/2026 11:15 AM CDT Office Visit [facility] Endocrinology [address] [place] [address] Rosa Cortez MD [address] [facility] [address] [place] [address] documented as of this encounter Visit Diagnoses Not on filedocumented in this encounter Care Teams Industry Segment Specialist Relationship Specialty Start Date End Date Vinay Munoz MD [address] [place] [address] PCP - General Family Practice 11/19/24 documented as of this encounter
--- OUTSIDE RECORDS SUMMARY | 2025-05-07 14:54 | XMS_ITS | Encounter Summary ---
Author Organization [facility] Address [address] [place] [address] Care Team Providers Care Crime Data Specialist Name Role Phone Vinay Munoz MD Primary Care Provider [phone] Encounter Details Date Type Department Care Team (Late st Contact Info) Description 01/24/2006 [facility]patient [facility] [address] [facility] [address] [place] [address] Wayne Duncan MD [address] [place] [address] Social History Tobacco Use Types Packs/Day Years Used Date Smoking Tobacco: Never Assessed Sex and Gender Information Value Date Recorded Sex Assigned at Male 11/21/2023 3:02 PM TECHNICAL OPERATOR Legal Sex Male 5:20 AM TECHNICAL OPERATOR Gender Identity Male 11/21/2023 3:02 PM TECHNICAL OPERATOR Sexual Orientation Straight 11/21/2023 3: 02 PM TECHNICAL OPERATOR documented as of this encounter Last Filed [...] Description 05/20/2025 10:15 AM CDT Office Visit [facility] Endocrinology [address] [place] [address] Rosa Cortez MD [address] [place] [address] 08/18/2025 3:15 PM TECHNICAL OPERATOR [facility] Visit [facility] End[facility]ology [address] [place] [address] Rosa Cortez MD [address] [place] [address] 11/12/2025 12:30 PM TECHNICAL OPERATOR Office Visit [facility] Neurology [address] [place] [address] Wallace Church MD [address] [place] [address] 11/25/2025 3:15 PM TECHNICAL OPERATOR Office Visit [facility] Endocrinology [address] [place] [address] Rosa Cortez MD [address] [place] [address] 02/10/2026 11:15 AM CDT Office Visit [facility] Endocrinology [address] [place] [address] Rosa Cortez MD [address] [place] [address] documented as of this encounter Visit Diagnoses Not on filedocumented in this encounter Care Teams Crime Data Specialist Relationship Specialty Start Date End Date Vinay Munoz MD [address] [place] [address] PCP - General Family Practice 11/19/24 documented as of this encounter
== END 2025-05-07 14:42 | disposition home or self-care (01) ==
DX: M47.816 Spondylosis without myelopathy or radiculopathy, lumbar region (principal); M47.817 Spondylosis without myelopathy or radiculopathy, lumbosacral region; S39.012A Strain of muscle, fascia and tendon of lower back, initial encounter
CPT/HCPCS: 72100